=== PATIENT | male | born 1975 | race African-American/Black ===

== ENCOUNTER 2016-12-20 20:51 | Inpatient (IN) | payer SELFPAY ==
[~2016-12-20] VITALS: Ht 162.6 cm; Wt 41.0 kg
[~2016-12-20 20:51] MED LIST: CHLO25CA PO; IBUP600 PO; Z.0.NO CURRENT MEDS
--- NOTE | 2016-12-20 21:05 | PD ---
Physical Exam Date Seen by Provider: Dec 20, 2016 Time Seen by Provider: 21:03 Narrative 41 yo male here for evaluation of lower leg swelling. Supposed to be on lasix. has been out of his meds. history of CHF. Per patient he doesn't know if he really has it and was as second opinion. SOB. No chest pain. Vitals stable in triage. Awaiting bed placement. [facility] Medical Record Reviewed: Yes Supervised Visit with BRIANNE: Philip Keita Dec 20, 2016 21:05
[2016-12-20 21:07] VITALS: BP 140/98; PULSE 132; RESP 18; TEMP 100.8; O2SAT 99
[2016-12-20] MEDS ORDERED: TRAM50TA PO (21:18)
[2016-12-20] MEDS ORDERED: CEPH500C PO (21:18)
--- NOTE | 2016-12-20 21:39 | RADRPT ---
EXAM DATE/TIME: 12/20/2016 21:23 [facility] COMPARISON: No previous studies available for comparison. INDICATIONS : Cough MEDICAL HISTORY : None. SURGICAL HISTORY : None. ENCOUNTER: Initial ACUITY: 1 day PAIN SCORE: 0/10 LOCATION: chest FINDINGS: Portable AP view of the chest demonstrates a normal-sized cardiac silhouette. No effusion, consolidat ion, or pneumothorax is visualized. The bones and soft tissues demonstrate no acute abnormality. CONCLUSION: No acute cardiopulmonary abnormality is identified. Roger Amato MD on December 20, 2016 at 21:37 Board Certified Radiologist. This report was verified electronically.
[2016-12-20 21:46] LABS: AUTOMATED NEUTROPHIL # 6.3 TH/MM3 (1.8-7.7); BASOPHIL % 0.3 % (0.0-2.0); EOSINOPHIL % 0.1 % (0.0-4.0); HEMATOCRIT 34.1 % (39.0-51.0); HEMO FLAGS DIFF FINAL; LYMPH % 11.2 % (9.0-44.0); LYMPHOCYTE # 0.9 TH/MM3 (1.0-4.8); MEAN CELL VOLUME 89.6 FL (80.0-100.0); MEAN CORPUSCULAR HEMOGLOBIN 30.1 PG (27.0-34.0); MEAN CORPUSCULAR HGB CONC 33.6 % (32.0-36.0); MONO % 11.4 % (0.0-8.0); PLATELET COUNT 217 TH/MM3 (150-450); RED BLOOD COUNT 3.81 MIL/MM3 (4.50-5.90); RED CELL DISTRIBUTION WIDTH 14.3 % (11.6-17.2); WHITE BLOOD COUNT 8.2 TH/MM3 (4.0-11.0)
[2016-12-20 21:55] LABS: APTT (PATIENT) 31.5 SEC (24.3-30.1); INTERNATIONAL NORMALIZED RATIO 0.9 RATIO
[2016-12-20] MEDS ORDERED: ACETAMINOPHEN 325 MG TAB PO ONE (22:00)
[2016-12-20] MEDS ORDERED: SODIUM CHLORID 0.9% 500 ML INJ 500 ML IV ONE (22:00)
[2016-12-20] MEDS ORDERED: ONDANSETRON HCL 4 MG/2 ML VIAL IV PUSH ONE (22:00)
[2016-12-20 22:02] LABS: ANION GAP 8 MEQ/L (5-15); AST (GOT) 43 U/L (15-37); BICARBONATE 28.7 MEQ/L (21.0-32.0); BLOOD UREA NITROGEN 11 MG/DL (7-18); CHLORIDE 93 MEQ/L (98-107); GLOMERULAR FILTRATION RATE 67 ML/MIN (>89); MAGNESIUM 1.6 MG/DL (1.5-2.5); POTASSIUM 3.7 MEQ/L (3.5-5.1); SODIUM (NA) 130 MEQ/L (136-145)
--- NOTE | 2016-12-20 22:03 | PD ---
HPI Chief Complaint: Edema Time Seen by Provider: 21:19 Travel History International Travel<30 days: No Contact w/Intl Traveler<30days: No Traveled to known affect area: No History of Present Illness HPI The patient is a 41 year old male who presents to the [facility] emergency department with a history of right foot pain and swelling that he reports began on Tuesday. The patient reports that he went to the emergency department at [facility] emergency room on Tuesday. The patient was diagnosed with an infection of the foot and was started on Keflex 500 mg 3 times a day and tramadol for pain. He reports that after taking the tramadol he's had nausea and vomiting twice. He reports that over the last week he's had 2-3 episodes in total of loose stool. He denies having any blood in his stool or black or tarry stools. He reports that he does have a history of gout in the remote past. The patient was concerned that his foot swelling may be related to congestive heart failure as 3-4 years ago he was admitted to the hospital related to shortness of breath and lower extremity edema diagnosed as congestive heart failure. He denies having a primary care physician. He is not currently taking any medications for congestive heart failure or hypertension. On review of systems, the patient was not aware that he had any fever, however he is febrile on arrival and tachycardic. He denies having any recent cough, congestion, neck pain, chest pain, abdominal pain, urinary symptoms, or neurologic symptoms. The patient reports that he normally drinks 6 beers per day. He reports that he did not drink any beer today as he has not been up and about. He denies any history of withdrawal symptoms in the past. The patient is noted to be tremulous on examination, however he reports that this is normal for him even when he does drink beer. The patient denies any trauma to his right foot. He reports that he did have an x-ray done yesterday that showed no evidence of fracture. He denies having an ultrasound to rule out a blood clot. [facility] Past Medical History Narrative Medical The patient's past medical history is significant for hypertension, history of congestive heart failure originally diagnosed 3-4 years ago. The patient reports that he saw his plateman Dr. Mccloud 3 months ago and was referred to another plateman to have a pacemaker placed. The patient reports that he would like a second opinion from another plateman before he has his pacemaker put in. He reports that he has had a cardiac catheterization that showed no evidence of coronary artery blockages. The patient reports having a history of gout. 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) Tetanus Vaccination: > 5 Years Influenza Vaccination: No Past Surgical History Oral Surgery: Yes (TOOTH REMOVAL WITH SUTURES) Other Surgery: Yes Social History Alcohol Use: Yes (SOCIALLY) Tobacco Use: No Substance Use: No Allergies-Medications (Allergen,Severity, Reaction): Coded Allergies: No Known Allergies (Verified , 12/20/16) Reported Meds & Prescriptions Reported Meds & Active Scripts Active Reported Tramadol (Tramadol HCl) 50 Mg Tab 50 Mg PO Q4H PRN Cephalexin 500 Mg Cap 500 Mg PO TID Review of Systems Except as stated in HPI: all other systems reviewed are Neg General / Constitutional: Positive: Fever Eyes: No: Visual changes HENT: No: Headaches, Congestion Cardiovascular: No: Chest Pain or Discomfort Respiratory: No: Cough, Shortness of Breath Gastrointestinal: Positive: Nausea, Vomiting, No: Abdominal Pain Genitourinary: No: Dysuria Musculoskeletal: Positive: Myalgias, Edema, Pain Skin: No Rash Neurologic: Positive: Tremor, No: Weakness, Focal Abnormalities, Headache, Change in Mentation, Slurred Speech, Sensory Disturbance Psychiatric: No: Depression Endocrine: No: Polydipsia Hematologic/Lymphatic: No: Easy Bruising Physical Exam Narrative General: The patient is a well-developed, thin appearing male in no acute distress. Head and Neck exam: Head is normocephalic atraumatic. Eyes: EOMI, pupils are equal round and reactive to light. Nose: Midline septum with pink mucous membranes Mouth: Dentition unremarkable. Moist mucus membranes. Posterior oropharynx is not erythematous. No tonsillar hypertrophy. Uvula midline. Airway patent. Neck: No palpable lymphadenopathy. No nuchal rigidity. No thyromegaly. Cardiovascular: Sinus tachycardia in the 120s without murmurs, gallops, or rubs. No pulse deficit to the extremities and simultaneous auscultation and palpation of his radial artery. Lungs: Clear to auscultation bilaterally. No wheezes, rhonchi, or rales. Abdomen: Soft, without tenderness to palpation in all 4 quadrants of the abdomen. No guarding, rebound, or rigidity. Normal bowel sounds are audible. No tenderness on palpation of McBurney's point. Extremities: No clubbing or cyanosis. The patient has 1+ edema of the right foot, trace of the left foot. The patient's right foot along the dorsal aspect and most prominent along the lateral aspect of the foot has erythema and tenderness on palpation. 2+ pulses in all 4 extremities. The patient has less than 3 second capillary refill, intact sensation over all digits. The patient has dry skin on the bottom of the right foot. No other open wounds. Back: No costovertebral angle tenderness to palpation. Neurologic Exam: Grossly nonfocal. Skin Exam: No rash noted. Intact skin that is warm and dry except for that which was mentioned above in the right foot exam. Data Data Last Documented VS Vital Signs Date Time Temp Pulse Resp B/P (MAP) Pulse Ox O2 Delivery O2 Flow Rate FiO2 12/20/16 21:07 100.8 132 18 140/98 (112) 99 Room Air Orders Orders Electrocardiogram (12/20/16 21:21) Complete Blood Count With Diff (12/20/16 21:21) Comprehensive Metabolic Panel (12/20/16 21:21) Creatine Kinase (Cpk) (12/20/16 21:21) Ckmb (Isoenzyme) Profile (12/20/16 21:21) Troponin I (12/20/16 21:21) B-Type Natriuretic Peptide (12/20/16 21:21) Lipase (12/20/16 21:21) Urinalysis - C+S If Indicated (12/20/16 21:21) Magnesium (Mg) (12/20/16 21:21) Thyroid Stimulating Hormone (12/20/16 21:21) Chest, Single Ap (12/20/16 21:21) Iv Access Insert/Monitor (12/20/16 21:21) Ecg Monitoring (12/20/16 21:21) Oximetry (12/20/16 21:21) Prothrombin Time / Inr (Pt) (12/20/16 21:22) Act Partial Throm Time (Ptt) (12/20/16 21:22) Blood Culture (12/20/16 21:45) Lactic Acid Sepsis Protocol (12/20/16 21:45) Us Leg Venous Doppler (12/20/16 21:48) Sodium Chlorid 0.9% 500 Ml Inj (Ns 500 M (12/20/16 22:00) Acetaminophen (Tylenol) (12/20/16 22:00) Ondansetron Inj (Zofran Inj) (12/20/16 22:00) CKMB (12/20/16 21:25) CKMB% (12/20/16 21:25) Piperacil-Tazo 3.375 Gm Premix (Zosyn 3. (12/20/16 23:15) Vancomycin Inj (Vancomycin Inj) (12/20/16 23:15) Admit Order (Ed Use Only) (12/20/16 23:36) Labs Laboratory Tests Test 12/20/16 21:25 12/20/16 21:58 White Blood Count 8.2 TH/MM3 Red Blood Count 3.81 MIL/MM3 Hemoglobin 11.5 GM/DL Hematocrit 34.1 % Mean Corpuscular Volume 89.6 FL Mean Corpuscular Hemoglobin 30.1 PG Mean Corpuscular Hemoglobin Concent 33.6 % Red Cell Distribution Width 14.3 % Platelet Count 217 TH/MM3 Mean Platelet Volume 8.9 FL Neutrophils (%) (Auto) 77.0 % Lymphocytes (%) (Auto) 11.2 % Monocytes (%) (Auto) 11.4 % Eosinophils (%) (Auto) 0.1 % Basophils (%) (Auto) 0.3 % Neutrophils # (Auto) 6.3 TH/MM3 Lymphocytes # (Auto) 0.9 TH/MM3 Monocytes # (Auto) 0.9 TH/MM3 Eosinophils # (Auto) 0.0 TH/MM3 Basophils # (Auto) 0.0 TH/MM3 CBC Comment DIFF FINAL Differential Comment Prothrombin Time 10.0 SEC Prothromb Time International Ratio 0.9 RATIO Activated Partial Thromboplast Time 31.5 SEC Blood Urea Nitrogen 11 MG/DL Creatinine 1.41 MG/DL Random Glucose 113 MG/DL Total Protein 7.5 GM/DL Albumin 2.1 GM/DL Calcium Level 8.5 MG/DL Magnesium Level 1.6 MG/DL Alkaline Phosphatase 132 U/L Aspartate Amino Transf (AST/SGOT) 43 U/L Alanine Aminotransferase (ALT/SGPT) 24 U/L Total Bilirubin 0.6 MG/DL Sodium Level 130 MEQ/L Potassium Level 3.7 MEQ/L Chloride Level 93 MEQ/L Carbon Dioxide Level 28.7 MEQ/L Anion Gap 8 MEQ/L Estimat Glomerular Filtration Rate 67 ML/MIN Total Creatine Kinase 333 U/L Creatine Kinase MB 2.8 NG/ML Creatine Kinase MB % 0.8 % Troponin I 0.03 NG/ML B-Type Natriuretic Peptide 445 PG/ML Lipase 185 U/L Free Thyroxine 0.84 NG/DL Thyroid Stimulating Hormone 3rd Gen 3.990 uIU/ML Lactic Acid Level 2.3 mmol/L [facility] Medical Decision Making Medical Screen Exam Complete: Yes Emergency Medical Condition: Yes Medical Record Reviewed: Yes Interpretation(s) Last Impressions Lower Extremity Ultrasound 12/20/162147 Signed Impressions: Service Date/Time: Tuesday, December 20, 2016 22:15 - CONCLUSION: No DVT is identified within the right lower extremity. Roger Amato MD Chest X-Ray 12/20/162120 Signed Impressions: Service Date/Time: Tuesday, December 20, 2016 21:23 - CONCLUSION: No acute cardiopulmonary abnormality is identified. Roger Amato MD Differential Diagnosis DVT, versus gout, versus cellulitis Narrative Course During the course of the patients emergency department visit, the patients history, examination, and differential diagnosis were reviewed with the patient. The patient had IV access obtained and blood work sent for analysis. The patient was placed on a quality assurance monitor with oximetry and blood pressure monitoring. An ECG was done on arrival. The patient's ECG shows a sinus tachycardia rate of 131, incomplete right bundle branch block, no acute ST segment elevation, ventricular hypertrophy criteria by voltage is met. The tachycardia may be related to the patient's elevated temperature of 100.8. A workup ensued for possible sepsis, however the patient was only judiciously hydrated due to his history of congestive heart failure. The patient was initially provided acetaminophen 650 by mouth 1, Zofran 4 mg IV , vancomycin 1 g IV, Zosyn 3.375 g IV. The patients laboratory studies were reviewed and remarkable for a white count of 8.2, hemoglobin 11.5, platelets 217 with 77 neutrophils, monocytes 11.4, PT 10, PTT 31.5, CMP is remarkable for sodium of 1:30, chloride 93, creatinine 1.41 , glucose 113, AST 43, alkaline phosphatase 132, CPK 333, MB percent 0.8, troponin I 0.03, BNP is elevated at 445, albumin 2.1, lipase 185, TSH 3.99, initial lactic acid is 2.3 Radiology studies were reviewed and remarkable for an ultrasound of the right lower extremity that shows no evidence of DVT. A chest x-ray that shows no acute cardiopulmonary abnormality. The patients results were discussed with the patient, including the plan of care. I explained that further testing and/ or monitoring is indicated based on the patients history, examination, and/ or laboratory findings. Therefore, I recommended admission for additional evaluation. The patient expressed understanding and was agreeable with this plan. The patient was admitted to the hospital in stable condition and sent to a [facility]. Sepsis Criteria SIRS Criteria (2 or more): Heart rate over 90 Sepsis Criteria (SIRS+source): Infect source susp/known Physician Communication Physician Communication The patient's case was discussed with Dr. Lindo who did agree to admit the patient for further evaluation and treatment at this time. Diagnosis Primary Impression: Cellulitis of right lower extremity Additional Impression: Failure of outpatient treatment Admitting Information Admitting Physician Requests: Admit Velma Wong MD Dec 20, 2016 22:03
[2016-12-20 22:14] LABS: ALKALINE PHOSPHATASE 132 U/L (45-117); ALT (GPT) 24 U/L (12-78); CREATINE KINASE 333 U/L (39-308); TOTAL BILIRUBIN ADULT 0.6 MG/DL (0.2-1.0)
[2016-12-20 22:26] LABS: CKMB 2.8 NG/ML (0.5-3.6)
--- NOTE | 2016-12-20 22:45 | RADRPT ---
EXAM DATE/TIME: 12/20/2016 22:15 [facility] COMPARISON: No previous studies available for comparison. INDICATIONS : Right leg swelling. MEDICAL HISTORY : Seizures. Congestive heart failure. Hearing loss. Depression. Anxiety. Dizziness. ETOH abuse. SURGICAL HISTORY : None. ENCOUNTER: Initial ACUITY: 1 week PAIN SCORE: 5/10 LOCATION: Right leg. TECHNIQUE: Venous ultrasound of the leg was performed from the inguinal ligament to the proximal calf. Real-margaret e, color Doppler and spectral tracing, compression and augmentation techniques were used. FINDINGS: There is normal compressibility of the deep venous system from the inguinal region to the proximal ca lf. No echogenic clot is seen in the lumen of the common femoral, femoral, popliteal, and posterior tibial veins. There is a normal response of the venous system to proximal and distal augmentation an d respiration. CONCLUSION: No DVT is identified within the right lower extremity. Roger Amato MD on December 20, 2016 at 22:43 Board Certified Radiologist. This report was verified electronically.
[2016-12-20] MEDS ORDERED: PIPERACIL-TAZO 3.375 GM PREMIX 50 ML IV ONE (23:15)
[2016-12-20] MEDS ORDERED: VANCOMYCIN INJ 1,000 MG in SODIUM CHLOR 0.9% 250 ML INJ 250 ML IV ONE (23:15)
[2016-12-21] VITALS (7 sets, daily range): BP systolic 133–149; BP diastolic 80–104; PULSE 103–136; RESP 14–18; TEMP 98.1–102.8; O2SAT 96–99
[2016-12-21 00:08] LABS: LACTIC ACID GHOST NOT REPORTABLE
[2016-12-21] MEDS ORDERED: ACETAMINOPHEN/HYDROcodone 325 MG/7.5 MG TAB PO PRN (01:15)
[2016-12-21] MEDS ORDERED: SODIUM CHLORIDE 0.9% FLUSH 10 ML FLUSH IV FLUSH PRN (01:15)
[2016-12-21] MEDS ORDERED: ACETAMINOPHEN/HYDROcodone 325 MG/5 MG TAB PO PRN (01:15)
[2016-12-21] MEDS ORDERED: Vancomycin Consult Pharmacy 1 EA OTHER SCH (01:15)
[2016-12-21] MEDS ORDERED: VANCOMYCIN INJ 1,000 MG in SODIUM CHLOR 0.9% 250 ML INJ 250 ML IV SCH (02:15)
[2016-12-21] MEDS: ENOXAPARIN SODIUM 30 MG/0.3 ML SYRINGE SQ SCH (03:26)
[2016-12-21] MEDS: SODIUM CHLORIDE 0.9% FLUSH 10 ML FLUSH IV FLUSH SCH ×2 (08:01→21:16)
--- NOTE | 2016-12-21 10:15 | HHI.HP ---
[facility] No Primary Care Physician Admission Diagnosis Right foot cellulitis, failed outpatient management Diagnoses: (1) Hypertension (2) Cellulitis of foot, right Chief Complaint: Right foot pain and swelling. Travel History International Travel<30 Days: No Contact w/Intl Traveler <30 Da: No Traveled to Known Affected Are: No Sepsis Criteria SIRS Criteria (2 or more): Temp > 100.9 or < 96.8, Heart rate over 90 Severe Sepsis (+one): Lactate >2 History of Present Illness Written by Lois Cartwright, acting as scribe for Dr. Connor on 12/21/16 at 10: 10. Mr. Lui is a 41-year old male with a known medical history of hypertension who presented to the ED with complaints of right foot pain and swelling. Patient states that he noticed swelling and pain in his right foot starting on Tuesday and presented to [facility] ED who prescribed him Keflex and tramadol for the pain. He does state he has had some abdominal discomfort and vomiting with antibiotic use. Denies any recent fevers at home, chills, cough, headache, dizziness, lightheadedness, shortness of breath, chest pain, palpitations, abdominal pain, nausea, vomiting, diarrhea or dysuria. Patient states that the swelling had begin to improve since Tuesday with antibiotic use but now he states it is starting to swelling again. Patient states he had a previous surgery on his right foot in the past but not sure what kind of surgery was done. Patient follows with Dr. Ame villa, for a questionable medical history of congestive heart failure and need for a pacemaker. He is a relatively poor historian regarding his medical history and history of treatment. At the moment patient heart rate is in the 140's-150's, sinus tachycardic, patient asymptomatic stating "his heart does this sometimes". Admits to following with Dr. Archibald in the outpatient setting but unaware of why , states he just knows "he isn't positive". Pain well controlled at this time. Admits to a positive gout history, not currently taking anything for it. Review of Systems Constitutional: COMPLAINS OF: Fever, Chills Eyes: DENIES: Blurred vision, Vision loss Respiratory: DENIES: Cough, Shortness of breath Cardiovascular: DENIES: Chest pain, Palpitations Gastrointestinal: DENIES: Black stools, Bloody stools, Constipation, Diarrhea, Nausea, Vomiting Musculoskeletal: DENIES: Joint pain Psychiatric: DENIES: Anxiety Except as stated in HPI: all other systems reviewed are Neg Past Family Social History Past Medical History Hypertension Questionable congestive heart failure. Past Surgical History Tooth extraction Right foot operation, unaware of type. Reported Medications Active Reported Tramadol (Tramadol HCl) 50 Mg Tab 50 Mg PO Q4H PRN Cephalexin 500 Mg Cap 500 Mg PO TID Allergies: Coded Allergies: No Known Allergies (Verified , 12/20/16) Active Ordered Medications Current Medications Medications (Trade) Dose Ordered Sig/Aliya Route Start Time Stop Time Status Last Admin (NS Flush) 2 ml BID IV FLUSH 12/21/16 09:00 12/21/16 08:01 (NS Flush) 2 ml UNSCH PRN IV FLUSH 12/21/16 01:15 Pharmacy Profile Note 0 ml @ 0 mls/hr UNSCH OTHER 12/21/16 01:15 ([place] 5-325 Mg) 1 tab Q4H PRN PO 12/21/16 01:15 ([place] 7.5-325 Mg) 1 tab Q4H PRN PO 12/21/16 01:15 (Lovenox Inj) 30 mg Q24H SQ 12/21/16 02:00 12/21/16 03:26 Vancomycin HCl 750 mg/Sodium Chloride 257.5 ml @ 250 mls/hr Q18H IV 12/21/16 18:00 Miscellaneous Information SPECIFIC LAB TO BE DRAWN:VANCOMYCIN TROUGH DATE TO... ONCE ONCE .XX 12/23/16 05:45 12/23/16 05:46 Family History Denies any significant family medical history. Social History Patient denies any current tobacco use. Does admit to drinking a 6 pack of beer a week. Denies any illicit drug use. Physical Exam Vital Signs Vital Signs Date Time Temp Pulse Resp B/P (MAP) Pulse Ox O2 Delivery O2 Flow Rate FiO2 12/21/16 08:12 99.0 111 17 135/88 (104) 98 12/21/16 04:00 100.0 103 16 141/85 (103) 96 12/21/16 02:38 12/21/16 02:00 102.3 110 14 133/80 (97) 99 Room Air 12/20/16 21:07 100.8 132 18 140/98 (112) 99 Room Air Physical Exam GENERAL: This is a well-developed, thin appearing male patient, lying in bed in no apparent distress. SKIN: No rashes, ecchymoses or lesions. Warm and dry. Right foot swelling and erythema, 1+ edema. HEENT: Atraumatic. Normocephalic. Pupils equal round and reactive. Extraocular motions intact. No scleral icterus. No injection or drainage. Nose without bleeding. Throat without erythema. Uvula midline. Airway patent. NECK: Trachea midline. No JVD. Supple. CARDIOVASCULAR: Sinus tachycardic. No murmurs, gallops, or rubs. RESPIRATORY: Clear to auscultation. Breath sounds equal bilaterally. No wheezes , rales, or rhonchi. GASTROINTESTINAL: Abdomen soft, non-tender, nondistended. No guarding. MUSCULOSKELETAL: Extremities without clubbing, cyanosis, or edema. No joint tenderness, effusion, or edema noted. NEUROLOGICAL: Awake and alert. Cranial nerves II through XII intact. Motor and sensory grossly within normal limits. Five out of 5 muscle strength in all muscle groups. Normal speech. Laboratory Laboratory Tests Test 12/20/16 21:25 12/20/16 21:58 12/21/16 01:10 White Blood Count 8.2 Red Blood Count 3.81 Hemoglobin 11.5 Hematocrit 34.1 Mean Corpuscular Volume 89.6 Mean Corpuscular Hemoglobin 30.1 Mean Corpuscular Hemoglobin Concent 33.6 Red Cell Distribution Width 14.3 Platelet Count 217 Mean Platelet Volume 8.9 Neutrophils (%) (Auto) 77.0 Lymphocytes (%) (Auto) 11.2 Monocytes (%) (Auto) 11.4 Eosinophils (%) (Auto) 0.1 Basophils (%) (Auto) 0.3 Neutrophils # (Auto) 6.3 Lymphocytes # (Auto) 0.9 Monocytes # (Auto) 0.9 Eosinophils # (Auto) 0.0 Basophils # (Auto) 0.0 CBC Comment DIFF FINAL Differential Comment Prothrombin Time 10.0 Prothromb Time International Ratio 0.9 Activated Partial Thromboplast Time 31.5 Blood Urea Nitrogen 11 Creatinine 1.41 Random Glucose 113 Total Protein 7.5 Albumin 2.1 Calcium Level 8.5 Magnesium Level 1.6 Alkaline Phosphatase 132 Aspartate Amino Transf (AST/SGOT) 43 Alanine Aminotransferase (ALT/SGPT) 24 Total Bilirubin 0.6 Sodium Level 130 Potassium Level 3.7 Chloride Level 93 Carbon Dioxide Level 28.7 Anion Gap 8 Estimat Glomerular Filtration Rate 67 Total Creatine Kinase 333 Creatine Kinase MB 2.8 Creatine Kinase MB % 0.8 Troponin I 0.03 B-Type Natriuretic Peptide 445 Lipase 185 Free Thyroxine 0.84 Thyroid Stimulating Hormone 3rd Gen 3.990 Lactic Acid Level 2.3 1.8 Date/Time Source Procedure Growth Status 12/20/16 21:58 Blood Peripheral Aerobic Blood Culture Pending Received 12/20/16 21:58 Blood Peripheral Anaerobic Blood Culture Pending Received Result Diagram: 12/20/16212412/20/162124 Imaging Last Impressions Lower Extremity Ultrasound 12/20/162147 Signed Impressions: Service Date/Time: Tuesday, December 20, 2016 22:15 - CONCLUSION: No DVT is identified within the right lower extremity. Roger Amato MD Chest X-Ray 12/20/162120 Signed Impressions: Service Date/Time: Tuesday, December 20, 2016 21:23 - CONCLUSION: No acute cardiopulmonary abnormality is identified. Roger Amato MD Septic Shock Reassessment Heart: Other (tachycardic) Lungs: Clear Skin: Warm Peripheral Pulses: Bounding Right Radial Bounding Left Radial Capillary Refill: Brisk, <2 seconds Caprini VTE Risk Assessment Caprini VTE Risk Assessment: No/Low Risk (score <= 1) Caprini Risk Assessment Model Point Value = 1 Point Value = 2 Point Value = 3 Point Value = 5 Age 41-60 Minor surgery BMI > 25 kg/m2 Swollen legs Varicose veins or History of unexplained or recurrent spontaneous Oral contraceptives or hormone replacement Sepsis (< 1 month) Serious lung disease, including pneumonia (< 1 month) Abnormal pulmonary function Acute myocardial infarction Congestive heart failure (< 1 month) History of inflammatory bowel disease Medical patient at bed rest Age 61-74 Arthroscopic surgery Major open surgery (> 45 min) Laparoscopic surgery (> 45 min) Malignancy Confined to bed (> 72 hours) Immobilizing plaster cast Central venous access Age >= 75 History of VTE Family history of VTE Factor V Leiden Prothrombin 24161A Lupus anticoagulant Anticardiolipin antibodies Elevated serum homocysteine Heparin-induced thrombocytopenia Other congenital or acquired thrombophilia Stroke (< 1 month) Elective arthroplasty Hip, pelvis, or leg fracture Acute spinal cord injury (< 1 month) Prophylaxis Regimen Total Risk Factor Score Risk Level Prophylaxis Regimen 0-1 Low Early ambulation 2 Moderate Order ONE of the following: *Sequential Compression Device (SCD) *Heparin 5000 units SQ BID 3-4 Higher Order ONE of the following medications: *Heparin 5000 units SQ TID *Enoxaparin/Lovenox 40 mg SQ daily (WT < 150 kg, CrCl > 30 mL/min) *Enoxaparin/Lovenox 30 mg SQ daily (WT < 150 kg, CrCl > 10-29 mL/min) *Enoxaparin/Lovenox 30 mg SQ BID (WT < 150 kg, CrCl > 30 mL/min) AND/OR *Sequential Compression Device (SCD) 5 or more Highest Order ONE of the following medications: *Heparin 5000 units SQ TID (Preferred with Epidurals) *Enoxaparin/Lovenox 40 mg SQ daily (WT < 150 kg, CrCl > 30 mL/min) *Enoxaparin/Lovenox 30 mg SQ daily (WT < 150 kg, CrCl > 10-29 mL/min) *Enoxaparin/Lovenox 30 mg SQ BID (WT < 150 kg, CrCl > 30 mL/min) AND *Sequential Compression Device (SCD) Assessment and Plan Assessment and Plan Mr. Lui is a 41-year old male with a known medical history of hypertension who presented to the ED with complaints of right foot pain and swelling. Patient states that he noticed swelling and pain in his right foot starting on Tuesday and presented to [facility] ED who prescribed him Keflex and tramadol for the pain. Sepsis secondary to right foot swelling and erythema and pain, rule out cellulitis (tachycardia 130's-150's, TMAX 102, Lactic 2.3). - Lower extremity ultrasound reviewed showing no DVT. CXR reviewed showing no acute disease. - Lactic acid 2.3 --> 1.8. - Afebrile. Monitor fevers. Blood cultures done and pending, follow. - Vanco 1 g x 1 given in ED. Zosyn IV x 1 given in ED. Placed on Vancomycin 750 mg IV q18 hr. Pharmacy consulted for renal dosing. - Control pain, [place] PO available PRN per pain scale. Sustained sinus tachycardia Questionable CHF history - EKG reviewed showing sinus tachycardia, no ST segment changes. - Consult placed to cardiology, appreciate recommendations. Patient has a questionable history of CHF and unaware if Dr. Mccloud recommended pacemaker for him , patient poor historian regarding medical history. - BNP obtained, 445 on presentation. 2-D ECHO ordered and pending. Follow. - Continue cardiac telemetry, monitor. SARTHAK vs CKD?: Previous labs reviewed, creatinine 1.4 in 2010, currently 1.41. Will follow BMP. Follow ECHO results regarding possible CHF history. DVT Prophylaxis: SCDs. Lovenox. This note was transcribed by deonte Cartwright. I, Dr. Monster Connor personally performed the history, physical exam, and medical decision making; and confirmed the accuracy of the information in the transcribed note. Authenticated by Dr. Monster Connor on 12/21/16 at 11:36. Physician Certification 2 Midnight Certification Type: Admission for Inpatient Services Order for Inpatient Services The services are ordered in accordance with Medicare regulations or non- Medicare payer requirements, as applicable. In the case of services not specified as inpatient-only, they are appropriately provided as inpatient services in accordance with the 2-midnight benchmark. Estimated LOS (days): 2 2 days is the estimated time the patient will need to remain in the hospital, assuming treatment plan goals are met and no additional complications. Post-Hospital Plan: Home Lois Cartwright Dec 21, 2016 10:15 Monster Connor MD Dec 21, 2016 11:37
--- NOTE | 2016-12-21 13:02 | EKG ---
Date Performed: 12/20/2016 Time Performed: 21:37:56 PTAGE: 41 years EKG: SINUS TACHYCARDIA Right atrial abnormality Left ventricular hypertrophy with repolarization changes PREVIOUS TRACING 02/08/2011 Repolarization changes are different appearing from the prio r tracing. Right atrial abnormality is new. DOCTOR: Reji Wong Interpretating Date/Time 12/21/2016 13:51:34
[2016-12-21 16:17] LABS: BLOOD, URINE MOD (NEG); COMMENT (UR) CULT NOT INDICATED; CULTURE IF INDICATED CULT NOT INDICATED; GLUCOSE,URINE NEG (NEG); KETONE, URINE NEG (NEG); NITRITE,URINE NEG (NEG); PH, URINE 6.5 (5.0-8.5); URINE COLOR YELLOW (YELLW/STRAW)
--- NOTE | 2016-12-21 17:02 | MB ---
cc: DANNY BREWSTER DATE OF CONSULTATION 12/21/16 REASON FOR CONSULTATION Tachycardia HISTORY OF PRESENT ILLNESS This is a 41-year-old gentleman with history of hypertension who presented with right foot pain and swelling. The patient states he has no prior history of known heart disease, arrhythmias or chest pain. He presented back on Tuesday to [facility] emergency department. While there, he was treated for right foot cellulitis with Keflex and pain meds. The patient follows with Dr. Mccloud as an outpatient. He has an apparent history of maybe some congestive heart failure and states that on occasions heart rates have been fast, but he has never been told he has had an arrhythmia. His court monitor showed heart rates anywhere from 110 up to 150 beats per minute and is read as sinus tachycardia. Denies any chest pain. PAST MEDICAL HISTORY Hypertension MEDICATIONS 1. Tramadol 2. Cephalexin ALLERGIES NO KNOWN DRUG ALLERGIES. FAMILY HISTORY Denies any family history of early cardiac disease or sudden cardiac . SOCIAL HISTORY He does report drinks a six-pack of beer a week and denies tobacco use. PHYSICAL EXAMINATION VITAL SIGNS: Temperature 98, heart rate 108, blood pressure 142/87 mmHg. GENERAL: Alert and oriented x3 in no acute distress. HEENT: Pupils reactive to light and accommodation, extraocular movements are intact. No jugular venous distension. No thyromegaly or lymphadenopathy. No carotid bruits. LUNGS: Clear to auscultation bilaterally. CARDIOVASCULAR: Regular, tachycardic. No rubs or gallops. ABDOMEN: Nontender, nondistended. Good bowel sounds. No hepatosplenomegaly. EXTREMITIES: No clubbing, cyanosis or edema. Good peripheral pulses. NEUROLOGIC: Cranial nerves intact. Motor sensory grossly intact. LABORATORY DATA Sodium 138, potassium 3.7, chloride 93, BUN 11, creatinine is 1.41, troponin is negative. TSH 3.99, but free T4 0.84, INR 0.9. WBC 8.2, hemoglobin 11.5, platelet count 217. CARDIOLOGY STUDIES Electrocardiogram shows sinus tachycardia versus atrial flutter with 2:1 block. With faster rates there is a slight change in the repolarization in the lateral leads. There is also evidence of LVH with strain pattern. ASSESSMENT 1. Tachycardia. 2. Abnormal electrocardiogram. PLAN The patient is comfortable just lying in bed. He denies any syncopal symptoms, any lightheadedness. It is hard to appreciate any flutter in the background, but his heart rate is likely not sinus mechanism due to an appropriate rate. Could be is atrial tach, although I think that there may be T wave buried in the ST-segment. It does not look like he has active sepsis or no symptoms of shortness of breath or chest pain that suggest pulmonary embolism. I will add beta papito to see if we can slow him down and appreciate whether there is or is not flutter wave. He has a 2-D echocardiogram ordered. He reports drinking only six beers a week, so I do not think this is cardiomyopathy induced. His labs would actually suggest that he is slightly prerenal, so we are going to go ahead and give him some IV hydration. MD GARRY Barnard/ /4:26 PM /4:41 PM
[2016-12-21] MEDS: SODIUM CHLOR 0.9% 1000 ML INJ 1,000 ML IV SCH (17:07)
[2016-12-21] MEDS ORDERED: VANCOMYCIN INJ 750 MG in SODIUM CHLOR 0.9% 250 ML INJ 250 ML IV SCH (18:00)
[2016-12-21] MEDS: METOPROLOL TARTRATE 50 MG TAB PO SCH (21:16)
[2016-12-22] VITALS (7 sets, daily range): BP systolic 110–150; BP diastolic 60–98; PULSE 90–139; RESP 16–20; TEMP 98.1–100.1; O2SAT 97–100
[2016-12-22] MEDS: SODIUM CHLOR 0.9% 1000 ML INJ 1,000 ML IV SCH ×2 (01:43→12:05)
[2016-12-22] MEDS: ENOXAPARIN SODIUM 30 MG/0.3 ML SYRINGE SQ SCH (01:43)
[2016-12-22] MEDS ORDERED: HALOPERIDOL LACTATE 5 MG/ML AMP IV PUSH ONE (04:15)
[2016-12-22] MEDS ORDERED: LORazepam 2 MG/ML VIAL IV PUSH ONE (04:15)
[2016-12-22] MEDS: SODIUM CHLORIDE 0.9% FLUSH 10 ML FLUSH IV FLUSH SCH ×2 (07:26→22:00)
--- NOTE | 2016-12-22 07:52 | PD.CARD.PN ---
Subjective Subjective Remarks no complaints Objective Medications Active Medications Aspirin (Aspirin) 325 mg DAILY PO; Start 12/22/16 at 09:00 Haloperidol Lactate (Haldol Inj) 2 mg ONCE ONCE IV PUSH Last administered on 04:27; Admin Dose 2 MG; Start 12/22/16 at 04:15; Stop 12/22/16 at 04:16 ; Status DC Lorazepam (Ativan Inj) 1 mg Q2H PRN IV PUSH; Start 12/22/16 at 04:15 Lorazepam (Ativan Inj) 2 mg ONCE ONCE IV PUSH Last administered on 12/22/16 04 :27; Admin Dose 2 MG; Start 12/22/16 at 04:15; Stop 12/22/16 at 04:16; Status DC Metoprolol Tartrate (Lopressor) 50 mg Q12HR PO Last administered on 12/21/16 21 :16; Admin Dose 50 MG; Start 12/21/16 at 21:00 Miscellaneous Information SPECIFIC LAB TO BE DRAWN:VANCOMYCIN TROUGH DATE TO... ONCE ONCE .XX; Start 12/23/16 at 05:45; Stop 12/23/16 at 05:46 Sodium Chloride 1,000 ml @ 100 mls/hr Q10H IV Last administered on 12/21/16 17 :07; Admin Dose 100 MLS/HR; Start 12/21/16 at 17:00; Stop 12/22/16 at 16:59 Sodium Chloride (NS Flush) 2 ml BID IV FLUSH Last administered on 12/22/16 07: 26; Admin Dose 2 ML; Start 12/21/16 at 09:00 Vancomycin HCl 750 mg/Sodium Chloride 257.5 ml @ 250 mls/hr Q18H IV Last administered on 12/21/16 17:07; Admin Dose 250 MLS/HR; Start 12/21/16 at 18:00 Vital Signs / I&O Vital Signs Date Time Temp Pulse Resp B/P (MAP) Pulse Ox O2 Delivery O2 Flow Rate FiO2 12/22/16 04:00 98.5 105 18 134/84 (101) 97 12/22/16 00:00 100.1 107 18 150/98 (115) 99 12/21/16 20:27 98.1 136 18 149/104 (119) 98 12/21/16 20:00 117 12/21/16 16:25 99.1 121 18 146/88 (107) 99 12/21/16 12:09 98.8 108 17 142/87 (105) 98 12/21/16 08:12 99.0 111 17 135/88 (104) 98 I/O 12/21/16 12/21/16 12/21/16 12/22/16 12/22/16 12/22/16 07:00 15:00 23:00 07:00 15:00 23:00 Intake Total 1040 ml 600 ml Output Total 1200 ml Balance 1040 ml -600 ml Intake Oral 240 ml 600 ml IV Total 800 ml Output Urine Total 1200 ml # Voids 1 0 # Bowel Movements 1 Physical Exam GENERAL: SKIN: Warm and dry. HEAD: Normocephalic. EYES: No scleral icterus. No injection or drainage. NECK: Supple, trachea midline. No JVD or lymphadenopathy. CARDIOVASCULAR: Regular rate and rhythm without murmurs, gallops, or rubs. RESPIRATORY: Breath sounds equal bilaterally. No accessory muscle use. GASTROINTESTINAL: Abdomen soft, non-tender, nondistended. MUSCULOSKELETAL: No cyanosis, or edema. BACK: Nontender without obvious deformity. No CVA tenderness. Laboratory Laboratory Tests Test 12/21/16 14:10 Urine Color YELLOW Urine Turbidity CLEAR Urine pH 6.5 Urine Specific [place] 1.007 Urine Protein 100 mg/dL Urine Glucose (UA) NEG mg/dL Urine Ketones NEG mg/dL Urine Occult Blood MOD Urine Nitrite NEG Urine Bilirubin NEG Urine Urobilinogen 2.0 MG/DL Urine Leukocyte Esterase NEG Urine RBC LESS THAN 1 /hpf Urine WBC LESS THAN 1 /hpf Microscopic Urinalysis Comment CULT NOT INDICATED Urine Opiates Screen NEG Urine Barbiturates Screen NEG Urine Amphetamines Screen NEG Urine Benzodiazepines Screen NEG Urine Cocaine Screen NEG Urine Cannabinoids Screen NEG Imaging Last Impressions Lower Extremity Ultrasound 12/20/162147 Signed Impressions: Service Date/Time: Tuesday, December 20, 2016 22:15 - CONCLUSION: No DVT is identified within the right lower extremity. Roger Amato MD Chest X-Ray 12/20/162120 Signed Impressions: Service Date/Time: Tuesday, December 20, 2016 21:23 - CONCLUSION: No acute cardiopulmonary abnormality is identified. Roger Amato MD Assessment and Plan Assessment and Plan tachycardia - appears to be sinus tachycardia vs atrial tachycardia. HR slightly improved after one dose of BB yesterday. TSH normal. asymptomatic. echo pending despite lack of symptoms, may consider CTA PE protocol add low dose cardizem less likely atrial flutter 2:1, no flutter wave appreciated in the ST segment Rui,Merlin Lala MD Dec 22, 2016 07:52
[2016-12-22] MEDS ORDERED: DILTIAZEM HCL 30 MG TAB PO PRN (08:00)
[2016-12-22] MEDS: METOPROLOL TARTRATE 50 MG TAB PO SCH ×2 (08:09→22:00)
[2016-12-22] MEDS: ASPIRIN 325 MG TAB PO SCH (08:09)
[2016-12-22] MEDS: LORazepam 2 MG/ML VIAL IV PUSH PRN (08:16)
[2016-12-22 09:08] LABS: AUTOMATED NEUTROPHIL # 5.7 TH/MM3 (1.8-7.7); BASOPHIL % 0.3 % (0.0-2.0); HEMATOCRIT 34.5 % (39.0-51.0); HEMO FLAGS DIFF FINAL; LYMPH % 18.3 % (9.0-44.0); LYMPHOCYTE # 1.5 TH/MM3 (1.0-4.8); MEAN CELL VOLUME 92.5 FL (80.0-100.0); MEAN CORPUSCULAR HEMOGLOBIN 30.4 PG (27.0-34.0); MEAN CORPUSCULAR HGB CONC 32.8 % (32.0-36.0); MONO % 11.6 % (0.0-8.0); NEUT % 69.8 % (16.0-70.0); PLATELET COUNT 225 TH/MM3 (150-450); RED BLOOD COUNT 3.73 MIL/MM3 (4.50-5.90); RED CELL DISTRIBUTION WIDTH 14.7 % (11.6-17.2); WHITE BLOOD COUNT 8.1 TH/MM3 (4.0-11.0)
--- NOTE | 2016-12-22 09:16 | HHI.PR ---
Subjective Remarks Follow up right foot pain and swelling. Patient seen and examined by myself and Dr. Connor. Patient lying in bed sleeping, awakens to voice, confused to place, situation and year, states "he went out to the club last night with friends". Is currently restrained with bilateral wrist restraints. Spoke to bedside RN, states he became very confused, appears to be in withdrawals, given Haldol and Ativan IV. Objective Vitals Vital Signs Date Time Temp Pulse Resp B/P (MAP) Pulse Ox O2 Delivery O2 Flow Rate FiO2 12/22/16 08:03 99.2 139 17 134/86 (102) 99 12/22/16 04:00 98.5 105 18 134/84 (101) 97 12/22/16 00:00 100.1 107 18 150/98 (115) 99 12/21/16 20:27 98.1 136 18 149/104 (119) 98 12/21/16 20:00 117 12/21/16 16:25 99.1 121 18 146/88 (107) 99 12/21/16 12:09 98.8 108 17 142/87 (105) 98 I/O 12/21/16 12/21/16 12/21/16 12/22/16 12/22/16 12/22/16 07:00 15:00 23:00 07:00 15:00 23:00 Intake Total 1040 ml 600 ml Output Total 1200 ml Balance 1040 ml -600 ml Intake Oral 240 ml 600 ml IV Total 800 ml Output Urine Total 1200 ml # Voids 1 0 # Bowel Movements 1 Result Diagram: 12/20/16212412/20/162124 Imaging Last Impressions Lower Extremity Ultrasound 12/20/162147 Signed Impressions: Service Date/Time: Tuesday, December 20, 2016 22:15 - CONCLUSION: No DVT is identified within the right lower extremity. Roger Amato MD Chest X-Ray 12/20/162120 Signed Impressions: Service Date/Time: Tuesday, December 20, 2016 21:23 - CONCLUSION: No acute cardiopulmonary abnormality is identified. Roger Amato MD Objective Remarks GENERAL: This is a well-developed, thin appearing male patient, lying in bed lethargic, with tremors, in bilateral soft wrist restraints. SKIN: No rashes, ecchymoses or lesions. Warm and dry. Right foot swelling and erythema, 1+ edema. HEENT: Atraumatic. Normocephalic. Pupils equal round and reactive. Extraocular motions intact. No scleral icterus. No injection or drainage. Nose without bleeding. Airway patent. NECK: Trachea midline. No JVD. Supple. CARDIOVASCULAR: Sinus tachycardic. No murmurs, gallops, or rubs. RESPIRATORY: Clear to auscultation. Breath sounds equal bilaterally. No wheezes , rales, or rhonchi. GASTROINTESTINAL: Abdomen soft, non-tender, nondistended. No guarding. MUSCULOSKELETAL: Extremities without clubbing, cyanosis, or edema. No joint tenderness, effusion, or edema noted. NEUROLOGICAL: Lethargic. Motor and sensory grossly within normal limits. Five out of 5 muscle strength in all muscle groups. A/P Problem List: (1) Hypertension ICD Code: I10 - Essential (primary) hypertension (2) Cellulitis of foot, right ICD Code: L03.115 - Cellulitis of right lower limb Assessment and Plan Mr. Lui is a 41-year old male with a known medical history of hypertension who presented to the ED with complaints of right foot pain and swelling. Patient states that he noticed swelling and pain in his right foot starting on Tuesday and presented to [facility] ED who prescribed him Keflex and tramadol for the pain. Sepsis secondary to right foot swelling and erythema and pain, rule out cellulitis (tachycardia 130's-150's, TMAX 102, Lactic 2.3). - Lower extremity ultrasound reviewed showing no DVT. CXR reviewed showing no acute disease. - Lactic acid 2.3 --> 1.8. - TMAX 100.1 overnight. Monitor fevers. Blood cultures no growth to date. Follow. - Vanco 1 g x 1 given in ED. Zosyn IV x 1 given in ED. - Continue on Vancomycin 750 mg IV q18 hr. Pharmacy consulted for renal dosing. - Control pain, [place] PO available PRN per pain scale. Sinus tachycardia Questionable CHF history - Dr. Fabian, cardiology, has seen patient, appreciate recommendations. Started on beta papito and added Cardizem. Ruled out atrial flutter, EKG reviewed. - BNP obtained, 445 on presentation. 2-D ECHO, still awaiting results, follow. - Continue cardiac telemetry, monitor. SARTHAK suspect secondary to prerenal cause: Awaiting BMP today, pending. Creatine 1.4. Continue gentle hydration NS @ 100 ml.hr. Follow ECHO results regarding possible CHF history. Monitor for overload. DVT Prophylaxis: SCDs. Lovenox. Attending Statement Patient seen and examined. Agree with above. Patient is in soft restraints. He is very confused (year is "30", "last night I went to the club with a few friends"). Patient is tachycardic. Appreciate Cardiology recommendations. Echo pending. Continue antibiotics. Lois Cartwright Dec 22, 2016 09:16 Monster Connor MD Dec 22, 2016 09:43
[2016-12-22] MEDS: FOLIC ACID 1 MG TAB PO SCH (10:22)
[2016-12-22] MEDS: THIAMINE HCL 100 MG TAB PO SCH (10:23)
[2016-12-22] MEDS: MULTIVITAMINS/MINERALS THERAPEUTIC TAB PO SCH (10:23)
[2016-12-22 10:35] LABS: BICARBONATE 25.6 MEQ/L (21.0-32.0)
[2016-12-22 10:39] LABS: POTASSIUM 2.8 MEQ/L (3.5-5.1)
[2016-12-22] MEDS: VANCOMYCIN INJ 750 MG in SODIUM CHLOR 0.9% 250 ML INJ 250 ML IV SCH (12:06)
--- NOTE | 2016-12-22 12:22 | ECHRPT ---
Indication: Heart failure CONCLUSIONS Mildly dilated left ventricle. Wall thickness is normal. The left ventricular systolic function is severely reduced with an estimated ejection fraction in th e range of 20-25%. There is diffuse global hypokinesis with distinct regional wall motion abnormalities. The left atrial size is upper limits of normal. Moderate aortic dilatation at the level of the sinuses of Valsalva. Mild aortic valve regurgitation. BP: 135 / 88 HR: 111 Rhythm: MEASUREMENTS (Male / Female) Normal Values Technical Quality:Good 2D ECHO LV Diastolic Diameter PLAX 5.9 cm 4.2 - 5.9 / 3.9 - 5.3 cm LV Systolic Diameter PLAX 5.3 cm IVS Diastolic Thickness 0.8 cm 0.6 - 1.0 / 0.6 - 0.9 cm LVPW Diastolic Thickness 0.8 cm 0.6 - 1.0 / 0.6 - 0.9 cm LV Relative Wall Thickness 0.3 RV Internal Dim ED PLAX 1.9 cm LA Systolic Diameter LX 3.8 cm 3.0 - 4.0 / 2.7 - 3.8 cm M-MODE Aortic Root Diameter MM 3.5 cm AV Cusp Separation MM 2.2 cm DOPPLER AI Peak Velocity 331.0 cm/s AI Peak Gradient 43.8 mmHg AI Pressure Half Time 455.0 ms Mitral E Point Velocity 56.8 cm/s Mitral A Point Velocity 86.9 cm/s Mitral E to A Ratio 0.7 TR Peak Velocity 228.0 cm/s TR Peak Gradient 20.8 mmHg Right Atrial Pressure 5.0 mmHg Pulmonary Artery Systolic Pressu 25.8 mmHg Right Ventricular Systolic Press 25.8 mmHg FINDINGS LEFT VENTRICLE Severely dilated left ventricle. Wall thickness is normal. There is diffuse global hypokinesis with distinct regional wall motion abnormalities. The left ventricular systolic function is severely reduced with an estimated ejection fraction less than 20%. RIGHT VENTRICLE Normal right ventricular size and systolic function. LEFT ATRIUM The left atrial size is upper limits of normal. RIGHT ATRIUM The right atrial size is normal. ATRIAL SEPTUM Normal atrial septal thickness without atrial level shunting by limited color doppler interrogation. AORTA Moderate aortic dilatation at the level of the sinuses of Valsalva. MITRAL VALVE Structurally normal mitral valve. Mild mitral valve regurgitation. AORTIC VALVE Mild aortic valve regurgitation. TRICUSPID VALVE Structurally normal tricuspid valve. No tricuspid valve stenosis or regurgitation. PULMONARY VALVE Trivial pulmonary valve regurgitation. VESSELS The inferior vena cava is normal in size. PERICARDIUM No pericardial effusion. Merlin Minor MD, FACC (Electronically Signed) Final Date:22 December 2016 12:21
[2016-12-22] MEDS ORDERED: NS + KCL 20 MEQ INJ 1,000 ML IV SCH (13:00)
--- NOTE | 2016-12-22 14:45 | EKG ---
Date Performed: 12/22/2016 Time Performed: 05:01:24 PTAGE: 41 years EKG: Sinus tachycardia. rSr'(V1) - probable normal variant LVH with secondary repolarization abn ormality Extensive ST-T changes are probably due to ventricular hypertrophy Abnormal ECG PREVIOUS TRACING : 12/20/2016 21.37 Compared to prior tracing no significant change DOCTOR: Kye Garsia Interpretating Date/Time 12/22/2016 14:43:31
[2016-12-22] MEDS: POTASSIUM CHLOR 20 MEQ PREMIX 100 ML IV SCH (14:59)
[2016-12-22] MEDS ORDERED: POTASSIUM CHLORIDE 20 MEQ CONTROLLED RELEASE TAB PO ONE (15:15)
[2016-12-23] VITALS: BP 131/86; PULSE 96; RESP 16; TEMP 99.4; O2SAT 100
[2016-12-23] MEDS: VANCOMYCIN INJ 750 MG in SODIUM CHLOR 0.9% 250 ML INJ 250 ML IV SCH ×2 (00:27→14:00)
[2016-12-23] MEDS: ENOXAPARIN SODIUM 30 MG/0.3 ML SYRINGE SQ SCH (01:53)
[2016-12-23 04:00] VITALS: BP 148/90; PULSE 96; RESP 18; TEMP 98.2; O2SAT 98
[2016-12-23 08:00] VITALS: BP 144/89; PULSE 107; RESP 20; TEMP 99.1; O2SAT 99
[2016-12-23 08:27] LABS: BICARBONATE 25.1 MEQ/L (21.0-32.0); POTASSIUM 3.3 MEQ/L (3.5-5.1)
[2016-12-23] MEDS: SODIUM CHLORIDE 0.9% FLUSH 10 ML FLUSH IV FLUSH SCH ×2 (09:00→22:18)
[2016-12-23] MEDS: ASPIRIN 325 MG TAB PO SCH (10:07)
[2016-12-23] MEDS: MULTIVITAMINS/MINERALS THERAPEUTIC TAB PO SCH (10:07)
[2016-12-23] MEDS: METOPROLOL TARTRATE 50 MG TAB PO SCH (10:07)
[2016-12-23] MEDS: FOLIC ACID 1 MG TAB PO SCH (10:07)
[2016-12-23] MEDS: THIAMINE HCL 100 MG TAB PO SCH (10:08)
--- NOTE | 2016-12-23 11:01 | HHI.PR ---
Subjective Remarks Patient denies any chest pain or shortness of breath since last night. Still has right foot pain which she says is better since admission, says his foot is no longer discolored but is still painful to some extent on dorsum and plantar surface. Says he's had chronic calluses on the bottom of both feet. Discussed case with nursing, says he has bouts of confusion at night, currently the patient however is oriented 3 when I speak to him in the room today Objective Vital Signs Date Time Temp Pulse Resp B/P (MAP) Pulse Ox O2 Delivery O2 Flow Rate FiO2 12/23/16 08:00 99.1 107 20 144/89 (107) 99 12/23/16 04:00 98.2 96 18 148/90 (109) 98 12/23/16 00:00 99.4 96 16 131/86 (101) 100 12/22/16 20:00 90 12/22/16 20:00 99.5 106 16 121/81 (94) 98 12/22/16 16:00 98.1 99 20 123/81 (95) 100 12/22/16 12:00 98.5 97 20 110/60 (77) 100 I/O 12/22/16 12/22/16 12/22/16 12/23/16 12/23/16 12/23/16 07:00 15:00 23:00 07:00 15:00 23:00 Intake Total 720 ml 480 ml Output Total 600 ml 1100 ml Balance 120 ml -620 ml Intake Oral 720 ml 480 ml Output Urine Total 600 ml 1100 ml # Voids 0 # Bowel Movements 0 0 Result Diagram: 12/22/16 0823 12/23/16 0720 Objective Remarks No acute distress, lying in bed awake Mildly tachycardic, no murmurs, regular rhythm Mild nonpitting right lower extremity foot edema notably on dorsum, there is diffuse moderate tenderness to palpation over dorsal aspect of metatarsals as well as on the plantar aspect as well. No cosme erythema noted anywhere nor any induration, no puncture wounds A/P Assessment and Plan Mr. Lui is a 41-year old male with a known medical history of hypertension who presented to the ED with complaints of right foot pain and swelling. Patient states that he noticed swelling and pain in his right foot starting on Tuesday and presented to [facility] ED who prescribed him Keflex and tramadol for the pain. right foot pain 2/2 suspected cellulitis - Lower extremity ultrasound reviewed showing no DVT. CXR reviewed showing no acute disease. - Continue on Vancomycin - Control pain, [place] PO available PRN per pain scale. BCxs neg x 2 - CRP elevated, plain film neg, will obtain MRI to r/o osteo unsteady gait 2/2 pain - ordering PT eval and tx tachycardia - will workup w/ CTA per card recs, ordering bmp to check RF in AM, systolic CHF - Dr. Fabian, cardiology, has seen patient, appreciate recommendations. Started on beta papito and added Cardizem. Ruled out atrial flutter, EKG reviewed. - Continue cardiac telemetry, monitor. - will start low dose kasey i since BP is tolerating - lexiscan ordered ordering librium since RN reported pt drinking alcohol up to 3 days ago and has some tremors DVT Prophylaxis: Lovenox. Marbin Santiago MD Dec 23, 2016 11:01
--- NOTE | 2016-12-23 11:29 | PD.CARD.PN ---
Subjective Subjective Remarks no complaints comfortable in bed mental status much improved Objective Medications Active Medications Chlordiazepoxide (Librium) 10 mg BID PO; Start 12/23/16 at 11:30; Status UNV Miscellaneous Information SPECIFIC LAB TO BE DRAWN:VANCOMYCIN TROUGH DATE TO... ONCE ONCE .XX; Start 12/23/16 at 12:45; Stop 12/23/16 at 12:46 Potassium Chloride/Sodium Chloride 1,000 ml @ 100 mls/hr Q10H IV; Start at 13:00; Stop 12/22/16 at 15:07; Status DC Potassium Chloride 100 ml @ 50 mls/hr Q2H IV Last administered on 12/22/16 14: 59; Admin Dose 50 MLS/HR; Start 12/22/16 at 13:00; Stop 12/22/16 at 16:59; Status DC Potassium Chloride (KCl) 20 meq ONCE ONCE PO Last administered on 12/22/16 15: 22; Admin Dose 20 MEQ; Start 12/22/16 at 15:15; Stop 12/22/16 at 15:16; Status DC Vancomycin HCl 750 mg/Sodium Chloride 257.5 ml @ 250 mls/hr Q12H IV Last administered on 12/23/16 00:27; Admin Dose 250 MLS/HR; Start 12/22/16 at 13:00 Vital Signs / I&O Vital Signs Date Time Temp Pulse Resp B/P (MAP) Pulse Ox O2 Delivery O2 Flow Rate FiO2 12/23/16 08:00 99.1 107 20 144/89 (107) 99 12/23/16 04:00 98.2 96 18 148/90 (109) 98 12/23/16 00:00 99.4 96 16 131/86 (101) 100 12/22/16 20:00 90 12/22/16 20:00 99.5 106 16 121/81 (94) 98 12/22/16 16:00 98.1 99 20 123/81 (95) 100 12/22/16 12:00 98.5 97 20 110/60 (77) 100 I/O 12/22/16 12/22/16 12/22/16 12/23/16 12/23/16 12/23/16 07:00 15:00 23:00 07:00 15:00 23:00 Intake Total 720 ml 480 ml Output Total 600 ml 1100 ml Balance 120 ml -620 ml Intake Oral 720 ml 480 ml Output Urine Total 600 ml 1100 ml # Voids 0 # Bowel Movements 0 0 Physical Exam GENERAL: SKIN: Warm and dry. HEAD: Normocephalic. EYES: No scleral icterus. No injection or drainage. NECK: Supple, trachea midline. No JVD or lymphadenopathy. CARDIOVASCULAR: Regular rate and rhythm without murmurs, gallops, or rubs. RESPIRATORY: Breath sounds equal bilaterally. No accessory muscle use. GASTROINTESTINAL: Abdomen soft, non-tender, nondistended. MUSCULOSKELETAL: No cyanosis, or edema. BACK: Nontender without obvious deformity. No CVA tenderness. Laboratory Laboratory Tests Test 12/23/16 07:20 Blood Urea Nitrogen 7 MG/DL Creatinine 1.12 MG/DL Random Glucose 135 MG/DL Calcium Level 7.9 MG/DL Sodium Level 141 MEQ/L Potassium Level 3.3 MEQ/L Chloride Level 110 MEQ/L Carbon Dioxide Level 25.1 MEQ/L Anion Gap 6 MEQ/L Estimat Glomerular Filtration Rate 88 ML/MIN Imaging Last Impressions Lower Extremity Ultrasound 12/20/162147 Signed Impressions: Service Date/Time: Tuesday, December 20, 2016 22:15 - CONCLUSION: No DVT is identified within the right lower extremity. Roger Amato MD Chest X-Ray 12/20/162120 Signed Impressions: Service Date/Time: Tuesday, December 20, 2016 21:23 - CONCLUSION: No acute cardiopulmonary abnormality is identified. Roger Amato MD Assessment and Plan Assessment and Plan cardiomyopathy - probable nonischemic etiology. lexiscan today add low dose ACEi and lasix low salt diet HR improved. titrate BB as SBP tolerates if SPECT negative for ischemia, LifeVest and DC planning with 3 mo outpatient echo if SPECT positive for significant ischemia, NPO p MN and hold lovenox for cath tomorrow Minor,Merlin Lala MD Dec 23, 2016 11:29
[2016-12-23 12:00] VITALS: BP 142/92; PULSE 93; RESP 20; TEMP 99.5; O2SAT 100
[2016-12-23] MEDS ORDERED: IOHEXOL 350 MG/ML 10 ML VIAL (for RAD DIAG) IVCONTRAST ONE (12:32)
[2016-12-23] MEDS ORDERED: PHARMACY ORDERED LAB ONE (12:45)
--- NOTE | 2016-12-23 13:05 | RADRPT ---
EXAM DATE/TIME: 12/23/2016 12:32 [facility] COMPARISON: No previous studies available for comparison. INDICATIONS : Tachycardia. IV CONTRAST: 65 cc Omnipaque 350 (iohexol) IV RADIATION DOSE: 22.93 CTDIvol (mGy) MEDICAL HISTORY : Cardiovascular disease. SURGICAL HISTORY : None. ENCOUNTER: Initial ACUITY: 1 day PAIN SCALE: 0/10 LOCATION: chest TECHNIQUE: Volumetric scanning of the chest was performed using a pulmonary embolism protocol MIP images were re constructed. Using automated exposure control and adjustment of the mA and/or kV according to patien t size, radiation dose was kept as low as reasonably achievable to obtain optimal diagnostic quality images. DICOM format image data is available electronically for review and comparison. Follow-up recommendations for detected pulmonary nodules are based at a minimum on nodule size and pa tient risk factors according to Fleischner Society Guidelines. FINDINGS: PULMONARY ARTERIES: No filling defects are seen in the pulmonary arteries through the segmental level. LUNGS: Minimal right base atelectasis or scarring. PLEURAE: There is no pleural thickening or pleural effusion. MEDIASTINUM: There is a persistent left SVC. The left ventricle appears mildly dilated. Pulmonary outflow tract ap pears at least moderately compressed between the left ventricle and the sternum and the main pulmonar y artery is mildly dilated. MUSCULOSKELETAL: Within normal limits for patient age. MISCELLANEOUS: Nonspecific low density area in the left lobe of the liver may be focal steatosis, however the appear ance is fairly prominent CONCLUSION: No evidence of pulmonary embolism. Left ventricular chamber enlargement and possible pulmonary outflow tract compromise. Correlation wit h echocardiography may be beneficial. Nonspecific low density area in the left lobe of the liver. Roger Arguelles MD on December 23, 2016 at 12:53 Board Certified Radiologist. This report was verified electronically.
[2016-12-23] MEDS ORDERED: PILL SPLITTER OTHER PRN (14:15)
[2016-12-23] MEDS: LORazepam 2 MG/ML VIAL IV PUSH PRN ×2 (15:00→20:23)
--- NOTE | 2016-12-23 17:19 | RADRPT ---
EXAM DATE/TIME: 12/23/2016 17:08 [facility] COMPARISON: CHEST SINGLE AP, December 20, 2016, 21:23. INDICATIONS : Right ankle pain. No known injury. MEDICAL HISTORY : Congestive heart failure. Osteomyelitis. SURGICAL HISTORY : None. ENCOUNTER: Initial ACUITY: 3 days PAIN SCORE: 8/10 LOCATION: Right ankle. FINDINGS: There is diffuse soft tissue swelling about the ankle mortise. The alignment is adequate. No acute fr acture seen. CONCLUSION: 1. No acute fracture of the right ankle is identified. Rafal Cook MD on December 23, 2016 at 17:17 Board Certified Radiologist. This report was verified electronically.
--- NOTE | 2016-12-23 17:20 | RADRPT ---
EXAM DATE/TIME: 12/23/2016 17:11 [facility] COMPARISON: ANKLE RIGHT COMPLETE ([id number]), December 23, 2016, 17:08. INDICATIONS : Right foot pain and swelling. No known injury. MEDICAL HISTORY : Congestive heart failure. Osteomyelitis. SURGICAL HISTORY : None. ENCOUNTER: Initial ACUITY: 3 days PAIN SCORE: 7/10 LOCATION: Right foot. FINDINGS: There is mild diffuse soft tissue swelling. No acute fracture or destructive lesion is seen. No retai estela foreign body is present. CONCLUSION: 1. Soft tissue swelling. No acute bony abnormality or retained foreign body. Rafal Cook MD on December 23, 2016 at 17:18 Board Certified Radiologist. This report was verified electronically.
[2016-12-23] MEDS ORDERED: SODIUM CHLOR 0.9% 250 ML INJ 250 ML IV ONE (19:30)
[2016-12-23 20:00] VITALS: BP 153/90; PULSE 107; RESP 18; TEMP 100.3; O2SAT 99
[2016-12-23] MEDS ORDERED: GADODIAMIDE PF 287 MG/ML 5 ML VIAL (for RAD MRI) IVCONTRAST ONE (21:03)
--- NOTE | 2016-12-23 21:56 | RADRPT ---
EXAM DATE/TIME: 12/23/2016 20:40 [facility] COMPARISON: FOOT RIGHT COMPLETE ([id number]), December 23, 2016, 17:11. ANKLE RIGHT COMPLETE ([id number]), December 23, 2016, 17:08. INDICATIONS : Osteomyelitis. Pain and swelling mid-right foot. CONTRAST: 8 cc Omniscan (gadodiamide) IV MEDICAL HISTORY : Hypertension. Congestive heart failure. SURGICAL HISTORY : Right foot. ENCOUNTER: Subsequent ACUITY: 2 months PAIN SCORE: 7/10 LOCATION: Right foot TECHNIQUE: Multiplanar, multisequence MRI examination was performed without contrast and after the intravenous a dministration of gadolinium. FINDINGS: Fairly diffuse synovial thickening seen of the ankle, subtalar, talonavicular, calcaneocuboid, and na vicular/cuneiform and intercuneiform joints. To a slightly lesser extent, Lisfranc joint is also invo lved. There are associated effusions. Patchy mild subchondral marrow edema but without corresponding cortical destruction or T1 signal abnormality. More distally, there is severe synovitis of the fifth metatarsophalangeal joint and there is a large ulcer of the proximal phalangeal base. 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 Ligaments and tendons appear intact. There is tendinosis/tenosynovitis of flexor digitorum longus at the level of the first metatarsophalangeal joint. CONCLUSION: 1. 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 There is an associated erosi on of the proximal phalanx base. The features are nonspecific. Although osteomyelitis is in the diffe rential, inflammatory arthropathy including gout should also be considered. 2. Synovial based inflammatory changes of the ankle, hindfoot and midfoot with only small effusions, no definite osteomyelitis and probably not representing septic arthropathy. Again, inflammatory arthr opathy should be included in the differential. 3. Nonspecific tendinosis/tenosynovitis distally of flexor hallucis longus. Roger Taylor MD on December 23, 2016 at 21:46 Board Certified Radiologist. This report was verified electronically.
[2016-12-23] MEDS: METOPROLOL TARTRATE 100 MG TAB PO SCH (22:15)
[2016-12-23] MEDS: POTASSIUM CHLORIDE 10 MEQ CONTROLLED RELEASE TAB PO SCH (22:15)
[2016-12-24] VITALS (7 sets, daily range): BP systolic 109–134; BP diastolic 71–87; PULSE 85–109; RESP 16–20; TEMP 98–101; O2SAT 96–100
[2016-12-24] MEDS: ENOXAPARIN SODIUM 30 MG/0.3 ML SYRINGE SQ SCH (01:07)
[2016-12-24] MEDS: VANCOMYCIN INJ 750 MG in SODIUM CHLOR 0.9% 250 ML INJ 250 ML IV SCH (01:21)
[2016-12-24] MEDS ORDERED: ACETAMINOPHEN 325 MG TAB PO ONE (06:00)
[2016-12-24 07:31] LABS: BLOOD, URINE TRACE (NEG); COMMENT (UR) CULT NOT INDICATED; CULTURE IF INDICATED CULT NOT INDICATED; GLUCOSE,URINE NEG (NEG); KETONE, URINE NEG (NEG); NITRITE,URINE NEG (NEG); PH, URINE 6.5 (5.0-8.5); URINE COLOR LIGHT-YELLOW (YELLW/STRAW)
[2016-12-24 08:17] LABS: POTASSIUM 3.8 MEQ/L (3.5-5.1)
[2016-12-24] MEDS: SODIUM CHLORIDE 0.9% FLUSH 10 ML FLUSH IV FLUSH SCH ×2 (09:00→20:21)
--- NOTE | 2016-12-24 09:20 | PD.CARD.PN ---
Subjective Subjective Remarks denies CV complaints (Rashi Trujillo) Objective Vital Signs / I&O Vital Signs Date Time Temp Pulse Resp B/P (MAP) Pulse Ox O2 Delivery O2 Flow Rate FiO2 12/24/16 04:00 101.0 109 18 116/79 (91) 98 12/24/16 00:00 98.0 100 18 134/87 (103) 96 12/23/16 22:15 Room Air 12/23/16 20:00 100.3 107 18 153/90 (111) 99 12/23/16 12:00 99.5 93 20 142/92 (109) 100 I/O 12/23/16 12/23/16 12/23/16 12/24/16 12/24/16 12/24/16 06:59 14:59 22:59 06:59 14:59 22:59 Intake Total 480 ml 360 ml 507.5 ml Output Total 1100 ml 875 ml Balance -620 ml -515 ml 507.5 ml Intake Oral 480 ml 360 ml IV Total 507.5 ml Output Urine Total 1100 ml 875 ml # Voids 3 # Bowel Movements 0 1 1 Physical Exam GENERAL: Well-nourished, well-developed patient in no apparent distress. NECK: No JVD. No carotid bruit. CARDIOVASCULAR: Regular rate and rhythm. S1/S2 no murmur, rub, or gallop. RESPIRATORY: No accessory muscle use. Clear to auscultation. Breath sounds equal bilaterally. GASTROINTESTINAL: Abdomen soft, non-tender, nondistended. MUSCULOSKELETAL: Extremities without clubbing, cyanosis, or edema. Laboratory Laboratory Tests Test 12/23/16 14:25 12/24/16 07:10 12/24/16 07:24 Vancomycin Level Trough 14.4 MCG/ML Urine Color LIGHT-YELLOW Urine Turbidity CLEAR Urine pH 6.5 Urine Specific [place] 1.009 Urine Protein TRACE mg/dL Urine Glucose (UA) NEG mg/dL Urine Ketones NEG mg/dL Urine Occult Blood TRACE Urine Nitrite NEG Urine Bilirubin NEG Urine Urobilinogen LESS THAN 2.0 MG/DL Urine Leukocyte Esterase NEG Urine RBC 4 /hpf Urine WBC LESS THAN 1 /hpf Microscopic Urinalysis Comment CULT NOT INDICATED Blood Urea Nitrogen 9 MG/DL Creatinine 1.24 MG/DL Random Glucose 93 MG/DL Calcium Level 8.2 MG/DL Sodium Level 139 MEQ/L Potassium Level 3.8 MEQ/L Chloride Level 105 MEQ/L Carbon Dioxide Level 26.0 MEQ/L Anion Gap 8 MEQ/L Estimat Glomerular Filtration Rate 78 ML/MIN (Rashi Trujillo) Assessment and Plan Problem List: (1) Hypertension ICD Codes: I10 - Essential (primary) hypertension Assessment and Plan cardiomyopathy - probable nonischemic etiology. Lexiscan today HR improved. titrate BB as SBP tolerates hypertension - well controlled if SPECT negative for ischemia, LifeVest and DC planning with 3 mo outpatient echo if SPECT positive for significant ischemia, NPO p MN and hold lovenox for cath tomorrow (Rashi Trujillo) Rashi Trujillo Dec 24, 2016 09:20 Merlin Fabian MD Dec 24, 2016 11:35
--- NOTE | 2016-12-24 10:40 | HHI.PR ---
Subjective Remarks Discussed with nursing, patient mentally is better since last night compared to yesterday. Also noted to have a fever spike of 101, blood cultures were ordered again. X-rays were unremarkable but due to persistent foot pain and elevated CRP, MRI was obtained which is concerning for an acute destructive arthropathy. Patient himself says that his pain is slightly better in his right foot, otherwise denies any chest pain or SOB Objective Vital Signs Date Time Temp Pulse Resp B/P (MAP) Pulse Ox O2 Delivery O2 Flow Rate FiO2 12/24/16 08:00 99.1 90 20 119/79 (92) 99 12/24/16 04:00 101.0 109 18 116/79 (91) 98 12/24/16 00:00 98.0 100 18 134/87 (103) 96 12/23/16 22:15 Room Air 12/23/16 20:00 100.3 107 18 153/90 (111) 99 12/23/16 12:00 99.5 93 20 142/92 (109) 100 I/O 12/23/16 12/23/16 12/23/16 12/24/16 12/24/16 12/24/16 07:00 15:00 23:00 07:00 15:00 23:00 Intake Total 480 ml 360 ml 507.5 ml Output Total 1100 ml 875 ml Balance -620 ml -515 ml 507.5 ml Intake Oral 480 ml 360 ml IV Total 507.5 ml Output Urine Total 1100 ml 875 ml # Voids 3 # Bowel Movements 0 1 1 Result Diagram: 12/22/16 0823 12/24/16 0724 Objective Remarks No acute distress, lying in bed awake Regular rate and rhythm no murmurs, Mild nonpitting right lower extremity foot edema notably on dorsum, moderate to severe tenderness to palpation over lateral aspect of fifth metatarsal, no cosme erythema noted over foot otherwise A/P Assessment and Plan Mr. Lui is a 41-year old male with a known medical history of hypertension who presented to the ED with complaints of right foot pain and swelling. Patient states that he noticed swelling and pain in his right foot starting on Tuesday and presented to [facility] ED who prescribed him Keflex and tramadol for the pain. right foot cellulitis with newly found findings on MRI that could resemble possible osteomyelitis within the fever spike last night - Lower extremity ultrasound reviewed showing no DVT. - Continue on Vancomycin, will add on Zosyn, infectious disease has been consulted - Control pain, [place] PO available PRN per pain scale. Original BCxs neg x 2 , blood cultures reordered in light of new fever acute destructive arthropathy - consulting podiatry as well to see if any surgical intervention ( dx or tx) is warranted unsteady gait 2/2 pain - PT eval and tx tachycardia - improved, CTA neg for PE systolic CHF - lexiscan was not done due to delays in transport/nuclear medicine, to be done today, cardiology following. ETOH- librium DVT Prophylaxis: Lovenox. Marbin Santiago MD Dec 24, 2016 10:40
[2016-12-24] MEDS: PIPERACIL-TAZO 3.375 GM PREMIX 50 ML IV SCH ×2 (12:00→20:21)
[2016-12-24] MEDS ORDERED: PHARMACY ORDERED LAB ONE (12:45)
[2016-12-24] MEDS ORDERED: REGADENOSON INJ 0.4 MG/5 ML SYR ONE (14:06)
--- NOTE | 2016-12-24 15:35 | RADRPT ---
EXAM DATE/TIME: 12/24/2016 13:04 [facility] COMPARISON: No previous studies available for comparison. INDICATIONS : Congestive heart failure. Abnormal EKG. DOSE: 27.1 mCi Tc99m Myoview at stress. 8.2 mCi Tc99m Myoview at rest. 0.4 mg Lexiscan STRESS SYMPTOMS: Dyspnea. EJECTION FRACTION: 42% MEDICAL HISTORY : Hypertension. SURGICAL HISTORY : None. ENCOUNTER: Initial ACUITY: 1 day PAIN SCALE: 0/10 LOCATION: chest TECHNIQUE: The patient underwent pharmacologic stress with infusion of prescribed dose. Continuous ECG tracing was monitored during stress. Gated SPECT imaging was performed after stress and conventional SPECT i maging was performed at rest. The examination was performed on a SPECT/CT scanner, both attenuation and non-corrected datasets were reviewed. FINDINGS: DISTRIBUTION: The maximum perfused segment at stress is in the anterolateral wall. PERFUSION STUDY: The examination demonstrates the ventricular cavity mildly dilated. No significant reversible perfusi on defect is identified. GATED STUDY: The gated data demonstrates a moderate global hypokinesis with an ejection fraction estimated at 42%. CONCLUSION: 1. No reversible perfusion defect to suggest stress-induced myocardial ischemia. 2. Dilation of the ventricular cavity with global hypokinesis. Ejection fraction is estimated at 42%. RISK CATEGORY: Intermediate (1-3% Annual Mortality Rate) Rafal Cook MD on December 24, 2016 at 15:32 Board Certified Radiologist. This report was verified electronically.
[2016-12-24] MEDS: MULTIVITAMINS/MINERALS THERAPEUTIC TAB PO SCH (18:42)
[2016-12-24] MEDS: FUROSEMIDE 20 MG TAB PO SCH (18:43)
[2016-12-24] MEDS: THIAMINE HCL 100 MG TAB PO SCH (18:43)
[2016-12-24] MEDS: FOLIC ACID 1 MG TAB PO SCH (18:43)
[2016-12-24] MEDS: ASPIRIN 325 MG TAB PO SCH (18:44)
[2016-12-24] MEDS: LISINOPRIL 5 MG TAB PO SCH (18:45)
[2016-12-24] MEDS: POTASSIUM CHLORIDE 10 MEQ CONTROLLED RELEASE TAB PO SCH (18:45)
[2016-12-24] MEDS: METOPROLOL TARTRATE 100 MG TAB PO SCH ×2 (18:46→20:21)
--- NOTE | 2016-12-24 19:44 | RADRPT ---
EXAM DATE/TIME: 12/24/2016 19:07 [facility] COMPARISON: CHEST SINGLE AP, December 20, 2016, 21:23. INDICATIONS : Cough. MEDICAL HISTORY : None. SURGICAL HISTORY : None. ENCOUNTER: Subsequent ACUITY: 4 - 6 days PAIN SCORE: 0/10 LOCATION: Bilateral chest FINDINGS: Stable heart size, upper limits of normal. No infiltrate, effusion or pneumothorax. CONCLUSION: Borderline compensated cardiomegaly. Clear lungs. Roger Taylor MD on December 24, 2016 at 19:42 Board Certified Radiologist. This report was verified electronically.
[2016-12-24 20:06] LABS: AUTOMATED NEUTROPHIL # 3.9 TH/MM3 (1.8-7.7); BASOPHIL % 0.7 % (0.0-2.0); EOSINOPHIL % 0.2 % (0.0-4.0); HEMATOCRIT 34.3 % (39.0-51.0); HEMO FLAGS DIFF FINAL; LYMPH % 25.7 % (9.0-44.0); LYMPHOCYTE # 1.7 TH/MM3 (1.0-4.8); MEAN CELL VOLUME 92.4 FL (80.0-100.0); MEAN CORPUSCULAR HEMOGLOBIN 30.1 PG (27.0-34.0); MEAN CORPUSCULAR HGB CONC 32.5 % (32.0-36.0); MONO % 13.5 % (0.0-8.0); NEUT % 59.9 % (16.0-70.0); PLATELET COUNT 344 TH/MM3 (150-450); RED BLOOD COUNT 3.72 MIL/MM3 (4.50-5.90); RED CELL DISTRIBUTION WIDTH 14.2 % (11.6-17.2); WHITE BLOOD COUNT 6.4 TH/MM3 (4.0-11.0)
[2016-12-24 20:16] LABS: ANION GAP 6 MEQ/L (5-15); AST (GOT) 26 U/L (15-37); BICARBONATE 26.7 MEQ/L (21.0-32.0); BLOOD UREA NITROGEN 10 MG/DL (7-18); CHLORIDE 104 MEQ/L (98-107); GLOMERULAR FILTRATION RATE 71 ML/MIN (>89); POTASSIUM 3.5 MEQ/L (3.5-5.1); SODIUM (NA) 137 MEQ/L (136-145)
[2016-12-24 20:18] LABS: ALT (GPT) 18 U/L (12-78)
[2016-12-24 20:20] LABS: ALKALINE PHOSPHATASE 89 U/L (45-117); TOTAL BILIRUBIN ADULT 0.3 MG/DL (0.2-1.0)
--- NOTE | 2016-12-24 22:55 | PD.ID.CON ---
History of Present Illness Service ID Consult Requested By Reason for Consult Evaluation and Mment of possible osteomyelitis of foot. Primary Care Physician No Primary Care Physician Diagnoses: History of Present Illness Most of the history was from medical records. Patient is not good historian. Mr. Lui is a 41-year old male with HTN, CHF, Ischemic cardiomyopathy with low EF s/p Life Vest in ? 2016 (saw in past) per cardiology records, Seizure disorder ? alcohol induced s/p EEG and neuro eval. He initially presented at [facility] ED and was discharged home on oral keflex and tramadol for pain. Of note patient has had prior admissions for cardiac issues with 2 EVAC related ED visits/admits and also HTN but he is not on any cardiac or BP home meds. Reported history of noncompliance per records. He presented to the ED at [facility] for complains of right foot pain and swelling. No sure if he was compliant with Keflex. He does state he has had some abdominal discomfort and vomiting with antibiotic use. Patient reports initial improvement followed by worsening of the foot. He reports prior surgery to the foot and also arthrocentesis in past. He thinks he may have been told he has gout in past. Upon initial admission patient had HR in 150's-160's, asymptomatic. He was evaluated by cardiology and underwent stress test. Denies any recent fevers at home, chills, cough, headache, dizziness, lightheadedness, shortness of breath, chest pain, palpitations. Denies any abdominal pain, nausea, vomiting, diarrhea or dysuria. ID consulted for evaluation and mment of arthropathy/tenosynovitis ? Infective in nature. Review of Systems ROS Limitations: Poor Historian Constitutional: COMPLAINS OF: Fever, DENIES: Diaphoretic episodes, Fatigue, Weight gain, Weight loss, Chills, Dizziness, Change in appetite, Night Sweats Endocrine: DENIES: Heat/cold intolerance, Polydipsia, Polyuria, Polyphagia Eyes: DENIES: Blurred vision, Diplopia, Eye inflammation, Eye pain, Vision loss , Photosensitivity, Double Vision Ears, nose, mouth, throat: DENIES: Tinnitus, Hearing loss, Vertigo, Nasal discharge, Oral lesions, Throat pain, Hoarseness, Ear Pain, Running Nose, Epistaxis, Sinus Pain, Toothache, Odynophagia Respiratory: DENIES: Apneas, Cough, Snoring, Wheezing, Hemoptysis, Sputum production, Shortness of breath Cardiovascular: DENIES: Chest pain, Palpitations, Syncope, Dyspnea on Exertion , PND, Lower Extremity Edema, Orthopnea, Claudication Gastrointestinal: DENIES: Abdominal pain, Black stools, Bloody stools, Constipation, Diarrhea, Nausea, Vomiting, Difficulty Swallowing, Anorexia Musculoskeletal: COMPLAINS OF: Joint pain, Stiffness, Joint Swelling Integumentary: DENIES: Abnormal pigmentation, Nail changes, Pruritus, Rash Hematologic/lymphatic: DENIES: Bruising, Lymphadenopathy Immunologic/allergic: DENIES: Eczema, Urticaria Neurologic: DENIES: Abnormal gait, Headache, Localized weakness, Paresthesias, Seizures, Speech Problems, Tremor, Poor Balance Psychiatric: DENIES: Anxiety, Confusion, Mood changes, Depression, Hallucinations, Agitation, Suicidal Ideation, Homicidal Ideation, Delusions Except as stated in HPI: all other systems reviewed are Neg Past Family Social History Allergies: Coded Allergies: No Known Allergies (Verified , 12/20/16) Past Medical History Hypertension Ischemic cardiomyopathy s/p Life vest ? need for pacemaker Seizure ? alcohol related H/o anxiety h/o depression Alcoholism Past Surgical History Tooth extraction Right foot operation, unaware of type. Reported Medications Reported Meds & Active Scripts Active Reported Tramadol (Tramadol HCl) 50 Mg Tab 50 Mg PO Q4H PRN Cephalexin 500 Mg Cap 500 Mg PO TID Active Ordered Medications Current Medications Medications (Trade) Dose Ordered Sig/Aliya Route Start Time Stop Time Status Last Admin (NS Flush) 2 ml BID IV FLUSH 12/21/16 09:00 12/24/16 20:21 (NS Flush) 2 ml UNSCH PRN IV FLUSH 12/21/16 01:15 ([place] 5-325 Mg) 1 tab Q4H PRN PO 12/21/16 01:15 ([place] 7.5-325 Mg) 1 tab Q4H PRN PO 12/21/16 01:15 (Lovenox Inj) 30 mg Q24H SQ 12/21/16 02:00 12/23/16 01:53 (Aspirin) 325 mg DAILY PO 12/22/16 09:00 12/24/16 18:44 (Ativan Inj) 1 mg Q2H PRN IV PUSH 12/22/16 04:15 12/23/16 20:23 (Cardizem) 30 mg Q6HR PRN PO 12/22/16 08:00 (Folate) 1 mg DAILY PO 12/22/16 09:15 12/27/16 09:14 12/24/16 18:43 (Vitamin B1) 100 mg DAILY PO 12/22/16 09:15 12/24/16 18:43 (Theragran M Tab) 1 tab DAILY PO 12/22/16 09:15 12/27/16 09:14 12/24/16 18:42 (Librium) 10 mg BID PO 12/23/16 14:15 12/24/16 20:21 (Lopressor) 100 mg Q12HR PO 12/23/16 21:00 12/24/16 20:21 (Prinivil) 2.5 mg DAILY PO 12/24/16 09:00 12/24/16 18:45 (Lasix) 20 mg DAILY PO 12/24/16 09:00 12/24/16 18:43 (Pill Splitter) 1 ea UNSCH PRN OTHER 12/23/16 14:15 (KCl) 30 meq DAILY PO 12/23/16 18:15 12/24/16 18:45 Piperacillin Sod/ Tazobactam Sod 50 ml @ 100 mls/hr Q8H IV 12/24/16 12:00 12/24/16 20:21 Linezolid 300 ml @ 300 mls/hr Q12H IV 12/24/16 21:00 Family History reviewed and NC to current ID problems. Social History Alcoholism. Patient denies any current tobacco use. Does admit to drinking a 6 pack of beer a week. Denies any illicit drug use. Physical Exam Vital Signs Vital Signs Date Time Temp Pulse Resp B/P (MAP) Pulse Ox O2 Delivery O2 Flow Rate FiO2 12/24/16 20:25 Room Air 12/24/16 20:00 98.2 92 16 112/73 (86) 100 12/24/16 16:00 100.3 101 20 109/71 (84) 98 12/24/16 12:00 98.8 86 16 125/81 (96) 100 12/24/16 08:00 85 12/24/16 08:00 Room Air 12/24/16 08:00 99.1 90 20 119/79 (92) 99 12/24/16 04:00 101.0 109 18 116/79 (91) 98 12/24/16 00:00 98.0 100 18 134/87 (103) 96 Physical Exam GENERAL: This is a well-nourished, well-developed patient, in no apparent distress. SKIN: No rashes, ecchymoses or lesions. Cool and dry. HEAD: Atraumatic. Normocephalic. No temporal or scalp tenderness. EYES: Pupils equal round and reactive. Extraocular motions intact. No scleral icterus. No injection or drainage. ENT: Nose without bleeding, purulent drainage or septal hematoma. Throat without erythema, tonsillar hypertrophy or exudate. Uvula midline. Airway patent. NECK: Trachea midline. Supple, nontender, no meningeal signs. CARDIOVASCULAR: Regular rate and rhythm without murmurs, gallops, or rubs. RESPIRATORY: Clear to auscultation. Breath sounds equal bilaterally. No wheezes , rales, or rhonchi. GASTROINTESTINAL: Abdomen soft, non-tender, nondistended. MUSCULOSKELETAL: Right ankle and foot with erythema, tenderness, some decreased ROM. Left ankle no s/o infection NEUROLOGICAL: Awake and alert. Grossly non focal Psych cooperative IV line sites with no e.o infection. Laboratory Laboratory Tests Test 12/24/16 07:10 12/24/16 07:24 12/24/16 19:22 Urine Color LIGHT-YELLOW Urine Turbidity CLEAR Urine pH 6.5 Urine Specific [place] 1.009 Urine Protein TRACE Urine Glucose (UA) NEG Urine Ketones NEG Urine Occult Blood TRACE Urine Nitrite NEG Urine Bilirubin NEG Urine Urobilinogen LESS THAN 2.0 Urine Leukocyte Esterase NEG Urine RBC 4 Urine WBC LESS THAN 1 Microscopic Urinalysis Comment CULT NOT INDICATED Blood Urea Nitrogen 9 10 Creatinine 1.24 1.35 Random Glucose 93 81 Calcium Level 8.2 8.5 Sodium Level 139 137 Potassium Level 3.8 3.5 Chloride Level 105 104 Carbon Dioxide Level 26.0 26.7 Anion Gap 8 6 Estimat Glomerular Filtration Rate 78 71 White Blood Count 6.4 Red Blood Count 3.72 Hemoglobin 11.2 Hematocrit 34.3 Mean Corpuscular Volume 92.4 Mean Corpuscular Hemoglobin 30.1 Mean Corpuscular Hemoglobin Concent 32.5 Red Cell Distribution Width 14.2 Platelet Count 344 Mean Platelet Volume 8.5 Neutrophils (%) (Auto) 59.9 Lymphocytes (%) (Auto) 25.7 Monocytes (%) (Auto) 13.5 Eosinophils (%) (Auto) 0.2 Basophils (%) (Auto) 0.7 Neutrophils # (Auto) 3.9 Lymphocytes # (Auto) 1.7 Monocytes # (Auto) 0.9 Eosinophils # (Auto) 0.0 Basophils # (Auto) 0.0 CBC Comment DIFF FINAL Differential Comment Total Protein 7.2 Albumin 2.0 Alkaline Phosphatase 89 Aspartate Amino Transf (AST/SGOT) 26 Alanine Aminotransferase (ALT/SGPT) 18 Total Bilirubin 0.3 Date/Time Source Procedure Growth Status 12/24/16 09:46 Blood Peripheral Aerobic Blood Culture Pending Received 12/24/16 09:46 Blood Peripheral Anaerobic Blood Culture Pending Received Result Diagram: 12/24/16192112/24/161921 Imaging Last Impressions Myocardial Perfusion Scan Nuc Med 12/24/16 0000 Signed Impressions: Service Date/Time: Saturday, December 24, 2016 13:04 - CONCLUSION: 1. No reversible perfusion defect to suggest stress-induced myocardial ischemia. 2. Dilation of the ventricular cavity with global hypokinesis. Ejection fraction is estimated at 42%%. RISK CATEGORY: Intermediate (1-3%% Annual Mortality Rate) Rafal Cook MD Foot X-Ray 12/23/16 0000 Signed Impressions: Service Date/Time: November 17:11 - CONCLUSION: 1. Soft tissue swelling. No acute bony abnormality or retained foreign body. Rafal Cook MD Foot MRI 12/23/16 0000 Signed Impressions: Service Date/Time: November 20:40 - CONCLUSION: 1. 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 There is an associated erosion of the proximal phalanx base. The features are nonspecific. Although osteomyelitis is in the differential, inflammatory arthropathy including gout should also be considered. 2. Synovial based inflammatory changes of the ankle, hindfoot and midfoot with only small effusions, no definite osteomyelitis and probably not representing septic arthropathy. Again, inflammatory arthropathy should be included in the differential. 3. Nonspecific tendinosis/tenosynovitis distally of flexor hallucis longus. Roger Taylor MD CT Angiography 12/23/16 0000 Signed Impressions: Service Date/Time: November 12:32 - CONCLUSION: No evidence of pulmonary embolism. Left ventricular chamber enlargement and possible pulmonary outflow tract compromise. Correlation with echocardiography may be beneficial. Nonspecific low density area in the left lobe of the liver. Roger Arguelles MD Ankle X-Ray 12/23/16 0000 Signed Impressions: Service Date/Time: November 17:08 - CONCLUSION: 1. No acute fracture of the right ankle is identified. Rafal Cook MD Lower Extremity Ultrasound 12/20/162147 Signed Impressions: Service Date/Time: Tuesday, December 20, 2016 22:15 - CONCLUSION: No DVT is identified within the right lower extremity. Roger Amato MD Chest X-Ray 12/20/162120 Signed Impressions: Service Date/Time: Tuesday, December 20, 2016 21:23 - CONCLUSION: No acute cardiopulmonary abnormality is identified. Roger Amato MD Assessment and Plan Assessment and Plan Right foot/ankle cellulitis ? osteomyelitis Right foot abnormal changes ? gout related. Alcoholism Seizure disorder per records. Anxiety and depression by history Acute renal failure: prerenal, antibiotic induced. Fevers persistent after initial improvement: ? drug fever ? new infection (CXR negative,BCX pending) Recs DC Zosyn DC vanco IV Start Zyvox IV (likely organisms for skin MRSA and Strep) Observe fever trend off prior antibiotic regimen of Vanco and Zosyn. If resolves likely drug fever. Consult podiatry WBC scan to r/o osteomyelitis. Follow cultures Follow clinically. No PICC till cleared by ID. Physician Attestation I reviewed the medications. He reports only two meds listed in note. Not on Cardiac meds or HTN meds. Magalie Moreno MD Dec 24, 2016 22:55
[2016-12-24] MEDS: LINEZOLID 600 MG PREMIX 300 ML IV SCH (23:14)
[2016-12-25] VITALS (8 sets, daily range): BP systolic 92–112; BP diastolic 55–73; PULSE 79–103; RESP 18–20; TEMP 97.4–101.1; O2SAT 95–100
[2016-12-25] MEDS: ENOXAPARIN SODIUM 30 MG/0.3 ML SYRINGE SQ SCH (02:00)
[2016-12-25] MEDS: METOPROLOL TARTRATE 100 MG TAB PO SCH ×2 (09:00→19:58)
[2016-12-25] MEDS: LISINOPRIL 5 MG TAB PO SCH (09:00)
[2016-12-25] MEDS: FOLIC ACID 1 MG TAB PO SCH (10:07)
[2016-12-25] MEDS: MULTIVITAMINS/MINERALS THERAPEUTIC TAB PO SCH (10:07)
[2016-12-25] MEDS: FUROSEMIDE 20 MG TAB PO SCH (10:07)
[2016-12-25] MEDS: POTASSIUM CHLORIDE 10 MEQ CONTROLLED RELEASE TAB PO SCH (10:08)
[2016-12-25] MEDS: THIAMINE HCL 100 MG TAB PO SCH (10:08)
[2016-12-25] MEDS: ASPIRIN 325 MG TAB PO SCH (10:09)
[2016-12-25] MEDS: LINEZOLID 600 MG PREMIX 300 ML IV SCH ×2 (10:09→19:57)
[2016-12-25] MEDS: SODIUM CHLORIDE 0.9% FLUSH 10 ML FLUSH IV FLUSH SCH ×2 (10:22→19:58)
--- NOTE | 2016-12-25 11:07 | HHI.PR ---
Subjective Remarks Discussed with nursing, no acute setback since last night. Patient is still spiking fevers off of vancomycin. Discussed case with Dr. Lutz from podiatry , clinically does not suspect osteomyelitis. Recommends walking boot to help with offloading. Etiologies entertained are neuropathic based Charcot joint destruction otherwise. Patient himself says that his pain is slightly better in his right foot, otherwise denies any chest pain or SOB. Says he ambulated well yesterday w/ therapy. Objective Vital Signs Date Time Temp Pulse Resp B/P (MAP) Pulse Ox O2 Delivery O2 Flow Rate FiO2 12/25/16 08:00 100.1 99 20 92/69 (77) 95 12/25/16 06:36 100.2 12/25/16 04:00 101.1 103 18 112/73 (86) 100 12/25/16 00:00 97.4 91 18 112/72 (85) 100 12/24/16 20:25 Room Air 12/24/16 20:00 98.2 92 16 112/73 (86) 100 12/24/16 19:59 92 12/24/16 16:00 100.3 101 20 109/71 (84) 98 12/24/16 12:00 98.8 86 16 125/81 (96) 100 I/O 12/24/16 12/24/16 12/24/16 12/25/16 12/25/16 12/25/16 07:00 15:00 23:00 07:00 15:00 23:00 Intake Total 507.5 ml 50 ml 300 ml Output Total 400 ml 650 ml Balance 507.5 ml 50 ml -100 ml -650 ml Intake Oral 0 ml IV Total 507.5 ml 50 ml 300 ml Output Urine Total 400 ml 650 ml # Voids 3 0 # Bowel Movements 1 1 Result Diagram: 12/24/16192112/24/161921 Objective Remarks No acute distress, lying in bed awake Regular rate and rhythm no murmurs, no edema noted on foot, mild diffuse TTP on plantar aspect of metatarsals A/P Assessment and Plan Mr. Lui is a 41-year old male with a known medical history of hypertension who presented to the ED with complaints of right foot pain and swelling. Patient states that he noticed swelling and pain in his right foot starting on Tuesday and presented to [facility] ED who prescribed him Keflex and tramadol for the pain. Right foot pain - Recovering well from cellulitis component, however has destructive arthropathy noted which could be from Charcot joints versus osteomyelitis. Awaiting white blood cell tagged scan for Tuesday. - Still spiking fevers off of vancomycin, - Control pain, [place] PO available PRN per pain scale. Original BCxs neg x 2 , blood cultures reordered in light of new fever acute destructive arthropathy - Podiatry recommending offloading boot/walker boot for right foot, to reconsult if osteomyelitis is confirmed unsteady gait 2/2 pain - PT CKD - likely 2/2 sCHF, monitor tachycardia - improved, CTA neg for PE systolic CHF - lexiscan neg for reversible ischemia. continue kasey-i, lifevest if available ETOH dependence- librium DVT Prophylaxis: Lovenox. Marbin Santiago MD Dec 25, 2016 11:07
--- NOTE | 2016-12-25 11:12 | PD.CARD.PN ---
Subjective Subjective Remarks Pt feels well, no cardiac complaints. Objective Medications Administered Medications Medications (Trade) Dose Ordered Sig/Aliya Route PRN Reason Start Time Stop Time Status Last Admin Dose Admin Sodium Chloride (NS Flush) 2 ml BID IV FLUSH 12/21/16 09:00 12/25/16 10:22 Acetaminophen/ Hydrocodone Bitart ([place] 5-325 Mg) 1 tab Q4H PRN PO PAIN SCALE 1 TO 5 12/21/16 01:15 12/25/16 10:22 Enoxaparin Sodium (Lovenox Inj) 30 mg Q24H SQ 12/21/16 02:00 12/25/16 02:00 Aspirin (Aspirin) 325 mg DAILY PO 12/22/16 09:00 12/25/16 10:09 Lorazepam (Ativan Inj) 1 mg Q2H PRN IV PUSH withdrawal symptoms 12/22/16 04:15 12/23/16 20:23 Folic Acid (Folate) 1 mg DAILY PO 12/22/16 09:15 12/27/16 09:14 12/25/16 10:07 Thiamine HCl (Vitamin B1) 100 mg DAILY PO 12/22/16 09:15 12/25/16 10:08 Multivitamins/ Minerals Therapeutic (Theragran M Tab) 1 tab DAILY PO 12/22/16 09:15 12/27/16 09:14 12/25/16 10:07 Chlordiazepoxide (Librium) 10 mg BID PO 12/23/16 14:15 12/25/16 10:07 Metoprolol Tartrate (Lopressor) 100 mg Q12HR PO 12/23/16 21:00 12/24/16 20:21 Lisinopril (Prinivil) 2.5 mg DAILY PO 12/24/16 09:00 12/24/16 18:45 Furosemide (Lasix) 20 mg DAILY PO 12/24/16 09:00 12/25/16 10:07 Potassium Chloride (KCl) 30 meq DAILY PO 12/23/16 18:15 12/25/16 10:08 Linezolid 300 ml @ 300 mls/hr Q12H IV 12/24/16 21:00 12/25/16 10:09 Vital Signs / I&O Vital Signs Date Time Temp Pulse Resp B/P (MAP) Pulse Ox O2 Delivery O2 Flow Rate FiO2 12/25/16 08:00 100.1 99 20 92/69 (77) 95 12/25/16 06:36 100.2 12/25/16 04:00 101.1 103 18 112/73 (86) 100 12/25/16 00:00 97.4 91 18 112/72 (85) 100 12/24/16 20:25 Room Air 12/24/16 20:00 98.2 92 16 112/73 (86) 100 12/24/16 19:59 92 12/24/16 16:00 100.3 101 20 109/71 (84) 98 12/24/16 12:00 98.8 86 16 125/81 (96) 100 I/O 12/24/16 12/24/16 12/24/16 12/25/16 12/25/16 12/25/16 07:00 15:00 23:00 07:00 15:00 23:00 Intake Total 507.5 ml 50 ml 300 ml Output Total 400 ml 650 ml Balance 507.5 ml 50 ml -100 ml -650 ml Intake Oral 0 ml IV Total 507.5 ml 50 ml 300 ml Output Urine Total 400 ml 650 ml # Voids 3 0 # Bowel Movements 1 1 Physical Exam GENERAL: This is a well-nourished, well-developed patient, in no apparent distress. CARDIOVASCULAR: Regular rate and rhythm without murmurs, gallops, or rubs. RESPIRATORY: Clear to auscultation. Breath sounds equal bilaterally. No wheezes , rales, or rhonchi. GASTROINTESTINAL: Abdomen soft, non-tender, nondistended. Normal active bowel sounds MUSCULOSKELETAL: Extremities without clubbing, cyanosis, or edema. NEURO: Alert & Oriented x4 to person, place, time, situation. Moves all ext x4 Laboratory Laboratory Tests Test 12/24/16 19:22 12/25/16 05:33 White Blood Count 6.4 TH/MM3 Red Blood Count 3.72 MIL/MM3 Hemoglobin 11.2 GM/DL Hematocrit 34.3 % Mean Corpuscular Volume 92.4 FL Mean Corpuscular Hemoglobin 30.1 PG Mean Corpuscular Hemoglobin Concent 32.5 % Red Cell Distribution Width 14.2 % Platelet Count 344 TH/MM3 Mean Platelet Volume 8.5 FL Neutrophils (%) (Auto) 59.9 % Lymphocytes (%) (Auto) 25.7 % Monocytes (%) (Auto) 13.5 % Eosinophils (%) (Auto) 0.2 % Basophils (%) (Auto) 0.7 % Neutrophils # (Auto) 3.9 TH/MM3 Lymphocytes # (Auto) 1.7 TH/MM3 Monocytes # (Auto) 0.9 TH/MM3 Eosinophils # (Auto) 0.0 TH/MM3 Basophils # (Auto) 0.0 TH/MM3 CBC Comment DIFF FINAL Differential Comment Blood Urea Nitrogen 10 MG/DL Creatinine 1.35 MG/DL Random Glucose 81 MG/DL Total Protein 7.2 GM/DL Albumin 2.0 GM/DL Calcium Level 8.5 MG/DL Alkaline Phosphatase 89 U/L Aspartate Amino Transf (AST/SGOT) 26 U/L Alanine Aminotransferase (ALT/SGPT) 18 U/L Total Bilirubin 0.3 MG/DL Sodium Level 137 MEQ/L Potassium Level 3.5 MEQ/L Chloride Level 104 MEQ/L Carbon Dioxide Level 26.7 MEQ/L Anion Gap 6 MEQ/L Estimat Glomerular Filtration Rate 71 ML/MIN Uric Acid 6.3 MG/DL 6.6 MG/DL Imaging Last Impressions Myocardial Perfusion Scan Nuc Med 12/24/16 0000 Signed Impressions: Service Date/Time: Saturday, December 24, 2016 13:04 - CONCLUSION: 1. No reversible perfusion defect to suggest stress-induced myocardial ischemia. 2. Dilation of the ventricular cavity with global hypokinesis. Ejection fraction is estimated at 42%%. RISK CATEGORY: Intermediate (1-3%% Annual Mortality Rate) Rafal Cook MD Chest X-Ray 12/24/16 0000 Signed Impressions: Service Date/Time: Saturday, December 24, 2016 19:07 - CONCLUSION: Borderline compensated cardiomegaly. Clear lungs. Roger Taylor MD Foot X-Ray 12/23/16 0000 Signed Impressions: Service Date/Time: November 17:11 - CONCLUSION: 1. Soft tissue swelling. No acute bony abnormality or retained foreign body. Rafal Cook MD Foot MRI 12/23/16 0000 Signed Impressions: Service Date/Time: November 20:40 - CONCLUSION: 1. 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 There is an associated erosion of the proximal phalanx base. The features are nonspecific. Although osteomyelitis is in the differential, inflammatory arthropathy including gout should also be considered. 2. Synovial based inflammatory changes of the ankle, hindfoot and midfoot with only small effusions, no definite osteomyelitis and probably not representing septic arthropathy. Again, inflammatory arthropathy should be included in the differential. 3. Nonspecific tendinosis/tenosynovitis distally of flexor hallucis longus. Roger Taylor MD CT Angiography 12/23/16 0000 Signed Impressions: Service Date/Time: November 12:32 - CONCLUSION: No evidence of pulmonary embolism. Left ventricular chamber enlargement and possible pulmonary outflow tract compromise. Correlation with echocardiography may be beneficial. Nonspecific low density area in the left lobe of the liver. Roger Arguelles MD Ankle X-Ray 12/23/16 0000 Signed Impressions: Service Date/Time: November 17:08 - CONCLUSION: 1. No acute fracture of the right ankle is identified. Rafal Cook MD Lower Extremity Ultrasound 12/20/16 214 Signed Impressions: Service Date/Time: Tuesday, December 20, 2016 22:15 - CONCLUSION: No DVT is identified within the right lower extremity. Roger Amato MD Assessment and Plan Problem List: (1) Hypertension ICD Codes: I10 - Essential (primary) hypertension (2) Cardiomyopathy ICD Codes: I42.9 - Cardiomyopathy, unspecified Plan: Non-ishcemic by nuc stress (and prior cath per pt), on kasey/bb, no sx, pt has a life-vest at home of which he has been in possession since (w/ mediocre compliance); I advised him to have someone bring it in so he can wear upon discharge. Assessment and Plan Will be available as needed Tuesday, Dr. Fabian will return Tuesday Problem Qualifiers (1) Cardiomyopathy: Qualified Codes: I42.9 - Cardiomyopathy, unspecified Cy Barnes MD Dec 25, 2016 11:12
[2016-12-26] VITALS (9 sets, daily range): BP systolic 83–121; BP diastolic 55–74; PULSE 80–107; RESP 18–20; TEMP 97.2–100.2; O2SAT 96–100
[2016-12-26] MEDS: ENOXAPARIN SODIUM 30 MG/0.3 ML SYRINGE SQ SCH (01:00)
[2016-12-26] MEDS: METOPROLOL TARTRATE 100 MG TAB PO SCH ×2 (08:43→20:46)
[2016-12-26] MEDS: FUROSEMIDE 20 MG TAB PO SCH (08:43)
[2016-12-26] MEDS: MULTIVITAMINS/MINERALS THERAPEUTIC TAB PO SCH (08:43)
[2016-12-26] MEDS: FOLIC ACID 1 MG TAB PO SCH (08:44)
[2016-12-26] MEDS: THIAMINE HCL 100 MG TAB PO SCH (08:44)
[2016-12-26] MEDS: LISINOPRIL 5 MG TAB PO SCH (08:44)
[2016-12-26] MEDS: ASPIRIN 325 MG TAB PO SCH (08:45)
[2016-12-26] MEDS: POTASSIUM CHLORIDE 10 MEQ CONTROLLED RELEASE TAB PO SCH (08:45)
[2016-12-26] MEDS: SODIUM CHLORIDE 0.9% FLUSH 10 ML FLUSH IV FLUSH SCH ×2 (08:48→20:46)
[2016-12-26] MEDS: LINEZOLID 600 MG PREMIX 300 ML IV SCH ×2 (08:48→20:45)
--- NOTE | 2016-12-26 14:53 | HHI.PR ---
Subjective Remarks Discussed with nursing, no acute setback since last night. Did not have another any further fevers greater than 100.3 since last 24 hours. However patient himself is reporting the same exact pain pattern that he had in his right foot now on his left foot. He also says that he had right knee swelling yesterday evening and now it has transition to left knee swelling and pain. When taking further history, he denies any family history of any rheumatologic disease. He denies being sexually active or "2 years." He denies any skin rashes or any ulcers. Objective Vital Signs Date Time Temp Pulse Resp B/P (MAP) Pulse Ox O2 Delivery O2 Flow Rate FiO2 12/26/16 13:00 80 18 83/55 (64) 12/26/16 12:00 98.9 87 20 89/57 (68) 100 12/26/16 08:00 99.9 106 20 121/74 (90) 98 12/26/16 08:00 96 Room Air 12/26/16 08:00 106 12/26/16 04:00 100.2 101 18 115/70 (85) 100 12/26/16 04:00 Room Air 12/26/16 00:00 Room Air 12/26/16 00:00 99.5 102 18 112/71 (85) 100 12/25/16 20:09 88 12/25/16 20:01 Room Air 12/25/16 20:00 98.8 93 18 106/55 (72) 100 12/25/16 16:00 98.5 79 20 98/64 (75) 100 I/O 12/25/16 12/25/16 12/25/16 12/26/16 12/26/16 12/26/16 07:00 15:00 23:00 07:00 15:00 23:00 Intake Total 300 ml 780 ml 300 ml 300 ml Output Total 400 ml 1000 ml 800 ml 1000 ml Balance -100 ml -220 ml -500 ml -1000 ml 300 ml Intake Oral 480 ml IV Total 300 ml 300 ml 300 ml 300 ml Output Urine Total 400 ml 1000 ml 800 ml 1000 ml # Voids 3 # Bowel Movements 0 Result Diagram: 12/24/16192112/24/161921 Objective Remarks No acute distress, lying in bed awake Regular rate and rhythm no murmurs, Left knee mild to moderate edema with warmth, no discoloration, mild global tenderness to palpation, good range of motion Right knee appears normal Has diffuse mod tenderness to palpation over the plantar aspects of metatarsals on left foot, significantly less pain in the same distribution on the right foot A/P Assessment and Plan Mr. Lui is a 41-year old male with a known medical history of hypertension who presented to the ED with complaints of right foot pain and swelling. Patient states that he noticed swelling and pain in his right foot starting on Tuesday and presented to [facility] ED who prescribed him Keflex and tramadol for the pain. Right foot pain - recovering well from cellulitis component, however has destructive arthropathy noted which could be from Charcot joints versus osteomyelitis. Awaiting white blood cell tagged scan for Tuesday. On zyvox. - Control pain, [place] PO available PRN per pain scale. Original BCxs neg x 2 , blood cultures reordered in light of new fever asymmetrical polyarthropathy - will order autoimmune workup - ESR and SID. May need to expand to sub-serologies. acute destructive arthropathy - Podiatry recommending offloading boot/walker boot for right foot, in the middle of WBC-tagged scan unsteady gait 2/2 pain - PT CKD - likely 2/2 sCHF, monitor tachycardia - stable systolic CHF - lexiscan neg for reversible ischemia. continue kasey-i, LifeVest if available ETOH dependence- decreasing Librium dose DVT Prophylaxis: Lovenox. Marbin Santiago MD Dec 26, 2016 14:53
[2016-12-27] VITALS: BP 94/65; PULSE 98; RESP 20; TEMP 98.6; O2SAT 100
[2016-12-27] MEDS: ENOXAPARIN SODIUM 30 MG/0.3 ML SYRINGE SQ SCH (01:01)
[2016-12-27 04:00] VITALS: BP 107/70; PULSE 91; RESP 20; TEMP 99.3; O2SAT 100
--- NOTE | 2016-12-27 08:37 | MB ---
cc: NEL PA DPM DATE OF CONSULTATION: 12/24/2016. REASON FOR CONSULTATION: Destructive arthropathy. HISTORY OF PRESENT ILLNESS: The patient is a 41-year-old male with past medical history of hypertension who presented to the emergency room with right foot pain and swelling. He was seen in the [facility] Emergency Room and was prescribed Keflex and pain medication. He relates to past right foot surgery but does not recall. REVIEW OF SYSTEMS: Review of systems positive for lower extremity pain. PAST MEDICAL HISTORY: 1. Hypertension. 2. Question of congestive heart failure. PAST SURGICAL HISTORY: 1. Tooth extraction. 2. Right foot surgery, unaware. MEDICATIONS: Per the history of present illness. PHYSICAL EXAMINATION: Diffuse bilateral foot pain. Lower extremity is warm to warm with intact pulses. There is no erythema. No open draining. On physical exam protective sensation intact. On physical exam he has 1/5 muscle strength. LABORATORY DATA: 12/22, 8.1, RBC of 3.73, hemoglobin 11.3 and hematocrit 34.5. IMAGING STUDIES: MRI on the right foot with what appears to be some erosions around the base of the proximal phalanx. No cortical fractures. There is some increase in signal intensity in the foot and ankle. Right foot x-ray was completed without any acute fracture noted. ASSESSMENT AND PLAN: 1. Right foot pain. 2. Arthropathy. Clinically on physical exam the patient presented with 1/5 muscle strength however on departing the room, he was seen kicking his blankets down to the bottom of the bed so the question of this physical exam lends to the patient presenting or representing his physical differently Clinically no significant erythema or edema on the right side. The MRI presented a differential diagnosis of osteomyelitis. If there is concern for osteomyelitis, Zyrtec bone scan can be run to rule that out. For his arthropathy, wearing appropriate shoe gear, stabilizing off-loading and oral medications for his pain will be the primary recommendations. Podiatry will be signing off at this point. If there are new changes or changes, please re-consult. Nel Pa DPM SR/TRICIA /8:12 PM /8:33 AM MTDJay
[2016-12-27 08:49] VITALS: BP 98/68; PULSE 100; RESP 16; TEMP 99.9; O2SAT 98
[2016-12-27] MEDS: LINEZOLID 600 MG PREMIX 300 ML IV SCH (09:02)
[2016-12-27] MEDS: MULTIVITAMINS/MINERALS THERAPEUTIC TAB PO SCH (09:03)
[2016-12-27] MEDS: THIAMINE HCL 100 MG TAB PO SCH (09:04)
[2016-12-27] MEDS: FUROSEMIDE 20 MG TAB PO SCH (09:04)
[2016-12-27] MEDS: ASPIRIN 325 MG TAB PO SCH (09:04)
[2016-12-27] MEDS: SODIUM CHLORIDE 0.9% FLUSH 10 ML FLUSH IV FLUSH SCH ×2 (09:05→21:28)
[2016-12-27] MEDS: FOLIC ACID 1 MG TAB PO SCH (09:05)
[2016-12-27] MEDS: POTASSIUM CHLORIDE 10 MEQ CONTROLLED RELEASE TAB PO SCH (09:05)
[2016-12-27] MEDS: METOPROLOL TARTRATE 100 MG TAB PO SCH ×2 (09:16→21:00)
[2016-12-27] MEDS: LISINOPRIL 5 MG TAB PO SCH (09:17)
[2016-12-27 11:30] VITALS: PULSE 94
--- NOTE | 2016-12-27 11:56 | RADRPT ---
EXAM DATE/TIME: 12/26/2016 12:38 [place] COMPARISON: No previous studies available for comparison. INDICATIONS : Right foot pain. DOSE: 1220 mCi Tc99m Ceretec labeled white blood cells IV SPECT IMAGIN hrs, 20 hrs IMAGNG: SPECT/CT imaging with fusion was performed. RADIATION DOSE: 5.85 CTDIvol (mGy) MEDICAL HISTORY : Congestive hearrt failure. Hypertension. SURGICAL HISTORY : Right foot surgery. ENCOUNTER: Initial ACUITY: 1 week PAIN SCALE: 3/10 LOCATION: Right Foot. TECHNIQUE: Following the in vitro labeling of autologous white cells and reinjection, whole body scan was perfor med at the specified times. SPECT imaging was performed at the specified time in sagittal, axial and coronal planes. Attenuation correction was performed with the computed tomography and both the atten uation correction and non-attenuation corrected data sets were reviewed. FINDINGS: There is no abnormal biodistribution of radiotracer. CONCLUSION: 1. No evidence of infection Fox Bullock MD on December 27, 2016 at 11:53 Board Certified Radiologist. This report was verified electronically.
--- NOTE | 2016-12-27 13:57 | HHI.IDPN ---
Subjective Subjective Remarks Mr. Lui is a 41-year old male with HTN, CHF, Ischemic cardiomyopathy with low EF s/p Life Vest in ? 2016 (saw in past) per cardiology records, Seizure disorder ? alcohol induced s/p EEG and neuro eval. He initially presented at [facility] ED and was discharged home on oral keflex and tramadol for pain. Of note patient has had prior admissions for cardiac issues with 2 EVAC related ED visits/admits and also HTN but he is not on any cardiac or BP home meds. Reported history of noncompliance per records. He presented to the ED at [place] for complains of right foot pain and swelling. No sure if he was compliant with Keflex. He does state he has had some abdominal discomfort and vomiting with antibiotic use. Patient reports initial improvement followed by worsening of the foot. He reports prior surgery to the foot and also arthrocentesis in past. He thinks he may have been told he has gout in past. Upon initial admission patient had HR in 150's-160's, asymptomatic. He was evaluated by cardiology and underwent stress test. Denies any recent fevers at home, chills, cough, headache, dizziness, lightheadedness, shortness of breath, chest pain, palpitations. Denies any abdominal pain, nausea, vomiting, diarrhea or dysuria. ID consulted for evaluation and mment of arthropathy/tenosynovitis ? Infective in nature. Overnight events reviewed Low grade fevers. No rash No diarrhea Complains of fleeting joint pains. Yday complained of bilateral knee pain with warmth. Today complains of pain in left knee with warmth although he came in with right ankle pain as presenting symptom, Antibiotics Zyvox IV Lines Zyvox IV Past Medical History ? gout alcoholism Allergies: Coded Allergies: No Known Allergies (Verified , 12/20/16) Objective . Vital Signs Date Time Temp Pulse Resp B/P (MAP) Pulse Ox O2 Delivery O2 Flow Rate FiO2 12/27/16 11:30 94 12/27/16 09:17 Room Air 12/27/16 08:49 99.9 100 16 98/68 (78) 98 12/27/16 04:00 Room Air 12/27/16 04:00 99.3 91 20 107/70 (82) 100 12/27/16 00:00 Room Air 12/27/16 00:00 98.6 98 20 94/65 (75) 100 12/26/16 20:45 Room Air 12/26/16 20:25 89 12/26/16 20:00 99.3 107 19 97/62 (74) 100 12/26/16 17:12 97.2 80 18 97/62 (74) 100 12/26/16 16:00 99.0 89 20 100/73 (82) 96 . Laboratory Tests Test 12/26/16 16:59 Erythrocyte Sedimentation Rate GREATER THAN 140 mm/hr Imaging Last Impressions Myocardial Perfusion Scan Nuc Med 12/24/16 0000 Signed Impressions: Service Date/Time: Saturday, December 24, 2016 13:04 - CONCLUSION: 1. No reversible perfusion defect to suggest stress-induced myocardial ischemia. 2. Dilation of the ventricular cavity with global hypokinesis. Ejection fraction is estimated at 42%%. RISK CATEGORY: Intermediate (1-3%% Annual Mortality Rate) Rafal Cook MD Chest X-Ray 12/24/16 0000 Signed Impressions: Service Date/Time: Saturday, December 24, 2016 19:07 - CONCLUSION: Borderline compensated cardiomegaly. Clear lungs. Roger Taylor MD Foot X-Ray 12/23/16 0000 Signed Impressions: Service Date/Time: November 17:11 - CONCLUSION: 1. Soft tissue swelling. No acute bony abnormality or retained foreign body. Rafal Cook MD Foot MRI 12/23/16 0000 Signed Impressions: Service Date/Time: November 20:40 - CONCLUSION: 1. 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 There is an associated erosion of the proximal phalanx base. The features are nonspecific. Although osteomyelitis is in the differential, inflammatory arthropathy including gout should also be considered. 2. Synovial based inflammatory changes of the ankle, hindfoot and midfoot with only small effusions, no definite osteomyelitis and probably not representing septic arthropathy. Again, inflammatory arthropathy should be included in the differential. 3. Nonspecific tendinosis/tenosynovitis distally of flexor hallucis longus. Roger Taylor MD CT Angiography 12/23/16 0000 Signed Impressions: Service Date/Time: November 12:32 - CONCLUSION: No evidence of pulmonary embolism. Left ventricular chamber enlargement and possible pulmonary outflow tract compromise. Correlation with echocardiography may be beneficial. Nonspecific low density area in the left lobe of the liver. Roger Arguelles MD Ankle X-Ray 12/23/16 0000 Signed Impressions: Service Date/Time: November 17:08 - CONCLUSION: 1. No acute fracture of the right ankle is identified. Rafal Cook MD Lower Extremity Ultrasound 12/20/16 2148 Signed Impressions: Service Date/Time: Tuesday, December 20, 2016 22:15 - CONCLUSION: No DVT is identified within the right lower extremity. Roger Amato MD Physical Exam GENERAL: This is a well-nourished, well-developed patient, in no apparent distress. SKIN: No rashes, ecchymoses or lesions. Cool and dry. HEAD: Atraumatic. Normocephalic. No temporal or scalp tenderness. EYES: Pupils equal round and reactive. Extraocular motions intact. No scleral icterus. No injection or drainage. ENT: Nose without bleeding, purulent drainage or septal hematoma. Throat without erythema, tonsillar hypertrophy or exudate. Uvula midline. Airway patent. NECK: Trachea midline. Supple, nontender, no meningeal signs. CARDIOVASCULAR: Regular rate and rhythm without murmurs, gallops, or rubs. RESPIRATORY: Clear to auscultation. Breath sounds equal bilaterally. No wheezes , rales, or rhonchi. GASTROINTESTINAL: Abdomen soft, non-tender, nondistended. MUSCULOSKELETAL: Left ankle and foot with erythema, tenderness, some decreased ROM. Left ankle no s/o infection NEUROLOGICAL: Awake and alert. Grossly non focal Psych cooperative IV line sites with no e.o infection. Assessment & Plan Remarks Right foot/ankle cellulitis ? osteomyelitis Right foot abnormal changes ? gout related. Alcoholism Seizure disorder per records. Anxiety and depression by history Acute renal failure: prerenal, antibiotic induced. Fevers persistent after initial improvement: ? drug fever ? new infection (CXR negative,BCX pending) HIV screen positive. reported to earlier that he has been told about HIV positivity in past. Recs DC Zyvox IV (likely organisms for skin MRSA and Strep) Observe fever trend and clinical joint exam off antibiotics. WBC scan negative. Check HIV DNA PCR Check CD4 Check Lupus, RA, GC and Chlamydia ? reactive fleeting arthritis due to HIv. ? Acute retroviral syndrome. Follow cultures Follow clinically. Magalie Moreno MD Dec 27, 2016 13:57
--- NOTE | 2016-12-27 15:14 | HHI.PR ---
Subjective Remarks Discussed with nursing, no acute setback since last night. Patient himself says he feels relatively well different compared to yesterday. Says pain is not as bothersome today as well as yesterday. Objective Vital Signs Date Time Temp Pulse Resp B/P (MAP) Pulse Ox O2 Delivery O2 Flow Rate FiO2 12/27/16 11:30 94 12/27/16 09:17 Room Air 12/27/16 08:49 99.9 100 16 98/68 (78) 98 12/27/16 04:00 Room Air 12/27/16 04:00 99.3 91 20 107/70 (82) 100 12/27/16 00:00 Room Air 12/27/16 00:00 98.6 98 20 94/65 (75) 100 12/26/16 20:45 Room Air 12/26/16 20:25 89 12/26/16 20:00 99.3 107 19 97/62 (74) 100 12/26/16 17:12 97.2 80 18 97/62 (74) 100 12/26/16 16:00 99.0 89 20 100/73 (82) 96 I/O 12/26/16 12/26/16 12/26/16 12/27/16 12/27/16 12/27/16 07:00 15:00 23:00 07:00 15:00 23:00 Intake Total 300 ml 300 ml 650 ml Output Total 1000 ml 500 ml 900 ml Balance -1000 ml 300 ml -200 ml -250 ml Intake Oral 650 ml IV Total 300 ml 300 ml Output Urine Total 1000 ml 500 ml 900 ml # Voids 3 # Bowel Movements 0 1 1 Result Diagram: 12/24/16192112/24/161921 Objective Remarks No acute distress, lying in bed awake Regular rate and rhythm no murmurs, Left knee mild to moderate edema with warmth, no discoloration, mild global tenderness to palpation, good range of motion Right knee appears normal Has diffuse mod tenderness to palpation over the plantar aspects of foot A/P Assessment and Plan Mr. Lui is a 41-year old male with a known medical history of hypertension who presented to the ED with complaints of right foot pain and swelling. Patient states that he noticed swelling and pain in his right foot starting on Tuesday and presented to [facility] ED who prescribed him Keflex and tramadol for the pain. D/w Dr. Moreno, wbc scan neg, patient confided in case management that he was told that he was HIV positive at one point. Initial screening test is positive , further workup has been ordered. BL feet pain w/ fevers - fevers resolved, stopping zyvox per ID. - Control pain, [place] PO available PRN per pain scale. Original BCxs neg x 2 , repeat BC neg. asymmetrical polyarthropathy - pending autoimmune workup - ESR very high at 140, SID is neg. ? HIV arthritis. acute destructive arthropathy - WBC tagged scan neg for osteo unsteady gait 2/2 pain - PT CKD - likely 2/2 sCHF, monitor tachycardia - stable systolic CHF - lexiscan neg for reversible ischemia. continue kasey-i, LifeVest if available ETOH dependence- stopping librium regimen. DVT Prophylaxis: Lovenox. Marbin Santiago MD Dec 27, 2016 15:14
[2016-12-27] MEDS ORDERED: SODIUM CHLOR 0.9% 250 ML INJ 250 ML IV ONE (19:15)
[2016-12-27 19:29] VITALS: BP 106/66; PULSE 70; RESP 16; TEMP 98.3; O2SAT 100
[2016-12-27 20:00] VITALS: BP_SYST 106; BP_SYST 68; BP_SYST 90; BP_DIAS 42; BP_DIAS 61; BP_DIAS 67; PULSE 103; PULSE 104; PULSE 136; PULSE 140; RESP 18; RESP 20; TEMP 98; TEMP 98.2; TEMP 98.5; O2SAT 100; O2SAT 94; O2SAT 96
[2016-12-28] VITALS (8 sets, daily range): BP systolic 90–142; BP diastolic 57–79; PULSE 92–118; RESP 18–20; TEMP 98.8–100.7; O2SAT 97–100
[2016-12-28] MEDS: ENOXAPARIN SODIUM 30 MG/0.3 ML SYRINGE SQ SCH (03:30)
[2016-12-28 08:32] LABS: RHEUMATOID FACTOR TRIGGER LESS THAN 10.0 IU/ML (0.0-14.9)
[2016-12-28] MEDS: POTASSIUM CHLORIDE 10 MEQ CONTROLLED RELEASE TAB PO SCH (09:10)
[2016-12-28] MEDS: ASPIRIN EC 81 MG TABEC PO SCH (09:10)
[2016-12-28] MEDS: SODIUM CHLORIDE 0.9% FLUSH 10 ML FLUSH IV FLUSH SCH ×2 (09:10→20:18)
[2016-12-28] MEDS: THIAMINE HCL 100 MG TAB PO SCH (09:10)
[2016-12-28] MEDS: LISINOPRIL 5 MG TAB PO SCH (09:10)
[2016-12-28] MEDS: METOPROLOL TARTRATE 100 MG TAB PO SCH ×2 (09:10→20:19)
[2016-12-28] MEDS: FUROSEMIDE 20 MG TAB PO SCH (09:10)
--- NOTE | 2016-12-28 11:49 | HHI.PR ---
Subjective Remarks Patient did have a very transient episode of fainting yesterday, was noted to be orthostatically hypotensive, responded well to normal saline bolus, normotensive today. Blood glucose was stable during his episode Discussed with nursing, no acute setbacks otherwise since last night. Patient himself says he notices that he has hanging fat on both calves. I related to him that his screening markers for HIV came back positive and that we are doing confirmatory tests, and that his entire polyarthropathy could be consistent with HIV arthritis since his ANAs negative and has no autoimmune history or associated symptoms otherwise. Objective Vital Signs Date Time Temp Pulse Resp B/P (MAP) Pulse Ox O2 Delivery O2 Flow Rate FiO2 12/28/16 09:15 111 12/28/16 09:15 Room Air 12/28/16 08:00 100.7 104 20 120/76 (91) 100 12/28/16 04:00 96 Room Air 12/28/16 04:00 99.3 103 18 122/79 (93) 100 12/28/16 00:00 108 20 107/72 (84) 100 12/28/16 00:00 118 18 109/71 (84) 100 12/28/16 00:00 96 Room Air 12/28/16 00:00 98.8 93 18 122/76 (91) 100 12/27/16 20:00 103 12/27/16 20:00 98.0 140 20 68/42 (51) 96 12/27/16 20:00 98.2 136 20 90/61 (71) 94 12/27/16 20:00 98.5 104 18 106/67 (80) 100 12/27/16 20:00 96 Room Air 12/27/16 19:29 98.3 70 16 106/66 (79) 100 I/O 12/27/16 12/27/16 12/27/16 12/28/16 12/28/16 12/28/16 07:00 15:00 23:00 07:00 15:00 23:00 Intake Total 650 ml 250 ml 360 ml Output Total 900 ml 1300 ml Balance -250 ml 250 ml -940 ml Intake Oral 650 ml 360 ml IV Total 250 ml Output Urine Total 900 ml 1300 ml # Bowel Movements 1 1 Result Diagram: 12/24/16192112/24/161921 Imaging Last Impressions Tumor Localization 12/26/16 Signed Impressions: Service Date/Time: Monday, December 26, 2016 12:38 - CONCLUSION: 1. No evidence of infection Fox Bullock MD Myocardial Perfusion Scan [facility] Med 12/24/16 Signed Impressions: Service Date/Time: Saturday, December 24, 2016 13:04 - CONCLUSION: 1. No reversible perfusion defect to suggest stress-induced myocardial ischemia. 2. Dilation of the ventricular cavity with global hypokinesis. Ejection fraction is estimated at 42%%. RISK CATEGORY: Intermediate (1-3%% Annual Mortality Rate) Rafal Cook MD Chest X-Ray 12/24/16 Signed Impressions: Service Date/Time: Saturday, December 24, 2016 19:07 - CONCLUSION: Borderline compensated cardiomegaly. Clear lungs. Roger Taylor MD Foot X-Ray 12/23/16 Signed Impressions: Service Date/Time: November 17:11 - CONCLUSION: 1. Soft tissue swelling. No acute bony abnormality or retained foreign body. Rafal Cook MD Foot MRI 12/23/16 Signed Impressions: Service Date/Time: November 20:40 - CONCLUSION: 1. 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 There is an associated erosion of the proximal phalanx base. The features are nonspecific. Although osteomyelitis is in the differential, inflammatory arthropathy including gout should also be considered. 2. Synovial based inflammatory changes of the ankle, hindfoot and midfoot with only small effusions, no definite osteomyelitis and probably not representing septic arthropathy. Again, inflammatory arthropathy should be included in the differential. 3. Nonspecific tendinosis/tenosynovitis distally of flexor hallucis longus. Roger Taylor MD CT Angiography 12/23/16 Signed Impressions: Service Date/Time: November 12:32 - CONCLUSION: No evidence of pulmonary embolism. Left ventricular chamber enlargement and possible pulmonary outflow tract compromise. Correlation with echocardiography may be beneficial. Nonspecific low density area in the left lobe of the liver. Roger Arguelles MD Ankle X-Ray 12/23/16 Signed Impressions: Service Date/Time: November 17:08 - CONCLUSION: 1. No acute fracture of the right ankle is identified. Rafal Cook MD Lower Extremity Ultrasound 12/20/16 2148 Signed Impressions: Service Date/Time: Tuesday, December 20, 2016 22:15 - CONCLUSION: No DVT is identified within the right lower extremity. Roger Amato MD Objective Remarks No acute distress, lying in bed awake Regular rate and rhythm no murmurs, Mild to moderate fatty appearing tissue on bilateral calves, both feet are diffusely tender to palpation on plantar aspects A/P Assessment and Plan Mr. Lui is a 41-year old male with a known medical history of hypertension who presented to the ED with complaints of right foot pain and swelling. Patient states that he noticed swelling and pain in his right foot starting on Tuesday and presented to [facility] ED who prescribed him Keflex and tramadol for the pain. fever - Suspect more infection (possible HIV) based since patient has been off of vancomycin for over 2-3 days now, and off of Zyvox since yesterday - Control pain, [place] PO available PRN per pain scale. Original BCxs neg x 2 , repeat BC neg. asymmetrical polyarthropathy - unlikely autoimmune since SID is neg, ? HIV arthritis, confirmatory test pending acute destructive arthropathy - WBC tagged scan neg for osteo tachycardia - possibly 2/2 infx, monitor, on lopressor for sCHF systolic CHF - continue kasey-i, lopressor, and lasix orthostatic hypotension - symptomatically resolved, will check BMP in AM to see if electrolytes are stable unsteady gait 2/2 pain - PT CKD - likely 2/2 sCHF, monitor DVT Prophylaxis: Lovenox. Marbin Santiago MD Dec 28, 2016 11:49
[2016-12-28 13:57] LABS: BICARBONATE 23.9 MEQ/L (21.0-32.0); POTASSIUM 4.3 MEQ/L (3.5-5.1)
[2016-12-28 16:52] LABS: HIV 1 AB DIFFERENTIATION Positive (Negative); HIV 1/2 AG AND AB SCREEN Reactive (Negative); HIV 2 AB DIFFERENTIATION Negative (Negative)
[2016-12-29 00:38] VITALS: BP 100/64; PULSE 101; RESP 20; TEMP 99.2; O2SAT 98
[2016-12-29] MEDS: ENOXAPARIN SODIUM 30 MG/0.3 ML SYRINGE SQ SCH (01:25)
[2016-12-29 03:47] VITALS: BP 104/69; PULSE 89; RESP 20; TEMP 98.8; O2SAT 100
[2016-12-29 08:00] VITALS: BP 102/59; PULSE 101; PULSE 96; RESP 18; TEMP 99.3; O2SAT 96
[2016-12-29] MEDS: LISINOPRIL 5 MG TAB PO SCH (10:08)
[2016-12-29] MEDS: POTASSIUM CHLORIDE 10 MEQ CONTROLLED RELEASE TAB PO SCH (10:08)
[2016-12-29] MEDS: METOPROLOL TARTRATE 100 MG TAB PO SCH (10:09)
[2016-12-29] MEDS: ASPIRIN EC 81 MG TABEC PO SCH (10:09)
[2016-12-29] MEDS: FUROSEMIDE 20 MG TAB PO SCH (10:09)
[2016-12-29] MEDS: THIAMINE HCL 100 MG TAB PO SCH (10:10)
[2016-12-29 12:00] VITALS: BP 102/60; PULSE 83; RESP 18; TEMP 99.2; O2SAT 100
--- NOTE | 2016-12-29 13:12 | HHI.PR ---
Subjective Remarks No acute setbacks since last night per nursing. Patient himself denies any worsening pain, no shortness of breath, no lower extremity edema today. Objective Vital Signs Date Time Temp Pulse Resp B/P (MAP) Pulse Ox O2 Delivery O2 Flow Rate FiO2 12/29/16 12:00 99.2 83 18 102/60 (74) 100 12/29/16 08:00 99.3 101 18 102/59 (73) 96 12/29/16 04:00 96 Room Air 12/29/16 03:47 98.8 89 20 104/69 (81) 100 12/29/16 00:38 99.2 101 20 100/64 (76) 98 12/29/16 00:00 96 Room Air 12/28/16 20:24 99.1 95 18 90/59 (69) 100 12/28/16 20:00 95 12/28/16 20:00 96 Room Air 12/28/16 16:00 99.5 96 20 112/57 (75) 97 I/O 12/28/16 12/28/16 12/28/16 12/29/16 12/29/16 12/29/16 07:00 15:00 23:00 07:00 15:00 23:00 Intake Total 360 ml 720 ml Output Total 1300 ml 350 ml Balance -940 ml 370 ml Intake Oral 360 ml 720 ml Output Urine Total 1300 ml 350 ml # Bowel Movements 1 2 Result Diagram: 12/28/16 0750 Objective Remarks Thin, slightly cachectic male No acute distress, lying in bed awake Regular rate and rhythm no murmurs, Mild nontender slightly fatty appearing tissue on bilateral calves, both feet are diffusely tender to palpation on plantar aspects A/P Assessment and Plan Mr. Lui is a 41-year old male with a known medical history of hypertension who presented to the ED with complaints of right foot pain and swelling. Patient states that he noticed swelling and pain in his right foot starting on Tuesday and presented to [facility] ED who prescribed him Keflex and tramadol for the pain. fever - Suspect more infection (possible HIV) based since patient has been off abx for over 2 days now, MAXIMUM TEMPERATURE was 100.7 yesterday morning - Control pain, [place] PO available PRN per pain scale. Original BCxs neg x 2 , repeat BC neg. 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 Marbin Santiago MD Dec 29, 2016 13:12
--- NOTE | 2016-12-29 14:32 | HHI.PR ---
Addendum to Inpatient Note Addendum Reason: Additional Documentation Additional Information Ok to discharge from ID standpoint. HIV positive needs follow up set up at health dept. No antimicrobials on discharge. Will sign off please call back if any change in clinical condition or questions. Magalie Moreno MD Dec 29, 2016 14:32
[2016-12-29 16:00] VITALS: BP 93/58; PULSE 96; RESP 18; TEMP 98.9; O2SAT 99
[2016-12-29] MEDS ORDERED: FURO20TA PO (16:08)
[2016-12-29] MEDS ORDERED: LISI-519 PO (16:08)
[2016-12-29] MEDS ORDERED: METO-338 PO (16:08)
[2016-12-29] MEDS ORDERED: SPIR25TA PO (16:08)
[2016-12-29] MEDS ORDERED: POTA-243 PO (16:08)
[2016-12-29] MEDS ORDERED: ASPI-99 PO (16:09)
--- NOTE | 2016-12-29 16:10 | HHI.DCPOC ---
Discharge Care Plan Diagnosis: (1) HIV disease (2) Cardiomyopathy (3) Hypertension Goals to Promote Your Health * To prevent worsening of your condition and complications * To maintain your health at the optimal level Directions to Meet Your Goals Take your medications as prescribed Follow your dietary instruction Follow activity as directed Keep your appointments as scheduled Take your immunizations and boosters as scheduled If your symptoms worsen call your PCP, if no PCP go to Urgent Care Center or Emergency Room Smoking is Dangerous to Your Health. Avoid second hand smoke Call the 24-hour hour crisis hotline for domestic abuse at Marbin Santiago MD Dec 29, 2016 16:09
--- NOTE | 2016-12-29 16:11 | HHI.DS ---
Discharge Summary Admission Date Dec 20, 2016 at 23:37 Discharge Date: Dec 29, 2016 Admitting Diagnosis Right foot cellulitis, failed outpatient management (1) Hypertension ICD Code: I10 - Essential (primary) hypertension (2) Cellulitis of foot, right ICD Code: L03.115 - Cellulitis of right lower limb (3) HIV disease ICD Code: B20 - Human immunodeficiency virus [HIV] disease (4) Cardiomyopathy ICD Code: I42.9 - Cardiomyopathy, unspecified Status: Acute Procedures none Brief History - From Admission Written by Lois Cartwright, acting as scribe for Dr. Connor on 12/21/16 at 10: 10. Mr. Lui is a 41-year old male with a known medical history of hypertension who presented to the ED with complaints of right foot pain and swelling. Patient states that he noticed swelling and pain in his right foot starting on Tuesday and presented to [facility] ED who prescribed him Keflex and tramadol for the pain. He does state he has had some abdominal discomfort and vomiting with antibiotic use. Denies any recent fevers at home, chills, cough, headache, dizziness, lightheadedness, shortness of breath, chest pain, palpitations, abdominal pain, nausea, vomiting, diarrhea or dysuria. Patient states that the swelling had begin to improve since Tuesday with antibiotic use but now he states it is starting to swelling again. Patient states he had a previous surgery on his right foot in the past but not sure what kind of surgery was done. Patient follows with Dr. Ame villa, for a questionable medical history of congestive heart failure and need for a pacemaker. He is a relatively poor historian regarding his medical history and history of treatment. At the moment patient heart rate is in the 140's-150's, sinus tachycardic, patient asymptomatic stating "his heart does this sometimes". Admits to following with Dr. Archibald in the outpatient setting but unaware of why , states he just knows "he isn't positive". Pain well controlled at this time. Admits to a positive gout history, not currently taking anything for it. CBC/BMP: 12/28/16 0750 Significant Findings Laboratory Tests Test 12/26/16 16:59 12/28/16 07:50 12/28/16 09:30 Erythrocyte Sedimentation Rate GREATER THAN 140 mm/hr Creatinine 1.34 MG/DL (0.60-1.30) Estimat Glomerular Filtration Rate 72 ML/MIN (>89) Imaging Last Impressions Tumor Localization 12/26/16 0000 Signed Impressions: Service Date/Time: Monday, December 26, 2016 12:38 - CONCLUSION: 1. No evidence of infection Fox Bullock MD Myocardial Perfusion Scan Nuc Med 12/24/16 0000 Signed Impressions: Service Date/Time: Saturday, December 24, 2016 13:04 - CONCLUSION: 1. No reversible perfusion defect to suggest stress-induced myocardial ischemia. 2. Dilation of the ventricular cavity with global hypokinesis. Ejection fraction is estimated at 42%%. RISK CATEGORY: Intermediate (1-3%% Annual Mortality Rate) Rafal Cook MD Chest X-Ray 12/24/16 0000 Signed Impressions: Service Date/Time: Saturday, December 24, 2016 19:07 - CONCLUSION: Borderline compensated cardiomegaly. Clear lungs. Roger Taylor MD Foot X-Ray 12/23/16 0000 Signed Impressions: Service Date/Time: November 17:11 - CONCLUSION: 1. Soft tissue swelling. No acute bony abnormality or retained foreign body. Rafal Cook MD Foot MRI 12/23/16 0000 Signed Impressions: Service Date/Time: November 20:40 - CONCLUSION: 1. 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 There is an associated erosion of the proximal phalanx base. The features are nonspecific. Although osteomyelitis is in the differential, inflammatory arthropathy including gout should also be considered. 2. Synovial based inflammatory changes of the ankle, hindfoot and midfoot with only small effusions, no definite osteomyelitis and probably not representing septic arthropathy. Again, inflammatory arthropathy should be included in the differential. 3. Nonspecific tendinosis/tenosynovitis distally of flexor hallucis longus. Roger Taylor MD CT Angiography 12/23/16 0000 Signed Impressions: Service Date/Time: November 12:32 - CONCLUSION: No evidence of pulmonary embolism. Left ventricular chamber enlargement and possible pulmonary outflow tract compromise. Correlation with echocardiography may be beneficial. Nonspecific low density area in the left lobe of the liver. Roger Arguelles MD Ankle X-Ray 12/23/16 0000 Signed Impressions: Service Date/Time: November 17:08 - CONCLUSION: 1. No acute fracture of the right ankle is identified. Rafal Cook MD Lower Extremity Ultrasound 12/20/16 2148 Signed Impressions: Service Date/Time: Tuesday, December 20, 2016 22:15 - CONCLUSION: No DVT is identified within the right lower extremity. Roger Amato MD PE at Discharge unlabored breathing, CTA x 2 slight global edema of left knee, good ROM Hospital Course Pt was admitted and tx presumptively for cellulitis with right foot edema. His echo showed substantial systolic dysfunction and cardiology ordered a stress test which was neg and reinforced for him to wear his lifevest upon discharge. His foot discoloration had resolved but still had persistent foot pain; he had an ESR of 140 and an MRI which showed extensive bony erosions. The patient began spiking fevers and his abx were adjusted for possible osteo. His WBC scan returned neg however the patient developed further asymmetric polyarthritis - namely pain in his left knee and left foot as well. Autoimmune serology workup was negative. 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 The patient's fevers resolved and deemed stable for discharge. Pt has met maximum benefit from hospitalization and is clinically stable for discharge with a walker. He had a CM arrange for f/u at the health department. Pt Condition on Discharge: Stable Discharge Disposition: Discharge Home Discharge Time: > 30 minutes Discharge Instructions DIET: Follow Instructions for: Heart Healthy Diet, Low Sodium Diet Activities you can perform: Weight Bearing as Stephan Other Activity Instructions: use walker, weight bearing as tolerated. Follow up Referrals: Cardiology - 3 Weeks with Rui,Merlin Lala MD New Medications: Potassium Chloride ER (Klor-Con 10) 10 Meq Tab 10 MEQ PO DAILY for Electrolyte Replacement, #30 TAB 0 Refills Spironolactone (Spironolactone) 25 Mg Tab 12.5 MG PO DAILY for heart failure, #30 TAB [address] (Adult Aspirin EC Low Strength) 81 Mg Tabec 81 MG PO DAILY for heart health, #30 TAB Furosemide (Furosemide) 20 Mg Tab 20 MG PO DAILY for heart failure, #30 TAB Lisinopril (Lisinopril) 5 Mg Tab 2.5 MG PO DAILY for heart failure, #30 TAB Metoprolol Tartrate (Lopressor) 100 Mg Tab 100 MG PO Q12HR for blood pressure, #60 TAB Marbin Santiago MD Dec 29, 2016 16:11
[2016-12-29 23:52] LABS: CD 19 PERCENT 3 % (6-29); CD3 ABSOLUTE 1507 (840-3060); CD4/CD8 RATIO 1.3 (0.86-5.00); CD8 ABSOLUTE 635 (180-1170); LYMPHOCYTES, ABSOLUTE 1638 (850-3900)
[2016-12-31 03:52] LABS: THROMBIN TIME FOR LA ND sec (13-19)
[2017-01-01 15:53] LABS: HIV 1 PROVIRAL DNA Detected (Not Detected)
== END 2016-12-29 19:35 | disposition home or self-care (01) | DRG 602 ==
LOC: NEPC 20:51 → NEDA 23:37 → N04B 12-21 02:45
PROVIDERS: ADMIT Family Medicine; ATTEND Family Medicine
DX: L03.115 Cellulitis of right lower limb (principal); B20 Human immunodeficiency virus [HIV] disease; N17.9 Acute kidney failure, unspecified; I42.8 Other cardiomyopathies; I50.20 Unspecified systolic (congestive) heart failure; I13.0 Hypertensive heart and chronic kidney disease with heart failure and stage 1 through stage 4 chronic kidney disease, or unspecified chronic kidney disease; M01.X71 Direct infection of right ankle and foot in infectious and parasitic diseases classified elsewhere; F10.239 Alcohol dependence with withdrawal, unspecified; I45.10 Unspecified right bundle-branch block; R00.0 Tachycardia, unspecified; T36.95XA Adverse effect of unspecified systemic antibiotic, initial encounter; E87.6 Hypokalemia; L84 Corns and callosities; M14.671 Charcot's joint, right ankle and foot; N18.9 Chronic kidney disease, unspecified; I95.1 Orthostatic hypotension; M10.9 Gout, unspecified; H91.90 Unspecified hearing loss, unspecified ear; R26.81 Unsteadiness on feet; F32.9 Major depressive disorder, single episode, unspecified; F41.9 Anxiety disorder, unspecified; Z78.1 Physical restraint status; Z91.19 Patient's noncompliance with other medical treatment and regimen
CPT/HCPCS: 71010; 71275; 73610; 73630; 73720; 78452; 78807; 78999; 80048; 80053; 80074; 80202; 80307; 81001; 82550; 82552; 82948; 83605; 83690; 83735; 83880; 84439; 84443; 84484; 84550; 85025; 85597; 85610; 85613; 85652; 85730; 86038; 86140; 86355; 86357; 86359; 86360; 86430; 86592; 86703; 87040; 87535; 93005; 93017; 93306; 93971; 96360; A9502; A9569; A9579; J1630; J1650; J2020; J2060; J2543; J2785; J3370; J3480; J7030; J7040; J7050; Q9967

== ENCOUNTER 2017-03-26 20:56 | Emergency (ER) | payer SELFPAY ==
[~2017-03-26] VITALS: Ht 162.6 cm; Wt 40.0 kg
[~2017-03-26 20:56] MED LIST changes: +ASPI1TAB56 PO; +CEPH500C PO; -CHLO25CA PO; +FURO20TA PO; -IBUP600 PO; +KLOR10TA PO; +LISI-519 PO; +METO-338 PO; +SPIR25TA PO; +TRAM50TA PO; -Z.0.NO CURRENT MEDS
[2017-03-26 20:58] VITALS: BP 142/89; PULSE 121; RESP 20; TEMP 98.4; O2SAT 98
[2017-03-26 21:19] VITALS: BP 164/97; PULSE 110; RESP 24; O2SAT 99
--- NOTE | 2017-03-26 21:44 | PD ---
HPI Chief Complaint: Edema Time Seen by Provider: 21:17 Travel History International Travel<30 days: No Contact w/Intl Traveler<30days: No Traveled to known affect area: No History of Present Illness HPI Patient is a 41-year-old male with history of hypertension, HIV, cardiomyopathy who presents to emergency room for evaluation of testicular pain. Reports that since , he has noticed increased swelling to bilateral testicles, reports that he thinks that his abdomen feels swollen as well. Patient reports that he is concerned that he may have CHF exacerbation, reports that he was November and discharged on December 29, 2016 with Lasix, reports that he was only given a prescription for 30 days, he did not follow up with his primary care doctor or his bobtail driver after he completed all his medications as he was not sure if he was supposed to follow up with them. Patient reports no chest pain or shortness breath at this time, denies abdominal pain, reports no penile discharge. Patient with only complains of bilateral testicular pain since . PFSH Past Medical History Anxiety: Yes Depression: Yes Congestive Heart Failure: Yes Diminished Hearing: Yes Endocrine: No Genitourinary: No Implanted Vascular Access Dvce: No Musculoskeletal: No Psychiatric: Yes Respiratory: No Seizures: Yes ( OF 02/08/11- PT HAS HAD TWO SEIZURES RELATED TO ETOH WITHDRAWAL) Tetanus Vaccination: > 5 Years Influenza Vaccination: No Past Surgical History Oral Surgery: Yes (TOOTH REMOVAL WITH SUTURES) Other Surgery: Yes Social History Alcohol Use: Yes (A BEER DAILY) Tobacco Use: No Substance Use: No Allergies-Medications (Allergen,Severity, Reaction): Coded Allergies: No Known Allergies (Verified Adverse Reaction, Unknown, 03/26/17) Reported Meds & Prescriptions Reported Meds & Active Scripts Active Doxycycline Hyclate 100 Mg Cap 100 Mg PO BID 10 Days Review of Systems General / Constitutional: No: Fever Eyes: No: Visual changes HENT: No: Headaches Cardiovascular: No: Chest Pain or Discomfort, Palpitations, Irregular Rhythm, Tachycardia Respiratory: No: Shortness of Breath Gastrointestinal: No: Abdominal Pain Genitourinary: Positive: Other (testicular pain), No: Dysuria Musculoskeletal: No: Pain Skin: No Rash Neurologic: No: Weakness Psychiatric: No: Depression Endocrine: No: Polydipsia Hematologic/Lymphatic: No: Easy Bruising Physical Exam Narrative GENERAL: mild distress SKIN: Focused skin assessment warm/dry. HEAD: Atraumatic. Normocephalic. EYES: Pupils equal and round. No scleral icterus. No injection or drainage. ENT: No nasal bleeding or discharge. Mucous membranes pink and moist. NECK: Trachea midline. No JVD. CARDIOVASCULAR: Regular rate and rhythm. No murmur appreciated. RESPIRATORY: No accessory muscle use. Clear to auscultation. Breath sounds equal bilaterally. GASTROINTESTINAL: Abdomen soft, non-tender, nondistended. Hepatic and splenic margins not palpable. : testicular exam performed with RN at bedside, patient with no obvious inguinal hernia, testicles are descended bilaterally, patient with pain to palpation to bilateral testicles, no obvious swelling identified MUSCULOSKELETAL: No obvious deformities. No clubbing. No cyanosis. No edema. NEUROLOGICAL: Awake and alert. No obvious cranial nerve deficits. Motor grossly within normal limits. Normal speech. PSYCHIATRIC: Appropriate mood and affect; insight and judgment normal. Data Data Last Documented VS Vital Signs Date Time Temp Pulse Resp B/P (MAP) Pulse Ox O2 Delivery O2 Flow Rate FiO2 03/26/17 22:08 109 20 148/94 (112) 100 Room Air 03/26/17 20:58 98.4 Orders Orders Complete Blood Count With Diff (03/26/17 21:32) Comprehensive Metabolic Panel (03/26/17 21:32) Prothrombin Time / Inr (Pt) (03/26/17 21:32) Act Partial Throm Time (Ptt) (03/26/17 21:32) Iv Access Insert/Monitor (03/26/17 21:32) Ecg Monitoring (03/26/17 21:32) Oximetry (03/26/17 21:32) NPO (03/26/17 21:32) Sodium Chloride 0.9% Flush (Ns Flush) (03/26/17 21:45) Chest, Single Ap (03/26/17 21:32) B-Type Natriuretic Peptide (03/26/17 21:32) Urinalysis - C+S If Indicated (03/26/17 21:32) Us Testicles W Doppler (03/26/17 ) Sodium Chlor 0.9% 1000 Ml Inj (Ns 1000 M (03/26/17 21:45) Gc And Chlamydia Pcr (03/26/17 21:43) Ceftriaxone Inj (Rocephin Inj) (03/27/17 00:15) Doxycycline (Vibramycin) (03/27/17 00:15) Labs Laboratory Tests Test 03/26/17 22:00 03/26/17 22:25 White Blood Count 8.1 TH/MM3 Red Blood Count 3.94 MIL/MM3 Hemoglobin 11.4 GM/DL Hematocrit 33.5 % Mean Corpuscular Volume 85.2 FL Mean Corpuscular Hemoglobin 29.1 PG Mean Corpuscular Hemoglobin Concent 34.1 % Red Cell Distribution Width 16.7 % Platelet Count 187 TH/MM3 Mean Platelet Volume 8.4 FL Neutrophils (%) (Auto) 73.9 % Lymphocytes (%) (Auto) 16.9 % Monocytes (%) (Auto) 8.7 % Eosinophils (%) (Auto) 0.1 % Basophils (%) (Auto) 0.4 % Neutrophils # (Auto) 6.0 TH/MM3 Lymphocytes # (Auto) 1.4 TH/MM3 Monocytes # (Auto) 0.7 TH/MM3 Eosinophils # (Auto) 0.0 TH/MM3 Basophils # (Auto) 0.0 TH/MM3 CBC Comment DIFF FINAL Differential Comment Prothrombin Time 9.5 SEC Prothromb Time International Ratio 0.9 RATIO Activated Partial Thromboplast Time 29.8 SEC Blood Urea Nitrogen 9 MG/DL Creatinine 0.97 MG/DL Random Glucose 94 MG/DL Total Protein 7.5 GM/DL Albumin 2.3 GM/DL Calcium Level 8.2 MG/DL Alkaline Phosphatase 116 U/L Aspartate Amino Transf (AST/SGOT) 51 U/L Alanine Aminotransferase (ALT/SGPT) 30 U/L Total Bilirubin 0.3 MG/DL Sodium Level 135 MEQ/L Potassium Level 3.7 MEQ/L Chloride Level 100 MEQ/L Carbon Dioxide Level 24.2 MEQ/L Anion Gap 11 MEQ/L Estimat Glomerular Filtration Rate 104 ML/MIN B-Type Natriuretic Peptide 119 PG/ML Urine Color LIGHT-YELLOW Urine Turbidity CLEAR Urine pH 6.0 Urine Specific [place] 1.001 Urine Protein 30 mg/dL Urine Glucose (UA) NEG mg/dL Urine Ketones NEG mg/dL Urine Occult Blood SMALL Urine Nitrite NEG Urine Bilirubin NEG Urine Urobilinogen LESS THAN 2.0 MG/DL Urine Leukocyte Esterase TRACE Urine RBC LESS THAN 1 /hpf Urine WBC 1 /hpf Microscopic Urinalysis Comment CULT NOT INDICATED MDM Medical Decision Making Medical Screen Exam Complete: Yes Emergency Medical Condition: Yes Medical Record Reviewed: Yes Interpretation(s) EKG at 2143: Sinus tach at 109bpm, qt/qtc: 356/420, incomplete rbbb, ekg similar when compared to 12/22/16 Vital Signs Date Time Temp Pulse Resp B/P (MAP) Pulse Ox O2 Delivery O2 Flow Rate FiO2 03/26/17 21:20 110 20 99 Room Air 03/26/17 21:19 110 24 164/97 (119) 99 Room Air 03/26/17 20:58 98.4 121 20 142/89 (106) 98 Room Air Differential Diagnosis Testicular torsion, inguinal hernia, electrolyte abnormality Narrative Course During the course of the patients emergency department visit, the patients history, examination, and differential diagnosis were reviewed with the patient. The patient was placed on a groundwater monitoring technician with oximetry and frequent blood pressure monitoring. The patient had an IV access obtained and blood work sent for analysis. The patient was initially provided IVF Patient's bobtail driver is Dr. Fabian, patient had a neg PE study during last admission, as per Dr. Fabian, tachycardia was due to: compensatory infection and cardiomyopathy, he does have an echo with an EF of less than 20% Patient had a myocardial perfusion scan on December 24, 2016 which showed no reversible perfusion defect to demonstrate stress-induced myocardial ischemia CT angiogram on December 23, 2016 showed no evidence of pulmonary embolism. Lower extremity Doppler ultrasound on December 20, 2016 identified no DVT The patients laboratory studies were reviewed and remarkable for: CBC & BMP Diagram 03/26/17 22:00 Total Protein 7.5, Albumin 2.3 L, Calcium Level 8.2 L, Alkaline Phosphatase 116 , Aspartate Amino Transf (AST/SGOT) 51 H, Alanine Aminotransferase (ALT/SGPT) 30 , Total Bilirubin 0.3 BNP 119 UA: trace leuk esterase, neg ketones, neg nitrites G/C pending Radiology studies were reviewed and remarkable for: Last Impressions Chest X-Ray 03/26/172 Signed Impressions: Service Date/Time: Sunday, March 26, 2017 21:41 - CONCLUSION: No acute cardiopulmonary disease. Jodie Harris MD Scrotum Ultrasound 03/26/17 0000 Signed Impressions: Service Date/Time: Sunday, March 26, 2017 21:39 - CONCLUSION: Findings are characteristic of epididymoorchitis on the left. Follow up is suggested clinically and possibly with repeat ultrasound after appropriate clinical therapy in 4-6 weeks. Jodie Harris MD Patient with epididymoorchitis on the left. Plan to treat for possible STD. Patient reports that he has not participated in high risk sexual activity (ie anal sex) in the past 5 years. He will follow up with all cultures from today. Patient understands need for repeat ultrasound in 4-6 weeks. Patient will follow-up with urologist. Will give dose of rocephin in ER in addition to dose of doxy PO. Discussed all labs and all studies with patient in detail. Patient will follow- up with his primary care doctor as well as his bobtail driver for workup of his medical conditions. I did review with him his past discharge from the hospital and why he needs to follow-up with his primary care doctor and bobtail driver. He reported that he did not understand initially why he needed follow-up, reports that he now understands why he needs follow-up and will call first thing for an appointment. Patient appreciative of care Diagnosis Primary Impression: Epididymo-orchitis, acute Referrals: Merlin Fabian MD, Shawn Wayne DO Patient Instructions: General Instructions Additional Instructions: Please provide patient with a copy of their lab work and studies at discharge* * Please follow up with your primary care doctor in 2-3 days Return to the ER if symptoms worsen or progress Return to the ER as needed Please have your testicular ultrasound repeated in 4-6 weeks Please follow up with urologist as soon as possible Please follow up with all cultures from today Please follow up with your primary care doctor as well as your bobtail driver as soon as possible for follow up on all your medical conditions Please take all antibiotics as prescribed Med/Other Pt SpecificInfo: Prescription(s) given Scripts Doxycycline Hyclate (Doxycycline Hyclate) 100 Mg Cap 100 MG PO BID for Infection for 10 Days, #20 CAP 0 Refills Prov: Carmel Cnoway DO 03/27/17 Disposition: 01 DISCHARGE HOME Condition: Stable Carmel Conway DO Mar 26, 2017 21:44
[2017-03-26] MEDS ORDERED: SODIUM CHLORIDE 0.9% FLUSH 10 ML FLUSH IV FLUSH PRN (21:45)
[2017-03-26] MEDS ORDERED: SODIUM CHLOR 0.9% 1000 ML INJ 1,000 ML IV ONE (21:45)
--- NOTE | 2017-03-26 21:48 | RADRPT ---
EXAM DATE/TIME: 03/26/2017 21:41 [facility] COMPARISON: CHEST SINGLE AP, December 20, 2016, 21:23. INDICATIONS : Fluid retention, free air. MEDICAL HISTORY : Congestive heart failure. Hypertension. SURGICAL HISTORY : None. ENCOUNTER: Initial ACUITY: 1 day PAIN SCORE: 0/10 LOCATION: Bilateral chest FINDINGS: The lungs are clear without infiltrate, nodule, or mass. There is no appreciable pleural effusion fo r technique. Heart and mediastinum are unremarkable. CONCLUSION: No acute cardiopulmonary disease. Jodie Harris MD on March 26, 2017 at 21:46 Board Certified Radiologist. This report was verified electronically.
[2017-03-26 22:08] VITALS: BP 148/94; PULSE 109; RESP 20; O2SAT 100
--- NOTE | 2017-03-26 22:11 | RADRPT ---
EXAM DATE/TIME: 03/26/2017 21:39 [facility] COMPARISON: No previous studies available for comparison. INDICATIONS : Testicular swelling and pain. MEDICAL HISTORY : Seizures. Congestive heart failure. Hearing loss. Depression. Anxiety. Dizziness. ETOH abuse. SURGICAL HISTORY : None. ENCOUNTER: Initial ACUITY: 4 - 6 days PAIN SCORE: 3/10 LOCATION: Bilateral testicles. MEASUREMENTS: RIGHT TESTICLE: 3.0 x 2.3 x 1.5cm LEFT TESTICLE: 2.7 x 2.1 x 1.6cm FINDINGS: RIGHT TESTICLE: Homogeneous echotexture without intra or extratesticular mass. Blood flow is symmetric and within no rmal limits. Small hydrocele without varicocele. Epididymis is within normal limits. LEFT TESTICLE: Homogeneous echotexture without intra or extratesticular mass. Blood flow is increased to the testic le and epididymis Small hydrocele without varicocele. CONCLUSION: Findings are characteristic of epididymoorchitis on the left. Follow up is suggested clinically and p ossibly with repeat ultrasound after appropriate clinical therapy in 4-6 weeks. Jodie Harris MD on March 26, 2017 at 22:08 Board Certified Radiologist. This report was verified electronically.
[2017-03-26 22:44] LABS: BASOPHIL % 0.4 % (0.0-2.0); EOSINOPHIL % 0.1 % (0.0-4.0); HEMATOCRIT 33.5 % (39.0-51.0); HEMOGLOBIN 11.4 GM/DL (13.0-17.0); LYMPH % 16.9 % (9.0-44.0); LYMPHOCYTE # 1.4 TH/MM3 (1.0-4.8); MEAN CELL VOLUME 85.2 FL (80.0-100.0); MEAN CORPUSCULAR HEMOGLOBIN 29.1 PG (27.0-34.0); MEAN CORPUSCULAR HGB CONC 34.1 % (32.0-36.0); MEAN PLATELET VOLUME 8.4 FL (7.0-11.0); MONO % 8.7 % (0.0-8.0); MONOCYTE # 0.7 TH/MM3 (0-0.9); NEUT % 73.9 % (16.0-70.0); PLATELET COUNT 187 TH/MM3 (150-450); RED BLOOD COUNT 3.94 MIL/MM3 (4.50-5.90); RED CELL DISTRIBUTION WIDTH 16.7 % (11.6-17.2); WHITE BLOOD COUNT 8.1 TH/MM3 (4.0-11.0)
[2017-03-26 22:52] LABS: BILIRUBIN, URINE NEG (NEG); BLOOD, URINE SMALL (NEG); GLUCOSE,URINE NEG (NEG); KETONE, URINE NEG (NEG); NITRITE,URINE NEG (NEG); URINE COLOR LIGHT-YELLOW (YELLW/STRAW); URINE LEUKOCYTE ESTERASE TRACE (NEG)
[2017-03-26 22:55] LABS: INTERNATIONAL NORMALIZED RATIO 0.9 RATIO; PROTHROMBIN TIME - PATIENT 9.5 SEC (9.8-11.6)
[2017-03-26 23:02] LABS: ALBUMIN 2.3 GM/DL (3.4-5.0); ALT (GPT) 30 U/L (12-78); AST (GOT) 51 U/L (15-37); BICARBONATE 24.2 MEQ/L (21.0-32.0); BLOOD UREA NITROGEN 9 MG/DL (7-18); CALCIUM 8.2 MG/DL (8.5-10.1); CHLORIDE 100 MEQ/L (98-107); CREATININE 0.97 MG/DL (0.60-1.30); GLOMERULAR FILTRATION RATE 104 ML/MIN (>89); GLUCOSE,RANDOM 94 MG/DL (74-106); SODIUM (NA) 135 MEQ/L (136-145)
[2017-03-26 23:04] LABS: ALKALINE PHOSPHATASE 116 U/L (45-117); TOTAL BILIRUBIN ADULT 0.3 MG/DL (0.2-1.0); TOTAL PROTEIN 7.5 GM/DL (6.4-8.2)
[2017-03-27] MEDS ORDERED: cefTRIAXone INJ 1,000 MG in SODIUM CHLORIDE 0.9% INJ 100 ML IV ONE (00:15)
[2017-03-27] MEDS ORDERED: DOXYCYCLINE HYCLATE 100 MG CAP PO ONE (00:15)
[2017-03-27] MEDS ORDERED: DOXY100C PO (00:20)
[2017-03-27 00:29] VITALS: BP 140/88; PULSE 107; RESP 20; TEMP 98.6; O2SAT 99
--- NOTE | 2017-03-27 13:23 | EKG ---
Date Performed: 03/26/2017 Time Performed: 21:43:12 PTAGE: 41 years EKG: SINUS TACHYCARDIA POSSIBLE LEFT ATRIAL ENLARGEMENT INCOMPLETE RIGHT BUNDLE BRANCH BLOCK LEF T VENTRICULAR HYPERTROPHY AND ST-T CHANGE ABNORMAL ECG Compared to the PREVIOUS TRACING from 12/22/16, no significant change DOCTOR: Flo Campos Interpretating Date/Time 03/27/2017 13:22:13
== END 2017-03-27 02:09 | disposition home or self-care (01) ==
LOC: NEPD 20:56
DX: N45.3 Epididymo-orchitis (principal); B20 Human immunodeficiency virus [HIV] disease; R00.0 Tachycardia, unspecified; I11.0 Hypertensive heart disease with heart failure; I50.9 Heart failure, unspecified
CPT/HCPCS: 71010; 76870; 80053; 81001; 83880; 85025; 85610; 85730; 87491; 87591; 93005; 93975; 96361; 96365; 96366; 99284; J0696; J7030

== ENCOUNTER 2018-01-17 14:25 | Inpatient (IN) ==
--- NOTE | 2018-01-17 16:33 | ED ---
HPI General Chief complaint: Extremity Problem,Nontraumatic Stated complaint: Feet swelling x 7 days Time Seen by Provider: 01/17/18 16:07 Source: patient, RN notes reviewed and old records reviewed Mode of arrival: ambulatory History of Present Illness HPI narrative: 42yM presenting with lower extremity edema, dyspnea, and orthopnea. The patient has a history of severe non-ischemic cardiomyopathy but has been unable to follow up with a hotbed transfer operator or taken his medications for over a year due to insurance issues. The patient states that for the past 3-4 days he's noticed increased swelling to both of his feet/ ankles. Last night, he also began to have orthopnea and dyspnea both at rest and on exertion. He reports intermittent "stabbing" substernal chest pain which lasts for a few seconds and resolves on its own, moderate to severe intensity, non-radiating, occurring both at rest and on exertion. Admits to non-productive cough, denies fever or chills. History of cardiomyopathy- EF 10-15% in 2016 on left heart cath at [facility] (performed by Dr. Dunlap), patient says that he was sent home with a Life vest at that time. Per our records, he had an echo in 2017 with an EF of 20-25% and was seen by Dr. Fabian on that visit. He says that he was told at that time that he did not need a Life vest any longer but has not followed up as an outpatient since then. Related Data Home Medications Medication Instructions Recorded Confirmed No Known Home Medications 01/17/18 01/17/18 Allergies Allergy/AdvReac Type Severity Reaction Status Date / Time No Known Allergies Allergy Unknown NONE Uncoded 01/17/18 14:38 Review of Systems ROS: all other systems reviewed are negative Constitutional Denies fever(s) Eyes Denies blurry vision ENT Denies nasal congestion Cardiovascular Reports chest pain, Reports chest pain at rest, Denies syncope and Reports dyspnea Respiratory Reports cough and Reports dyspnea Comments: + orthopnea Gastrointestinal Denies nausea Genitourinary Denies dysuria Musculoskeletal Comments: + lower extremity swelling Neurologic Denies confusion Psychiatric Denies confusion PMFSH History History Provided By: Patient Medical History Medical History CHF (congestive heart failure) (Acute) Cardiomyopathy (Acute) Cellulitis (Acute) History of left heart catheterization (Acute) Surgical History Surgical History No history of previous surgery (Acute) Social History Social History Substance History: No History of Abuse Smoking Status: Never smoker How Often Do You Have a Drink Containing Alcohol: 4 or more times a week Recent Travel in [facility] within the Last 8 Weeks: No Recent Out of Country Travel within the Last 8 Weeks: No Immunization History Tetanus Immunization: Unsure Exam Const General: healthy appearing and no acute distress HENMT Head: normocephalic and atraumatic Face and sinus: normal facial exam Eyes General: appearance normal, both eyes and all related structures Pupils: PERRL Chest Chest: normal inspection of the chest Resp Effort & Inspection: normal respiratory effort Other: Coarse rhonchi at left base to mid-lung field, faint crackles at right base, no respiratory distress Cardio Rate: regular rate Rhythm: regular rhythm Heart Sounds: murmur GI Inspection: non-distended Palpation: soft and nontender Skin General: no rashes or lesions noted Neuro General: alert, awake, oriented x3 and no focal motor deficits Extrem Other: 1-2+ pitting edema to mid-calf bilaterally Psych Affect: normal affect Course Consultations Consultation #1: Case discussed with Dr. Curran of cardiology, who agrees that patient will need transfer to main campus for possible intervention if needed, recommends heparin gtt and says patient can go to monitored bed (does not need ICU at this point). Time: 18:22 Initial Documented Vital Signs Temperature 97.9 F 01/17/18 14:38 Pulse Rate 118 H 01/17/18 14:38 Respiratory Rate 18 01/17/18 14:38 Blood Pressure 129/86 01/17/18 14:38 Pulse Oximetry 96 01/17/18 14:38 Last Documented Vital Signs Temperature 97.9 F 01/17/18 14:38 Pulse Rate 119 H 01/17/18 18:00 Respiratory Rate 16 01/17/18 18:00 Blood Pressure 137/98 H 01/17/18 18:00 Pulse Oximetry 97 01/17/18 18:00 Medical Decision Making MDM Narrative Medical decision making narrative: Assessment: 42yM presenting with chest pain, orthopnea, dyspnea, chest pain Plan: EKG and monitor CXR Labs Patient will likely need obs vs admission for further workup given very concerning cardiac history and unreliable outpatient follow up Addendum: Patient found to have effusion on CXR, elevated trop/ CK/ BNP concerning for CHF exacerbation and demand ischemia vs Type II NSTEMI. This patient requires transfer to the main [facility] as we do not have geophysical laboratory chief availability at our campus and he has high-risk chest pain with elevated cardiac enzymes. Case discussed with Dr. Lancaster of [facility], who agrees. I explained these results to the patient as well as need for transfer, he understands and agrees. Medical Screen Exam Complete: Yes Emergency Medical Condition: Yes Differential Diagnosis Differential Diagnosis: Differential diagnosis includes, but is not limited to: CHF, arrhythmia, ACS, pulmonary edema, pleural effusion, electrolyte abnormality Medical Records Medical records reviewed: Yes I reviewed the patient's medical records. Lab Data Lab results reviewed: Yes I reviewed the patient's lab results. Result diagrams: 01/17/18 17:10 01/17/18 17:10 Lab Results 01/17/18 01/17/18 01/17/18 Range/Units 17:10 17:10 17:10 CBC w Diff Auto diff final WBC 3.2 L (4.0-11.0) th/mm3 RBC 4.37 L (4.50-5.90) mil/mm3 Hgb 13.3 (13.0-17.0) gm/dL Hct 39.2 (39.0-51.0) % MCV 89.7 (80.0-100.0) fL MCH 30.5 (27.0-34.0) pg MCHC 34.0 (32.0-36.0) % RDW 13.8 (11.6-17.2) % Plt Count 230 (150-450) th/mm3 MPV 9.6 (7.0-11.0) fL Neut % (Auto) 53.7 (16.0-70.0) % Lymph % (Auto) 33.9 (9.0-44.0) % [place] % (Auto) 11.1 H (0.0-8.0) % Eos % (Auto) 0.5 (0.0-4.0) % Baso % (Auto) 0.8 (0.0-2.0) % Neut # (Auto) 1.7 L (1.8-7.7) th/mm3 Lymph # (Auto) 1.1 (1.0-4.8) th/mm3 [place] # (Auto) 0.4 (0.0-0.9) th/mm3 Eos # (Auto) 0.0 (0.0-0.4) th/mm3 Baso # (Auto) 0.0 (0.0-0.2) th/mm3 WBC Differential . Differential Comment . PT (9.8-11.6) sec INR Ratio APTT (24.3-30.1) sec Sodium 135 L (136-145) meq/L Potassium 4.0 (3.5-5.1) meq/L Chloride 102 (98-107) meq/L Carbon Dioxide 21.4 (21.0-32.0) meq/L Anion Gap 12 (5-15) meq/L BUN 14 (7-18) mg/dL Creatinine 1.20 (0.60-1.30) mg/dL Estimated GFR 81 L (>89) mL/min Random Glucose 73 L (74-106) mg/dL Calcium 7.6 L (8.5-10.1) mg/dL Magnesium 2.0 (1.5-2.5) mg/dL Total Bilirubin 0.3 (0.2-1.0) mg/dL AST 116 H (15-37) U/L ALT 64 (12-78) U/L Alkaline Phosphatase 150 H (45-117) U/L Total Creatine Kinase 510 H (39-308) U/L CK-MB (CK-2) 10.0 H (0.5-3.6) ng/mL CK-MB (CK-2) % 2.0 (0.0-4.0) % Troponin I 0.15 H (0.02-0.05) ng/mL B-Natriuretic Peptide 1623 H (0-100) pg/mL Total Protein 6.6 (6.4-8.2) g/dL Albumin 2.4 L (3.4-5.0) g/dL Ur Collection Type Urine Color (Yellw/Straw) Urine Clarity (Clear) Urine pH (5.0-8.5) Ur Specific [place] (1.002-1.035) Urine Protein (Neg-Trace) mg/dL Urine Glucose (UA) (Negative) mg/dL Urine Ketones (Negative) mg/dL Urine Occult Blood (Negative) Urine Nitrate (Negative) Urine Bilirubin (Negative) Urine Urobilinogen (Less than 2) mg/dL Ur Leukocyte Esterase (Negative) Urine RBC (0-3) /hpf Ur Squamous Epith Cells (0-5) /hpf Micro UA Comment Ur Microscopic Review Urine Culture Comments 01/17/18 01/17/18 01/17/18 Range/Units 17:10 17:10 17:20 CBC w Diff WBC (4.0-11.0) th/mm3 RBC (4.50-5.90) mil/mm3 Hgb (13.0-17.0) gm/dL Hct (39.0-51.0) % MCV (80.0-100.0) fL MCH (27.0-34.0) pg MCHC (32.0-36.0) % RDW (11.6-17.2) % Plt Count (150-450) th/mm3 MPV (7.0-11.0) fL Neut % (Auto) (16.0-70.0) % Lymph % (Auto) (9.0-44.0) % [place] % (Auto) (0.0-8.0) % Eos % (Auto) (0.0-4.0) % Baso % (Auto) (0.0-2.0) % Neut # (Auto) (1.8-7.7) th/mm3 Lymph # (Auto) (1.0-4.8) th/mm3 [place] # (Auto) (0.0-0.9) th/mm3 Eos # (Auto) (0.0-0.4) th/mm3 Baso # (Auto) (0.0-0.2) th/mm3 WBC Differential Differential Comment PT 9.6 L (9.8-11.6) sec INR 0.9 Ratio APTT 25.9 (24.3-30.1) sec Sodium (136-145) meq/L Potassium (3.5-5.1) meq/L Chloride (98-107) meq/L Carbon Dioxide (21.0-32.0) meq/L Anion Gap (5-15) meq/L BUN (7-18) mg/dL Creatinine (0.60-1.30) mg/dL Estimated GFR (>89) mL/min Random Glucose (74-106) mg/dL Calcium (8.5-10.1) mg/dL Magnesium Cancelled (1.5-2.5) mg/dL Total Bilirubin (0.2-1.0) mg/dL AST (15-37) U/L ALT (12-78) U/L Alkaline Phosphatase (45-117) U/L Total Creatine Kinase (39-308) U/L CK-MB (CK-2) (0.5-3.6) ng/mL CK-MB (CK-2) % (0.0-4.0) % Troponin I (0.02-0.05) ng/mL B-Natriuretic Peptide (0-100) pg/mL Total Protein (6.4-8.2) g/dL Albumin (3.4-5.0) g/dL Ur Collection Type Clean catch Urine Color Yellow (Yellw/Straw) Urine Clarity Clear (Clear) Urine pH 6.0 (5.0-8.5) Ur Specific [place] 1.010 (1.002-1.035) Urine Protein 100 H (Neg-Trace) mg/dL Urine Glucose (UA) Negative (Negative) mg/dL Urine Ketones Negative (Negative) mg/dL Urine Occult Blood Moderate H (Negative) Urine Nitrate Negative (Negative) Urine Bilirubin Negative (Negative) Urine Urobilinogen 0.2 (Less than 2) mg/dL Ur Leukocyte Esterase Negative (Negative) Urine RBC 4-15 H (0-3) /hpf Ur Squamous Epith Cells 0-5 (0-5) /hpf Micro UA Comment Culture not ind Ur Microscopic Review Microscopic reviewed Urine Culture Comments Culture not ind Imaging Data Radiologist's impression: Chest X-Ray 01/17/18 16:23 CONCLUSION: 1. Cardiomegaly. 2. Slight interstitial prominence in the right lung could be from a layering effusion or infiltrate. ECG Data Attestation: I personally reviewed and interpreted this ECG as follows: Interpretation: Rate: 116 BPM Rhythm: Sinus [place]: Normal Intervals: Normal intervals, no blocks, QTc 405 ms Q waves: V2, V3 T waves: Inverted in II, III, aVF, V5-V6 ST segments: 1 mm depressions in V5-V6, no elevations Impression: Abnormal EKG, no significant changes as compared to EKG from 2016. Discharge Plan Physicians Team ED Provider: Risa Mckeon Primary Care Provider: Primary Care Iliana Marc Rxs /Orders / Referrals /Forms Prescriptions: No Action No Known Home Medications RF: 0 Status ED Status: With Doctor
[2018-01-17 17:20] LABS: Baso % (Auto) 0.8 % (0.0-2.0); Eos % (Auto) 0.5 % (0.0-4.0); Hematocrit 39.2 % (39.0-51.0); Hemoglobin 13.3 gm/dL (13.0-17.0); Lymph # (Auto) 1.1 th/mm3 (1.0-4.8); Lymph % (Auto) 33.9 % (9.0-44.0); Mean Corpuscular Hemoglobin 30.5 pg (27.0-34.0); Mean Corpuscular Volume 89.7 fL (80.0-100.0); Mean Platelet Volume 9.6 fL (7.0-11.0); Mono # (Auto) 0.4 th/mm3 (0.0-0.9); Mono % (Auto) 11.1 % (0.0-8.0); Neut # (Auto) 1.7 th/mm3 (1.8-7.7); Neut % (Auto) 53.7 % (16.0-70.0); Platelet Count 230 th/mm3 (150-450); Red Blood Count 4.37 mil/mm3 (4.50-5.90); Red Cell Distribution Width 13.8 % (11.6-17.2); White Blood Count 3.2 th/mm3 (4.0-11.0)
[2018-01-17 17:27] LABS: Bilirubin,Urine Negative (Negative); Clarity,Urine Clear (Clear); Color,Urine Yellow (Yellw/Straw); Glucose,Urine (UA) Negative (Negative); Leukocyte Esterase,Urine Negative (Negative); Nitrite,Urine Negative (Negative); Urobilinogen,Urine 0.2 mg/dL (Less than 2)
[2018-01-17 17:32] LABS: Chloride 102 meq/L (98-107); Sodium 135 meq/L (136-145)
[2018-01-17 17:32] LABS: Squamous Epithelial Cell,Urine 0-5 /hpf (0-5)
--- NOTE | 2018-01-17 17:32 | XR ---
EXAM DATE: 01/17/2018 4:23 PM EDT AGE/SEX: 42 years / Male INDICATIONS: Chest pain and bilateral leg swelling. CLINICAL DATA: This is the patient's initial encounter. Patient reports that signs and symptoms have been present for 1 week and indicates a pain score of 5/10. MEDICAL/SURGICAL HISTORY: None. None. COMPARISON: [facility] [place], CHEST SINGLE AP, 03/26/2017. . FINDINGS: A single AP view of the chest demonstrates enlargement of the cardiac silhouette. Interstitial densit ies are seen within the right mid lung. Increase in pulmonary vascularity. Left lung relatively clear . Osseous structures are intact. CONCLUSION: 1. Cardiomegaly. 2. Slight interstitial prominence in the right lung could be from a layering effusion or infiltrate. Electronically signed by: Rizwan Melvin MD 01/17/2018 5:31 PM EDT
[2018-01-17 17:36] LABS: Albumin 2.4 g/dL (3.4-5.0); Anion Gap 12 meq/L (5-15); Calcium 7.6 mg/dL (8.5-10.1); Carbon Dioxide 21.4 meq/L (21.0-32.0); Glucose,Random 73 mg/dL (74-106)
[2018-01-17 17:37] LABS: Activated Partial Thrombo Time 25.9 sec (24.3-30.1); Blood Urea Nitrogen 14 mg/dL (7-18); INR 0.9 Ratio; Prothrombin Time 9.6 sec (9.8-11.6)
[2018-01-17 17:39] LABS: Alanine Aminotransferase 64 U/L (12-78); Aspartate Aminotransferase 116 U/L (15-37); Glomerular Filtration Rate 81 mL/min (>89)
[2018-01-17 17:41] LABS: Total Protein 6.6 g/dL (6.4-8.2)
[2018-01-17 17:42] LABS: Alkaline Phosphatase 150 U/L (45-117); Creatine Kinase 510 U/L (39-308)
[2018-01-17 17:44] LABS: Troponin I 0.15 ng/mL (0.02-0.05)
[2018-01-17] MEDS ORDERED: Heparin 10,000 UNITS/10 ML Vial (for IV use) IV.PUSH STA (18:21)
[2018-01-17] MEDS: Heparin Drip 25,000 UNIT/250 ML BAG IV.CONT PRN (18:35)
[2018-01-17] MEDS ORDERED: Metoprolol Inj 5 MG/5 ML Vial IV.PUSH ONE (19:41)
[2018-01-17 20:13] LABS: Troponin I 0.16 ng/mL (0.02-0.05)
[2018-01-17 20:25] LABS: Creatine Kinase MB 9.5 ng/mL (0.5-3.6)
[2018-01-17 23:48] LABS: Troponin I 0.15 ng/mL (0.02-0.05)
[2018-01-17 23:59] LABS: CKMB Percent 1.8 % (0.0-4.0); Creatine Kinase MB 8.6 ng/mL (0.5-3.6)
[2018-01-18] MEDS ORDERED: Heparin 10,000 UNITS/10 ML Vial (for IV use) IV.PUSH PRN (00:21)
[2018-01-18] MEDS ORDERED: LORazepam 1 MG Tablet PO PRN (03:50)
[2018-01-18] MEDS ORDERED: Haloperidol Inj 5 MG/ML Ampul IV.PUSH PRN (03:50)
[2018-01-18] MEDS ORDERED: Metoprolol Inj 5 MG/5 ML Vial IV.PUSH ONE (03:55)
--- NOTE | 2018-01-18 04:02 | P.HPIM ---
History of Present Illness Primary Care Physician: No Primary Care Physician History of Present Illness: 42 y/o male with a history of CHF, not on medication since early this year presented to the ED with complaints of SOB and chest pain. Patient states he was told he had CHF last December but ran out of medications and due to insurance he did not follow up with a sinker puller. Last EF was 20-25% in Nov 2016. He states he has had no issue since then until 2 days ago when his ankles started to swell and he could not lay flat to sleep. He states he is very sob, and has intermittent pressure like chest pain in the center of his chest and it is worse with laying flat, he denies radiation but dies have an associated cough. He denies any fever or chills. Inpatient Certification: I certify that the inpatient services were ordered in accordance with Medicare regulations governing the order. This includes certification that hospital inpatient services are reasonable and necessary and in the case of services not specified as inpatient-only under 42 CFR 419.22(n), that they are appropriately provided as inpatient services in accordance to with the 2-midnight benchmark under 43 CFR 412.3(e) [facility] - History History Provided By: Patient - Medical History Medical History: Medical History (Last Reviewed 01/18/18 @ 04:52 by EMANUEL Garcia) CHF (congestive heart failure) Cardiomyopathy Cellulitis History of left heart catheterization - Surgical History Surgical History: Surgical History (Last Reviewed 01/18/18 @ 04:52 by EMANUEL Garcia) No history of previous surgery - Family History Family History: Family History (Last Reviewed 01/18/18 @ 04:53 by EMANUEL Garcia) Father Heart disease - Social History I have reviewed the patient's Social History: Yes - Tobacco History Smoking Status: Never smoker - Alcohol History How Often Do You Have a Drink Containing Alcohol: 4 or more times a week - Substance Use History Substance History: No History of Abuse - Travel History Recent Travel in the [place] Within the Last 8 Weeks: No Recent Travel Out of the Country Within the Last 8 Weeks: No - Immunization History Tetanus Immunization: Unsure Medications and Allergies Active Medications: Active Medications Furosemide (Lasix Inj) 20 mg IV.PUSH BID@0900,1800 BELLA Heparin Sodium (Porcine) (Heparin Inj) 2,500 units IV.PUSH UNSCH PRN PRN Reason: aPTT 25-39 Heparin Sodium (Porcine) (Heparin Inj) 5,000 units IV.PUSH UNSCH PRN PRN Reason: aPTT < 25 Heparin Sodium/Dextrose (Heparin/D5w 25,000 U/250 Ml) 25,000 unit in 250 mls @ 0 mls/hr IV.CONT TITRATE PRN; Protocol PRN Reason: Per Protocol Last Admin: 01/17/18 18:35 Dose: 500 units/hr, 5 mls/hr Sodium Chloride (Ns Flush) 2 ml IV.FLUSH UNSCH PRN PRN Reason: FLUSH AFTER USING IV ACCESS Allergies Allergy/AdvReac Type Severity Reaction Status Date / Time No Known Allergies Allergy Unknown NONE Uncoded 01/17/18 14:38 Home Medications Medication Instructions Recorded Confirmed Type No Known Home Medications 01/17/18 01/17/18 History Exam Vital signs: Vital Signs 01/17/18 14:38 01/17/18 17:15 01/17/18 18:00 Temperature 97.9 F Pulse Rate 118 H 116 H 119 H Respiratory Rate 18 16 16 Blood Pressure 129/86 139/103 H 137/98 H Pulse Oximetry 96 96 97 01/17/18 18:21 01/17/18 19:39 01/17/18 19:49 Temperature Pulse Rate 114 H 112 H 114 H Respiratory Rate 16 16 16 Blood Pressure 138/83 142/96 H 139/98 H Pulse Oximetry 99 97 01/17/18 20:14 01/17/18 21:01 01/17/18 22:01 Temperature Pulse Rate 114 H 116 H 116 H Respiratory Rate 18 18 16 Blood Pressure 137/95 H 133/92 H 137/90 Pulse Oximetry 97 97 97 01/17/18 23:07 Temperature Pulse Rate 117 H Respiratory Rate 16 Blood Pressure 145/90 H Pulse Oximetry 97 Intake & Output 01/17/18 01/17/18 01/18/18 06:59 18:59 06:59 Output Total 650 / 650 1350 / 1350 Balance -650 / -650 -1350 / -1350 Weight 44 kg Output: Urine 650 / 650 1350 / 1350 Other: # Voids 1 1 Date of Last Bowel Movement 01/17/18 # Bowel Movements 1 Narrative: GENERAL: This is a very, thin patient, who is short of breath. CARDIOVASCULAR:Tachycardic rate and rhythm with a gallop,no wheezes or rubs. RESPIRATORY: Diminished Breath sounds equal bilaterally. No wheezes, rales, or rhonchi. GASTROINTESTINAL: Abdomen soft, non-tender, nondistended. Normal active bowel sounds MUSCULOSKELETAL: +1 edema to bilateral lower extremities NEURO: Alert & Oriented x4 to person, place, time, situation. Moves all ext x4 Results - Labs CBC & Chem 7: 01/18/18 04:17 01/17/18 17:10 Labs: Short CBC 01/17/18 Range/Units 17:10 WBC 3.2 L (4.0-11.0) th/mm3 Hgb 13.3 (13.0-17.0) gm/dL Hct 39.2 (39.0-51.0) % Plt Count 230 (150-450) th/mm3 BMP 01/17/18 17:10 Sodium 135 L Potassium 4.0 Chloride 102 Carbon Dioxide 21.4 BUN 14 Creatinine 1.20 Calcium 7.6 L Cardiac Enzymes 01/17/18 01/17/18 01/17/18 Range/Units 17:10 19:20 23:00 Total Creatine Kinase 510 H 471 H 473 H (39-308) U/L CK-MB (CK-2) 10.0 H 9.5 H 8.6 H (0.5-3.6) ng/mL Troponin I 0.15 H 0.16 H 0.15 H (0.02-0.05) ng/mL Liver Function 01/17/18 Range/Units 17:10 Total Bilirubin 0.3 (0.2-1.0) mg/dL AST 116 H (15-37) U/L ALT 64 (12-78) U/L Alkaline Phosphatase 150 H (45-117) U/L Albumin 2.4 L (3.4-5.0) g/dL Urine 01/17/18 Range/Units 17:20 Urine Color Yellow (Yellw/Straw) Urine Clarity Clear (Clear) Urine pH 6.0 (5.0-8.5) Ur Specific [place] 1.010 (1.002-1.035) Urine Protein 100 H (Neg-Trace) mg/dL Urine Glucose (UA) Negative (Negative) mg/dL - Imaging Impressions Chest X-Ray 01/17/18 16:23 CONCLUSION: 1. Cardiomegaly. 2. Slight interstitial prominence in the right lung could be from a layering effusion or infiltrate. Caprini VTE Risk Assessment Caprini VTE Risk Assessment: No/Low Risk (score <= 1) Caprini Risk Assessment Model: Point Value = 1 Point Value = 2 Point Value = 3 Point Value = 5 Age 41-60 Minor surgery BMI > 25 kg/m2 Swollen legs Varicose veins or History of unexplained or recurrent spontaneous Oral contraceptives or hormone replacement Sepsis (< 1 month) Serious lung disease, including pneumonia (< 1 month) Abnormal pulmonary function Acute myocardial infarction Congestive heart failure (< 1 month) History of inflammatory bowel disease Medical patient at bed rest Age 61-74 Arthroscopic surgery Major open surgery (> 45 min) Laparoscopic surgery (> 45 min) Malignancy Confined to bed (> 72 hours) Immobilizing plaster cast Central venous access Age >= 75 History of VTE Family history of VTE Factor V Leiden Prothrombin 10780M Lupus anticoagulant Anticardiolipin antibodies Elevated serum homocysteine Heparin-induced thrombocytopenia Other congenital or acquired thrombophilia Stroke (< 1 month) Elective arthroplasty Hip, pelvis, or leg fracture Acute spinal cord injury (< 1 month) Prophylaxis Regimen: Total Risk Factor Score Risk Level Prophylaxis Regimen 0-1 Low Early ambulation 2 Moderate Order ONE of the following: *Sequential Compression Device (SCD) *Heparin 5000 units SQ BID 3-4 Higher Order ONE of the following medications: *Heparin 5000 units SQ TID *Enoxaparin/Lovenox 40 mg SQ daily (WT < 150 kg, CrCl > 30 mL/min) *Enoxaparin/Lovenox 30 mg SQ daily (WT < 150 kg, CrCl > 10-29 mL/min) *Enoxaparin/Lovenox 30 mg SQ BID (WT < 150 kg, CrCl > 30 mL/min) AND/OR *Sequential Compression Device (SCD) 5 or more Highest Order ONE of the following medications: *Heparin 5000 units SQ TID (Preferred with Epidurals) *Enoxaparin/Lovenox 40 mg SQ daily (WT < 150 kg, CrCl > 30 mL/min) *Enoxaparin/Lovenox 30 mg SQ daily (WT < 150 kg, CrCl > 10-29 mL/min) *Enoxaparin/Lovenox 30 mg SQ BID (WT < 150 kg, CrCl > 30 mL/min) AND *Sequential Compression Device (SCD) Assessment and Plan - Plan 42 y/o male with a history of CHF, not on medication since early this year presented to the ED with complaints of SOB and chest pain. CHF exacerbation, acute Chest x ray reviewed and shows a Slight interstitial prominence in the right lung could be from a layering effusion or infiltrate, and cardiomegaly BNP 1623 -Lasix IV BID -BNP in AM -Monitor I&Os -2D echo ordered, last EF 20-25% -Restarted spirolactone and lisinopril -NPO Tachycardia -Start Metoprol 50mg BID -D dimer ordered r/o PE, if positive will order CTA -Lopressor IV ordered x 1 NSTEMI, likely due to CHF, will r/o ACS Troponin .15->.16,>.15 -Heparin drip -Consult to cardiology for evaluation ETOH abuse -CIWA protocol -Encouraged to quit DVT prophylaxis: SCDs Discussed Condition With: Patient and RN
[2018-01-18 04:44] LABS: Hematocrit 41.8 % (39.0-51.0); Mean Corpuscular HGB Conc 33.4 % (32.0-36.0); Mean Corpuscular Hemoglobin 30.8 pg (27.0-34.0); Mean Corpuscular Volume 92.3 fL (80.0-100.0); Mean Platelet Volume 10.8 fL (7.0-11.0); Platelet Count 222 th/mm3 (150-450); Red Blood Count 4.53 mil/mm3 (4.50-5.90); Red Cell Distribution Width 13.8 % (11.6-17.2); White Blood Count 3.7 th/mm3 (4.0-11.0)
[2018-01-18 05:06] LABS: Calcium 8.5 mg/dL (8.5-10.1); Carbon Dioxide 24.9 meq/L (21.0-32.0); Potassium 3.7 meq/L (3.5-5.1)
--- NOTE | 2018-01-18 06:42 | ECG ---
Date Performed: 01/17/2018 Time Performed: 19:38:12 PTAGE: 42 years EKG: SINUS TACHYCARDIA POSSIBLE LEFT ATRIAL ENLARGEMENT POSSIBLE RIGHT VENTRICULAR CONDUCTION DE LAY Nonspecific ST and T wave abnormalities ABNORMAL ECG No significant change from prior electrocard iogram. PREVIOUS TRACING : 01/17/2018 16.47 DOCTOR: Kev Foster Interpretating Date/Time 01/18/2018 06:41:17
--- NOTE | 2018-01-18 06:54 | ECG ---
Date Performed: 01/17/2018 Time Performed: 16:47:32 PTAGE: 42 years EKG: SINUS TACHYCARDIA POSSIBLE LEFT ATRIAL ENLARGEMENT POSSIBLE RIGHT VENTRICULAR CONDUCTION DE LAY ABNORMAL ECG No significant change from prior electrocardiogram. PREVIOUS TRACING : 03/26/2017 21.43 DOCTOR: Kev Foster Interpretating Date/Time 01/18/2018 06:53:03
--- NOTE | 2018-01-18 07:51 | CT ---
EXAM DATE: 01/18/2018 6:19 AM EDT AGE/SEX: 42 years / Male INDICATIONS: Chest pain, dyspnea, elevated D-dimer CLINICAL DATA: This is the patient's initial encounter. Patient reports that signs and symptoms have been present for 1 day and indicates a pain score of 5/10. MEDICAL/SURGICAL HISTORY: Congestive heart failure. None. RADIATION DOSE: 5.23 CTDI (mGy) COMPARISON: [facility] – [place], CT PULMONARY ANGIOGRAM, 12/23/2016. . TECHNIQUE: Volumetric scanning was performed using a multi-row detector CT scanner during bolus infu otilia of 70 ml Omnipaque 350 (iohexol) nonionic water-soluble contrast as a single exam dose. The alie a was post processed with a variety of visualization algorithms including full volume maximum intensi ty projection and sliding thin slab reformation. Using automated exposure control and adjustment of the mA and/or kV according to patient size, radiation dose was kept as low as reasonably achievable t o obtain optimal diagnostic quality images. DICOM format image data is available electronically for review and comparison. FINDINGS: Pulmonary Arteries: No filling defects are seen in the pulmonary arteries through the segmental vess els. The main pulmonary artery is normal in diameter. Lung: Patchy groundglass opacities primarily in the lower lobes bilaterally. More focal nearly nodul ar groundglass opacity in the right upper lobe measuring up to 8 mm and more ill-defined but focal gr oundglass opacity in the right middle lobe anteriorly. Pleura: Small right pleural effusion Mediastinum: Prominent left ventricular hypertrophy. No significant mediastinal adenopathy. Osseous Structures: No abnormal focal lytic or blastic bony lesions. Other: Visulaized upper abdomen is unremarkable. CONCLUSION: 1. No CT evidence for pulmonary artery embolism as questioned. 2. Prominent left ventricular hypertrophy with groundglass opacities bilaterally consistent with a p ulmonary edema pattern. 3. More focal groundglass opacities in the right upper lobe and right middle lobe may be inflammator y/infectious in etiology. 4. Small right pleural effusion. Electronically signed by: Keyur Valladares MD 01/18/2018 7:49 AM EDT
--- NOTE | 2018-01-18 08:23 | ECG ---
Date Performed: 01/17/2018 Time Performed: 23:18:28 PTAGE: 42 years EKG: Marked baseline artifact SINUS TACHYCARDIA POSSIBLE RIGHT VENTRICULAR CONDUCTION DELAY Nons pecific ST and T wave abnormalities ABNORMAL ECG Probably No significant change from prior electroca rdiogram. PREVIOUS TRACING : 01/17/2018 19.38 DOCTOR: Kev Foster Interpretating Date/Time 01/18/2018 08:22:13
[2018-01-18] MEDS: Lisinopril 5 MG Tablet PO SCH (08:45)
[2018-01-18] MEDS: Spironolactone 25 MG Tablet PO SCH (08:48)
[2018-01-18] MEDS: Metoprolol Tartrate 50 MG Tablet PO SCH ×2 (08:48→20:54)
--- NOTE | 2018-01-18 10:17 | P.PNIM ---
Subjective Interval history: 42 y/o male with a history of CHF, not on medication since early this year presented to the ED with complaints of SOB and chest pain. Patient states he was told he had CHF last December but ran out of medications and due to insurance he did not follow up with a fire loss prevention engineer. Last EF was 20-25% in Nov 2016. He states he has had no issue since then until 2 days ago when his ankles started to swell and he could not lay flat to sleep. He states he is very sob, and has intermittent pressure like chest pain in the center of his chest and it is worse with laying flat, he denies radiation but dies have an associated cough. He denies any fever or chills. HX OF NONCOMPLIANCE HX OF VERY LOW EF 10-15% VERY NONCOMPLIANT WITH MEDICATIONS NOT SURE IF HE UNDERSTANDS HOW SICK HE IS AND HOW BAD HIS HEART FUNCTIONS ARE DW PT AND RN Physical Exam Vital signs: Vital Signs 01/17/18 14:38 01/17/18 17:15 01/17/18 18:00 Temperature 97.9 F Pulse Rate 118 H 116 H 119 H Respiratory Rate 18 16 16 Blood Pressure 129/86 139/103 H 137/98 H Pulse Oximetry 96 96 97 01/17/18 18:21 01/17/18 19:39 01/17/18 19:49 Temperature Pulse Rate 114 H 112 H 114 H Respiratory Rate 16 16 16 Blood Pressure 138/83 142/96 H 139/98 H Pulse Oximetry 99 97 01/17/18 20:14 01/17/18 21:01 01/17/18 22:01 Temperature Pulse Rate 114 H 116 H 116 H Respiratory Rate 18 18 16 Blood Pressure 137/95 H 133/92 H 137/90 Pulse Oximetry 97 97 97 01/17/18 23:07 01/18/18 01:25 01/18/18 01:30 Temperature 98.4 F Pulse Rate 117 H 124 H Respiratory Rate 16 18 Blood Pressure 145/90 H 144/108 H Pulse Oximetry 97 98 98 01/18/18 03:00 01/18/18 04:00 01/18/18 05:00 Temperature 98.2 F Pulse Rate 122 H 114 H 109 H Respiratory Rate 18 Blood Pressure 137/96 H Pulse Oximetry 100 01/18/18 06:00 01/18/18 08:00 Temperature 97.7 F Pulse Rate 105 H 112 H Respiratory Rate Blood Pressure 142/98 H Pulse Oximetry 99 Intake & Output 01/17/18 01/18/18 01/18/18 18:59 06:59 18:59 Intake Total 150 / 150 Output Total 650 / 650 2350 / 2350 Balance -650 / -650 -2200 / -2200 Weight 44 kg 41 kg Intake: Oral 150 / 150 Output: Urine 650 / 650 2350 / 2350 Other: # Voids 1 1 Date of Last Bowel Movement 01/17/18 # Bowel Movements 1 Narrative: Awake alert and oriented x3 talkative and cooperative GENERAL: This is a very, thin patient, who is short of breath. Head is normocephalic atraumatic Eyes PERRLA EOMI no scleral icterus Oral mucosa is moist tongue is midline Neck is supple there is mild JVD CARDIOVASCULAR:Tachycardic rate and rhythm with a gallop,no wheezes or rubs. RESPIRATORY: Diminished Breath sounds equal bilaterally. No wheezes, rales, or rhonchi. GASTROINTESTINAL: Abdomen soft, non-tender, nondistended. Normal active bowel sounds MUSCULOSKELETAL: +1 edema to bilateral lower extremities NEURO: Alert & Oriented x4 to person, place, time, situation. Moves all ext x4 Insight and judgment is limited Mood and behavior somewhat appropriate Results - Labs CBC & Chem 7: 01/18/18 04:17 01/18/18 04:17 Laboratory Results - last 24 hr 01/17/18 01/17/18 01/17/18 17:10 17:10 17:10 CBC w Diff Auto diff final WBC 3.2 L RBC 4.37 L Hgb 13.3 Hct 39.2 MCV 89.7 MCH 30.5 MCHC 34.0 RDW 13.8 Plt Count 230 MPV 9.6 Neut % (Auto) 53.7 Lymph % (Auto) 33.9 [place] % (Auto) 11.1 H Eos % (Auto) 0.5 Baso % (Auto) 0.8 Neut # (Auto) 1.7 L Lymph # (Auto) 1.1 [place] # (Auto) 0.4 Eos # (Auto) 0.0 Baso # (Auto) 0.0 WBC Differential . Differential Comment . PT INR APTT D-Dimer Quant (PE/DVT) Sodium 135 L Potassium 4.0 Chloride 102 Carbon Dioxide 21.4 Anion Gap 12 BUN 14 Creatinine 1.20 Estimated GFR 81 L Random Glucose 73 L Calcium 7.6 L Magnesium 2.0 Total Bilirubin 0.3 AST 116 H ALT 64 Alkaline Phosphatase 150 H Total Creatine Kinase 510 H CK-MB (CK-2) 10.0 H CK-MB (CK-2) % 2.0 Troponin I 0.15 H B-Natriuretic Peptide 1623 H Total Protein 6.6 Albumin 2.4 L Ur Collection Type Urine Color Urine Clarity Urine pH Ur Specific [place] Urine Protein Urine Glucose (UA) Urine Ketones Urine Occult Blood Urine Nitrate Urine Bilirubin Urine Urobilinogen Ur Leukocyte Esterase Urine RBC Ur Squamous Epith Cells Micro UA Comment Ur Microscopic Review Urine Culture Comments 01/17/18 01/17/18 01/17/18 17:10 17:10 17:20 CBC w Diff WBC RBC Hgb Hct MCV MCH MCHC RDW Plt Count MPV Neut % (Auto) Lymph % (Auto) [place] % (Auto) Eos % (Auto) Baso % (Auto) Neut # (Auto) Lymph # (Auto) [place] # (Auto) Eos # (Auto) Baso # (Auto) WBC Differential Differential Comment PT 9.6 L INR 0.9 APTT 25.9 D-Dimer Quant (PE/DVT) Sodium Potassium Chloride Carbon Dioxide Anion Gap BUN Creatinine Estimated GFR Random Glucose Calcium Magnesium Cancelled Total Bilirubin AST ALT Alkaline Phosphatase Total Creatine Kinase CK-MB (CK-2) CK-MB (CK-2) % Troponin I B-Natriuretic Peptide Total Protein Albumin Ur Collection Type Clean catch Urine Color Yellow Urine Clarity Clear Urine pH 6.0 Ur Specific [place] 1.010 Urine Protein 100 H Urine Glucose (UA) Negative Urine Ketones Negative Urine Occult Blood Moderate H Urine Nitrate Negative Urine Bilirubin Negative Urine Urobilinogen 0.2 Ur Leukocyte Esterase Negative Urine RBC 4-15 H Ur Squamous Epith Cells 0-5 Micro UA Comment Culture not ind Ur Microscopic Review Microscopic reviewed Urine Culture Comments Culture not ind 01/17/18 01/17/18 01/18/18 19:20 23:00 00:35 CBC w Diff WBC RBC Hgb Hct MCV MCH MCHC RDW Plt Count MPV Neut % (Auto) Lymph % (Auto) [place] % (Auto) Eos % (Auto) Baso % (Auto) Neut # (Auto) Lymph # (Auto) [place] # (Auto) Eos # (Auto) Baso # (Auto) WBC Differential Differential Comment PT INR APTT 44.2 H D D-Dimer Quant (PE/DVT) Sodium Potassium Chloride Carbon Dioxide Anion Gap BUN Creatinine Estimated GFR Random Glucose Calcium Magnesium Total Bilirubin AST ALT Alkaline Phosphatase Total Creatine Kinase 471 H 473 H CK-MB (CK-2) 9.5 H 8.6 H CK-MB (CK-2) % 2.0 1.8 Troponin I 0.16 H 0.15 H B-Natriuretic Peptide Total Protein Albumin Ur Collection Type Urine Color Urine Clarity Urine pH Ur Specific [place] Urine Protein Urine Glucose (UA) Urine Ketones Urine Occult Blood Urine Nitrate Urine Bilirubin Urine Urobilinogen Ur Leukocyte Esterase Urine RBC Ur Squamous Epith Cells Micro UA Comment Ur Microscopic Review Urine Culture Comments 01/18/18 01/18/18 01/18/18 04:17 04:17 04:17 CBC w Diff WBC 3.7 L RBC 4.53 Hgb 14.0 Hct 41.8 MCV 92.3 MCH 30.8 MCHC 33.4 RDW 13.8 Plt Count 222 MPV 10.8 Neut % (Auto) Lymph % (Auto) [place] % (Auto) Eos % (Auto) Baso % (Auto) Neut # (Auto) Lymph # (Auto) [place] # (Auto) Eos # (Auto) Baso # (Auto) WBC Differential Differential Comment PT INR APTT D-Dimer Quant (PE/DVT) Sodium 137 Potassium 3.7 Chloride 101 Carbon Dioxide 24.9 Anion Gap 11 BUN 17 Creatinine 1.19 Estimated GFR 82 L Random Glucose 77 Calcium 8.5 D Magnesium Total Bilirubin AST ALT Alkaline Phosphatase Total Creatine Kinase CK-MB (CK-2) CK-MB (CK-2) % Troponin I 0.16 H B-Natriuretic Peptide Total Protein Albumin Ur Collection Type Urine Color Urine Clarity Urine pH Ur Specific [place] Urine Protein Urine Glucose (UA) Urine Ketones Urine Occult Blood Urine Nitrate Urine Bilirubin Urine Urobilinogen Ur Leukocyte Esterase Urine RBC Ur Squamous Epith Cells Micro UA Comment Ur Microscopic Review Urine Culture Comments 01/18/18 01/18/18 01/18/18 04:17 04:17 04:17 CBC w Diff WBC RBC Hgb Hct MCV MCH MCHC RDW Plt Count MPV Neut % (Auto) Lymph % (Auto) [place] % (Auto) Eos % (Auto) Baso % (Auto) Neut # (Auto) Lymph # (Auto) [place] # (Auto) Eos # (Auto) Baso # (Auto) WBC Differential Differential Comment PT INR APTT 29.9 D D-Dimer Quant (PE/DVT) 2.14 H Sodium Potassium Chloride Carbon Dioxide Anion Gap BUN Creatinine Estimated GFR Random Glucose Calcium Magnesium Total Bilirubin AST ALT Alkaline Phosphatase Total Creatine Kinase CK-MB (CK-2) CK-MB (CK-2) % Troponin I B-Natriuretic Peptide 2394 H Total Protein Albumin Ur Collection Type Urine Color Urine Clarity Urine pH Ur Specific [place] Urine Protein Urine Glucose (UA) Urine Ketones Urine Occult Blood Urine Nitrate Urine Bilirubin Urine Urobilinogen Ur Leukocyte Esterase Urine RBC Ur Squamous Epith Cells Micro UA Comment Ur Microscopic Review Urine Culture Comments - Imaging Impressions Chest X-Ray 01/17/18 16:23 CONCLUSION: 1. Cardiomegaly. 2. Slight interstitial prominence in the right lung could be from a layering effusion or infiltrate. Chest CTA 01/18/18 00:00 CONCLUSION: 1. No CT evidence for pulmonary artery embolism as questioned. 2. Prominent left ventricular hypertrophy with groundglass opacities bilaterally consistent with a pulmonary edema pattern. 3. More focal groundglass opacities in the right upper lobe and right middle lobe may be inflammatory/infectious in etiology. 4. Small right pleural effusion. Assessment and Plan - Plan 42 y/o male with a history of CHF, not on medication since early this year presented to the ED with complaints of SOB and chest pain. CHF exacerbation, acute Chest x ray reviewed and shows a Slight interstitial prominence in the right lung could be from a layering effusion or infiltrate, and cardiomegaly Severe cardiomyopathy per old records BNP 1623 -Lasix IV BID -BNP in AM -Monitor I&Os -2D echo ordered, last EF 20-25% -Restarted spirolactone and lisinopril -NPO Tachycardia -Start Metoprol 50mg BID -D dimer ordered r/o PE, if positive will order CTA -Lopressor IV ordered x 1 NSTEMI, likely due to CHF, will r/o ACS Troponin .15->.16,>.15 -Heparin drip -Consult to cardiology for evaluation Malignant medical noncompliance -Has not been taking medications prior to coming into the hospital ETOH abuse -CIWA protocol -Encouraged to quit DVT prophylaxis: SCDs Code Status: Full code Discussed Condition With: RN and patient Discharge Planning: Pending improvement
[2018-01-18] MEDS: Heparin 10,000 UNITS/10 ML Vial (for IV use) IV.PUSH PRN (12:48)
[2018-01-18 13:28] LABS: Hepatitits B Surface Antigen Nonreactive (Nonreactive)
[2018-01-18 13:46] LABS: Hepatitis A IgM Antibody Nonreactive (Nonreactive)
--- NOTE | 2018-01-18 18:52 | ECHRPT ---
Indication: heart failure CONCLUSIONS Severely dilated left ventricle. The left ventricular systolic function is severely reduced with an estimated ejection fraction less than 20%. The right ventricular systoilc function is mildly decreased. [id number] mitral valve regurgitation. Trace aortic valve regurgitation. There is mild tricuspid valve regurgitation. BP: / HR: Rhythm: MEASUREMENTS (Male / Female) Normal Values Technical Quality: 2D ECHO LV Diastolic Diameter PLAX 6.1 cm 4.2 - 5.9 / 3.9 - 5.3 cm LV Systolic Diameter PLAX 6.0 cm IVS Diastolic Thickness 0.8 cm 0.6 - 1.0 / 0.6 - 0.9 cm LVPW Diastolic Thickness 0.8 cm 0.6 - 1.0 / 0.6 - 0.9 cm LV Relative Wall Thickness 0.3 LVOT Diameter 2.1 cm LV Ejection Fraction MOD 4C 16.1 % LV Ejection Fraction 4C AL 19.9 % M-MODE Aortic Root Diameter MM 3.6 cm LA Systolic Diameter MM 3.2 cm LA Ao Ratio MM 0.9 AV Cusp Separation MM 2.3 cm DOPPLER AV Peak Velocity 74.9 cm/s AV Peak Gradient 2.2 mmHg LVOT Peak Velocity 49.9 cm/s LVOT Peak Gradient 1.0 mmHg AV Area Cont Eq pk 2.3 cm Mitral E Point Velocity 81.9 cm/s Mitral A Point Velocity 22.7 cm/s Mitral E to A Ratio 3.6 LV E' Lateral Velocity 6.5 cm/s Mitral E to LV E' Lateral Ratio 12.5 LV E' Septal Velocity 6.5 cm/s Mitral E to LV E' Septal Ratio 12.5 TR Peak Velocity 232.0 cm/s TR Peak Gradient 21.5 mmHg Right Atrial Pressure 10.0 mmHg Pulmonary Artery Systolic Pressu 31.5 mmHg Right Ventricular Systolic Press 31.5 mmHg PV Peak Velocity 55.5 cm/s PV Peak Gradient 1.2 mmHg FINDINGS LEFT VENTRICLE Severely dilated left ventricle. Wall thickness is normal. The left ventricular systolic function is severely reduced with an estimated ejection fraction less than 20%. RIGHT VENTRICLE The right ventricular size is normal. The right ventricular systoilc function is mildly decreased. LEFT ATRIUM The left atrial size is mildly dilated. RIGHT ATRIUM The right atrial size is mildly dilated. ATRIAL SEPTUM Normal atrial septal thickness. AORTA The aortic root and proximal ascending aorta are normal in size on limited imaging. MITRAL VALVE [id number] mitral valve regurgitation. Moderate thickening of the mitral valve leaflets. No mitral valve stenosis. AORTIC VALVE Trileaflet aortic valve. Trace aortic valve regurgitation. No aortic valve stenosis. TRICUSPID VALVE Structurally normal tricuspid valve. There is mild tricuspid valve regurgitation. The estimated pulmonary arterial pressure is 32 mmHg. PULMONARY VALVE The pulmonary valve is not well visualized. Flo Campos DO (Electronically Signed) Final Date:18 January 2018 18:51
--- NOTE | 2018-01-18 20:36 | MB ---
cc: Flo Campos DO DATE: 01/18/2018 REASON FOR CONSULTATION: Congestive heart failure. HISTORY OF PRESENT ILLNESS: Saurabh Lui is a pleasant 42-year-old male who presented to [facility] due to shortness of breath and chest pain. Apparently last year, he underwent a cardiac catheterization by Dr. Dunlap and was found to have normal coronaries with a nonischemic cardiomyopathy. Since that time due to insurance issues, he has had no followup with cardiology and has not been on his cardiac medications for heart failure. He was doing relatively well until 2 days ago, he started noticing his ankle swelling and he was unable to lie flat while sleeping. Occasionally while lying flat he would start getting some sharp pain in the middle of his chest. Once he sat up, his breathing got better and his chest pain got better. Ultimately felt like he could not expand his lungs to get a breath of air. He denies any other symptoms. PAST MEDICAL HISTORY: 1. Nonischemic cardiomyopathy. 2. Alcohol abuse. PAST SURGICAL HISTORY: Cardiac catheterization previously showing normal coronary arteries. ALLERGIES: NO KNOWN DRUG ALLERGIES. MEDICATIONS: Denies. FAMILY HISTORY: Denies premature coronary artery disease or sudden cardiac within the family. SOCIAL HISTORY: Denies tobacco or drug abuse. Admits to drinking at least a 6-pack of beer daily. REVIEW OF SYSTEMS: Fourteen systems were reviewed including osteopathic. Pertinent positives and negatives as above, otherwise negative. PHYSICAL EXAMINATION: VITAL SIGNS: Temperature 97.7, heart rate 110, blood pressure 142/98, respirations 16, pulse oximetry 99% on room air. GENERAL: The patient appears well, in no acute distress, alert, awake and oriented x3. HEENT: Extraocular muscles intact. Mucous membranes moist. NECK: Supple with mild JVD noted bilaterally. Carotid upstroke is brisk in nature. HEART: Regular rate and rhythm. Positive first and second heart sounds with no noted murmurs, gallops or rubs. LUNGS: Decreased breath sounds with minimal rales at the bilateral bases. ABDOMEN: Soft, nontender, nondistended. No organomegaly noted. Hepatojugular reflux time noted. EXTREMITIES: Trace edema bilaterally. SKIN: Warm, dry and intact. NEUROLOGIC: No focal deficits. OSTEOPATHIC: No kyphosis, lordosis or paraspinal tender points. LABORATORY DATA: Hemoglobin 14.0, hematocrit 41.8, platelets 222. Potassium 3.7, BUN 17, creatinine 1.19. Troponin flat at 0.16. Electrocardiogram (01/17/2018 at 2318) sinus tachycardia, baseline artifact, incomplete right bundle branch, nonspecific ST-T wave changes. ASSESSMENT AND PLAN: 1. Acute on chronic systolic heart failure. 2. Known nonischemic cardiomyopathy. 3. Previous cardiac catheterization showing normal coronary arteries. 4. Elevated troponin secondary to acute heart failure. 5. Alcohol abuse. RECOMMENDATIONS: 1. Mr. Lui appears to be in acute systolic heart failure and he will be diuresed. 2. He does have a minimally elevated troponin, but this is believed to be secondary to his current heart failure. Chest pain that he felt is most likely due to an elevated LVEDP, especially when lying down, causing him to be more short of breath. 3. He will be started back on his heart failure medication. 4. No plan for ischemic evaluation at this time as he previously had a cardiac catheterization showing normal coronary arteries. 5. Ultimately, the patient is not a candidate for ICD therapy at this time as he has not been on optimal medical therapy. We will place him back on his heart failure medications. 6. Lastly, I spoke to him about needing to stop his alcohol abuse as not only does it increase his risk of heart failure, but also is a cardiac depressant. Thank you for allowing me to see Saurabh Lui. If there are any questions, please do not hesitate to call. Flo Campos DO VGP/ct , 07:24 PM , 07:36 PM
[2018-01-19] MEDS: Heparin 10,000 UNITS/10 ML Vial (for IV use) IV.PUSH PRN (02:39)
[2018-01-19 05:37] LABS: Baso % (Auto) 0.6 % (0.0-2.0); Eos % (Auto) 0.3 % (0.0-4.0); Hematocrit 41.4 % (39.0-51.0); Hemoglobin 14.1 gm/dL (13.0-17.0); Lymph # (Auto) 1.8 th/mm3 (1.0-4.8); Lymph % (Auto) 44.4 % (9.0-44.0); Mean Corpuscular Hemoglobin 31.1 pg (27.0-34.0); Mean Corpuscular Volume 91.7 fL (80.0-100.0); Mean Platelet Volume 11.4 fL (7.0-11.0); Mono # (Auto) 0.4 th/mm3 (0.0-0.9); Mono % (Auto) 9.3 % (0.0-8.0); Neut # (Auto) 1.9 th/mm3 (1.8-7.7); Neut % (Auto) 45.4 % (16.0-70.0); Platelet Count 210 th/mm3 (150-450); Red Blood Count 4.51 mil/mm3 (4.50-5.90); Red Cell Distribution Width 13.8 % (11.6-17.2); White Blood Count 4.1 th/mm3 (4.0-11.0)
[2018-01-19 05:52] LABS: INR 1.1 Ratio; Prothrombin Time 11.1 sec (9.8-11.6)
[2018-01-19 06:00] LABS: Alanine Aminotransferase 50 U/L (12-78); Albumin 2.5 g/dL (3.4-5.0); Anion Gap 11 meq/L (5-15); Aspartate Aminotransferase 59 U/L (15-37); Blood Urea Nitrogen 21 mg/dL (7-18); Calcium 8.2 mg/dL (8.5-10.1); Carbon Dioxide 27.7 meq/L (21.0-32.0); Chloride 101 meq/L (98-107); Cholesterol 200 mg/dL (120-200); Glomerular Filtration Rate 61 mL/min (>89); Glucose,Random 127 mg/dL (74-106); Magnesium 1.7 mg/dL (1.5-2.5); Potassium 3.3 meq/L (3.5-5.1); Sodium 140 meq/L (136-145); Triglycerides 57 mg/dL (42-150)
[2018-01-19 06:09] LABS: Alkaline Phosphatase 139 U/L (45-117); Chol/HDL Ratio 1.85 Ratio; Free T4 (Free Thyroxine) 1.03 ng/dL (0.76-1.46); HDL Cholesterol 107.9 mg/dL (40.0-60.0); LDL Cholesterol,Calculated 81 mg/dL (0-99); Total Protein 6.7 g/dL (6.4-8.2)
[2018-01-19] MEDS: Spironolactone 25 MG Tablet PO SCH (08:14)
[2018-01-19] MEDS: Metoprolol Tartrate 50 MG Tablet PO SCH ×2 (08:14→20:47)
[2018-01-19] MEDS: Lisinopril 5 MG Tablet PO SCH (08:15)
[2018-01-19] MEDS: Heparin Drip 25,000 UNIT/250 ML BAG IV.CONT PRN (08:19)
--- NOTE | 2018-01-19 10:14 | P.PNIM ---
Subjective Interval history: 42 y/o male with a history of CHF, not on medication since early this year presented to the ED with complaints of SOB and chest pain. Patient states he was told he had CHF last December but ran out of medications and due to insurance he did not follow up with a nanotechnologist. Last EF was 20-25% in Nov 2016. He states he has had no issue since then until 2 days ago when his ankles started to swell and he could not lay flat to sleep. He states he is very sob, and has intermittent pressure like chest pain in the center of his chest and it is worse with laying flat, he denies radiation but dies have an associated cough. He denies any fever or chills. HX OF NONCOMPLIANCE HX OF VERY LOW EF 10-15% VERY NONCOMPLIANT WITH MEDICATIONS NOT SURE IF HE UNDERSTANDS HOW SICK HE IS AND HOW BAD HIS HEART FUNCTIONS ARE DW PT AND RN 10-25 SEEN BY CARDIOLOGY EF LESS THAN 20% CONTINUE TO DIURESE AM LABS HOPEFULLY HOME IN NEXT 24 TO 48 HOURS AM LABS HYPOTHYROIDISM REPLACE WITH SYNTHROID 25MCG PO DAILY Physical Exam Vital signs: Vital Signs 01/18/18 10:00 01/18/18 11:00 01/18/18 12:00 Temperature 98.2 F Pulse Rate 98 H 100 H 99 H Respiratory Rate 18 Blood Pressure 132/99 H Pulse Oximetry 98 01/18/18 13:00 01/18/18 14:00 01/18/18 15:00 Temperature Pulse Rate 103 H 104 H 100 H Respiratory Rate Blood Pressure Pulse Oximetry 01/18/18 16:00 01/18/18 17:00 01/18/18 18:00 Temperature 98.7 F Pulse Rate 96 H 105 H 101 H Respiratory Rate 20 Blood Pressure 121/85 Pulse Oximetry 98 01/18/18 19:00 01/18/18 20:00 01/18/18 21:00 Temperature 98.6 F Pulse Rate 103 H 106 H 106 H Respiratory Rate 16 Blood Pressure 124/85 Pulse Oximetry 100 01/18/18 22:00 01/18/18 23:00 01/19/18 00:00 Temperature 98.5 F Pulse Rate 98 H 96 H 98 H Respiratory Rate 16 Blood Pressure 118/85 Pulse Oximetry 98 01/19/18 01:00 01/19/18 02:00 01/19/18 03:00 Temperature Pulse Rate 96 H 96 H 96 H Respiratory Rate Blood Pressure Pulse Oximetry 01/19/18 04:00 01/19/18 05:00 01/19/18 06:00 Temperature 98.6 F Pulse Rate 98 H 95 H 102 H Respiratory Rate 14 Blood Pressure 125/90 Pulse Oximetry 97 01/19/18 07:00 01/19/18 08:00 01/19/18 09:00 Temperature 98.3 F Pulse Rate 88 100 H 100 H Respiratory Rate 18 Blood Pressure 126/92 H Pulse Oximetry 99 Intake & Output 01/18/18 01/19/18 01/19/18 18:59 06:59 18:59 Intake Total 750 / 750 480 / 480 250 / 250 Output Total 1125 / 1125 700 / 700 Balance -375 / -375 -220 / -220 250 / 250 Weight 40.5 kg Intake: IV 250 / 250 Heparin/D5W 25,000 U/250 mL 25, 250 / 250 000 unit In 250 ml @ Per Protocol IV.CONT TITRATE PRN Rx #:[id number] Oral 750 / 750 480 / 480 Output: Urine 1125 / 1125 700 / 700 Other: Date of Last Bowel Movement 01/17/18 01/17/18 Narrative: Awake alert and oriented x3 talkative and cooperative GENERAL: This is a very, thin patient, who is short of breath. Head is normocephalic atraumatic Eyes PERRLA EOMI no scleral icterus Oral mucosa is moist tongue is midline Neck is supple there is mild JVD CARDIOVASCULAR:Tachycardic rate and rhythm with a gallop,no wheezes or rubs. RESPIRATORY: Diminished Breath sounds equal bilaterally. No wheezes, rales, or rhonchi. GASTROINTESTINAL: Abdomen soft, non-tender, nondistended. Normal active bowel sounds MUSCULOSKELETAL: TRACE edema to bilateral lower extremities NEURO: Alert & Oriented x4 to person, place, time, situation. Moves all ext x4 Insight and judgment is limited Mood and behavior somewhat appropriate Results - Labs CBC & Chem 7: 01/19/18 04:27 01/19/18 04:27 Laboratory Results - last 24 hr 01/18/18 01/18/18 01/18/18 11:57 15:06 21:58 WBC RBC Hgb Hct MCV MCH MCHC RDW Plt Count MPV Neut % (Auto) Lymph % (Auto) [place] % (Auto) Eos % (Auto) Baso % (Auto) Neut # (Auto) Lymph # (Auto) [place] # (Auto) Eos # (Auto) Baso # (Auto) WBC Differential Differential Comment PT INR APTT 73.5 H D 35.2 H D Sodium Potassium Chloride Carbon Dioxide Anion Gap BUN Creatinine Estimated GFR Random Glucose Calcium Phosphorus Magnesium Total Bilirubin AST ALT Alkaline Phosphatase Total Protein Albumin Triglycerides Cholesterol LDL Cholesterol, Calc HDL Cholesterol Cholesterol/HDL Ratio TSH Free T4 Hepatitis A IgM Ab Nonreactive Hep Bs Antigen Nonreactive Hep B Core IgM Ab Nonreactive Hep C IgG Ab Nonreactive 01/19/18 01/19/18 01/19/18 04:27 04:27 04:27 WBC 4.1 RBC 4.51 Hgb 14.1 Hct 41.4 MCV 91.7 MCH 31.1 MCHC 34.0 RDW 13.8 Plt Count 210 MPV 11.4 H Neut % (Auto) 45.4 Lymph % (Auto) 44.4 H [place] % (Auto) 9.3 H Eos % (Auto) 0.3 Baso % (Auto) 0.6 Neut # (Auto) 1.9 Lymph # (Auto) 1.8 [place] # (Auto) 0.4 Eos # (Auto) 0.0 Baso # (Auto) 0.0 WBC Differential . Differential Comment Auto diff final PT 11.1 INR 1.1 APTT Sodium 140 Potassium 3.3 L Chloride 101 Carbon Dioxide 27.7 Anion Gap 11 BUN 21 H Creatinine 1.54 H Estimated GFR 61 L Random Glucose 127 H Calcium 8.2 L Phosphorus 4.0 Magnesium 1.7 Total Bilirubin 0.3 AST 59 H ALT 50 Alkaline Phosphatase 139 H Total Protein 6.7 Albumin 2.5 L Triglycerides 57 Cholesterol 200 LDL Cholesterol, Calc 81 HDL Cholesterol 107.9 H Cholesterol/HDL Ratio 1.85 TSH 5.930 H Free T4 1.03 Hepatitis A IgM Ab Hep Bs Antigen Hep B Core IgM Ab Hep C IgG Ab - Imaging ITS Impressions Chest X-Ray 01/17/18 16:23 CONCLUSION: 1. Cardiomegaly. 2. Slight interstitial prominence in the right lung could be from a layering effusion or infiltrate. Chest CTA 01/18/18 00:00 CONCLUSION: 1. No CT evidence for pulmonary artery embolism as questioned. 2. Prominent left ventricular hypertrophy with groundglass opacities bilaterally consistent with a pulmonary edema pattern. 3. More focal groundglass opacities in the right upper lobe and right middle lobe may be inflammatory/infectious in etiology. 4. Small right pleural effusion. Assessment and Plan - Plan 42 y/o male with a history of CHF, not on medication since early this year presented to the ED with complaints of SOB and chest pain. CHF exacerbation, acute Chest x ray reviewed and shows a Slight interstitial prominence in the right lung could be from a layering effusion or infiltrate, and cardiomegaly Severe cardiomyopathy per old records BNP 1623-- MORE ELEVATED 2394 10-25 -Lasix IV BID -BNP in AM -Monitor I&Os -2D echo ordered, last EF 20-25% -Restarted spirolactone and lisinopril - Tachycardia -Start Metoprol 50mg BID -D dimer ordered r/o PE, if positive will order CTA -Lopressor IV ordered x 1 NSTEMI, likely due to CHF, will r/o ACS Troponin .15->.16,>.15 -Heparin drip -Consult to cardiology for evaluation Malignant medical noncompliance -Has not been taking medications prior to coming into the hospital RENAL INSUFFICIENCY- SUSPECT DUE TO DIURESIS HYPOKALEMIA WILL REPLACE HYPOTHYROIDISM START SYNTHROID 25MCG PO DAILY AM LABS ETOH abuse -CIWA protocol -Encouraged to quit DVT prophylaxis: SCDs Code Status: FULL CODE Discussed Condition With: RN AND PT AND CM Discharge Planning: Pending improvement
[2018-01-19 15:37] LABS: Hemoglobin A1c 5.3 % (4.3-6.0)
--- NOTE | 2018-01-19 22:27 | P.PNCA ---
Subjective Interval history: No events overnight Breathing much better Medications and Allergies Active Medications: Active Medications Aspirin (Aspirin Chew) 81 mg PO DAILY [facility] Last Admin: 01/19/18 08:15 Dose: 81 mg Flumazenil (Romazecon Inj) 0.2 mg IV.PUSH Q1M PRN PRN Reason: OVERSEDATION Furosemide (Lasix Inj) 20 mg IV.PUSH BID@0900,1800 [facility] Last Admin: 01/19/18 17:38 Dose: 20 mg Haloperidol Lactate (Haldol Inj) 1 mg IV.PUSH Q15M PRN PRN Reason: for severe agitation Heparin Sodium (Porcine) (Heparin Inj) 2,500 units IV.PUSH UNSCH PRN PRN Reason: aPTT 25-39 Last Admin: 01/19/18 02:39 Dose: 2,500 units Heparin Sodium (Porcine) (Heparin Inj) 5,000 units IV.PUSH UNSCH PRN PRN Reason: aPTT < 25 Heparin Sodium/Dextrose (Heparin/D5w 25,000 U/250 Ml) 25,000 unit in 250 mls @ 0 mls/hr IV.CONT TITRATE PRN; Protocol PRN Reason: Per Protocol Last Admin: 01/19/18 08:19 Dose: 700 units/hr, 7 mls/hr Levothyroxine Sodium (Synthroid) 25 mcg PO DAILY@0600 [facility] Last Admin: 01/19/18 10:38 Dose: 25 mcg Lisinopril (Prinivil) 5 mg PO DAILY [facility] Last Admin: 01/19/18 08:15 Dose: 5 mg Lorazepam (Ativan) 1 mg PO Q4H PRN PRN Reason: for CIWA 8-10 Lorazepam (Ativan) 2 mg PO Q2H PRN PRN Reason: for CIWA 11-14 Lorazepam (Ativan Inj) 2 mg IV.PUSH Q2H PRN PRN Reason: for CIWA 11-14 Lorazepam (Ativan Inj) 2 mg IV.PUSH Q15M PRN PRN Reason: for CIWA > 20 Lorazepam (Ativan Inj) 1 mg IV.PUSH Q4H PRN PRN Reason: for CIWA 8-10 Lorazepam (Ativan Inj) 2 mg IV.PUSH Q1H PRN PRN Reason: for CIWA 15-20 Metoprolol Tartrate (Lopressor) 50 mg PO BID [facility] Last Admin: 01/19/18 20:47 Dose: 50 mg Potassium Chloride (K-Dur) 20 meq PO BID [facility] Last Admin: 01/19/18 20:50 Dose: 20 meq Sodium Chloride (Ns Flush) 2 ml IV.FLUSH UNSCH PRN PRN Reason: FLUSH AFTER USING IV ACCESS Spironolactone (Aldactone) 25 mg PO DAILY [facility] Last Admin: 01/19/18 08:14 Dose: 25 mg Allergies Allergy/AdvReac Type Severity Reaction Status Date / Time No Known Allergies Allergy Unknown NONE Uncoded 01/17/18 14:38 Home Medications Medication Instructions Recorded Confirmed Type No Known Home Medications 01/17/18 01/17/18 History Physical Exam Vital signs: Vital Signs 01/18/18 23:00 01/19/18 00:00 01/19/18 01:00 Temperature 98.5 F Pulse Rate 96 H 98 H 96 H Respiratory Rate 16 Blood Pressure 118/85 Pulse Oximetry 98 01/19/18 02:00 01/19/18 03:00 01/19/18 04:00 Temperature 98.6 F Pulse Rate 96 H 96 H 98 H Respiratory Rate 14 Blood Pressure 125/90 Pulse Oximetry 97 01/19/18 05:00 01/19/18 06:00 01/19/18 07:00 Temperature Pulse Rate 95 H 102 H 88 Respiratory Rate Blood Pressure Pulse Oximetry 01/19/18 08:00 01/19/18 09:00 01/19/18 10:00 Temperature 98.3 F Pulse Rate 100 H 100 H 90 Respiratory Rate 18 Blood Pressure 126/92 H Pulse Oximetry 99 01/19/18 11:00 01/19/18 12:00 01/19/18 13:00 Temperature 98.2 F Pulse Rate 92 H 89 89 Respiratory Rate 18 Blood Pressure 105/80 Pulse Oximetry 100 01/19/18 14:00 01/19/18 15:00 01/19/18 15:29 Temperature 98.6 F Pulse Rate 92 H 96 H 94 H Respiratory Rate 18 Blood Pressure 103/82 Pulse Oximetry 100 01/19/18 16:00 01/19/18 17:00 01/19/18 18:00 Temperature Pulse Rate 94 H 96 H 96 H Respiratory Rate Blood Pressure Pulse Oximetry 01/19/18 19:00 01/19/18 20:00 01/19/18 21:00 Temperature 98.5 F Pulse Rate 100 H 100 H 106 H Respiratory Rate 16 Blood Pressure 105/78 Pulse Oximetry 99 Intake & Output 01/19/18 01/19/18 01/20/18 06:59 18:59 06:59 Intake Total 480 / 480 1350 / 1350 Output Total 700 / 700 800 / 800 Balance -220 / -220 550 / 550 Weight 40.5 kg Intake: IV 250 / 250 Heparin/D5W 25,000 U/250 mL 25, 250 / 250 000 unit In 250 ml @ Per Protocol IV.CONT TITRATE PRN Rx #:[id number] Oral 480 / 480 1100 / 1100 Output: Urine 700 / 700 800 / 800 Other: Date of Last Bowel Movement 01/17/18 01/19/18 Narrative: Awake alert and oriented x3 talkative and cooperative GENERAL: This is a very, thin patient, who is short of breath. Head is normocephalic atraumatic Eyes PERRLA EOMI no scleral icterus Oral mucosa is moist tongue is midline Neck is supple there is mild JVD CARDIOVASCULAR:Tachycardic rate and rhythm with a gallop,no wheezes or rubs. RESPIRATORY: Diminished Breath sounds equal bilaterally. No wheezes, rales, or rhonchi. GASTROINTESTINAL: Abdomen soft, non-tender, nondistended. Normal active bowel sounds MUSCULOSKELETAL: TRACE edema to bilateral lower extremities NEURO: Alert & Oriented x4 to person, place, time, situation. Moves all ext x4 Insight and judgment is limited Mood and behavior somewhat appropriate Results 01/19/18 04:27 01/19/18 04:27 Cardiac Enzymes 01/17/18 01/18/18 01/18/18 Range/Units 23:00 04:17 04:17 AST (15-37) U/L CK-MB (CK-2) 8.6 H (0.5-3.6) ng/mL Troponin I 0.15 H 0.16 H (0.02-0.05) ng/mL B-Natriuretic Peptide 2394 H (0-100) pg/mL 01/19/18 Range/Units 04:27 AST 59 H (15-37) U/L CK-MB (CK-2) (0.5-3.6) ng/mL Troponin I (0.02-0.05) ng/mL B-Natriuretic Peptide (0-100) pg/mL Coagulation 10/24/18 10/24/18 10/24/18 Range/Units 00:35 04:17 04:17 PT (9.8-11.6) sec APTT 44.2 H D 29.9 D (24.3-30.1) sec B-Natriuretic Peptide 2394 H (0-100) pg/mL 01/18/18 01/18/18 01/19/18 Range/Units 15:06 21:58 04:27 PT 11.1 (9.8-11.6) sec APTT 73.5 H D 35.2 H D (24.3-30.1) sec B-Natriuretic Peptide (0-100) pg/mL 01/19/18 01/19/18 01/19/18 Range/Units 09:20 16:05 21:52 PT (9.8-11.6) sec APTT 52.1 H D 45.5 H 48.1 H (24.3-30.1) sec B-Natriuretic Peptide (0-100) pg/mL Lipids 01/19/18 Range/Units 04:27 Triglycerides 57 (42-150) mg/dL Cholesterol 200 (120-200) mg/dL HDL Cholesterol 107.9 H (40.0-60.0) mg/dL Cholesterol/HDL Ratio 1.85 Ratio CBC 01/18/18 01/19/18 Range/Units 04:17 04:27 WBC 3.7 L 4.1 (4.0-11.0) th/mm3 RBC 4.53 4.51 (4.50-5.90) mil/mm3 Hgb 14.0 14.1 (13.0-17.0) gm/dL Hct 41.8 41.4 (39.0-51.0) % Plt Count 222 210 (150-450) th/mm3 Neut # (Auto) 1.9 (1.8-7.7) th/mm3 Lymph # (Auto) 1.8 (1.0-4.8) th/mm3 [place] # (Auto) 0.4 (0.0-0.9) th/mm3 Eos # (Auto) 0.0 (0.0-0.4) th/mm3 Baso # (Auto) 0.0 (0.0-0.2) th/mm3 Comprehensive Metabolic Panel 01/18/18 01/19/18 Range/Units 04:17 04:27 Sodium 137 140 (136-145) meq/L Potassium 3.7 3.3 L (3.5-5.1) meq/L Chloride 101 101 (98-107) meq/L Carbon Dioxide 24.9 27.7 (21.0-32.0) meq/L BUN 17 21 H (7-18) mg/dL Creatinine 1.19 1.54 H (0.60-1.30) mg/dL Calcium 8.5 D 8.2 L (8.5-10.1) mg/dL AST 59 H (15-37) U/L ALT 50 (12-78) U/L Alkaline Phosphatase 139 H (45-117) U/L Total Protein 6.7 (6.4-8.2) g/dL Albumin 2.5 L (3.4-5.0) g/dL Intake and Output 01/19/18 01/19/18 01/19/18 06:59 14:59 22:59 Intake Total 480 / 480 750 / 750 600 / 600 Output Total 700 / 700 800 / 800 Balance -220 / -220 -50 / -50 600 / 600 Intake: IV 250 / 250 Heparin/D5W 25,000 U/250 mL 25, 250 / 250 000 unit In 250 ml @ Per Protocol IV.CONT TITRATE PRN Rx #:[id number] Oral 480 / 480 500 / 500 600 / 600 Output: Urine 700 / 700 800 / 800 Other: Date of Last Bowel Movement 01/17/18 01/19/18 Weight 40.5 kg - Imaging and Cardiology Imaging: Impressions Chest CTA 01/18/18 00:00 CONCLUSION: 1. No CT evidence for pulmonary artery embolism as questioned. 2. Prominent left ventricular hypertrophy with groundglass opacities bilaterally consistent with a pulmonary edema pattern. 3. More focal groundglass opacities in the right upper lobe and right middle lobe may be inflammatory/infectious in etiology. 4. Small right pleural effusion. Assessment and Plan - Assessment (1) NICM (nonischemic cardiomyopathy) Code(s): I42.8 - Other cardiomyopathies Status: Acute (2) Elevated troponin Code(s): R74.8 - Abnormal levels of other serum enzymes Status: Acute (3) Acute exacerbation of CHF (congestive heart failure) Code(s): I50.9 - Heart failure, unspecified Status: Acute (4) ETOH abuse Code(s): F10.10 - Alcohol abuse, uncomplicated Status: Acute - Plan 1) Acute on chronic systolic heart failure Diuresed Will have to watch creatinine as further elevated today 2) NICM EF 20% Previous cath showing normal coronaries Possible ETOH induced cardiomyopathy BB/LETITIA-I/Spironolactone 3) Atypical chest pain Most likely due to elevated LVEDP due to heart failure Previous cath showing normal coronaries 4) Elevated troponin Type 2 due to CHF No signs of ACS 5) ETOH abuse Needs to stop alcohol all together Discussed with patient the ramifications of continuing to drink alcohol with heart failure 6) Not a candidate for ICD therapy Due to not being on optimal medication for heart failure Not following with a slot host Continuing to drink alcohol.
[2018-01-20 08:14] LABS: Baso % (Auto) 0.7 % (0.0-2.0); Eos % (Auto) 0.2 % (0.0-4.0); Hematocrit 41.5 % (39.0-51.0); Hemoglobin 13.5 gm/dL (13.0-17.0); Lymph % (Auto) 46.7 % (9.0-44.0); Mean Corpuscular HGB Conc 32.6 % (32.0-36.0); Mean Corpuscular Hemoglobin 30.8 pg (27.0-34.0); Mean Corpuscular Volume 94.5 fL (80.0-100.0); Mean Platelet Volume 11.3 fL (7.0-11.0); Mono # (Auto) 0.4 th/mm3 (0.0-0.9); Mono % (Auto) 10.2 % (0.0-8.0); Neut # (Auto) 1.8 th/mm3 (1.8-7.7); Neut % (Auto) 42.2 % (16.0-70.0); Platelet Count 224 th/mm3 (150-450); Red Cell Distribution Width 14.1 % (11.6-17.2); White Blood Count 4.2 th/mm3 (4.0-11.0)
[2018-01-20] MEDS: Metoprolol Tartrate 50 MG Tablet PO SCH ×2 (08:16→22:51)
[2018-01-20] MEDS: Furosemide 20 MG Tablet PO SCH (08:16)
[2018-01-20] MEDS: Lisinopril 5 MG Tablet PO SCH (08:16)
[2018-01-20] MEDS: Spironolactone 25 MG Tablet PO SCH (08:16)
[2018-01-20 08:32] LABS: Albumin 2.5 g/dL (3.4-5.0); Anion Gap 10 meq/L (5-15); Aspartate Aminotransferase 56 U/L (15-37); Blood Urea Nitrogen 19 mg/dL (7-18); Calcium 8.4 mg/dL (8.5-10.1); Carbon Dioxide 23.7 meq/L (21.0-32.0); Chloride 104 meq/L (98-107); Glomerular Filtration Rate 51 mL/min (>89); Glucose,Random 104 mg/dL (74-106); Magnesium 1.6 mg/dL (1.5-2.5); Sodium 138 meq/L (136-145)
[2018-01-20 08:33] LABS: Alanine Aminotransferase 51 U/L (12-78); Phosphorus 3.4 mg/dL (2.5-4.9)
[2018-01-20 08:35] LABS: Alkaline Phosphatase 118 U/L (45-117); Total Protein 6.7 g/dL (6.4-8.2)
[2018-01-20] MEDS: Mag Sulf 1 gm/100 ml Premix 100 ML IV.SIG SCH ×2 (09:47→11:10)
--- NOTE | 2018-01-20 15:31 | P.PN ---
Subjective Interval history: 42 y/o male with a history of CHF, not on medication since early this year presented to the ED with complaints of SOB and chest pain. Patient states he was told he had CHF last December but ran out of medications and due to insurance he did not follow up with a advertisement compositor. Last EF was 20-25% in Nov 2016. He states he has had no issue since then until 2 days ago when his ankles started to swell and he could not lay flat to sleep. He states he is very sob, and has intermittent pressure like chest pain in the center of his chest and it is worse with laying flat, he denies radiation but dies have an associated cough. He denies any fever or chills. HX OF NONCOMPLIANCE HX OF VERY LOW EF 10-15% VERY NONCOMPLIANT WITH MEDICATIONS NOT SURE IF HE UNDERSTANDS HOW SICK HE IS AND HOW BAD HIS HEART FUNCTIONS ARE DW PT AND RN 10-25 SEEN BY CARDIOLOGY EF LESS THAN 20% CONTINUE TO DIURESE AM LABS HOPEFULLY HOME IN NEXT 24 TO 48 HOURS AM LABS HYPOTHYROIDISM REPLACE WITH SYNTHROID 25MCG PO DAILY 01/20: Seen in his bedroom his Creatinine is increased Held Diuretics, in the afternoon, the nurse commented the patient is not voiding, started on IV fluids and asked for Nephrology specialist and Kidney US. no nausea, vomit or diarrhea. Physical Exam Vital signs: Vital Signs 01/19/18 16:00 01/19/18 17:00 01/19/18 18:00 Temperature Pulse Rate 94 H 96 H 96 H Respiratory Rate Blood Pressure Pulse Oximetry 01/19/18 19:00 01/19/18 20:00 01/19/18 21:00 Temperature 98.5 F Pulse Rate 100 H 100 H 106 H Respiratory Rate 16 Blood Pressure 105/78 Pulse Oximetry 99 01/19/18 22:00 01/19/18 23:00 01/20/18 00:00 Temperature 98.3 F Pulse Rate 89 87 87 Respiratory Rate 16 Blood Pressure 101/78 Pulse Oximetry 100 01/20/18 01:00 01/20/18 02:00 01/20/18 03:00 Temperature Pulse Rate 93 H 94 H 96 H Respiratory Rate Blood Pressure Pulse Oximetry 01/20/18 04:00 01/20/18 05:00 01/20/18 06:00 Temperature 98.4 F Pulse Rate 94 H 94 H 94 H Respiratory Rate 16 Blood Pressure 102/81 Pulse Oximetry 98 01/20/18 07:00 01/20/18 08:00 01/20/18 09:00 Temperature 98.2 F Pulse Rate 95 H 101 H 82 Respiratory Rate 18 Blood Pressure 111/85 Pulse Oximetry 99 01/20/18 10:00 01/20/18 11:00 01/20/18 12:00 Temperature 97.8 F Pulse Rate 93 H 86 86 Respiratory Rate 18 Blood Pressure 103/72 Pulse Oximetry 96 01/20/18 13:00 01/20/18 14:00 Temperature Pulse Rate 89 82 Respiratory Rate Blood Pressure Pulse Oximetry Intake & Output 01/19/18 01/20/18 01/20/18 18:59 06:59 18:59 Intake Total 1350 / 1350 480 / 480 200 / 200 Output Total 800 / 800 450 / 450 Balance 550 / 550 30 / 30 200 / 200 Weight 40.3 kg Intake: IV 250 / 250 200 / 200 Heparin/D5W 25,000 U/250 mL 25, 250 / 250 000 unit In 250 ml @ Per Protocol IV.CONT TITRATE PRN Rx #:[id number] Magnesium Sulfate 1 gm/D5W 100 200 / 200 ml Premix 100 ML @ 100 mls/hr IV.SIG Q1H BELLA Rx#:[id number] Oral 1100 / 1100 480 / 480 Output: Urine 800 / 800 450 / 450 Other: Date of Last Bowel Movement 01/19/18 01/20/18 01/20/18 # Bowel Movements 4 Narrative: GENERAL: No acute distress. EYES: PERRLA EOMI no scleral icterus NECK: is supple there is mild JVD CARDIOVASCULAR:Tachycardic rate and rhythm with a gallop,no wheezes or rubs. RESPIRATORY: Diminished Breath sounds equal bilaterally. No wheezes, rales, or rhonchi. GASTROINTESTINAL: Abdomen soft, non-tender, nondistended. Normal active bowel sounds MUSCULOSKELETAL: TRACE edema to bilateral lower extremities NEURO: Alert & Oriented x4 to person, place, time, situation. Moves all ext x4 Results - Labs CBC & Chem 7: 01/20/18 06:54 01/21/18 09:36 Laboratory Results - last 24 hr 01/19/18 01/19/18 01/19/18 04:27 16:05 21:52 WBC RBC Hgb Hct MCV MCH MCHC RDW Plt Count MPV Neut % (Auto) Lymph % (Auto) [place] % (Auto) Eos % (Auto) Baso % (Auto) Neut # (Auto) Lymph # (Auto) [place] # (Auto) Eos # (Auto) Baso # (Auto) WBC Differential Differential Comment APTT 45.5 H 48.1 H Sodium Potassium Chloride Carbon Dioxide Anion Gap BUN Creatinine Estimated GFR Random Glucose Hemoglobin A1c 5.3 Calcium Phosphorus Magnesium Total Bilirubin AST ALT Alkaline Phosphatase B-Natriuretic Peptide Total Protein Albumin Stl C.difficile DNA Amp St C. diff Tox Epid 027 01/20/18 01/20/18 01/20/18 06:38 06:54 06:54 WBC 4.2 RBC 4.40 L Hgb 13.5 Hct 41.5 MCV 94.5 MCH 30.8 MCHC 32.6 RDW 14.1 Plt Count 224 MPV 11.3 H Neut % (Auto) 42.2 Lymph % (Auto) 46.7 H [place] % (Auto) 10.2 H Eos % (Auto) 0.2 Baso % (Auto) 0.7 Neut # (Auto) 1.8 Lymph # (Auto) 2.0 [place] # (Auto) 0.4 Eos # (Auto) 0.0 Baso # (Auto) 0.0 WBC Differential . Differential Comment Auto diff final APTT Sodium 138 Potassium 4.0 Chloride 104 Carbon Dioxide 23.7 Anion Gap 10 BUN 19 H Creatinine 1.80 H Estimated GFR 51 L Random Glucose 104 Hemoglobin A1c Calcium 8.4 L Phosphorus 3.4 Magnesium 1.6 Total Bilirubin 0.4 AST 56 H ALT 51 Alkaline Phosphatase 118 H B-Natriuretic Peptide Total Protein 6.7 Albumin 2.5 L Stl C.difficile DNA Amp Negative St C. diff Tox Epid 027 Negative 01/20/18 01/20/18 06:54 06:54 WBC RBC Hgb Hct MCV MCH MCHC RDW Plt Count MPV Neut % (Auto) Lymph % (Auto) [place] % (Auto) Eos % (Auto) Baso % (Auto) Neut # (Auto) Lymph # (Auto) [place] # (Auto) Eos # (Auto) Baso # (Auto) WBC Differential Differential Comment APTT 46.5 H Sodium Potassium Chloride Carbon Dioxide Anion Gap BUN Creatinine Estimated GFR Random Glucose Hemoglobin A1c Calcium Phosphorus Magnesium Total Bilirubin AST ALT Alkaline Phosphatase B-Natriuretic Peptide 1665 H Total Protein Albumin Stl C.difficile DNA Amp St C. diff Tox Epid 027 - Imaging Chest X-Ray 01/17/18 16:23 CONCLUSION: 1. Cardiomegaly. 2. Slight interstitial prominence in the right lung could be from a layering effusion or infiltrate. Chest CTA 01/18/18 00:00 CONCLUSION: 1. No CT evidence for pulmonary artery embolism as questioned. 2. Prominent left ventricular hypertrophy with groundglass opacities bilaterally consistent with a pulmonary edema pattern. 3. More focal groundglass opacities in the right upper lobe and right middle lobe may be inflammatory/infectious in etiology. 4. Small right pleural effusion. - Procedures None. Assessment and Plan - Plan 42 y/o male with a history of CHF, not on medication since early this year presented to the ED with complaints of SOB and chest pain. CHF exacerbation, acute Chest x ray reviewed and shows a Slight interstitial prominence in the right lung could be from a layering effusion or infiltrate, and cardiomegaly Severe cardiomyopathy per old records BNP 1623-- MORE ELEVATED 2394 -, Today Creatinine increased to 1.8 held Diuretics Furosemide and Spironolactone giving IV fluids 250 ml Bolus and continue 75 ml per hour, asked for Nephrology specialist consult and Kidney US stat -Monitor I&Os -2D echo ordered, last EF 20-25% Tachycardia -Continue Metoprol 50mg BID NSTEMI, likely due to CHF, will r/o ACS Troponin .15->.16,>.15 -Heparin drip -intake specialist following. negative troponin level. Malignant medical noncompliance -Has not been taking medications prior to coming into the hospital SARTHAK held diuretics, started IV fluids, nephrology specialist consult, Kidney US HYPOKALEMIA WILL REPLACE HYPOTHYROIDISM START SYNTHROID 25MCG PO DAILY ETOH abuse -[facility] protocol -Encouraged to quit DVT prophylaxis: SCDs Code Status: Full code. Discussed Condition With: Patient and nurse. Discharge Planning: Once cleared by specialists.
[2018-01-20] MEDS ORDERED: Sodium Chlor 0.9% Inj 250 ML IV.SIG ONE (19:00)
--- NOTE | 2018-01-20 19:05 | P.PNCA ---
Subjective Interval history: Breathing better Creatinine increasing Medications and Allergies Active Medications: Active Medications Aspirin (Aspirin Chew) 81 mg PO DAILY [facility] Last Admin: 01/20/18 08:16 Dose: 81 mg Flumazenil (Romazecon Inj) 0.2 mg IV.PUSH Q1M PRN PRN Reason: OVERSEDATION Furosemide (Lasix) 20 mg PO DAILY [facility] Last Admin: 01/20/18 08:16 Dose: 20 mg Haloperidol Lactate (Haldol Inj) 1 mg IV.PUSH Q15M PRN PRN Reason: for severe agitation Heparin Sodium (Porcine) (Heparin Inj) 2,500 units IV.PUSH UNSCH PRN PRN Reason: aPTT 25-39 Last Admin: 01/19/18 02:39 Dose: 2,500 units Heparin Sodium (Porcine) (Heparin Inj) 5,000 units IV.PUSH UNSCH PRN PRN Reason: aPTT < 25 Heparin Sodium/Dextrose (Heparin/D5w 25,000 U/250 Ml) 25,000 unit in 250 mls @ 0 mls/hr IV.CONT TITRATE PRN; Protocol PRN Reason: Per Protocol Last Admin: 01/19/18 08:19 Dose: 700 units/hr, 7 mls/hr Levothyroxine Sodium (Synthroid) 25 mcg PO DAILY@0600 [facility] Last Admin: 01/20/18 05:11 Dose: 25 mcg Lisinopril (Prinivil) 5 mg PO DAILY [facility] Last Admin: 01/20/18 08:16 Dose: 5 mg Lorazepam (Ativan) 1 mg PO Q4H PRN PRN Reason: for CIWA 8-10 Lorazepam (Ativan) 2 mg PO Q2H PRN PRN Reason: for CIWA 11-14 Lorazepam (Ativan Inj) 2 mg IV.PUSH Q2H PRN PRN Reason: for CIWA 11-14 Lorazepam (Ativan Inj) 2 mg IV.PUSH Q15M PRN PRN Reason: for CIWA > 20 Lorazepam (Ativan Inj) 1 mg IV.PUSH Q4H PRN PRN Reason: for CIWA 8-10 Lorazepam (Ativan Inj) 2 mg IV.PUSH Q1H PRN PRN Reason: for CIWA 15-20 Metoprolol Tartrate (Lopressor) 50 mg PO BID [facility] Last Admin: 01/20/18 08:16 Dose: 50 mg Potassium Chloride (K-Dur) 20 meq PO DAILY [facility] Sodium Chloride (Ns Flush) 2 ml IV.FLUSH UNSCH PRN PRN Reason: FLUSH AFTER USING IV ACCESS Spironolactone (Aldactone) 25 mg PO DAILY [facility] Last Admin: 01/20/18 08:16 Dose: 25 mg Allergies Allergy/AdvReac Type Severity Reaction Status Date / Time No Known Allergies Allergy Unknown NONE Uncoded 01/17/18 14:38 Home Medications Medication Instructions Recorded Confirmed Type No Known Home Medications 01/17/18 01/17/18 History Physical Exam Vital signs: Vital Signs 01/19/18 19:00 01/19/18 20:00 01/19/18 21:00 Temperature 98.5 F Pulse Rate 100 H 100 H 106 H Respiratory Rate 16 Blood Pressure 105/78 Pulse Oximetry 99 01/19/18 22:00 01/19/18 23:00 01/20/18 00:00 Temperature 98.3 F Pulse Rate 89 87 87 Respiratory Rate 16 Blood Pressure 101/78 Pulse Oximetry 100 01/20/18 01:00 01/20/18 02:00 01/20/18 03:00 Temperature Pulse Rate 93 H 94 H 96 H Respiratory Rate Blood Pressure Pulse Oximetry 01/20/18 04:00 01/20/18 05:00 01/20/18 06:00 Temperature 98.4 F Pulse Rate 94 H 94 H 94 H Respiratory Rate 16 Blood Pressure 102/81 Pulse Oximetry 98 01/20/18 07:00 01/20/18 08:00 01/20/18 09:00 Temperature 98.2 F Pulse Rate 95 H 101 H 82 Respiratory Rate 18 Blood Pressure 111/85 Pulse Oximetry 99 01/20/18 10:00 01/20/18 11:00 01/20/18 12:00 Temperature 97.8 F Pulse Rate 93 H 86 86 Respiratory Rate 18 Blood Pressure 103/72 Pulse Oximetry 96 01/20/18 13:00 01/20/18 14:00 01/20/18 15:00 Temperature Pulse Rate 89 82 91 H Respiratory Rate Blood Pressure Pulse Oximetry 01/20/18 16:00 01/20/18 17:00 01/20/18 18:00 Temperature 98.1 F Pulse Rate 90 87 92 H Respiratory Rate 18 Blood Pressure 98/75 L Pulse Oximetry 100 Intake & Output 1001/20/18 01/20/18 18:59 06:59 18:59 Intake Total 1350 / 1350 480 / 480 200 / 200 Output Total 800 / 800 450 / 450 Balance 550 / 550 30 / 30 200 / 200 Weight 40.3 kg Intake: IV 250 / 250 200 / 200 Heparin/D5W 25,000 U/250 mL 25, 250 / 250 000 unit In 250 ml @ Per Protocol IV.CONT TITRATE PRN Rx #:[id number] Magnesium Sulfate 1 gm/D5W 100 200 / 200 ml Premix 100 ML @ 100 mls/hr IV.SIG Q1H [facility] Rx#:[id number] Oral 1100 / 1100 480 / 480 Output: Urine 800 / 800 450 / 450 Other: Date of Last Bowel Movement 01/19/18 01/20/18 01/20/18 # Bowel Movements 4 Narrative: GENERAL: No acute distress. EYES: PERRLA EOMI no scleral icterus NECK: is supple there is mild JVD CARDIOVASCULAR:Tachycardic rate and rhythm with a gallop,no wheezes or rubs. RESPIRATORY: Diminished Breath sounds equal bilaterally. No wheezes, rales, or rhonchi. GASTROINTESTINAL: Abdomen soft, non-tender, nondistended. Normal active bowel sounds MUSCULOSKELETAL: TRACE edema to bilateral lower extremities NEURO: Alert & Oriented x4 to person, place, time, situation. Moves all ext x4 Results 01/20/18 06:54 01/20/18 06:54 Cardiac Enzymes 01/19/18 01/20/18 01/20/18 Range/Units 04:27 06:54 06:54 AST 59 H 56 H (15-37) U/L B-Natriuretic Peptide 1665 H (0-100) pg/mL Coagulation 01/18/18 01/19/18 01/19/18 Range/Units 21:58 04:27 09:20 PT 11.1 (9.8-11.6) sec APTT 35.2 H D 52.1 H D (24.3-30.1) sec B-Natriuretic Peptide (0-100) pg/mL 01/19/18 01/19/18 01/20/18 Range/Units 16:05 21:52 06:54 PT (9.8-11.6) sec APTT 45.5 H 48.1 H (24.3-30.1) sec B-Natriuretic Peptide 1665 H (0-100) pg/mL 01/20/18 Range/Units 06:54 PT (9.8-11.6) sec APTT 46.5 H (24.3-30.1) sec B-Natriuretic Peptide (0-100) pg/mL Lipids 01/19/18 Range/Units 04:27 Triglycerides 57 (42-150) mg/dL Cholesterol 200 (120-200) mg/dL HDL Cholesterol 107.9 H (40.0-60.0) mg/dL Cholesterol/HDL Ratio 1.85 Ratio CBC 01/19/18 01/20/18 Range/Units 04:27 06:54 WBC 4.1 4.2 (4.0-11.0) th/mm3 RBC 4.51 4.40 L (4.50-5.90) mil/mm3 Hgb 14.1 13.5 (13.0-17.0) gm/dL Hct 41.4 41.5 (39.0-51.0) % Plt Count 210 224 (150-450) th/mm3 Neut # (Auto) 1.9 1.8 (1.8-7.7) th/mm3 Lymph # (Auto) 1.8 2.0 (1.0-4.8) th/mm3 Bates # (Auto) 0.4 0.4 (0.0-0.9) th/mm3 Eos # (Auto) 0.0 0.0 (0.0-0.4) th/mm3 Baso # (Auto) 0.0 0.0 (0.0-0.2) th/mm3 Comprehensive Metabolic Panel 01/19/18 01/20/18 Range/Units 04:27 06:54 Sodium 140 138 (136-145) meq/L Potassium 3.3 L 4.0 (3.5-5.1) meq/L Chloride 101 104 (98-107) meq/L Carbon Dioxide 27.7 23.7 (21.0-32.0) meq/L BUN 21 H 19 H (7-18) mg/dL Creatinine 1.54 H 1.80 H (0.60-1.30) mg/dL Calcium 8.2 L 8.4 L (8.5-10.1) mg/dL AST 59 H 56 H (15-37) U/L ALT 50 51 (12-78) U/L Alkaline Phosphatase 139 H 118 H (45-117) U/L Total Protein 6.7 6.7 (6.4-8.2) g/dL Albumin 2.5 L 2.5 L (3.4-5.0) g/dL Intake and Output 01/20/18 01/20/18 01/20/18 06:59 14:59 22:59 Intake Total 480 / 480 200 / 200 Output Total 450 / 450 Balance 30 / 30 200 / 200 Intake: IV 200 / 200 Magnesium Sulfate 1 gm/D5W 100 200 / 200 ml Premix 100 ML @ 100 mls/hr IV.SIG Q1H [facility] Rx#:[id number] Oral 480 / 480 Output: Urine 450 / 450 Other: Date of Last Bowel Movement 01/20/18 01/20/18 01/20/18 # Bowel Movements 4 Weight 40.3 kg Assessment and Plan - Assessment (1) NICM (nonischemic cardiomyopathy) Code(s): I42.8 - Other cardiomyopathies Status: Acute (2) Elevated troponin Code(s): R74.8 - Abnormal levels of other serum enzymes Status: Acute (3) Acute exacerbation of CHF (congestive heart failure) Code(s): I50.9 - Heart failure, unspecified Status: Acute (4) ETOH abuse Code(s): F10.10 - Alcohol abuse, uncomplicated Status: Acute - Plan 1) Acute on chronic systolic heart failure Diuresed Will have to watch creatinine as further elevated today Appears compensated 2) NICM EF 20% Previous cath showing normal coronaries Possible ETOH induced cardiomyopathy BB/LETITIA-I Spirolactone on hold due to SARTHAK 3) Atypical chest pain Most likely due to elevated LVEDP due to heart failure Previous cath showing normal coronaries 4) Elevated troponin Type 2 due to CHF No signs of ACS 5) ETOH abuse Needs to stop alcohol all together Discussed with patient the ramifications of continuing to drink alcohol with heart failure 6) Not a candidate for ICD therapy Due to not being on optimal medication for heart failure Not following with a rn telephone triage Continuing to drink alcohol. 7) Will see PRN If creatinine better in the morning then cardiovascularly stable for discharge If concerns, then please call the service for covering physician
[2018-01-20] MEDS: Sod Chloride 0.9% Inj 1,000 ML IV.SIG SCH (19:26)
--- NOTE | 2018-01-20 20:07 | US ---
EXAM DATE: 01/20/2018 8:04 PM EDT AGE/SEX: 42 years / Male INDICATIONS: Elevated labs. CLINICAL DATA: This is the patient's initial encounter. Patient reports that signs and symptoms have been present for 1 day and indicates a pain score of 0/10. MEDICAL/SURGICAL HISTORY: Congestive heart failure. Cardiomyopathy. Cellulitis. . Left heart c atheterization. COMPARISON: No prior exams available for comparison. MEASUREMENTS: Right Kidney:__10.7 x 3.7 x 3.7 cm Left Kidney:__8.1 x 3.8 x 4.6 cm FINDINGS: Right Kidney: Increased echotexture. No mass or hydronephrosis. Left Kidney: Increased echotexture. No mass or hydronephrosis. Bladder: Decompressed. Not well evaluated. Other: None. CONCLUSION: 1. Echogenic kidneys consistent with medical renal disease. 2. No sonographic evidence for obstructive uropathy. Electronically signed by: Keyur Valladares MD 01/20/2018 8:06 PM EDT
[2018-01-21] MEDS: Heparin Drip 25,000 UNIT/250 ML BAG IV.CONT PRN (00:14)
[2018-01-21] MEDS: Sod Chloride 0.9% Inj 1,000 ML IV.SIG SCH ×2 (07:57→20:50)
[2018-01-21] MEDS: Lisinopril 5 MG Tablet PO SCH (08:03)
[2018-01-21] MEDS: Metoprolol Tartrate 50 MG Tablet PO SCH ×2 (08:03→20:50)
[2018-01-21] MEDS: Spironolactone 25 MG Tablet PO SCH (09:10)
[2018-01-21] MEDS: Furosemide 20 MG Tablet PO SCH (09:10)
[2018-01-21 10:34] LABS: Alanine Aminotransferase 50 U/L (12-78); Albumin 2.5 g/dL (3.4-5.0); Anion Gap 10 meq/L (5-15); Aspartate Aminotransferase 56 U/L (15-37); Blood Urea Nitrogen 21 mg/dL (7-18); Calcium 7.9 mg/dL (8.5-10.1); Carbon Dioxide 22.4 meq/L (21.0-32.0); Chloride 98 meq/L (98-107); Glomerular Filtration Rate 50 mL/min (>89); Glucose,Random 100 mg/dL (74-106); Potassium 4.7 meq/L (3.5-5.1); Sodium 130 meq/L (136-145)
[2018-01-21 10:36] LABS: Alkaline Phosphatase 111 U/L (45-117); Total Protein 6.4 g/dL (6.4-8.2)
--- NOTE | 2018-01-21 10:44 | P.CONNP ---
<FranklinRachel - Last Filed: 01/21/18 10:24> History of Present Illness Service: Nephrology Consult date: 01/21/18 Requesting Physician: Miguelangel Brody Reason for Consult: Acute kidney injury with oliguria Primary Care Provider: No Primary Care Physician History of Present Illness: Patient is a 42 year old male with a past medical history of congestive heart failure. Last EF was 20-25% in Nov 2016 not followed by a odd piece checker. Presented to the ED with complaints of SOB, lower extremity edema, and chest pain. Nephrology is consulted for acute kidney injury with oliguria a creatinine of 1.80 up from 1.54. Creatinine at 1.20 on 01/17. Renal ultrasound echogenic kidneys consistent with medical renal disease. No sonographic evidence for obstructive uropathy. On IVF's, lasix, LETITIA, and spirolactone. Patient denies any shortness of breath, chest pain, nausea, vomiting, or dysuria. No edema present. [facility] - History History Provided By: Patient - Medical History Medical History: Medical History (Last Reviewed 01/20/18 @ 11:51 by Anabelle Gomez) CHF (congestive heart failure) Cardiomyopathy Cellulitis History of left heart catheterization - Surgical History Surgical History: Surgical History (Last Reviewed 01/20/18 @ 11:52 by Anabelle Gomez) No history of previous surgery - Family History Family History: Family History (Last Reviewed 01/20/18 @ 07:58 by Puma Hampton, PT) Father Heart disease - Tobacco History Smoking Status: Never smoker - Alcohol History How Often Do You Have a Drink Containing Alcohol: 4 or more times a week - Substance Use History Substance History: No History of Abuse - Travel History Recent Travel in the [place] Within the Last 8 Weeks: No Recent Travel Out of the Country Within the Last 8 Weeks: No - Immunization History Tetanus Immunization: Unsure Medications and Allergies Allergies Allergy/AdvReac Type Severity Reaction Status Date / Time No Known Allergies Allergy Unknown NONE Uncoded 01/17/18 14:38 Home Medications Medication Instructions Recorded Confirmed Type No Known Home Medications 01/17/18 01/17/18 History Active Medications: Active Medications Aspirin (Aspirin Chew) 81 mg PO DAILY [facility] Last Admin: 01/21/18 08:03 Dose: 81 mg Flumazenil (Romazecon Inj) 0.2 mg IV.PUSH Q1M PRN PRN Reason: OVERSEDATION Furosemide (Lasix) 20 mg PO DAILY [facility] Last Admin: 01/21/18 09:10 Dose: 20 mg Haloperidol Lactate (Haldol Inj) 1 mg IV.PUSH Q15M PRN PRN Reason: for severe agitation Heparin Sodium (Porcine) (Heparin Inj) 2,500 units IV.PUSH UNSCH PRN PRN Reason: aPTT 25-39 Last Admin: 01/19/18 02:39 Dose: 2,500 units Heparin Sodium (Porcine) (Heparin Inj) 5,000 units IV.PUSH UNSCH PRN PRN Reason: aPTT < 25 Heparin Sodium/Dextrose (Heparin/D5w 25,000 U/250 Ml) 25,000 unit in 250 mls @ 0 mls/hr IV.CONT TITRATE PRN; Protocol PRN Reason: Per Protocol Last Admin: 01/21/18 00:14 Dose: 700 units/hr, 7 mls/hr Sodium Chloride (Ns Inj) 1,000 mls @ 75 mls/hr IV.SIG .[id number] [facility] Last Admin: 01/21/18 07:57 Dose: 75 mls/hr Levothyroxine Sodium (Synthroid) 25 mcg PO DAILY@0600 [facility] Last Admin: 01/21/18 05:33 Dose: 25 mcg Lisinopril (Prinivil) 5 mg PO DAILY [facility] Last Admin: 01/21/18 08:03 Dose: 5 mg Lorazepam (Ativan) 1 mg PO Q4H PRN PRN Reason: for CIWA 8-10 Lorazepam (Ativan) 2 mg PO Q2H PRN PRN Reason: for CIWA 11-14 Lorazepam (Ativan Inj) 2 mg IV.PUSH Q2H PRN PRN Reason: for CIWA 11-14 Lorazepam (Ativan Inj) 2 mg IV.PUSH Q15M PRN PRN Reason: for CIWA > 20 Lorazepam (Ativan Inj) 1 mg IV.PUSH Q4H PRN PRN Reason: for CIWA 8-10 Lorazepam (Ativan Inj) 2 mg IV.PUSH Q1H PRN PRN Reason: for CIWA 15-20 Metoprolol Tartrate (Lopressor) 50 mg PO BID [facility] Last Admin: 01/21/18 08:03 Dose: 50 mg Potassium Chloride (K-Dur) 20 meq PO DAILY [facility] Last Admin: 01/21/18 08:03 Dose: 20 meq Sodium Chloride (Ns Flush) 2 ml IV.FLUSH UNSCH PRN PRN Reason: FLUSH AFTER USING IV ACCESS Spironolactone (Aldactone) 25 mg PO DAILY [facility] Last Admin: 01/21/18 09:10 Dose: 25 mg Exam Vital signs: Vital Signs 01/20/18 11:00 01/20/18 12:00 01/20/18 13:00 Temperature 97.8 F Pulse Rate 86 86 89 Respiratory Rate 18 Blood Pressure 103/72 Pulse Oximetry 96 01/20/18 14:00 01/20/18 15:00 01/20/18 16:00 Temperature 98.1 F Pulse Rate 82 91 H 90 Respiratory Rate 18 Blood Pressure 98/75 L Pulse Oximetry 100 01/20/18 17:00 01/20/18 18:00 01/20/18 19:00 Temperature Pulse Rate 87 92 H 90 Respiratory Rate Blood Pressure Pulse Oximetry 01/20/18 20:00 01/20/18 21:00 01/20/18 22:00 Temperature 97.5 F L Pulse Rate 96 H 90 92 H Respiratory Rate 18 Blood Pressure 101/80 Pulse Oximetry 97 01/20/18 23:00 01/21/18 00:00 01/21/18 01:00 Temperature 97.5 F L Pulse Rate 92 H 97 H 94 H Respiratory Rate 18 Blood Pressure 105/72 Pulse Oximetry 98 01/21/18 02:00 01/21/18 03:00 01/21/18 04:00 Temperature 97.8 F Pulse Rate 90 94 H 94 H Respiratory Rate 20 Blood Pressure 121/91 H Pulse Oximetry 99 01/21/18 05:00 01/21/18 06:00 01/21/18 07:00 Temperature Pulse Rate 94 H 96 H 94 H Respiratory Rate Blood Pressure Pulse Oximetry 01/21/18 07:29 01/21/18 08:00 01/21/18 09:00 Temperature 98.0 F Pulse Rate 94 H 98 H 87 Respiratory Rate 16 Blood Pressure 116/87 Pulse Oximetry 98 01/21/18 09:38 Temperature Pulse Rate 88 Respiratory Rate Blood Pressure Pulse Oximetry Intake & Output 01/20/18 01/21/18 01/21/18 18:59 06:59 18:59 Intake Total 1200 / 1200 980 / 980 1000 / 1000 Output Total 100 / 100 200 / 200 Balance 1100 / 1100 780 / 780 1000 / 1000 Weight 42.2 kg Intake: IV 200 / 200 500 / 500 1000 / 1000 Heparin/D5W 25,000 U/250 mL 25, 250 / 250 000 unit In 250 ml @ Per Protocol IV.CONT TITRATE PRN Rx #:[id number] Magnesium Sulfate 1 gm/D5W 100 200 / 200 ml Premix 100 ML @ 100 mls/hr IV.SIG Q1H [facility] Rx#:[id number] NS Inj 1,000 ML @ 75 mls/hr IV. 1000 / 1000 SIG .[id number] [facility] Rx#:[id number] NS Inj 250 ML @ Wide Open IV. 250 / 250 SIG BOLUS ONE Rx#:[id number] Oral 1000 / 1000 480 / 480 Output: Urine 100 / 100 200 / 200 Other: Date of Last Bowel Movement 01/20/18 01/20/18 # Bowel Movements 0 Narrative: GENERAL: Alert and oriented. NAD. Thin SKIN: Warm and dry. NECK: Supple, trachea midline. No JVD. CARDIOVASCULAR: Regular rate and rhythm without murmurs, gallops, or rubs. RESPIRATORY: Breath sounds equal bilaterally. No accessory muscle use. GASTROINTESTINAL: Abdomen soft, non-tender, nondistended. MUSCULOSKELETAL: No cyanosis, or edema. BACK: Nontender without obvious deformity. No CVA tenderness. Results - Lab Results 01/20/18 06:54 01/20/18 06:54 Most recent lab results Calcium 8.4 mg/dL (8.5-10.1) L 01/20/18 06:54 Phosphorus 3.4 mg/dL (2.5-4.9) 01/20/18 06:54 Magnesium 1.6 mg/dL (1.5-2.5) 01/20/18 06:54 - Image Kidney/bladder ultrasound: report reviewed Assessment and Plan - Assessment (1) Acute kidney injury Code(s): N17.9 - Acute kidney failure, unspecified Status: Acute Plan: Acute kidney injury with a creatinine of 1.80 up from 1.54. Acute kidney injury possible prerenal related to diuresis. Urine with mild proteinuria. Renal ultrasound echogenic kidneys consistent with medical renal disease. No sonographic evidence for obstructive uropathy. Will order serology Urine for osmolarity and sodium Recommend to continue IVF's as long as patient tolerates. No shortness breath currently. Will put lasix and spirolactone on hold. On low dose LETITIA inhibitor should consider holding if creatinine continues to raise. Labs in AM (2) Acute exacerbation of CHF (congestive heart failure) Code(s): I50.9 - Heart failure, unspecified Status: Acute Plan: Has improved. Denies any shortness of breath, no edema. (3) ACS (acute coronary syndrome) Code(s): I24.9 - Acute ischemic heart disease, unspecified Status: Acute Plan: Cardiology managing On heparin gtt <Dimitris Carranza - Last Filed: 01/21/18 18:56> History of Present Illness Primary Care Provider: No Primary Care Physician [facility] - Medical History Medical History: Medical History (Last Reviewed 01/20/18 @ 11:51 by Anabelle Gomez) CHF (congestive heart failure) Cardiomyopathy Cellulitis History of left heart catheterization - Surgical History Surgical History: Surgical History (Last Reviewed 01/20/18 @ 11:52 by Anabelle Gomez) No history of previous surgery - Family History Family History: Family History (Last Reviewed 01/20/18 @ 07:58 by Puma Hampton, PT) Father Heart disease Medications and Allergies Active Medications: Active Medications Aspirin (Aspirin Chew) 81 mg PO DAILY [facility] Last Admin: 01/21/18 08:03 Dose: 81 mg Flumazenil (Romazecon Inj) 0.2 mg IV.PUSH Q1M PRN PRN Reason: OVERSEDATION Furosemide (Lasix) 20 mg PO DAILY [facility] Last Admin: 01/21/18 09:10 Dose: 20 mg Haloperidol Lactate (Haldol Inj) 1 mg IV.PUSH Q15M PRN PRN Reason: for severe agitation Heparin Sodium (Porcine) (Heparin Inj) 2,500 units IV.PUSH UNSCH PRN PRN Reason: aPTT 25-39 Last Admin: 01/19/18 02:39 Dose: 2,500 units Heparin Sodium (Porcine) (Heparin Inj) 5,000 units IV.PUSH UNSCH PRN PRN Reason: aPTT < 25 Sodium Chloride (Ns Inj) 1,000 mls @ 75 mls/hr IV.SIG .[id number] [facility] Last Admin: 01/21/18 07:57 Dose: 75 mls/hr Levothyroxine Sodium (Synthroid) 25 mcg PO DAILY@0600 [facility] Last Admin: 01/21/18 05:33 Dose: 25 mcg Lisinopril (Prinivil) 5 mg PO DAILY [facility] Last Admin: 01/21/18 08:03 Dose: 5 mg Lorazepam (Ativan) 1 mg PO Q4H PRN PRN Reason: for CIWA 8-10 Lorazepam (Ativan) 2 mg PO Q2H PRN PRN Reason: for CIWA 11-14 Lorazepam (Ativan Inj) 2 mg IV.PUSH Q2H PRN PRN Reason: for CIWA 11-14 Lorazepam (Ativan Inj) 2 mg IV.PUSH Q15M PRN PRN Reason: for CIWA > 20 Lorazepam (Ativan Inj) 1 mg IV.PUSH Q4H PRN PRN Reason: for CIWA 8-10 Lorazepam (Ativan Inj) 2 mg IV.PUSH Q1H PRN PRN Reason: for CIWA 15-20 Metoprolol Tartrate (Lopressor) 50 mg PO BID [facility] Last Admin: 01/21/18 08:03 Dose: 50 mg Potassium Chloride (K-Dur) 20 meq PO DAILY [facility] Last Admin: 01/21/18 08:03 Dose: 20 meq Sodium Chloride (Ns Flush) 2 ml IV.FLUSH UNSCH PRN PRN Reason: FLUSH AFTER USING IV ACCESS Spironolactone (Aldactone) 25 mg PO DAILY [facility] Last Admin: 01/21/18 09:10 Dose: 25 mg Exam Vital signs: Vital Signs 01/20/18 19:00 01/20/18 20:00 01/20/18 21:00 Temperature 97.5 F L Pulse Rate 90 96 H 90 Respiratory Rate 18 Blood Pressure 101/80 Pulse Oximetry 97 01/20/18 22:00 01/20/18 23:00 01/21/18 00:00 Temperature 97.5 F L Pulse Rate 92 H 92 H 97 H Respiratory Rate 18 Blood Pressure 105/72 Pulse Oximetry 98 01/21/18 01:00 01/21/18 02:00 01/21/18 03:00 Temperature Pulse Rate 94 H 90 94 H Respiratory Rate Blood Pressure Pulse Oximetry 01/21/18 04:00 01/21/18 05:00 01/21/18 06:00 Temperature 97.8 F Pulse Rate 94 H 94 H 96 H Respiratory Rate 20 Blood Pressure 121/91 H Pulse Oximetry 99 01/21/18 07:00 01/21/18 07:29 01/21/18 08:00 Temperature 98.0 F Pulse Rate 94 H 94 H 98 H Respiratory Rate 16 Blood Pressure 116/87 Pulse Oximetry 98 01/21/18 09:00 01/21/18 09:38 01/21/18 11:00 Temperature Pulse Rate 87 88 81 Respiratory Rate Blood Pressure Pulse Oximetry 01/21/18 12:00 01/21/18 13:00 01/21/18 14:00 Temperature 98.1 F Pulse Rate 84 82 86 Respiratory Rate 18 Blood Pressure 119/78 Pulse Oximetry 100 01/21/18 15:00 01/21/18 15:52 01/21/18 16:00 Temperature 98.1 F Pulse Rate 91 H 88 90 Respiratory Rate 20 Blood Pressure 129/85 Pulse Oximetry 96 01/21/18 16:55 01/21/18 17:48 Temperature Pulse Rate 90 92 H Respiratory Rate Blood Pressure Pulse Oximetry Intake & Output 01/20/18 01/21/18 01/21/18 18:59 06:59 18:59 Intake Total 1200 / 1200 980 / 980 1970 / 1970 Output Total 100 / 100 200 / 200 600 / 600 Balance 1100 / 1100 780 / 780 1370 / 1370 Weight 42.2 kg Intake: IV 200 / 200 500 / 500 1250 / 1250 Heparin/D5W 25,000 U/250 mL 25, 250 / 250 250 / 250 000 unit In 250 ml @ Per Protocol IV.CONT TITRATE PRN Rx #:[id number] Magnesium Sulfate 1 gm/D5W 100 200 / 200 ml Premix 100 ML @ 100 mls/hr IV.SIG Q1H [facility] Rx#:[id number] NS Inj 1,000 ML @ 75 mls/hr IV. 1000 / 1000 SIG .[id number] [facility] Rx#:[id number] NS Inj 250 ML @ Wide Open IV. 250 / 250 SIG BOLUS ONE Rx#:[id number] Oral 1000 / 1000 480 / 480 720 / 720 Output: Urine 100 / 100 200 / 200 600 / 600 Other: Date of Last Bowel Movement 01/20/18 01/20/18 01/21/18 # Bowel Movements 0 1 Results - Lab Results 01/20/18 06:54 01/21/18 09:36 Most recent lab results Calcium 7.9 mg/dL (8.5-10.1) L 01/21/18 09:36 Phosphorus 3.4 mg/dL (2.5-4.9) 01/20/18 06:54 Magnesium 1.6 mg/dL (1.5-2.5) 01/20/18 06:54 Assessment and Plan - Assessment (1) Acute kidney injury Code(s): N17.9 - Acute kidney failure, unspecified Status: Acute Plan: Patient seen and examine, agree with above. SARTHAK, possibly pre renal and overdiuresis. Gentle IVF, watch for fluid overload. (2) Acute exacerbation of CHF (congestive heart failure) Code(s): I50.9 - Heart failure, unspecified Status: Acute (3) ACS (acute coronary syndrome) Code(s): I24.9 - Acute ischemic heart disease, unspecified Status: Acute
--- NOTE | 2018-01-21 18:06 | P.PN ---
Subjective Interval history: 42 y/o male with a history of CHF, not on medication since early this year presented to the ED with complaints of SOB and chest pain. Patient states he was told he had CHF last December but ran out of medications and due to insurance he did not follow up with a gameroom technician. Last EF was 20-25% in Nov 2016. He states he has had no issue since then until 2 days ago when his ankles started to swell and he could not lay flat to sleep. He states he is very sob, and has intermittent pressure like chest pain in the center of his chest and it is worse with laying flat, he denies radiation but dies have an associated cough. He denies any fever or chills. HX OF NONCOMPLIANCE HX OF VERY LOW EF 10-15% VERY NONCOMPLIANT WITH MEDICATIONS NOT SURE IF HE UNDERSTANDS HOW SICK HE IS AND HOW BAD HIS HEART FUNCTIONS ARE DW PT AND RN 10-25 SEEN BY CARDIOLOGY EF LESS THAN 20% CONTINUE TO DIURESE AM LABS HOPEFULLY HOME IN NEXT 24 TO 48 HOURS AM LABS HYPOTHYROIDISM REPLACE WITH SYNTHROID 25MCG PO DAILY 01/20: Seen in his bedroom his Creatinine is increased Held Diuretics, in the afternoon, the nurse commented the patient is not voiding, started on IV fluids and asked for Nephrology specialist and Kidney US. 01/21: Stable in his bedroom seen in the presence of Nephrology specialist Doctor Dillon, the patient has SARTHAK probable secondary to diuresis used, Renal US consistent with medical renal disease, no evidence for obstructive Uropathy Ordered serology, urine osmolarity and sodium, continue IV fluids and continue Lasix and spironolactone on hold, may hold LETITIA inhibitor if Creatinine continue to rise. Physical Exam Vital signs: Vital Signs 01/20/18 19:00 01/20/18 20:00 01/20/18 21:00 Temperature 97.5 F L Pulse Rate 90 96 H 90 Respiratory Rate 18 Blood Pressure 101/80 Pulse Oximetry 97 01/20/18 22:00 01/20/18 23:00 01/21/18 00:00 Temperature 97.5 F L Pulse Rate 92 H 92 H 97 H Respiratory Rate 18 Blood Pressure 105/72 Pulse Oximetry 98 01/21/18 01:00 01/21/18 02:00 01/21/18 03:00 Temperature Pulse Rate 94 H 90 94 H Respiratory Rate Blood Pressure Pulse Oximetry 01/21/18 04:00 01/21/18 05:00 01/21/18 06:00 Temperature 97.8 F Pulse Rate 94 H 94 H 96 H Respiratory Rate 20 Blood Pressure 121/91 H Pulse Oximetry 99 01/21/18 07:00 01/21/18 07:29 01/21/18 08:00 Temperature 98.0 F Pulse Rate 94 H 94 H 98 H Respiratory Rate 16 Blood Pressure 116/87 Pulse Oximetry 98 01/21/18 09:00 01/21/18 09:38 01/21/18 11:00 Temperature Pulse Rate 87 88 81 Respiratory Rate Blood Pressure Pulse Oximetry 01/21/18 12:00 01/21/18 13:00 01/21/18 14:00 Temperature 98.1 F Pulse Rate 84 82 86 Respiratory Rate 18 Blood Pressure 119/78 Pulse Oximetry 100 01/21/18 15:00 01/21/18 15:52 01/21/18 16:00 Temperature 98.1 F Pulse Rate 91 H 88 90 Respiratory Rate 20 Blood Pressure 129/85 Pulse Oximetry 96 01/21/18 16:55 01/21/18 17:48 Temperature Pulse Rate 90 92 H Respiratory Rate Blood Pressure Pulse Oximetry Intake & Output 01/20/18 01/21/18 01/21/18 18:59 06:59 18:59 Intake Total 1200 / 1200 980 / 980 1720 / 1720 Output Total 100 / 100 200 / 200 600 / 600 Balance 1100 / 1100 780 / 780 1120 / 1120 Weight 42.2 kg Intake: IV 200 / 200 500 / 500 1000 / 1000 Heparin/D5W 25,000 U/250 mL 25, 250 / 250 000 unit In 250 ml @ Per Protocol IV.CONT TITRATE PRN Rx #:[id number] Magnesium Sulfate 1 gm/D5W 100 200 / 200 ml Premix 100 ML @ 100 mls/hr IV.SIG Q1H BELLA Rx#:[id number] NS Inj 1,000 ML @ 75 mls/hr IV. 1000 / 1000 SIG .[id number] BELLA Rx#:[id number] NS Inj 250 ML @ Wide Open IV. 250 / 250 SIG BOLUS ONE Rx#:[id number] Oral 1000 / 1000 480 / 480 720 / 720 Output: Urine 100 / 100 200 / 200 600 / 600 Other: Date of Last Bowel Movement 10/01/20/18 01/21/18 # Bowel Movements 0 1 Narrative: GENERAL: No acute distress. EYES: PERRLA EOMI no scleral icterus NECK: is supple there is mild JVD CARDIOVASCULAR:Tachycardic rate and rhythm with a gallop,no wheezes or rubs. RESPIRATORY: Diminished Breath sounds equal bilaterally. No wheezes, rales, or rhonchi. GASTROINTESTINAL: Abdomen soft, non-tender, nondistended. Normal active bowel sounds MUSCULOSKELETAL: TRACE edema to bilateral lower extremities NEURO: Alert & Oriented x4 to person, place, time, situation. Moves all ext x4 Results - Labs CBC & Chem 7: 01/20/18 06:54 01/21/18 09:36 Laboratory Results - last 24 hr 01/21/18 01/21/18 01/21/18 06:34 09:36 09:36 APTT 53.1 H Sodium 130 L Potassium 4.7 Chloride 98 Carbon Dioxide 22.4 Anion Gap 10 BUN 21 H Creatinine 1.82 H Estimated GFR 50 L Random Glucose 100 Calcium 7.9 L Total Bilirubin 0.4 AST 56 H ALT 50 Alkaline Phosphatase 111 B-Natriuretic Peptide 1608 H Total Protein 6.4 Albumin 2.5 L Urine Osmolality Ur Random Sodium 01/21/18 01/21/18 13:50 13:50 APTT Sodium Potassium Chloride Carbon Dioxide Anion Gap BUN Creatinine Estimated GFR Random Glucose Calcium Total Bilirubin AST ALT Alkaline Phosphatase B-Natriuretic Peptide Total Protein Albumin Urine Osmolality 232 L Ur Random Sodium 60 - Imaging Impressions Abdomen/Bladder Ultrasound 01/20/18 00:00 CONCLUSION: 1. Echogenic kidneys consistent with medical renal disease. 2. No sonographic evidence for obstructive uropathy. - Procedures None. Assessment and Plan - Plan 42 y/o male with a history of CHF, not on medication since early this year presented to the ED with complaints of SOB and chest pain. CHF exacerbation, acute Chest x ray reviewed and shows a Slight interstitial prominence in the right lung could be from a layering effusion or infiltrate, and cardiomegaly Severe cardiomyopathy per old records BNP 1623-- MORE ELEVATED 2394 01-19, Today Creatinine increased to 1.8 held Diuretics Furosemide and Spironolactone giving IV fluids 250 ml Bolus and continue 75 ml per hour -2D echo ordered, last EF 20-25% Tachycardia -Continue Metoprol 50mg BID Ruled out ACS will remove Heparin drip at this time. Troponin .15->.16,>.15 -Heparin drip -energy conservation specialist following. negative troponin level. Malignant medical noncompliance -Has not been taking medications prior to coming into the hospital SARTHAK 01/21: Nephrology specialist Doctor Dillon, the patient has SARTHAK probable secondary to diuresis used, Renal US consistent with medical renal disease, no evidence for obstructive Uropathy Ordered serology, urine osmolarity and sodium, continue IV fluids and continue Lasix and spironolactone on hold, may hold LETITIA inhibitor if Creatinine continue to rise. HYPOTHYROIDISM START SYNTHROID 25MCG PO DAILY ETOH abuse -[facility] protocol -Encouraged to quit DVT prophylaxis: SCDs Code Status: Full Code. Discussed Condition With: Patient and Nurse Jazzy Nephrology specialist Doctor Dillon Discharge Planning: Once cleared by specialists.
[2018-01-22 06:31] LABS: Albumin 2.8 g/dL (3.4-5.0); Calcium 8.5 mg/dL (8.5-10.1); Carbon Dioxide 19.4 meq/L (21.0-32.0); Phosphorus 5.5 mg/dL (2.5-4.9); Potassium 4.9 meq/L (3.5-5.1)
[2018-01-22] MEDS: Lisinopril 5 MG Tablet PO SCH (08:34)
[2018-01-22] MEDS: Metoprolol Tartrate 50 MG Tablet PO SCH ×2 (08:34→20:28)
--- NOTE | 2018-01-22 10:09 | P.PN ---
Subjective Interval history: 42 y/o male with a history of CHF, not on medication since early this year presented to the ED with complaints of SOB and chest pain. Patient states he was told he had CHF last December but ran out of medications and due to insurance he did not follow up with a multifold operator. Last EF was 20-25% in Nov 2016. He states he has had no issue since then until 2 days ago when his ankles started to swell and he could not lay flat to sleep. He states he is very sob, and has intermittent pressure like chest pain in the center of his chest and it is worse with laying flat, he denies radiation but dies have an associated cough. He denies any fever or chills. HX OF NONCOMPLIANCE HX OF VERY LOW EF 10-15% VERY NONCOMPLIANT WITH MEDICATIONS NOT SURE IF HE UNDERSTANDS HOW SICK HE IS AND HOW BAD HIS HEART FUNCTIONS ARE DW PT AND RN 10-25 SEEN BY CARDIOLOGY EF LESS THAN 20% CONTINUE TO DIURESE AM LABS HOPEFULLY HOME IN NEXT 24 TO 48 HOURS AM LABS HYPOTHYROIDISM REPLACE WITH SYNTHROID 25MCG PO DAILY 01/20: Seen in his bedroom his Creatinine is increased Held Diuretics, in the afternoon, the nurse commented the patient is not voiding, started on IV fluids and asked for Nephrology specialist and Kidney US. 01/21: Stable in his bedroom seen in the presence of Nephrology specialist Doctor Dillon, the patient has SARTHAK probable secondary to diuresis used, Renal US consistent with medical renal disease, no evidence for obstructive Uropathy Ordered serology, urine osmolarity and sodium, continue IV fluids and continue Lasix and spironolactone on hold, may hold LETITIA inhibitor if Creatinine continue to rise. 01/22: Seen in his bedroom, has decreased breaths sounds and soft crackles on both bases, probable related to volume Overload may need the use of diuretics along with IV fluids. no nausea, vomit or diarrhea. Physical Exam Vital signs: Vital Signs 01/21/18 11:00 01/21/18 12:00 01/21/18 13:00 Temperature 98.1 F Pulse Rate 81 84 82 Respiratory Rate 18 Blood Pressure 119/78 Pulse Oximetry 100 01/21/18 14:00 01/21/18 15:00 01/21/18 15:52 Temperature Pulse Rate 86 91 H 88 Respiratory Rate Blood Pressure Pulse Oximetry 01/21/18 16:00 01/21/18 16:55 01/21/18 17:48 Temperature 98.1 F Pulse Rate 90 90 92 H Respiratory Rate 20 Blood Pressure 129/85 Pulse Oximetry 96 01/21/18 19:00 01/21/18 20:00 01/21/18 21:00 Temperature 97.5 F L Pulse Rate 97 H 96 H 100 H Respiratory Rate 18 Blood Pressure 116/90 Pulse Oximetry 98 01/21/18 22:00 01/21/18 23:00 01/22/18 00:00 Temperature 96.7 F L Pulse Rate 86 83 86 Respiratory Rate 18 Blood Pressure 91/68 L Pulse Oximetry 98 01/22/18 01:00 01/22/18 02:00 01/22/18 03:00 Temperature 96.7 F L Pulse Rate 84 84 84 Respiratory Rate 18 Blood Pressure 91/68 L Pulse Oximetry 98 01/22/18 04:00 01/22/18 05:00 01/22/18 05:52 Temperature Pulse Rate 86 83 87 Respiratory Rate Blood Pressure Pulse Oximetry 01/22/18 07:00 01/22/18 08:00 01/22/18 09:00 Temperature 97.5 F L Pulse Rate 94 H 87 94 H Respiratory Rate 16 Blood Pressure 130/100 H Pulse Oximetry 97 01/22/18 09:46 Temperature Pulse Rate 85 Respiratory Rate Blood Pressure Pulse Oximetry Intake & Output 01/21/18 01/22/18 01/22/18 18:59 06:59 18:59 Intake Total 1969 / 1969 1240 / 1240 1000 / 1000 Output Total 600 / 600 200 / 200 Balance 1370 / 1370 1040 / 1040 1000 / 1000 Weight 43.1 kg Intake: IV 1250 / 1250 1000 / 1000 1000 / 1000 Heparin/D5W 25,000 U/250 mL 25, 250 / 250 000 unit In 250 ml @ Per Protocol IV.CONT TITRATE PRN Rx #:[id number] NS Inj 1,000 ML @ 75 mls/hr IV. 1000 / 1000 1000 / 1000 1000 / 1000 SIG .[id number] BELLA Rx#:[id number] Oral 720 / 720 240 / 240 Output: Urine 600 / 600 200 / 200 Other: # Incontinent Voids 2 Date of Last Bowel Movement 01/21/18 # Bowel Movements 1 Narrative: GENERAL: No acute distress. EYES: PERRLA EOMI no scleral icterus NECK: is supple there is mild JVD CARDIOVASCULAR:Tachycardic rate and rhythm with a gallop,no wheezes or rubs. RESPIRATORY: Diminished Breath sounds equal bilaterally. No wheezing but has bilateral crackles on both bases. GASTROINTESTINAL: Abdomen soft, non-tender, nondistended. Normal active bowel sounds MUSCULOSKELETAL: TRACE edema to bilateral lower extremities NEURO: Alert & Oriented x4 to person, place, time, situation. Moves all ext x4 Results - Labs CBC & Chem 7: 01/20/18 06:54 01/22/18 05:40 Laboratory Results - last 24 hr 01/21/18 01/21/18 01/21/18 09:36 09:36 13:50 APTT Sodium 130 L Potassium 4.7 Chloride 98 Carbon Dioxide 22.4 Anion Gap 10 BUN 21 H Creatinine 1.82 H Estimated GFR 50 L Random Glucose 100 Calcium 7.9 L Phosphorus Total Bilirubin 0.4 AST 56 H ALT 50 Alkaline Phosphatase 111 B-Natriuretic Peptide 1608 H Total Protein 6.4 Albumin 2.5 L Urine Osmolality 232 L Ur Random Sodium Complement C3 Complement C4 01/21/18 01/22/18 01/22/18 13:50 05:40 05:40 APTT 24.1 L D Sodium 131 L Potassium 4.9 Chloride 100 Carbon Dioxide 19.4 L Anion Gap 12 BUN 27 H Creatinine 1.95 H Estimated GFR 46 L Random Glucose 89 Calcium 8.5 Phosphorus 5.5 H D Total Bilirubin AST ALT Alkaline Phosphatase B-Natriuretic Peptide Total Protein Albumin 2.8 L Urine Osmolality Ur Random Sodium 60 Complement C3 119 Complement C4 35 - Imaging Chest X-Ray 01/17/18 16:23 CONCLUSION: 1. Cardiomegaly. 2. Slight interstitial prominence in the right lung could be from a layering effusion or infiltrate. Chest CTA 01/18/18 00:00 CONCLUSION: 1. No CT evidence for pulmonary artery embolism as questioned. 2. Prominent left ventricular hypertrophy with groundglass opacities bilaterally consistent with a pulmonary edema pattern. 3. More focal groundglass opacities in the right upper lobe and right middle lobe may be inflammatory/infectious in etiology. 4. Small right pleural effusion. Abdomen/Bladder Ultrasound 01/20/18 00:00 CONCLUSION: 1. Echogenic kidneys consistent with medical renal disease. 2. No sonographic evidence for obstructive uropathy. - Procedures None. Assessment and Plan - Plan 42 y/o male with a history of CHF, not on medication since early this year presented to the ED with complaints of SOB and chest pain. CHF exacerbation, acute Chest x ray reviewed and shows a Slight interstitial prominence in the right lung could be from a layering effusion or infiltrate, and cardiomegaly Severe cardiomyopathy per old records BNP 1623-- MORE ELEVATED 2394 -, Today Creatinine increased to 1.8 held Diuretics Furosemide and Spironolactone giving IV fluids 250 ml Bolus and continue 75 ml per hour -2D echo ordered, last EF 20-25% -Today having soft crackles, will continue present care, Nephrology following, may need to add some diuretics. Tachycardia controlled with Beta blockers. -Continue Metoprol 50mg BID Ruled out ACS will remove Heparin drip at this time. Troponin .15->.16,>.15 -Heparin drip -pst specialist following. negative troponin level. Malignant medical noncompliance -Has not been taking medications prior to coming into the hospital SARTHAK 01/21: Nephrology specialist Doctor Dillon, the patient has SARTHAK probable secondary to diuresis used, Renal US consistent with medical renal disease, no evidence for obstructive Uropathy Ordered serology, urine osmolarity and sodium, continue IV fluids and continue Lasix and spironolactone on hold, may hold LETITIA inhibitor if Creatinine continue to rise. today Creatinine 1.95 , May need to add some diuretics to his regimen HYPOTHYROIDISM CONTINUE SYNTHROID 25MCG PO DAILY ETOH abuse -[facility] protocol -Encouraged to quit DVT prophylaxis: SCDs Code Status: Full code. Discussed Condition With: patient and Nurse Miss Purcell. Discharge Planning: Once cleared by specialists.
[2018-01-22] MEDS: Sod Chloride 0.9% Inj 1,000 ML IV.SIG SCH (10:12)
--- NOTE | 2018-01-22 11:37 | P.PNNP ---
Subjective Interval history: Patient is alert, has SOB on exertion, no chest pain. Physical Exam Vital signs: Vital Signs 01/21/18 12:00 01/21/18 13:00 01/21/18 14:00 Temperature 98.1 F Pulse Rate 84 82 86 Respiratory Rate 18 Blood Pressure 119/78 Pulse Oximetry 100 01/21/18 15:00 01/21/18 15:52 01/21/18 16:00 Temperature 98.1 F Pulse Rate 91 H 88 90 Respiratory Rate 20 Blood Pressure 129/85 Pulse Oximetry 96 01/21/18 16:55 01/21/18 17:48 01/21/18 19:00 Temperature Pulse Rate 90 92 H 97 H Respiratory Rate Blood Pressure Pulse Oximetry 01/21/18 20:00 01/21/18 21:00 01/21/18 22:00 Temperature 97.5 F L Pulse Rate 96 H 100 H 86 Respiratory Rate 18 Blood Pressure 116/90 Pulse Oximetry 98 01/21/18 23:00 01/22/18 00:00 01/22/18 01:00 Temperature 96.7 F L Pulse Rate 83 86 84 Respiratory Rate 18 Blood Pressure 91/68 L Pulse Oximetry 98 01/22/18 02:00 01/22/18 03:00 01/22/18 04:00 Temperature 96.7 F L Pulse Rate 84 84 86 Respiratory Rate 18 Blood Pressure 91/68 L Pulse Oximetry 98 01/22/18 05:00 01/22/18 05:52 01/22/18 07:00 Temperature Pulse Rate 83 87 94 H Respiratory Rate Blood Pressure Pulse Oximetry 01/22/18 08:00 01/22/18 09:00 01/22/18 09:46 Temperature 97.5 F L Pulse Rate 87 94 H 85 Respiratory Rate 16 Blood Pressure 130/100 H Pulse Oximetry 97 01/22/18 10:34 Temperature Pulse Rate 86 Respiratory Rate Blood Pressure Pulse Oximetry Intake & Output 01/21/18 01/22/18 01/22/18 18:59 06:59 18:59 Intake Total 1969 / 1969 1240 / 1240 1000 / 1000 Output Total 600 / 600 200 / 200 Balance 1370 / 1370 1040 / 1040 1000 / 1000 Weight 43.1 kg Intake: IV 1250 / 1250 1000 / 1000 1000 / 1000 Heparin/D5W 25,000 U/250 mL 25, 250 / 250 000 unit In 250 ml @ Per Protocol IV.CONT TITRATE PRN Rx #:[id number] NS Inj 1,000 ML @ 75 mls/hr IV. 1000 / 1000 1000 / 1000 1000 / 1000 SIG .[id number] BELLA Rx#:[id number] Oral 720 / 720 240 / 240 Output: Urine 600 / 600 200 / 200 Other: # Incontinent Voids 2 Date of Last Bowel Movement 01/21/18 # Bowel Movements 1 Narrative: GENERAL: No acute distress. EYES: PERRLA EOMI no scleral icterus NECK: is supple there is mild JVD CARDIOVASCULAR:Tachycardic rate and rhythm with a gallop,no wheezes or rubs. RESPIRATORY: Diminished Breath sounds equal bilaterally. No wheezing but has bilateral crackles on both bases. GASTROINTESTINAL: Abdomen soft, non-tender, nondistended. Normal active bowel sounds MUSCULOSKELETAL: TRACE edema to bilateral lower extremities NEURO: Alert & Oriented x4 to person, place, time, situation. Moves all ext x4 Assessment and Plan - Assessment (1) Acute kidney injury Code(s): N17.9 - Acute kidney failure, unspecified Status: Acute Plan: Patient has mild chronic kidney disease and Creatinine was 1.1-1.2 , Now develop SARTHAK. Renal U/S showing small left kidney, may have renovascular disease. BP is stable, non oliguric. Creatinine is still 1.9, urine Na. was 60, possibly has ATN. Now eating well, will decrease the IVF. (2) Acute exacerbation of CHF (congestive heart failure) Code(s): I50.9 - Heart failure, unspecified Status: Acute Plan: Has improved. Denies any shortness of breath, no edema. (3) ACS (acute coronary syndrome) Code(s): I24.9 - Acute ischemic heart disease, unspecified Status: Acute Plan: Cardiology managing On heparin gtt
[2018-01-23] MEDS: Sod Chloride 0.9% Inj 1,000 ML IV.SIG SCH (03:38)
[2018-01-23] MEDS: Lisinopril 5 MG Tablet PO SCH (08:01)
[2018-01-23] MEDS: Metoprolol Tartrate 50 MG Tablet PO SCH ×2 (08:01→20:14)
--- NOTE | 2018-01-23 09:03 | P.PN ---
Subjective Interval history: 42 y/o male with a history of CHF, not on medication since early this year presented to the ED with complaints of SOB and chest pain. Patient states he was told he had CHF last December but ran out of medications and due to insurance he did not follow up with a brass bobbin winder. Last EF was 20-25% in Nov 2016. He states he has had no issue since then until 2 days ago when his ankles started to swell and he could not lay flat to sleep. He states he is very sob, and has intermittent pressure like chest pain in the center of his chest and it is worse with laying flat, he denies radiation but dies have an associated cough. He denies any fever or chills. HX OF NONCOMPLIANCE HX OF VERY LOW EF 10-15% VERY NONCOMPLIANT WITH MEDICATIONS NOT SURE IF HE UNDERSTANDS HOW SICK HE IS AND HOW BAD HIS HEART FUNCTIONS ARE DW PT AND RN 10-25 SEEN BY CARDIOLOGY EF LESS THAN 20% CONTINUE TO DIURESE AM LABS HOPEFULLY HOME IN NEXT 24 TO 48 HOURS AM LABS HYPOTHYROIDISM REPLACE WITH SYNTHROID 25MCG PO DAILY 01/20: Seen in his bedroom his Creatinine is increased Held Diuretics, in the afternoon, the nurse commented the patient is not voiding, started on IV fluids and asked for Nephrology specialist and Kidney US. 01/21: Stable in his bedroom seen in the presence of Nephrology specialist Doctor Carranza, the patient has SARTHAK probable secondary to diuresis used, Renal US consistent with medical renal disease, no evidence for obstructive Uropathy Ordered serology, urine osmolarity and sodium, continue IV fluids and continue Lasix and spironolactone on hold, may hold LETITIA inhibitor if Creatinine continue to rise. 01/22: Seen in his bedroom, has decreased breaths sounds and soft crackles on both bases, probable related to volume Overload may need the use of diuretics along with IV fluids. 01/23: The patient had some Agitation during the night, he is been followed due to CHF exacerbation, developed acute kidney Injury probable secondary to diuretic use, he is been followed by Nephrology specialist his creatinine baseline is 1.1 to 1.2, Renal U/S showing small left kidney, may have renovascular disease, Creatinine 1.9 asked for new BMP and will consult Psychiatry specialist, Discussed with Doctor Campos customer relations specialist the patient due to non compliance is not candidate for Life Vest of AICD placement No Signs of ACS, recommended to stop drinking alcohol, Discussed with Nephrology specialist doctor Dillon recommended to discontinue IV fluids if improving his creatinine by tomorrow to discharge home, due to probable ATN. no nausea, vomit or diarrhea. Physical Exam Vital signs: Vital Signs 01/22/18 09:00 01/22/18 09:46 01/22/18 10:34 Temperature Pulse Rate 94 H 85 86 Respiratory Rate Blood Pressure Pulse Oximetry 01/22/18 12:00 01/22/18 13:00 01/22/18 14:00 Temperature 97.8 F Pulse Rate 82 80 78 Respiratory Rate 16 Blood Pressure 98/80 L Pulse Oximetry 100 01/22/18 14:34 01/22/18 16:00 01/22/18 16:52 Temperature 98.1 F Pulse Rate 72 85 82 Respiratory Rate 16 Blood Pressure 118/92 H Pulse Oximetry 100 01/22/18 17:28 01/22/18 19:00 01/22/18 20:00 Temperature 97.5 F L Pulse Rate 80 86 86 Respiratory Rate 18 Blood Pressure 122/89 Pulse Oximetry 100 01/22/18 21:00 01/22/18 22:00 01/22/18 23:00 Temperature Pulse Rate 90 92 H 88 Respiratory Rate Blood Pressure Pulse Oximetry 01/23/18 00:00 01/23/18 01:00 01/23/18 02:00 Temperature 97.8 F Pulse Rate 81 88 88 Respiratory Rate 18 Blood Pressure 115/91 H Pulse Oximetry 96 01/23/18 03:00 01/23/18 03:58 01/23/18 04:00 Temperature 97.7 F Pulse Rate 90 91 H 90 Respiratory Rate 18 Blood Pressure 128/95 H Pulse Oximetry 99 01/23/18 05:00 01/23/18 06:00 01/23/18 07:00 Temperature Pulse Rate 91 H 88 82 Respiratory Rate Blood Pressure Pulse Oximetry 01/23/18 07:45 01/23/18 08:00 01/23/18 08:44 Temperature 97.5 F L Pulse Rate 87 90 64 Respiratory Rate 18 Blood Pressure Pulse Oximetry 128 H Intake & Output 01/22/18 01/23/18 01/23/18 18:59 06:59 18:59 Intake Total 1620 / 1620 1480 / 1480 Output Total 550 / 550 Balance 1070 / 1070 1480 / 1480 Weight 42.9 kg Intake: IV 1000 / 1000 1000 / 1000 NS Inj 1,000 ML @ 50 mls/hr IV. 1000 / 1000 1000 / 1000 SIG .Q20H BELLA Rx#:[id number] Oral 620 / 620 480 / 480 Output: Urine 550 / 550 Other: # Voids 4 Date of Last Bowel Movement 01/22/18 # Bowel Movements 1 Narrative: GENERAL: No acute distress. EYES: PERRLA EOMI no scleral icterus NECK: is supple there is mild JVD CARDIOVASCULAR:Tachycardic rate and rhythm with a gallop,no wheezes or rubs. RESPIRATORY: Diminished Breath sounds equal bilaterally. No wheezing but has bilateral crackles on both bases. GASTROINTESTINAL: Abdomen soft, non-tender, nondistended. Normal active bowel sounds MUSCULOSKELETAL: TRACE edema to bilateral lower extremities NEURO: Alert & Oriented x4 to person, place, time, situation. Moves all ext x4 Results - Labs CBC & Chem 7: 01/20/18 06:54 01/23/18 11:00 Laboratory Results - last 72 hr 01/20/18 01/21/18 01/21/18 06:38 06:34 09:36 APTT 53.1 H Sodium 130 L Potassium 4.7 Chloride 98 Carbon Dioxide 22.4 Anion Gap 10 BUN 21 H Creatinine 1.82 H Estimated GFR 50 L Random Glucose 100 Calcium 7.9 L Phosphorus Total Bilirubin 0.4 AST 56 H ALT 50 Alkaline Phosphatase 111 B-Natriuretic Peptide Total Protein 6.4 Albumin 2.5 L Urine Osmolality Ur Random Sodium Stl C.difficile DNA Amp Negative St C. diff Tox Epid 027 Negative Complement C3 Complement C4 01/21/18 01/21/18 01/21/18 09:36 13:50 13:50 APTT Sodium Potassium Chloride Carbon Dioxide Anion Gap BUN Creatinine Estimated GFR Random Glucose Calcium Phosphorus Total Bilirubin AST ALT Alkaline Phosphatase B-Natriuretic Peptide 1608 H Total Protein Albumin Urine Osmolality 232 L Ur Random Sodium 60 Stl C.difficile DNA Amp St C. diff Tox Epid 027 Complement C3 Complement C4 01/22/18 01/22/18 05:40 05:40 APTT 24.1 L D Sodium 131 L Potassium 4.9 Chloride 100 Carbon Dioxide 19.4 L Anion Gap 12 BUN 27 H Creatinine 1.95 H Estimated GFR 46 L Random Glucose 89 Calcium 8.5 Phosphorus 5.5 H D Total Bilirubin AST ALT Alkaline Phosphatase B-Natriuretic Peptide Total Protein Albumin 2.8 L Urine Osmolality Ur Random Sodium Stl C.difficile DNA Amp St C. diff Tox Epid 027 Complement C3 119 Complement C4 35 - Imaging Chest X-Ray 01/17/18 16:23 CONCLUSION: 1. Cardiomegaly. 2. Slight interstitial prominence in the right lung could be from a layering effusion or infiltrate. Chest CTA 01/18/18 00:00 CONCLUSION: 1. No CT evidence for pulmonary artery embolism as questioned. 2. Prominent left ventricular hypertrophy with groundglass opacities bilaterally consistent with a pulmonary edema pattern. 3. More focal groundglass opacities in the right upper lobe and right middle lobe may be inflammatory/infectious in etiology. 4. Small right pleural effusion. Abdomen/Bladder Ultrasound 01/20/18 00:00 CONCLUSION: 1. Echogenic kidneys consistent with medical renal disease. 2. No sonographic evidence for obstructive uropathy. - Procedures None. Assessment and Plan - Plan 42 y/o male with a history of CHF, not on medication since early this year presented to the ED with complaints of SOB and chest pain. CHF exacerbation, acute Chest x ray reviewed and shows a Slight interstitial prominence in the right lung could be from a layering effusion or infiltrate, and cardiomegaly Severe cardiomyopathy per old records BNP 1623-- MORE ELEVATED 2394 01-19, Today Creatinine increased to 1.8 held Diuretics Furosemide and Spironolactone giving IV fluids 250 ml Bolus and continue 75 ml per hour -2D echo ordered, last EF 20-25% -01/22:Today having soft crackles, will continue present care, Nephrology following, may need to add some diuretics. -01/23: creatinine baseline is 1.1 to 1.2, Renal U/S showing small left kidney, may have renovascular disease, Creatinine 1.9 asked for new BMP and will consult Psychiatry specialist, 01/23: because had some agitation during the night consulted Psychiatry specialist. Discussed with Doctor Andres customer relations specialist the patient due to non compliance is not candidate for Life Vest of AICD placement No Signs of ACS, recommended to stop drinking alcohol, Discussed with Nephrology specialist doctor Carranza recommended to discontinue IV fluids if improving his creatinine by tomorrow to discharge home, due to probable ATN. Tachycardia controlled with Beta blockers. -Continue Metoprol 50mg BID Ruled out ACS removed heparin drip. Troponin .15->.16,>.15 -customer relations specialist following. negative troponin level. Malignant medical noncompliance -Has not been taking medications prior to coming into the hospital SARTHAK 01/21: Nephrology specialist Doctor Dillon, the patient has SARTHAK probable secondary to diuresis used, Renal US consistent with medical renal disease, no evidence for obstructive Uropathy Ordered serology, urine osmolarity and sodium, continue IV fluids and continue Lasix and spironolactone on hold, may hold LETITIA inhibitor if Creatinine continue to rise. today Creatinine 2.1 removed IV fluids and follow in am as per Nephrology if improving his renal function to discharge home, he has mostly ATN. HYPOTHYROIDISM CONTINUE SYNTHROID 25MCG PO DAILY ETOH abuse -WA protocol -Encouraged to quit DVT prophylaxis: SCDs Code Status: Full code. Discussed Condition With: patient, Nurse Miss Purcell, customer relations specialist doctor Andres and Nephrology specialist doctor Mana Carranza Discharge Planning: Once cleared by specialists.
[2018-01-23 11:39] LABS: Carbon Dioxide 17.4 meq/L (21.0-32.0); Potassium 4.8 meq/L (3.5-5.1)
--- NOTE | 2018-01-23 12:10 | P.PNCA ---
Subjective Interval history: Doing well Mild SOB appears chronic Creatinine continues to elevate Medications and Allergies Active Medications: Active Medications Aspirin (Aspirin Chew) 81 mg PO DAILY [facility] Last Admin: 01/23/18 08:00 Dose: 81 mg Flumazenil (Romazecon Inj) 0.2 mg IV.PUSH Q1M PRN PRN Reason: OVERSEDATION Furosemide (Lasix) 20 mg PO DAILY [facility] Last Admin: 01/21/18 09:10 Dose: 20 mg Haloperidol Lactate (Haldol Inj) 1 mg IV.PUSH Q15M PRN PRN Reason: for severe agitation Heparin Sodium (Porcine) (Heparin Inj) 2,500 units IV.PUSH UNSCH PRN PRN Reason: aPTT 25-39 Last Admin: 01/19/18 02:39 Dose: 2,500 units Heparin Sodium (Porcine) (Heparin Inj) 5,000 units IV.PUSH UNSCH PRN PRN Reason: aPTT < 25 Sodium Chloride (Ns Inj) 1,000 mls @ 50 mls/hr IV.SIG .Q20H [facility] Last Admin: 01/23/18 03:38 Dose: 50 mls/hr Levothyroxine Sodium (Synthroid) 25 mcg PO DAILY@0600 [facility] Last Admin: 01/23/18 05:06 Dose: 25 mcg Lisinopril (Prinivil) 5 mg PO DAILY [facility] Last Admin: 01/23/18 08:01 Dose: 5 mg Lorazepam (Ativan) 1 mg PO Q4H PRN PRN Reason: for CIWA 8-10 Last Admin: 01/22/18 12:01 Dose: 1 mg Lorazepam (Ativan) 2 mg PO Q2H PRN PRN Reason: for CIWA 11-14 Lorazepam (Ativan Inj) 2 mg IV.PUSH Q2H PRN PRN Reason: for CIWA 11-14 Lorazepam (Ativan Inj) 2 mg IV.PUSH Q15M PRN PRN Reason: for CIWA > 20 Lorazepam (Ativan Inj) 1 mg IV.PUSH Q4H PRN PRN Reason: for CIWA 8-10 Lorazepam (Ativan Inj) 2 mg IV.PUSH Q1H PRN PRN Reason: for CIWA 15-20 Metoprolol Tartrate (Lopressor) 50 mg PO BID [facility] Last Admin: 01/23/18 08:01 Dose: 50 mg Potassium Chloride (K-Dur) 20 meq PO DAILY [facility] Last Admin: 01/23/18 08:01 Dose: 20 meq Sodium Chloride (Ns Flush) 2 ml IV.FLUSH UNSCH PRN PRN Reason: FLUSH AFTER USING IV ACCESS Spironolactone (Aldactone) 25 mg PO DAILY [facility] Last Admin: 01/21/18 09:10 Dose: 25 mg Allergies Allergy/AdvReac Type Severity Reaction Status Date / Time No Known Allergies Allergy Unknown NONE Uncoded 01/17/18 14:38 Home Medications Medication Instructions Recorded Confirmed Type No Known Home Medications 01/17/18 01/17/18 History Physical Exam Vital signs: Vital Signs 01/22/18 13:00 01/22/18 14:00 01/22/18 14:34 Temperature Pulse Rate 80 78 72 Respiratory Rate Blood Pressure Pulse Oximetry 01/22/18 16:00 01/22/18 16:52 01/22/18 17:28 Temperature 98.1 F Pulse Rate 85 82 80 Respiratory Rate 16 Blood Pressure 118/92 H Pulse Oximetry 100 01/22/18 19:00 01/22/18 20:00 01/22/18 21:00 Temperature 97.5 F L Pulse Rate 86 86 90 Respiratory Rate 18 Blood Pressure 122/89 Pulse Oximetry 100 01/22/18 22:00 01/22/18 23:00 01/23/18 00:00 Temperature 97.8 F Pulse Rate 92 H 88 81 Respiratory Rate 18 Blood Pressure 115/91 H Pulse Oximetry 96 01/23/18 01:00 01/23/18 02:00 01/23/18 03:00 Temperature Pulse Rate 88 88 90 Respiratory Rate Blood Pressure Pulse Oximetry 01/23/18 03:58 01/23/18 04:00 01/23/18 05:00 Temperature 97.7 F Pulse Rate 91 H 90 91 H Respiratory Rate 18 Blood Pressure 128/95 H Pulse Oximetry 99 01/23/18 06:00 01/23/18 07:00 01/23/18 07:45 Temperature Pulse Rate 88 82 87 Respiratory Rate Blood Pressure Pulse Oximetry 01/23/18 08:00 01/23/18 08:44 01/23/18 09:55 Temperature 97.5 F L Pulse Rate 90 64 84 Respiratory Rate 18 Blood Pressure Pulse Oximetry 128 H 01/23/18 11:00 Temperature Pulse Rate 83 Respiratory Rate Blood Pressure Pulse Oximetry Intake & Output 01/22/18 01/23/18 01/23/18 18:59 06:59 18:59 Intake Total 1620 / 1620 1480 / 1480 Output Total 550 / 550 Balance 1070 / 1070 1480 / 1480 Weight 42.9 kg Intake: IV 1000 / 1000 1000 / 1000 NS Inj 1,000 ML @ 50 mls/hr IV. 1000 / 1000 1000 / 1000 SIG .Q20H BELLA Rx#:[id number] Oral 620 / 620 480 / 480 Output: Urine 550 / 550 Other: # Voids 4 Date of Last Bowel Movement 01/22/18 # Bowel Movements 1 Narrative: GENERAL: No acute distress. EYES: PERRLA EOMI no scleral icterus NECK: is supple there is mild JVD CARDIOVASCULAR:Regular rate and rhythm with a gallop,no wheezes or rubs. RESPIRATORY: Diminished Breath sounds equal bilaterally. No wheezing but has bilateral crackles on both bases. GASTROINTESTINAL: Abdomen soft, non-tender, nondistended. Normal active bowel sounds MUSCULOSKELETAL: TRACE edema to bilateral lower extremities NEURO: Alert & Oriented x4 to person, place, time, situation. Moves all ext x4 Results 01/20/18 06:54 01/23/18 11:00 Coagulation 01/22/18 Range/Units 05:40 APTT 24.1 L D (24.3-30.1) sec Comprehensive Metabolic Panel 01/22/18 01/23/18 Range/Units 05:40 11:00 Sodium 131 L 130 L (136-145) meq/L Potassium 4.9 4.8 (3.5-5.1) meq/L Chloride 100 103 (98-107) meq/L Carbon Dioxide 19.4 L 17.4 L (21.0-32.0) meq/L BUN 27 H 34 H (7-18) mg/dL Creatinine 1.95 H 2.10 H (0.60-1.30) mg/dL Calcium 8.5 8.0 L (8.5-10.1) mg/dL Albumin 2.8 L (3.4-5.0) g/dL Intake and Output 01/22/18 01/23/18 01/23/18 22:59 06:59 14:59 Intake Total 620 / 620 1480 / 1480 Output Total 550 / 550 Balance 70 / 70 1480 / 1480 Intake: IV 1000 / 1000 NS Inj 1,000 ML @ 50 mls/hr IV. 1000 / 1000 SIG .Q20H BELLA Rx#:[id number] Oral 620 / 620 480 / 480 Output: Urine 550 / 550 Other: # Voids 4 Date of Last Bowel Movement 01/22/18 # Bowel Movements 1 Weight 42.9 kg Assessment and Plan - Assessment (1) NICM (nonischemic cardiomyopathy) Code(s): I42.8 - Other cardiomyopathies Status: Acute (2) Elevated troponin Code(s): R74.8 - Abnormal levels of other serum enzymes Status: Acute (3) Acute exacerbation of CHF (congestive heart failure) Code(s): I50.9 - Heart failure, unspecified Status: Acute (4) ETOH abuse Code(s): F10.10 - Alcohol abuse, uncomplicated Status: Acute - Plan 1) Acute on chronic systolic heart failure Diuresed Will have to watch creatinine as further elevated today Appears compensated 2) NICM EF 20% Previous cath showing normal coronaries Possible ETOH induced cardiomyopathy BB Spirolactone on hold due to SARTHAK Holding LETITIA-I 3) Atypical chest pain Most likely due to elevated LVEDP due to heart failure Previous cath showing normal coronaries 4) Elevated troponin Type 2 due to CHF No signs of ACS 5) ETOH abuse Needs to stop alcohol all together Discussed with patient the ramifications of continuing to drink alcohol with heart failure 6) Not a candidate for ICD therapy Due to not being on optimal medication for heart failure Not following with a nuclear power reactor operator Continuing to drink alcohol. 7) Creatinine keeps increasing Possible intravascular dry, may need to equilibrate May need to have permissive azotemia
--- NOTE | 2018-01-23 15:47 | P.PNNP ---
Subjective Interval history: Mild shortness of breath on exertion only, no other complaints. Creatinine continues to increase at 2.1 today. <Rachel Reid - Last Filed: 01/23/18 15:37> Physical Exam Vital signs: Vital Signs 01/22/18 16:00 01/22/18 16:52 01/22/18 17:28 Temperature 98.1 F Pulse Rate 85 82 80 Respiratory Rate 16 Blood Pressure 118/92 H Pulse Oximetry 100 01/22/18 19:00 01/22/18 20:00 01/22/18 21:00 Temperature 97.5 F L Pulse Rate 86 86 90 Respiratory Rate 18 Blood Pressure 122/89 Pulse Oximetry 100 01/22/18 22:00 01/22/18 23:00 01/23/18 00:00 Temperature 97.8 F Pulse Rate 92 H 88 81 Respiratory Rate 18 Blood Pressure 115/91 H Pulse Oximetry 96 01/23/18 01:00 01/23/18 02:00 01/23/18 03:00 Temperature Pulse Rate 88 88 90 Respiratory Rate Blood Pressure Pulse Oximetry 01/23/18 03:58 01/23/18 04:00 01/23/18 05:00 Temperature 97.7 F Pulse Rate 91 H 90 91 H Respiratory Rate 18 Blood Pressure 128/95 H Pulse Oximetry 99 01/23/18 06:00 01/23/18 07:00 01/23/18 07:45 Temperature Pulse Rate 88 82 87 Respiratory Rate Blood Pressure Pulse Oximetry 01/23/18 08:00 01/23/18 08:44 01/23/18 09:55 Temperature 97.5 F L Pulse Rate 90 64 84 Respiratory Rate 18 Blood Pressure Pulse Oximetry 128 H 01/23/18 11:00 01/23/18 12:00 01/23/18 13:00 Temperature 97.7 F Pulse Rate 83 81 79 Respiratory Rate 16 Blood Pressure 107/85 Pulse Oximetry 96 01/23/18 13:43 Temperature Pulse Rate 83 Respiratory Rate Blood Pressure Pulse Oximetry Intake & Output 01/22/18 01/23/18 01/23/18 18:59 06:59 18:59 Intake Total 1620 / 1620 1480 / 1480 Output Total 550 / 550 Balance 1070 / 1070 1480 / 1480 Weight 42.9 kg Intake: IV 1000 / 1000 1000 / 1000 NS Inj 1,000 ML @ 50 mls/hr IV. 1000 / 1000 1000 / 1000 SIG .Q20H BELLA Rx#:[id number] Oral 620 / 620 480 / 480 Output: Urine 550 / 550 Other: # Voids 4 Date of Last Bowel Movement 01/22/18 # Bowel Movements 1 Narrative: GENERAL: No acute distress. EYES: PERRLA EOMI no scleral icterus NECK: is supple there is mild JVD CARDIOVASCULAR:Regular rate and rhythm with a gallop,no wheezes or rubs. RESPIRATORY: Diminished Breath sounds equal bilaterally. No wheezing but has bilateral crackles on both bases. GASTROINTESTINAL: Abdomen soft, non-tender, nondistended. Normal active bowel sounds MUSCULOSKELETAL: No edema. [place] NEURO: Alert & Oriented x4 to person, place, time, situation. Moves all ext x4 <Rachel Reid - Last Filed: 01/23/18 15:37> Vital signs: Vital Signs 01/24/18 18:00 01/24/18 19:00 01/24/18 20:00 Temperature 97.8 F Pulse Rate 77 82 82 Respiratory Rate 16 Blood Pressure 124/88 Pulse Oximetry 100 01/24/18 21:00 01/24/18 22:00 01/24/18 23:00 Temperature Pulse Rate 88 86 78 Respiratory Rate Blood Pressure Pulse Oximetry 01/24/18 23:59 01/25/18 00:00 01/25/18 01:00 Temperature 97.5 F L Pulse Rate 75 76 80 Respiratory Rate 16 Blood Pressure 121/88 Pulse Oximetry 100 01/25/18 02:00 01/25/18 03:00 01/25/18 03:31 Temperature 97.6 F Pulse Rate 80 82 86 Respiratory Rate 16 Blood Pressure 129/92 H Pulse Oximetry 98 01/25/18 04:00 01/25/18 05:00 01/25/18 06:00 Temperature Pulse Rate 82 83 86 Respiratory Rate Blood Pressure Pulse Oximetry 01/25/18 07:00 01/25/18 08:00 01/25/18 09:00 Temperature 97.9 F Pulse Rate 86 86 88 Respiratory Rate 16 Blood Pressure 126/97 H Pulse Oximetry 100 01/25/18 10:00 01/25/18 10:29 01/25/18 11:00 Temperature Pulse Rate 80 89 86 Respiratory Rate Blood Pressure Pulse Oximetry 01/25/18 11:22 01/25/18 12:00 01/25/18 13:00 Temperature 98.2 F Pulse Rate 84 88 84 Respiratory Rate 16 Blood Pressure 119/89 Pulse Oximetry 98 01/25/18 14:00 01/25/18 15:00 Temperature Pulse Rate 82 76 Respiratory Rate Blood Pressure Pulse Oximetry Intake & Output 01/24/18 01/25/18 01/25/18 18:59 06:59 18:59 Intake Total 640 / 640 240 / 240 Output Total 325 / 325 Balance 640 / 640 -85 / -85 Weight 44.4 kg Intake: Oral 640 / 640 240 / 240 Output: Urine 325 / 325 Other: # Voids 4 1 Date of Last Bowel Movement 01/24/18 01/24/18 # Bowel Movements 0 <Dimitris Carranza - Last Filed: 01/25/18 17:29> Assessment and Plan - Assessment (1) Acute kidney injury Code(s): N17.9 - Acute kidney failure, unspecified Status: Acute Plan: Patient has mild chronic kidney disease and Creatinine was 1.1-1.2 , Now develop SARTHAK possibly ATN. Renal U/S showing small left kidney, may have renovascular disease. Serology with normal BP is stable, non oliguric. Creatinine slightly elevated 2.1 Would recommend to continue to hold diuretics at this point unless shortness of breath increases. (2) Acute exacerbation of CHF (congestive heart failure) Code(s): I50.9 - Heart failure, unspecified Status: Acute Plan: Has improved. Shortness of breath on exertion, no edema. (3) ACS (acute coronary syndrome) Code(s): I24.9 - Acute ischemic heart disease, unspecified Status: Acute Plan: Cardiology managing On heparin gtt <Rachel Reid - Last Filed: 01/23/18 15:37> - Assessment (1) Acute kidney injury Code(s): N17.9 - Acute kidney failure, unspecified Status: Acute Plan: Patient seen and examined, agree with above. BP is on lower side. Creatinine is 2.1, Off diuretic. Possibly Cardio-renal or ATN. If Creatinine improving, can be discharged. (2) Acute exacerbation of CHF (congestive heart failure) Code(s): I50.9 - Heart failure, unspecified Status: Acute (3) ACS (acute coronary syndrome) Code(s): I24.9 - Acute ischemic heart disease, unspecified Status: Acute <Dimitris Carranza - Last Filed: 01/25/18 17:29>
--- NOTE | 2018-01-23 17:38 | P.CONPSY ---
Provisional Diagnosis Admission Date: January 17, 2018 18:57 [place] I.: Adjustment disorder with mixed anxiety and depressed mood History of Present Illness Service: Medicine Primary Care Provider: No Primary Care Physician History of Present Illness: The patient is a 42-year-old man, domiciled with a roommate in [place], employed, previous psychiatric single, without no previous psychiatric history, alcohol use disorder, no previous suicide attempt, no hospitalizations , medical history of CHF, not on medication since early this year presented to the ED with complaints of SOB and chest pain. Patient states he was told he had CHF last December but ran out of medications and due to insurance he did not follow up with a nutrition faculty member. Last EF was 20-25% in Nov 2016. Also admitted with Acute kidney injury, Creatinine was 1.1-1.2. The patient was consulted to psychiatry due to agitation and anxiety. On my psychiatric evaluation the patient is calm, cooperative, pleasant. The patient reports that he feels much better today, but he has been very anxious and stressed because he is not used to be in bed so long. He says that he just want to be discharged, go back to his life. He says that his major stressor is losing the control of himself and not being able to take decisions, even though he is able to admit that he needs the hospitalization and he will follow medical recommendations. He reports episodes of anxiety during the day, mood swings, but he has been sleeping better in the last 2 days. He denies hopelessness, denies helplessness, anhedonia, denies suicidal ideation, homicidal ideation, denies visual and auditory hallucinations. The patient is fully oriented x3, no attention deficit , no fluctuation of consciousness at this moment. Review of Systems All other systems reviewed negative except as stated in HPI Psychiatric: Reports anxiety, Reports irritability PMFSH - History History Provided By: Patient - Medical History Medical History: Medical History (Last Reviewed 01/20/18 @ 11:51 by Anabelle Gomez) CHF (congestive heart failure) Cardiomyopathy Cellulitis History of left heart catheterization - Surgical History Surgical History: Surgical History (Last Reviewed 01/20/18 @ 11:52 by Anabelle Gomez) No history of previous surgery - Family History Family History: Family History (Last Reviewed 01/20/18 @ 07:58 by Puma Hampton, PT) Father Heart disease - Tobacco History Smoking Status: Never smoker - Alcohol History How Often Do You Have a Drink Containing Alcohol: 4 or more times a week - Substance Use History Substance History: No History of Abuse - Travel History Recent Travel in the [place] Within the Last 8 Weeks: No Recent Travel Out of the Country Within the Last 8 Weeks: No - Immunization History Tetanus Immunization: Unsure Medications and Allergies Active Medications: Active Medications Aspirin (Aspirin Chew) 81 mg PO DAILY [facility] Last Admin: 01/23/18 08:00 Dose: 81 mg Flumazenil (Romazecon Inj) 0.2 mg IV.PUSH Q1M PRN PRN Reason: OVERSEDATION Furosemide (Lasix) 20 mg PO DAILY [facility] Last Admin: 01/21/18 09:10 Dose: 20 mg Haloperidol Lactate (Haldol Inj) 1 mg IV.PUSH Q15M PRN PRN Reason: for severe agitation Heparin Sodium (Porcine) (Heparin Inj) 2,500 units IV.PUSH UNSCH PRN PRN Reason: aPTT 25-39 Last Admin: 01/19/18 02:39 Dose: 2,500 units Heparin Sodium (Porcine) (Heparin Inj) 5,000 units IV.PUSH UNSCH PRN PRN Reason: aPTT < 25 Levothyroxine Sodium (Synthroid) 25 mcg PO DAILY@0600 [facility] Last Admin: 01/23/18 05:06 Dose: 25 mcg Lisinopril (Prinivil) 5 mg PO DAILY [facility] Last Admin: 01/23/18 08:01 Dose: 5 mg Lorazepam (Ativan) 1 mg PO Q4H PRN PRN Reason: for CIWA 8-10 Last Admin: 01/22/18 12:01 Dose: 1 mg Lorazepam (Ativan) 2 mg PO Q2H PRN PRN Reason: for CIWA 11-14 Lorazepam (Ativan Inj) 2 mg IV.PUSH Q2H PRN PRN Reason: for CIWA 11-14 Lorazepam (Ativan Inj) 2 mg IV.PUSH Q15M PRN PRN Reason: for CIWA > 20 Lorazepam (Ativan Inj) 1 mg IV.PUSH Q4H PRN PRN Reason: for CIWA 8-10 Lorazepam (Ativan Inj) 2 mg IV.PUSH Q1H PRN PRN Reason: for CIWA 15-20 Metoprolol Tartrate (Lopressor) 50 mg PO BID [facility] Last Admin: 01/23/18 08:01 Dose: 50 mg Potassium Chloride (K-Dur) 20 meq PO DAILY [facility] Last Admin: 01/23/18 08:01 Dose: 20 meq Sodium Chloride (Ns Flush) 2 ml IV.FLUSH UNSCH PRN PRN Reason: FLUSH AFTER USING IV ACCESS Spironolactone (Aldactone) 25 mg PO DAILY [facility] Last Admin: 01/21/18 09:10 Dose: 25 mg Allergies Allergy/AdvReac Type Severity Reaction Status Date / Time No Known Allergies Allergy Unknown NONE Uncoded 01/17/18 14:38 Home Medications Medication Instructions Recorded Confirmed Type No Known Home Medications 01/17/18 01/17/18 History Exam Vital signs: Vital Signs 01/22/18 19:00 01/22/18 20:00 01/22/18 21:00 Temperature 97.5 F L Pulse Rate 86 86 90 Respiratory Rate 18 Blood Pressure 122/89 Pulse Oximetry 100 01/22/18 22:00 01/22/18 23:00 01/23/18 00:00 Temperature 97.8 F Pulse Rate 92 H 88 81 Respiratory Rate 18 Blood Pressure 115/91 H Pulse Oximetry 96 01/23/18 01:00 01/23/18 02:00 01/23/18 03:00 Temperature Pulse Rate 88 88 90 Respiratory Rate Blood Pressure Pulse Oximetry 01/23/18 03:58 01/23/18 04:00 01/23/18 05:00 Temperature 97.7 F Pulse Rate 91 H 90 91 H Respiratory Rate 18 Blood Pressure 128/95 H Pulse Oximetry 99 01/23/18 06:00 01/23/18 07:00 01/23/18 07:45 Temperature Pulse Rate 88 82 87 Respiratory Rate Blood Pressure Pulse Oximetry 01/23/18 08:00 01/23/18 08:44 01/23/18 09:55 Temperature 97.5 F L Pulse Rate 90 64 84 Respiratory Rate 18 Blood Pressure Pulse Oximetry 128 H 01/23/18 11:00 01/23/18 12:00 01/23/18 13:00 Temperature 97.7 F Pulse Rate 83 81 79 Respiratory Rate 16 Blood Pressure 107/85 Pulse Oximetry 96 01/23/18 13:43 01/23/18 15:00 01/23/18 16:00 Temperature 97.8 F Pulse Rate 83 67 82 Respiratory Rate 18 Blood Pressure 126/91 H Pulse Oximetry 100 01/23/18 17:00 01/23/18 17:28 Temperature Pulse Rate 86 82 Respiratory Rate Blood Pressure Pulse Oximetry Intake & Output 01/22/18 01/23/18 01/23/18 18:59 06:59 18:59 Intake Total 1620 / 1620 1480 / 1480 1000 / 1000 Output Total 550 / 550 Balance 1070 / 1070 1480 / 1480 1000 / 1000 Weight 42.9 kg Intake: IV 1000 / 1000 1000 / 1000 1000 / 1000 NS Inj 1,000 ML @ 50 mls/hr IV. 1000 / 1000 1000 / 1000 1000 / 1000 SIG .Q20H BELLA Rx#:[id number] Oral 620 / 620 480 / 480 Output: Urine 550 / 550 Other: # Voids 4 Date of Last Bowel Movement 01/22/18 # Bowel Movements 1 Narrative: No psychomotor agitation retardation, no AP - Constitutional no acute distress - Routine HEENT Exam Head: Present: atraumatic Mental Status Examination Appearance: Appropriate Consciousness: Alert Orientation: x4 Motor Activity: Normal gait Speech: Unremarkable Language: Adequate Fund of Knowledge: Adequate Attention and Concentration: Adequate Memory: Unremarkable Mood: Appropriate Affect: Appropriate Thought Process & Associations: Intact Thought Content: Appropriate Hallucination Type: None Delusion Type: None Suicidal Ideation: No Suicidal Plan: No Suicidal Intention: No Homicidal Ideation: No Homicidal Plan: No Homicidal Intention: No Insight: Adequate Judgment: Adequate Assessment and Plan - Assessment (1) Adjustment disorder with mixed anxiety and depressed mood Code(s): F43.23 - Adjustment disorder with mixed anxiety and depressed mood Status: Acute - Plan Plan: On psychiatric evaluation today the patient reports episodic anxiety mood swings related with length of hospitalization, loosening control of self, but denies depressive symptoms, denies marquise and psychosis. He denies suicidal enemas ideation, denies visual and auditory hallucinations. The patient has been reportedly agitated, verbally hostile, anxious, but he seems to be in a good spirit today. Clonazepam 0.5 mg 3 times daily can be prescribed for his anxiety. Seroquel 50 mg at bedtime to help with his sleep and also with impulse control. He does not meet criteria for involuntary psychiatric admission. I will follow-up Justification for Continued Inpatient Stay: No admission indicated
[2018-01-24 08:57] LABS: Calcium 8.2 mg/dL (8.5-10.1); Carbon Dioxide 17.6 meq/L (21.0-32.0); Potassium 5.3 meq/L (3.5-5.1)
--- NOTE | 2018-01-24 08:59 | P.PN ---
Subjective Interval history: 42 y/o male with a history of CHF, not on medication since early this year presented to the ED with complaints of SOB and chest pain. Patient states he was told he had CHF last December but ran out of medications and due to insurance he did not follow up with a core microarchitect. Last EF was 20-25% in Nov 2016. He states he has had no issue since then until 2 days ago when his ankles started to swell and he could not lay flat to sleep. He states he is very sob, and has intermittent pressure like chest pain in the center of his chest and it is worse with laying flat, he denies radiation but dies have an associated cough. He denies any fever or chills. HX OF NONCOMPLIANCE HX OF VERY LOW EF 10-15% VERY NONCOMPLIANT WITH MEDICATIONS NOT SURE IF HE UNDERSTANDS HOW SICK HE IS AND HOW BAD HIS HEART FUNCTIONS ARE DW PT AND RN 10-25 SEEN BY CARDIOLOGY EF LESS THAN 20% CONTINUE TO DIURESE AM LABS HOPEFULLY HOME IN NEXT 24 TO 48 HOURS AM LABS HYPOTHYROIDISM REPLACE WITH SYNTHROID 25MCG PO DAILY 01/20: Seen in his bedroom his Creatinine is increased Held Diuretics, in the afternoon, the nurse commented the patient is not voiding, started on IV fluids and asked for Nephrology specialist and Kidney US. 01/21: Stable in his bedroom seen in the presence of Nephrology specialist Doctor Carranza, the patient has SARTHAK probable secondary to diuresis used, Renal US consistent with medical renal disease, no evidence for obstructive Uropathy Ordered serology, urine osmolarity and sodium, continue IV fluids and continue Lasix and spironolactone on hold, may hold LETITIA inhibitor if Creatinine continue to rise. 01/22: Seen in his bedroom, has decreased breaths sounds and soft crackles on both bases, probable related to volume Overload may need the use of diuretics along with IV fluids. 01/23: The patient had some Agitation during the night, he is been followed due to CHF exacerbation, developed acute kidney Injury probable secondary to diuretic use, he is been followed by Nephrology specialist his creatinine baseline is 1.1 to 1.2, Renal U/S showing small left kidney, may have renovascular disease, Creatinine 1.9 asked for new BMP and will consult Psychiatry specialist, Discussed with Doctor Campos lubricating specialist the patient due to non compliance is not candidate for Life Vest of AICD placement No Signs of ACS, recommended to stop drinking alcohol, Discussed with Nephrology specialist doctor Dillon recommended to discontinue IV fluids if improving his creatinine by tomorrow to discharge home, due to probable ATN. 01/24: Stable in his bedroom, his Anxiety and swing moods related to length of hospitalization, as per Psychiatry specialist recommended Clonazepam and Seroquel 50 mg at bedtime. Awaiting laboratory for today, as recommended by lubricating specialist do not meet criteria for LifeVest or AICD placement due to severe non compliance , also as per Nephrology specialist awaiting for laboratory for today if starts to improve to discharge home. not improving yet waiting until tomorrow. Physical Exam Vital signs: Vital Signs 01/23/18 09:55 01/23/18 11:00 01/23/18 12:00 Temperature 97.7 F Pulse Rate 84 83 81 Respiratory Rate 16 Blood Pressure 107/85 Pulse Oximetry 96 01/23/18 13:00 01/23/18 13:43 01/23/18 15:00 Temperature Pulse Rate 79 83 67 Respiratory Rate Blood Pressure Pulse Oximetry 01/23/18 16:00 01/23/18 17:00 01/23/18 17:28 Temperature 97.8 F Pulse Rate 82 86 82 Respiratory Rate 18 Blood Pressure 126/91 H Pulse Oximetry 100 01/23/18 19:00 01/23/18 20:00 01/23/18 21:00 Temperature 97.4 F L Pulse Rate 85 86 80 Respiratory Rate 20 Blood Pressure 134/72 Pulse Oximetry 96 01/23/18 22:00 01/23/18 23:00 01/24/18 00:00 Temperature 97.4 F L Pulse Rate 76 78 80 Respiratory Rate 18 Blood Pressure 116/88 Pulse Oximetry 99 01/24/18 01:00 01/24/18 02:00 01/24/18 03:00 Temperature Pulse Rate 78 108 H 84 Respiratory Rate Blood Pressure Pulse Oximetry 01/24/18 04:00 01/24/18 05:00 01/24/18 06:00 Temperature 96.9 F L Pulse Rate 85 84 84 Respiratory Rate 18 Blood Pressure 111/67 Pulse Oximetry 100 01/24/18 07:00 01/24/18 07:52 01/24/18 07:55 Temperature 97.9 F Pulse Rate 88 88 90 Respiratory Rate 18 Blood Pressure 116/88 Pulse Oximetry 100 Intake & Output 01/23/18 01/24/18 01/24/18 18:59 06:59 18:59 Intake Total 1620 / 1620 480 / 480 Output Total 475 / 475 200 / 200 Balance 1145 / 1145 280 / 280 Weight 44.7 kg Intake: IV 1000 / 1000 NS Inj 1,000 ML @ 50 mls/hr IV. 1000 / 1000 SIG .Q20H BELLA Rx#:[id number] Oral 620 / 620 480 / 480 Output: Urine 475 / 475 200 / 200 Other: # Voids 2 Date of Last Bowel Movement 01/24/18 Narrative: GENERAL: No acute distress. EYES: PERRLA EOMI no scleral icterus NECK: is supple there is mild JVD CARDIOVASCULAR:Tachycardic rate and rhythm with a gallop,no wheezes or rubs. RESPIRATORY: Diminished Breath sounds equal bilaterally. No wheezing but has bilateral crackles on both bases. GASTROINTESTINAL: Abdomen soft, non-tender, nondistended. Normal active bowel sounds MUSCULOSKELETAL: TRACE edema to bilateral lower extremities NEURO: Alert & Oriented x4 to person, place, time, situation. Moves all ext x4 Results - Labs CBC & Chem 7: 01/20/18 06:54 01/24/18 07:46 Laboratory Results - last 24 hr 01/22/18 01/23/18 05:40 11:00 Sodium 130 L Potassium 4.8 Chloride 103 Carbon Dioxide 17.4 L Anion Gap 10 BUN 34 H Creatinine 2.10 H Estimated GFR 42 L Random Glucose 119 H Calcium 8.0 L SID Screen Neg - Imaging Chest X-Ray 01/17/18 16:23 CONCLUSION: 1. Cardiomegaly. 2. Slight interstitial prominence in the right lung could be from a layering effusion or infiltrate. Chest CTA 01/18/18 00:00 CONCLUSION: 1. No CT evidence for pulmonary artery embolism as questioned. 2. Prominent left ventricular hypertrophy with groundglass opacities bilaterally consistent with a pulmonary edema pattern. 3. More focal groundglass opacities in the right upper lobe and right middle lobe may be inflammatory/infectious in etiology. 4. Small right pleural effusion. Abdomen/Bladder Ultrasound 01/20/18 00:00 CONCLUSION: 1. Echogenic kidneys consistent with medical renal disease. 2. No sonographic evidence for obstructive uropathy. - Procedures None. Assessment and Plan - Plan 42 y/o male with a history of CHF, not on medication since early this year presented to the ED with complaints of SOB and chest pain. CHF exacerbation, acute Chest x ray reviewed and shows a Slight interstitial prominence in the right lung could be from a layering effusion or infiltrate, and cardiomegaly Severe cardiomyopathy per old records BNP 1623-- MORE ELEVATED 2394 01-19, Today Creatinine increased to 1.8 held Diuretics Furosemide and Spironolactone giving IV fluids 250 ml Bolus and continue 75 ml per hour -2D echo ordered, last EF 20-25% -01/22:Today having soft crackles, will continue present care, Nephrology following, may need to add some diuretics. -01/23: creatinine baseline is 1.1 to 1.2, Renal U/S showing small left kidney, may have renovascular disease, Creatinine 1.9 asked for new BMP and will consult Psychiatry specialist, 01/23: because had some agitation during the night consulted Psychiatry specialist. Discussed with Doctor Andres lubricating specialist the patient due to non compliance is not candidate for Life Vest of AICD placement No Signs of ACS, recommended to stop drinking alcohol, Discussed with Nephrology specialist doctor Carranza recommended to discontinue IV fluids continue to hold diuretics and follow laboratory in am tomorrow again. Hyperkalemia on hypokalemia diet. Tachycardia controlled with Beta blockers. -Continue Metoprol 50mg BID Ruled out ACS removed heparin drip. Troponin .15->.16,>.15 -lubricating specialist following. negative troponin level. Malignant medical noncompliance -Has not been taking medications prior to coming into the hospital SARTHAK 01/21: Nephrology specialist Doctor Carranza, the patient has SARTHAK probable secondary to diuresis used, Renal US consistent with medical renal disease, no evidence for obstructive Uropathy Ordered serology, urine osmolarity and sodium, continue IV fluids and continue Lasix and spironolactone on hold, may hold LETITIA inhibitor if Creatinine continue to rise. today Creatinine 2.1 removed IV fluids and follow in am as per Nephrology if improving his renal function to discharge home, he has mostly ATN. HYPOTHYROIDISM CONTINUE SYNTHROID 25MCG PO DAILY ETOH abuse -[facility] protocol -Encouraged to quit DVT prophylaxis: SCDs Code Status: Full code. Discussed Condition With: Patient and Nurse Miss Bellamy Discharge Planning: Once cleared by specialists.
[2018-01-24] MEDS: Metoprolol Tartrate 50 MG Tablet PO SCH ×2 (09:11→20:41)
--- NOTE | 2018-01-24 09:47 | P.PNNP ---
Subjective Interval history: Reports shortness of breath on exertion only. Denies any chest pain, nausea, or vomiting. Creatinine is slightly improved at 2.06. Potassium at 5.3. <BetogeovanniRachel - Last Filed: 01/24/18 13:52> Physical Exam Vital signs: Vital Signs 01/23/18 09:55 01/23/18 11:00 01/23/18 12:00 Temperature 97.7 F Pulse Rate 84 83 81 Respiratory Rate 16 Blood Pressure 107/85 Pulse Oximetry 96 01/23/18 13:00 01/23/18 13:43 01/23/18 15:00 Temperature Pulse Rate 79 83 67 Respiratory Rate Blood Pressure Pulse Oximetry 01/23/18 16:00 01/23/18 17:00 01/23/18 17:28 Temperature 97.8 F Pulse Rate 82 86 82 Respiratory Rate 18 Blood Pressure 126/91 H Pulse Oximetry 100 01/23/18 19:00 01/23/18 20:00 01/23/18 21:00 Temperature 97.4 F L Pulse Rate 85 86 80 Respiratory Rate 20 Blood Pressure 134/72 Pulse Oximetry 96 01/23/18 22:00 01/23/18 23:00 01/24/18 00:00 Temperature 97.4 F L Pulse Rate 76 78 80 Respiratory Rate 18 Blood Pressure 116/88 Pulse Oximetry 99 01/24/18 01:00 01/24/18 02:00 01/24/18 03:00 Temperature Pulse Rate 78 108 H 84 Respiratory Rate Blood Pressure Pulse Oximetry 01/24/18 04:00 01/24/18 05:00 01/24/18 06:00 Temperature 96.9 F L Pulse Rate 85 84 84 Respiratory Rate 18 Blood Pressure 111/67 Pulse Oximetry 100 01/24/18 07:00 01/24/18 07:52 01/24/18 07:55 Temperature 97.9 F Pulse Rate 88 88 90 Respiratory Rate 18 Blood Pressure 116/88 Pulse Oximetry 100 Intake & Output 01/23/18 01/24/18 01/24/18 18:59 06:59 18:59 Intake Total 1620 / 1620 480 / 480 Output Total 475 / 475 200 / 200 Balance 1145 / 1145 280 / 280 Weight 44.7 kg Intake: IV 1000 / 1000 NS Inj 1,000 ML @ 50 mls/hr IV. 1000 / 1000 SIG .Q20H BELLA Rx#:[id number] Oral 620 / 620 480 / 480 Output: Urine 475 / 475 200 / 200 Other: # Voids 2 Date of Last Bowel Movement 01/24/18 Narrative: GENERAL: Alert and oriented. No acute distress. NECK: Supple, No JVD CARDIOVASCULAR:Tachycardic rate and rhythm with a gallop,no wheezes or rubs. RESPIRATORY: Diminished Breath sounds equal bilaterally. No wheezing. Rhonchi upper lobes. GASTROINTESTINAL: Abdomen soft, non-tender, nondistended. Normal active bowel sounds MUSCULOSKELETAL: Moves all extremities. No edema. <Rachel Reid - Last Filed: 01/24/18 13:52> Vital signs: Vital Signs 01/24/18 18:00 01/24/18 19:00 01/24/18 20:00 Temperature 97.8 F Pulse Rate 77 82 82 Respiratory Rate 16 Blood Pressure 124/88 Pulse Oximetry 100 01/24/18 21:00 01/24/18 22:00 01/24/18 23:00 Temperature Pulse Rate 88 86 78 Respiratory Rate Blood Pressure Pulse Oximetry 01/24/18 23:59 01/25/18 00:00 01/25/18 01:00 Temperature 97.5 F L Pulse Rate 75 76 80 Respiratory Rate 16 Blood Pressure 121/88 Pulse Oximetry 100 01/25/18 02:00 01/25/18 03:00 01/25/18 03:31 Temperature 97.6 F Pulse Rate 80 82 86 Respiratory Rate 16 Blood Pressure 129/92 H Pulse Oximetry 98 01/25/18 04:00 01/25/18 05:00 01/25/18 06:00 Temperature Pulse Rate 82 83 86 Respiratory Rate Blood Pressure Pulse Oximetry 01/25/18 07:00 01/25/18 08:00 01/25/18 09:00 Temperature 97.9 F Pulse Rate 86 86 88 Respiratory Rate 16 Blood Pressure 126/97 H Pulse Oximetry 100 01/25/18 10:00 01/25/18 10:29 01/25/18 11:00 Temperature Pulse Rate 80 89 86 Respiratory Rate Blood Pressure Pulse Oximetry 01/25/18 11:22 01/25/18 12:00 01/25/18 13:00 Temperature 98.2 F Pulse Rate 84 88 84 Respiratory Rate 16 Blood Pressure 119/89 Pulse Oximetry 98 01/25/18 14:00 01/25/18 15:00 Temperature Pulse Rate 82 76 Respiratory Rate Blood Pressure Pulse Oximetry Intake & Output 01/24/18 01/25/18 01/25/18 18:59 06:59 18:59 Intake Total 640 / 640 240 / 240 Output Total 325 / 325 Balance 640 / 640 -85 / -85 Weight 44.4 kg Intake: Oral 640 / 640 240 / 240 Output: Urine 325 / 325 Other: # Voids 4 1 Date of Last Bowel Movement 01/24/18 01/24/18 # Bowel Movements 0 <Dimitris Carranza - Last Filed: 01/25/18 17:44> Assessment and Plan - Assessment (1) Acute kidney injury Code(s): N17.9 - Acute kidney failure, unspecified Status: Acute Plan: Patient has mild chronic kidney disease and Creatinine was 1.1-1.2 at baseline. Now developed SARTHAK most likely ATN. Renal U/S showing small left kidney, may have renovascular disease. Serology with normal. BP is stable. Creatinine slightly improved at 2, non oliguric. Would recommend to continue to hold diuretics at this point unless shortness of breath increases. Potassium level slightly elevated at 5.3, diet changed to low potassium. Metabolic acidosis, sodium bicarbonate added BID. Avoid nephrotoxins. Labs in AM (2) Acute exacerbation of CHF (congestive heart failure) Code(s): I50.9 - Heart failure, unspecified Status: Acute Plan: Has improved. Shortness of breath on exertion, no edema. (3) ACS (acute coronary syndrome) Code(s): I24.9 - Acute ischemic heart disease, unspecified Status: Acute Plan: Cardiology managing <Irene Reidne - Last Filed: 01/24/18 13:52> - Assessment (1) Acute kidney injury Code(s): N17.9 - Acute kidney failure, unspecified Status: Acute Plan: Patient seen and examined, agree with above. Patient with mild Chronic kidney disease. Creatinine is almost same, Diuretic to continue to hold. If Creatinine is better, can be discharged. (2) Acute exacerbation of CHF (congestive heart failure) Code(s): I50.9 - Heart failure, unspecified Status: Acute (3) ACS (acute coronary syndrome) Code(s): I24.9 - Acute ischemic heart disease, unspecified Status: Acute <Dimitris Carranza - Last Filed: 01/25/18 17:44>
[2018-01-24] MEDS: Sodium Bicarbonate 650 MG Tablet PO SCH (20:41)
--- NOTE | 2018-01-24 21:26 | P.PNCA ---
Subjective Interval history: No events overnight Creatinine mildly better Medications and Allergies Active Medications: Active Medications Aspirin (Aspirin Chew) 81 mg PO DAILY [facility] Last Admin: 01/24/18 09:11 Dose: 81 mg Flumazenil (Romazecon Inj) 0.2 mg IV.PUSH Q1M PRN PRN Reason: OVERSEDATION Furosemide (Lasix) 20 mg PO DAILY [facility] Last Admin: 01/21/18 09:10 Dose: 20 mg Haloperidol Lactate (Haldol Inj) 1 mg IV.PUSH Q15M PRN PRN Reason: for severe agitation Heparin Sodium (Porcine) (Heparin Inj) 2,500 units IV.PUSH UNSCH PRN PRN Reason: aPTT 25-39 Last Admin: 01/19/18 02:39 Dose: 2,500 units Heparin Sodium (Porcine) (Heparin Inj) 5,000 units IV.PUSH UNSCH PRN PRN Reason: aPTT < 25 Levothyroxine Sodium (Synthroid) 25 mcg PO DAILY@0600 [facility] Last Admin: 01/24/18 06:19 Dose: 25 mcg Lisinopril (Prinivil) 5 mg PO DAILY [facility] Last Admin: 01/23/18 08:01 Dose: 5 mg Lorazepam (Ativan) 1 mg PO Q4H PRN PRN Reason: for CIWA 8-10 Last Admin: 01/22/18 12:01 Dose: 1 mg Lorazepam (Ativan) 2 mg PO Q2H PRN PRN Reason: for CIWA 11-14 Lorazepam (Ativan Inj) 2 mg IV.PUSH Q2H PRN PRN Reason: for CIWA 11-14 Lorazepam (Ativan Inj) 2 mg IV.PUSH Q15M PRN PRN Reason: for CIWA > 20 Lorazepam (Ativan Inj) 1 mg IV.PUSH Q4H PRN PRN Reason: for CIWA 8-10 Lorazepam (Ativan Inj) 2 mg IV.PUSH Q1H PRN PRN Reason: for CIWA 15-20 Metoprolol Tartrate (Lopressor) 50 mg PO BID [facility] Last Admin: 01/24/18 20:41 Dose: 50 mg Potassium Chloride (K-Dur) 20 meq PO DAILY [facility] Last Admin: 01/24/18 09:13 Dose: Not Given Sodium Bicarbonate (Sodium Bicarbonate) 650 mg PO BID [facility] Last Admin: 01/24/18 20:41 Dose: 650 mg Sodium Chloride (Ns Flush) 2 ml IV.FLUSH UNSCH PRN PRN Reason: FLUSH AFTER USING IV ACCESS Spironolactone (Aldactone) 25 mg PO DAILY [facility] Last Admin: 01/21/18 09:10 Dose: 25 mg Allergies Allergy/AdvReac Type Severity Reaction Status Date / Time No Known Allergies Allergy Unknown NONE Uncoded 01/17/18 14:38 Home Medications Medication Instructions Recorded Confirmed Type No Known Home Medications 01/17/18 01/17/18 History Physical Exam Vital signs: Vital Signs 01/23/18 22:00 01/23/18 23:00 01/24/18 00:00 Temperature 97.4 F L Pulse Rate 76 78 80 Respiratory Rate 18 Blood Pressure 116/88 Pulse Oximetry 99 01/24/18 01:00 01/24/18 02:00 01/24/18 03:00 Temperature Pulse Rate 78 108 H 84 Respiratory Rate Blood Pressure Pulse Oximetry 01/24/18 04:00 01/24/18 05:00 01/24/18 06:00 Temperature 96.9 F L Pulse Rate 85 84 84 Respiratory Rate 18 Blood Pressure 111/67 Pulse Oximetry 100 01/24/18 07:00 01/24/18 07:52 01/24/18 07:55 Temperature 97.9 F Pulse Rate 88 88 90 Respiratory Rate 18 Blood Pressure 116/88 Pulse Oximetry 100 01/24/18 09:00 01/24/18 10:00 01/24/18 11:00 Temperature Pulse Rate 88 82 82 Respiratory Rate Blood Pressure Pulse Oximetry 01/24/18 12:00 01/24/18 13:00 01/24/18 14:00 Temperature Pulse Rate 82 77 80 Respiratory Rate 20 Blood Pressure 106/87 Pulse Oximetry 01/24/18 15:00 01/24/18 15:58 01/24/18 16:00 Temperature Pulse Rate 76 77 77 Respiratory Rate 20 Blood Pressure 100/65 Pulse Oximetry 100 01/24/18 17:00 01/24/18 18:00 Temperature Pulse Rate 76 77 Respiratory Rate Blood Pressure Pulse Oximetry Intake & Output 01/24/18 01/24/18 01/25/18 06:59 18:59 06:59 Intake Total 480 / 480 640 / 640 Output Total 200 / 200 Balance 280 / 280 640 / 640 Weight 44.7 kg Intake: Oral 480 / 480 640 / 640 Output: Urine 200 / 200 Other: # Voids 2 4 Date of Last Bowel Movement 01/24/18 Narrative: GENERAL: No acute distress. EYES: PERRLA EOMI no scleral icterus NECK: is supple there is mild JVD CARDIOVASCULAR: Regular rate and rhythm with a gallop,no wheezes or rubs. RESPIRATORY: Diminished Breath sounds equal bilaterally. No wheezing but has bilateral crackles on both bases. GASTROINTESTINAL: Abdomen soft, non-tender, nondistended. Normal active bowel sounds MUSCULOSKELETAL: TRACE edema to bilateral lower extremities NEURO: Alert & Oriented x4 to person, place, time, situation. Moves all ext x4 Results 01/20/18 06:54 01/24/18 07:46 Comprehensive Metabolic Panel 01/23/18 01/24/18 Range/Units 11:00 07:46 Sodium 130 L 130 L (136-145) meq/L Potassium 4.8 5.3 H (3.5-5.1) meq/L Chloride 103 101 (98-107) meq/L Carbon Dioxide 17.4 L 17.6 L (21.0-32.0) meq/L BUN 34 H 37 H (7-18) mg/dL Creatinine 2.10 H 2.06 H (0.60-1.30) mg/dL Calcium 8.0 L 8.2 L (8.5-10.1) mg/dL Intake and Output 01/24/18 01/24/18 01/24/18 06:59 14:59 22:59 Intake Total 480 / 480 640 / 640 Output Total 200 / 200 Balance 280 / 280 640 / 640 Intake: Oral 480 / 480 640 / 640 Output: Urine 200 / 200 Other: # Voids 2 4 Date of Last Bowel Movement 01/24/18 01/24/18 Weight 44.7 kg Assessment and Plan - Assessment (1) NICM (nonischemic cardiomyopathy) Code(s): I42.8 - Other cardiomyopathies Status: Acute (2) Elevated troponin Code(s): R74.8 - Abnormal levels of other serum enzymes Status: Acute (3) Acute exacerbation of CHF (congestive heart failure) Code(s): I50.9 - Heart failure, unspecified Status: Acute (4) ETOH abuse Code(s): F10.10 - Alcohol abuse, uncomplicated Status: Acute - Plan 1) Acute on chronic systolic heart failure Appears compensated, but creatinine up from baseline 2) NICM EF 20% Previous cath showing normal coronaries Possible ETOH induced cardiomyopathy BB Spirolactone on hold due to SARTHAK Holding LETITIA-I 3) Atypical chest pain Most likely due to elevated LVEDP due to heart failure Previous cath showing normal coronaries 4) Elevated troponin Type 2 due to CHF No signs of ACS 5) ETOH abuse Needs to stop alcohol all together Discussed with patient the ramifications of continuing to drink alcohol with heart failure 6) Not a candidate for ICD therapy Due to not being on optimal medication for heart failure Not following with a research quality assurance analyst Continuing to drink alcohol. 7) Creatinine stable but elevated Possible intravascular dry, may need to equilibrate May need to have permissive azotemia
[2018-01-25] MEDS: Metoprolol Tartrate 50 MG Tablet PO SCH ×2 (10:08→20:59)
[2018-01-25] MEDS: Sodium Bicarbonate 650 MG Tablet PO SCH ×2 (10:08→20:59)
[2018-01-25 10:19] LABS: Albumin 2.7 g/dL (3.4-5.0); Calcium 8.3 mg/dL (8.5-10.1); Potassium 5.1 meq/L (3.5-5.1)
--- NOTE | 2018-01-25 10:25 | P.PNNP ---
Subjective Interval history: Resting comfortably. Reported anxiety attack last night that contributed to some shortness of breath but has resolved now. <Rachel Reid - Last Filed: 01/25/18 15:50> Physical Exam Vital signs: Vital Signs 01/24/18 11:00 01/24/18 12:00 01/24/18 13:00 Temperature Pulse Rate 82 82 77 Respiratory Rate 20 Blood Pressure 106/87 Pulse Oximetry 01/24/18 14:00 01/24/18 15:00 01/24/18 15:58 Temperature Pulse Rate 80 76 77 Respiratory Rate 20 Blood Pressure 100/65 Pulse Oximetry 100 01/24/18 16:00 01/24/18 17:00 01/24/18 18:00 Temperature Pulse Rate 77 76 77 Respiratory Rate Blood Pressure Pulse Oximetry 01/24/18 19:00 01/24/18 20:00 01/24/18 21:00 Temperature 97.8 F Pulse Rate 82 82 88 Respiratory Rate 16 Blood Pressure 124/88 Pulse Oximetry 100 01/24/18 22:00 01/24/18 23:00 01/24/18 23:59 Temperature 97.5 F L Pulse Rate 86 78 75 Respiratory Rate 16 Blood Pressure 121/88 Pulse Oximetry 100 01/25/18 00:00 01/25/18 01:00 01/25/18 02:00 Temperature Pulse Rate 76 80 80 Respiratory Rate Blood Pressure Pulse Oximetry 01/25/18 03:00 01/25/18 03:31 01/25/18 04:00 Temperature 97.6 F Pulse Rate 82 86 82 Respiratory Rate 16 Blood Pressure 129/92 H Pulse Oximetry 98 01/25/18 05:00 01/25/18 06:00 01/25/18 07:00 Temperature Pulse Rate 83 86 86 Respiratory Rate Blood Pressure Pulse Oximetry 01/25/18 08:00 01/25/18 09:00 01/25/18 10:00 Temperature 97.9 F Pulse Rate 86 88 80 Respiratory Rate 16 Blood Pressure 126/97 H Pulse Oximetry 100 Intake & Output 01/24/18 01/25/18 01/25/18 18:59 06:59 18:59 Intake Total 640 / 640 240 / 240 Output Total 325 / 325 Balance 640 / 640 -85 / -85 Weight 44.4 kg Intake: Oral 640 / 640 240 / 240 Output: Urine 325 / 325 Other: # Voids 4 1 Date of Last Bowel Movement 01/24/18 01/24/18 # Bowel Movements 0 Narrative: GENERAL: No acute distress. Alert and oriented. SKIN: Warm and dry NECK: supple, no JVD CARDIOVASCULAR: Regular rate and rhythm with a gallop,no wheezes or rubs. RESPIRATORY: Diminished Breath sounds equal bilaterally. No wheezing. GASTROINTESTINAL: Abdomen soft, non-tender, nondistended. Normal active bowel sounds MUSCULOSKELETAL: No edema. Moves all ext x4 <Rachel Reid - Last Filed: 01/25/18 15:50> Vital signs: Vital Signs 01/25/18 13:00 01/25/18 14:00 01/25/18 15:00 Temperature Pulse Rate 84 82 76 Respiratory Rate Blood Pressure Pulse Oximetry 01/25/18 16:00 01/25/18 17:00 01/25/18 18:00 Temperature Pulse Rate 77 78 76 Respiratory Rate Blood Pressure Pulse Oximetry 01/25/18 19:00 01/25/18 20:00 01/25/18 21:00 Temperature 97.4 F L Pulse Rate 82 84 82 Respiratory Rate 18 Blood Pressure 117/87 Pulse Oximetry 99 01/25/18 22:00 01/25/18 23:00 01/26/18 00:00 Temperature 97.8 F Pulse Rate 86 89 88 Respiratory Rate 18 Blood Pressure 130/97 H Pulse Oximetry 97 01/26/18 01:00 01/26/18 02:00 01/26/18 03:00 Temperature Pulse Rate 95 H 94 H 95 H Respiratory Rate Blood Pressure Pulse Oximetry 01/26/18 04:00 01/26/18 05:00 01/26/18 06:00 Temperature 98.1 F Pulse Rate 91 H 96 H 104 H Respiratory Rate 18 Blood Pressure 125/97 H Pulse Oximetry 96 01/26/18 07:00 01/26/18 07:58 01/26/18 08:00 Temperature 97.9 F Pulse Rate 99 H 99 H 95 H Respiratory Rate 20 Blood Pressure 133/96 H Pulse Oximetry 100 01/26/18 09:00 01/26/18 10:00 01/26/18 11:00 Temperature Pulse Rate 98 H 92 H 94 H Respiratory Rate Blood Pressure Pulse Oximetry 01/26/18 12:00 Temperature 98.0 F Pulse Rate 97 H Respiratory Rate 20 Blood Pressure 135/93 H Pulse Oximetry 100 Intake & Output 01/25/18 01/26/18 01/26/18 18:59 06:59 18:59 Intake Total 640 / 640 1200 / 1200 Balance 640 / 640 1200 / 1200 Weight 45.9 kg Intake: Oral 640 / 640 1200 / 1200 Other: # Voids 3 4 Date of Last Bowel Movement 01/24/18 01/26/18 01/25/18 # Bowel Movements 3 <Dimitris Carranza - Last Filed: 01/26/18 12:13> Assessment and Plan - Assessment (1) Acute kidney injury Code(s): N17.9 - Acute kidney failure, unspecified Status: Acute Plan: Patient has mild chronic kidney disease and Creatinine was 1.1-1.2 at baseline. Now developed SARTHAK most likely ATN. Renal U/S showing small left kidney, may have renovascular disease. Serology with normal. BP is stable. Creatinine slightly improved at 2, non oliguric. Would recommend to continue to hold diuretics at this point unless shortness of breath increases. Hyperkalemia has resolved on low potassium diet. Metabolic acidosis improving at 19, continue sodium bicarbonate added BID. Avoid nephrotoxins. Labs in AM (2) Acute exacerbation of CHF (congestive heart failure) Code(s): I50.9 - Heart failure, unspecified Status: Acute Plan: Has improved. Shortness of breath on exertion, no edema. (3) ACS (acute coronary syndrome) Code(s): I24.9 - Acute ischemic heart disease, unspecified Status: Acute Plan: Cardiology managing <Rachel Reid - Last Filed: 01/25/18 15:50> - Assessment (1) Acute kidney injury Code(s): N17.9 - Acute kidney failure, unspecified Status: Acute Plan: Patient seen and examined, agree with above. Creatinine is stable, if can follow closely as out patient , can be discharged. (2) Acute exacerbation of CHF (congestive heart failure) Code(s): I50.9 - Heart failure, unspecified Status: Acute (3) ACS (acute coronary syndrome) Code(s): I24.9 - Acute ischemic heart disease, unspecified Status: Acute <Dimitris Carranza - Last Filed: 01/26/18 12:13>
--- NOTE | 2018-01-25 20:22 | P.PNIM ---
Subjective Interval history: Patient says he feels better today, swelling of both his ankles have improved. Physical Exam Vital signs: Vital Signs 01/24/18 21:00 01/24/18 22:00 01/24/18 23:00 Temperature Pulse Rate 88 86 78 Respiratory Rate Blood Pressure Pulse Oximetry 01/24/18 23:59 01/25/18 00:00 01/25/18 01:00 Temperature 97.5 F L Pulse Rate 75 76 80 Respiratory Rate 16 Blood Pressure 121/88 Pulse Oximetry 100 01/25/18 02:00 01/25/18 03:00 01/25/18 03:31 Temperature 97.6 F Pulse Rate 80 82 86 Respiratory Rate 16 Blood Pressure 129/92 H Pulse Oximetry 98 01/25/18 04:00 01/25/18 05:00 01/25/18 06:00 Temperature Pulse Rate 82 83 86 Respiratory Rate Blood Pressure Pulse Oximetry 01/25/18 07:00 01/25/18 08:00 01/25/18 09:00 Temperature 97.9 F Pulse Rate 86 86 88 Respiratory Rate 16 Blood Pressure 126/97 H Pulse Oximetry 100 01/25/18 10:00 01/25/18 10:29 01/25/18 11:00 Temperature Pulse Rate 80 89 86 Respiratory Rate Blood Pressure Pulse Oximetry 01/25/18 11:22 01/25/18 12:00 01/25/18 13:00 Temperature 98.2 F Pulse Rate 84 88 84 Respiratory Rate 16 Blood Pressure 119/89 Pulse Oximetry 98 01/25/18 14:00 01/25/18 15:00 01/25/18 16:00 Temperature Pulse Rate 82 76 77 Respiratory Rate Blood Pressure Pulse Oximetry 01/25/18 17:00 01/25/18 18:00 Temperature Pulse Rate 78 76 Respiratory Rate Blood Pressure Pulse Oximetry Intake & Output 01/25/18 01/25/18 01/26/18 06:59 18:59 06:59 Intake Total 240 / 240 640 / 640 Output Total 325 / 325 Balance -85 / -85 640 / 640 Weight 44.4 kg Intake: Oral 240 / 240 640 / 640 Output: Urine 325 / 325 Other: # Voids 1 3 Date of Last Bowel Movement 01/24/18 # Bowel Movements 0 Narrative: General patient in no acute distress, no shortness of breath HEENT extraocular movements are intact, clear oropharyngeal mucosa, no JVD Cardiovascular S1-S2 audible Respiratory clear to auscultation bilaterally Abdomen soft, nontender, nondistended, normal bowel sounds Extremities trace edema bilateral lower extremities Neuro cranial nerves II through XII intact Results - Labs CBC & Chem 7: 01/20/18 06:54 01/25/18 09:22 Laboratory Results - last 24 hr 01/25/18 09:22 Sodium 131 L Potassium 5.1 Chloride 98 Carbon Dioxide 19.0 L Anion Gap 14 BUN 41 H Creatinine 2.04 H Estimated GFR 44 L Random Glucose 98 Calcium 8.3 L Phosphorus 5.0 H Albumin 2.7 L - Procedures None. Assessment and Plan - Plan This patient is a 42-year-old male with a diagnosis of nonischemic congestive heart failure systolic heart failure ejection fraction 20%. The patient presented with complaints of shortness of breath as well as ankle swelling. He was having difficulty sleeping while lying flat. He ended up coming to the emergency department and was subsequently admitted for acute on chronic systolic CHF exacerbation. 1. Acute on chronic systolic CHF ejection fraction 2. Acute kidney injury possibly secondary to #1 and diuretic use. Chest x-ray shows some pulmonary vascular congestion, BNP elevated. Patient initially was treated with IV diuretics and his lower extremity edema did improve. His shortness of breath also improved. Subsequently serum creatinine did increase and is currently around 1.8. Nephrology following the patient and recommends holding diuretics which could possibly be contributing to his acute kidney injury. Renal ultrasound is consistent with medical renal disease. Over the past couple of days the patient's serum creatinine has not moved much. I discussed the case with Dr. Carranza today and as long as his serum creatinine does not increase significantly he will be discharged tomorrow most likely. The patient now appears to be euvolemic. Currently he does not have a primary care doctor and no follow-up after discharge. The case will be discussed with case management in the a.m. for appropriate follow-up after discharge. The patient will need follow-up given his significant elevation in serum creatinine from his baseline. 3. Troponin anemia likely secondary to #1 Cardiology evaluated the patient and believes his slight elevation in troponin could be due to CHF exacerbation. Continue current medications including aspirin, beta-papito, Aldactone. Heparin for DVT prophylaxis.
--- NOTE | 2018-01-25 21:12 | P.PNCA ---
Subjective Interval history: No events overnight No complaints Medications and Allergies Active Medications: Active Medications Aspirin (Aspirin Chew) 81 mg PO DAILY [facility] Last Admin: 01/25/18 10:08 Dose: 81 mg Flumazenil (Romazecon Inj) 0.2 mg IV.PUSH Q1M PRN PRN Reason: OVERSEDATION Haloperidol Lactate (Haldol Inj) 1 mg IV.PUSH Q15M PRN PRN Reason: for severe agitation Heparin Sodium (Porcine) (Heparin Inj) 2,500 units IV.PUSH UNSCH PRN PRN Reason: aPTT 25-39 Last Admin: 01/19/18 02:39 Dose: 2,500 units Heparin Sodium (Porcine) (Heparin Inj) 5,000 units IV.PUSH UNSCH PRN PRN Reason: aPTT < 25 Levothyroxine Sodium (Synthroid) 25 mcg PO DAILY@0600 [facility] Last Admin: 01/25/18 06:12 Dose: 25 mcg Lisinopril (Prinivil) 5 mg PO DAILY [facility] Last Admin: 01/23/18 08:01 Dose: 5 mg Lorazepam (Ativan) 1 mg PO Q4H PRN PRN Reason: for CIWA 8-10 Last Admin: 01/22/18 12:01 Dose: 1 mg Lorazepam (Ativan) 2 mg PO Q2H PRN PRN Reason: for CIWA 11-14 Lorazepam (Ativan Inj) 2 mg IV.PUSH Q2H PRN PRN Reason: for CIWA 11-14 Lorazepam (Ativan Inj) 2 mg IV.PUSH Q15M PRN PRN Reason: for CIWA > 20 Lorazepam (Ativan Inj) 1 mg IV.PUSH Q4H PRN PRN Reason: for CIWA 8-10 Lorazepam (Ativan Inj) 2 mg IV.PUSH Q1H PRN PRN Reason: for CIWA 15-20 Metoprolol Tartrate (Lopressor) 50 mg PO BID [facility] Last Admin: 01/25/18 20:59 Dose: 50 mg Sodium Bicarbonate (Sodium Bicarbonate) 650 mg PO BID [facility] Last Admin: 01/25/18 20:59 Dose: 650 mg Sodium Chloride (Ns Flush) 2 ml IV.FLUSH UNSCH PRN PRN Reason: FLUSH AFTER USING IV ACCESS Spironolactone (Aldactone) 25 mg PO DAILY [facility] Last Admin: 01/21/18 09:10 Dose: 25 mg Allergies Allergy/AdvReac Type Severity Reaction Status Date / Time No Known Allergies Allergy Unknown NONE Uncoded 01/17/18 14:38 Home Medications Medication Instructions Recorded Confirmed Type No Known Home Medications 01/17/18 01/17/18 History Physical Exam Vital signs: Vital Signs 01/24/18 22:00 01/24/18 23:00 01/24/18 23:59 Temperature 97.5 F L Pulse Rate 86 78 75 Respiratory Rate 16 Blood Pressure 121/88 Pulse Oximetry 100 01/25/18 00:00 01/25/18 01:00 01/25/18 02:00 Temperature Pulse Rate 76 80 80 Respiratory Rate Blood Pressure Pulse Oximetry 01/25/18 03:00 01/25/18 03:31 01/25/18 04:00 Temperature 97.6 F Pulse Rate 82 86 82 Respiratory Rate 16 Blood Pressure 129/92 H Pulse Oximetry 98 01/25/18 05:00 01/25/18 06:00 01/25/18 07:00 Temperature Pulse Rate 83 86 86 Respiratory Rate Blood Pressure Pulse Oximetry 01/25/18 08:00 01/25/18 09:00 01/25/18 10:00 Temperature 97.9 F Pulse Rate 86 88 80 Respiratory Rate 16 Blood Pressure 126/97 H Pulse Oximetry 100 01/25/18 10:29 01/25/18 11:00 01/25/18 11:22 Temperature 98.2 F Pulse Rate 89 86 84 Respiratory Rate 16 Blood Pressure 119/89 Pulse Oximetry 98 01/25/18 12:00 01/25/18 13:00 01/25/18 14:00 Temperature Pulse Rate 88 84 82 Respiratory Rate Blood Pressure Pulse Oximetry 01/25/18 15:00 01/25/18 16:00 01/25/18 17:00 Temperature Pulse Rate 76 77 78 Respiratory Rate Blood Pressure Pulse Oximetry 01/25/18 18:00 Temperature Pulse Rate 76 Respiratory Rate Blood Pressure Pulse Oximetry Intake & Output 01/25/18 01/25/18 01/26/18 06:59 18:59 06:59 Intake Total 240 / 240 640 / 640 Output Total 325 / 325 Balance -85 / -85 640 / 640 Weight 44.4 kg Intake: Oral 240 / 240 640 / 640 Output: Urine 325 / 325 Other: # Voids 1 3 Date of Last Bowel Movement 01/24/18 # Bowel Movements 0 Narrative: General patient in no acute distress, no shortness of breath HEENT extraocular movements are intact, clear oropharyngeal mucosa, no JVD Cardiovascular S1-S2 audible Respiratory clear to auscultation bilaterally Abdomen soft, nontender, nondistended, normal bowel sounds Extremities trace edema bilateral lower extremities Neuro cranial nerves II through XII intact Results 01/20/18 06:54 01/25/18 09:22 Comprehensive Metabolic Panel 01/24/18 01/25/18 Range/Units 07:46 09:22 Sodium 130 L 131 L (136-145) meq/L Potassium 5.3 H 5.1 (3.5-5.1) meq/L Chloride 101 98 (98-107) meq/L Carbon Dioxide 17.6 L 19.0 L (21.0-32.0) meq/L BUN 37 H 41 H (7-18) mg/dL Creatinine 2.06 H 2.04 H (0.60-1.30) mg/dL Calcium 8.2 L 8.3 L (8.5-10.1) mg/dL Albumin 2.7 L (3.4-5.0) g/dL Intake and Output 01/25/18 01/25/18 01/25/18 06:59 14:59 22:59 Intake Total 240 / 240 640 / 640 Output Total 325 / 325 Balance -85 / -85 640 / 640 Intake: Oral 240 / 240 640 / 640 Output: Urine 325 / 325 Other: # Voids 1 3 Date of Last Bowel Movement 01/24/18 01/24/18 # Bowel Movements 0 Weight 44.4 kg Assessment and Plan - Assessment (1) NICM (nonischemic cardiomyopathy) Code(s): I42.8 - Other cardiomyopathies Status: Acute (2) Elevated troponin Code(s): R74.8 - Abnormal levels of other serum enzymes Status: Acute (3) Acute exacerbation of CHF (congestive heart failure) Code(s): I50.9 - Heart failure, unspecified Status: Acute (4) ETOH abuse Code(s): F10.10 - Alcohol abuse, uncomplicated Status: Acute - Plan 1) Acute on chronic systolic heart failure Appears compensated/euvolemic 2) NICM EF 20% Previous cath showing normal coronaries Possible ETOH induced cardiomyopathy BB Spirolactone on hold due to SARTHAK Holding LETITIA-I 3) Atypical chest pain Most likely due to elevated LVEDP due to heart failure Previous cath showing normal coronaries 4) Elevated troponin Type 2 due to CHF No signs of ACS 5) ETOH abuse Needs to stop alcohol all together Discussed with patient the ramifications of continuing to drink alcohol with heart failure 6) Not a candidate for ICD therapy Due to not being on optimal medication for heart failure Not following with a lpn Continuing to drink alcohol. 7) Creatinine stable but elevated 8) No further cardiac work up
[2018-01-26 07:59] VITALS: RESP 20; O2SAT 100
[2018-01-26] MEDS: Spironolactone 25 MG Tablet PO SCH (08:49)
[2018-01-26] MEDS: Sodium Bicarbonate 650 MG Tablet PO SCH (08:49)
[2018-01-26] MEDS: Metoprolol Tartrate 50 MG Tablet PO SCH (08:49)
--- NOTE | 2018-01-26 11:29 | P.PNNP ---
Subjective Interval history: Does not have any complaints. Anticipating discharge home today. SOB on exertion only. <Rachel Reid - Last Filed: 01/26/18 11:23> Physical Exam Vital signs: Vital Signs 01/25/18 12:00 01/25/18 13:00 01/25/18 14:00 Temperature Pulse Rate 88 84 82 Respiratory Rate Blood Pressure Pulse Oximetry 01/25/18 15:00 01/25/18 16:00 01/25/18 17:00 Temperature Pulse Rate 76 77 78 Respiratory Rate Blood Pressure Pulse Oximetry 01/25/18 18:00 01/25/18 19:00 01/25/18 20:00 Temperature 97.4 F L Pulse Rate 76 82 84 Respiratory Rate 18 Blood Pressure 117/87 Pulse Oximetry 99 01/25/18 21:00 01/25/18 22:00 01/25/18 23:00 Temperature Pulse Rate 82 86 89 Respiratory Rate Blood Pressure Pulse Oximetry 01/26/18 00:00 01/26/18 01:00 01/26/18 02:00 Temperature 97.8 F Pulse Rate 88 95 H 94 H Respiratory Rate 18 Blood Pressure 130/97 H Pulse Oximetry 97 01/26/18 03:00 01/26/18 04:00 01/26/18 05:00 Temperature 98.1 F Pulse Rate 95 H 91 H 96 H Respiratory Rate 18 Blood Pressure 125/97 H Pulse Oximetry 96 01/26/18 06:00 01/26/18 07:00 01/26/18 07:58 Temperature 97.9 F Pulse Rate 104 H 99 H 99 H Respiratory Rate 20 Blood Pressure 133/96 H Pulse Oximetry 100 01/26/18 08:00 01/26/18 09:00 01/26/18 10:00 Temperature Pulse Rate 95 H 98 H 92 H Respiratory Rate Blood Pressure Pulse Oximetry Intake & Output 01/25/18 01/26/18 01/26/18 18:59 06:59 18:59 Intake Total 640 / 640 1200 / 1200 Balance 640 / 640 1200 / 1200 Weight 45.9 kg Intake: Oral 640 / 640 1200 / 1200 Other: # Voids 3 4 Date of Last Bowel Movement 01/24/18 01/26/18 01/25/18 # Bowel Movements 3 Narrative: GENERAL: No acute distress. Alert and oriented. SKIN: Warm and dry NECK: supple, no JVD CARDIOVASCULAR: Regular rate and rhythm with a gallop,no wheezes or rubs. RESPIRATORY: Diminished Breath sounds equal bilaterally. No wheezing. GASTROINTESTINAL: Abdomen soft, non-tender, nondistended. Normal active bowel sounds MUSCULOSKELETAL: No edema. Moves all ext x4 <Rachel Reid - Last Filed: 01/26/18 11:23> Vital signs: Vital Signs 01/25/18 13:00 01/25/18 14:00 01/25/18 15:00 Temperature Pulse Rate 84 82 76 Respiratory Rate Blood Pressure Pulse Oximetry 01/25/18 16:00 01/25/18 17:00 01/25/18 18:00 Temperature Pulse Rate 77 78 76 Respiratory Rate Blood Pressure Pulse Oximetry 01/25/18 19:00 01/25/18 20:00 01/25/18 21:00 Temperature 97.4 F L Pulse Rate 82 84 82 Respiratory Rate 18 Blood Pressure 117/87 Pulse Oximetry 99 01/25/18 22:00 01/25/18 23:00 01/26/18 00:00 Temperature 97.8 F Pulse Rate 86 89 88 Respiratory Rate 18 Blood Pressure 130/97 H Pulse Oximetry 97 01/26/18 01:00 01/26/18 02:00 01/26/18 03:00 Temperature Pulse Rate 95 H 94 H 95 H Respiratory Rate Blood Pressure Pulse Oximetry 01/26/18 04:00 01/26/18 05:00 01/26/18 06:00 Temperature 98.1 F Pulse Rate 91 H 96 H 104 H Respiratory Rate 18 Blood Pressure 125/97 H Pulse Oximetry 96 01/26/18 07:00 01/26/18 07:58 01/26/18 08:00 Temperature 97.9 F Pulse Rate 99 H 99 H 95 H Respiratory Rate 20 Blood Pressure 133/96 H Pulse Oximetry 100 01/26/18 09:00 01/26/18 10:00 01/26/18 11:00 Temperature Pulse Rate 98 H 92 H 94 H Respiratory Rate Blood Pressure Pulse Oximetry 01/26/18 12:00 Temperature 98.0 F Pulse Rate 97 H Respiratory Rate 20 Blood Pressure 135/93 H Pulse Oximetry 100 Intake & Output 01/25/18 01/26/18 01/26/18 18:59 06:59 18:59 Intake Total 640 / 640 1200 / 1200 Balance 640 / 640 1200 / 1200 Weight 45.9 kg Intake: Oral 640 / 640 1200 / 1200 Other: # Voids 3 4 Date of Last Bowel Movement 01/24/18 01/26/18 01/25/18 # Bowel Movements 3 <Dimitris Carranza - Last Filed: 01/26/18 12:39> Assessment and Plan - Assessment (1) Acute kidney injury Code(s): N17.9 - Acute kidney failure, unspecified Status: Acute Plan: Patient has mild chronic kidney disease and Creatinine was 1.1-1.2 at baseline. Now developed SARTHAK most likely ATN. Renal U/S showing small left kidney, may have renovascular disease. Serology with normal. BP is stable. Creatinine slightly improved at 2 yesterday, non oliguric. Would recommend to continue to hold lasix at this point unless shortness of breath increases. Continue sodium bicarbonate. Avoid nephrotoxins. Labs pending, if creatinine better cleared per nephrology for discharge. If discharge today recommend follow up with Nephrology outpatient. (2) Acute exacerbation of CHF (congestive heart failure) Code(s): I50.9 - Heart failure, unspecified Status: Acute Plan: Has improved. Shortness of breath on exertion, no edema. (3) ACS (acute coronary syndrome) Code(s): I24.9 - Acute ischemic heart disease, unspecified Status: Acute Plan: Cardiology managing <Rachel Reid - Last Filed: 01/26/18 11:23> - Assessment (1) Acute kidney injury Code(s): N17.9 - Acute kidney failure, unspecified Status: Acute Plan: Patient seen and examined, agree with above. Creatinine now 1.8, Can be discharge and follow with PCP. If needed, can refer to Nephrology. (2) Acute exacerbation of CHF (congestive heart failure) Code(s): I50.9 - Heart failure, unspecified Status: Acute (3) ACS (acute coronary syndrome) Code(s): I24.9 - Acute ischemic heart disease, unspecified Status: Acute <Dimitris Carranza - Last Filed: 01/26/18 12:39>
[2018-01-26 12:08] VITALS: BP 135/93; TEMP 98
--- NOTE | 2018-01-26 12:13 | P.DS ---
Date of admission: 01/17/18 18:57 Primary care physician: No Primary Care Physician Brief History from admission: This patient is a 42-year-old male with a diagnosis of nonischemic systolic congestive heart failure with an ejection fraction of 20%. The patient presented to our emergency room with complaints of shortness of breath as well as ankle swelling. He was having difficulty sleeping while lying flat. He was subsequently admitted for a systolic CHF exacerbation. DS: Medications - Discharge Medications Prescriptions: aspirin 81 mg PO DAILY #30 tab levothyroxine 25 mcg PO DAILY@0600 #30 tab metoprolol tartrate 50 mg PO BID #60 tab DS: Summary Hospital Course: This patient is a 42-year-old male with a diagnosis of nonischemic systolic congestive heart failure with an ejection fraction of 20%. The patient presented to our emergency room with complaints of shortness of breath as well as ankle swelling. He was having difficulty sleeping while lying flat. He was subsequently admitted for a systolic CHF exacerbation. 1. Acute on chronic systolic CHF exacerbation 2. Acute kidney injury likely secondary to #1 and diuretic use 3. Troponin anemia likely secondary to #1 As mentioned above the patient presented with complaints of worsening lower extremity edema and shortness of breath. BNP was elevated, chest x-ray showed some pulmonary vascular congestion. He was started on IV diuresis and his symptoms subsequently improved. However the patient's serum creatinine did increase to around 2.0 and is currently around 1.8. The patient was evaluated by nephrology as well as cardiology. The patient had a slight elevation in his serum troponin which is likely due to the CHF exacerbation. EKG showed normal sinus rhythm no acute ST or T wave changes. The patient never had any complaints of chest pain during the hospitalization. As per cardiology's documentation the patient had a previous cath recently which showed normal coronaries. The patient is not a candidate for ICD therapy due to not being on optimal medications for heart failure. After the patient obtains a primary care physician should have regular follow- up with a crop and soil technician. On admission the patient had a serum creatinine of 1.2 and peaked at 2.1. There has been no significant change in the patient's serum creatinine over the past few days and patient's lisinopril and Aldactone have been held due to acute kidney injury. Given the patient's poor ejection fraction he will benefit from an LETITIA inhibitor as well as we recommend that he follows up with a primary care physician on 02/03/2018 at the [facility]. An appointment has been scheduled for the patient and specific instructions on how to follow-up were given to the patient. The patient's renal function should be checked during that clinic visit and if his serum creatinine is stable he should be restarted on lisinopril and Aldactone. Continue aspirin, beta-papito. 4. Alcohol abuse The patient was extensively counseled on alcohol drinking and his heart failure. - Time Spent with Patient Total time spent providing and/or coordinating discharge services: Greater than 30 minutes Exam Vital signs: Vital Signs 01/25/18 13:00 01/25/18 14:00 01/25/18 15:00 Temperature Pulse Rate 84 82 76 Respiratory Rate Blood Pressure Pulse Oximetry 01/25/18 16:00 01/25/18 17:00 01/25/18 18:00 Temperature Pulse Rate 77 78 76 Respiratory Rate Blood Pressure Pulse Oximetry 01/25/18 19:00 01/25/18 20:00 01/25/18 21:00 Temperature 97.4 F L Pulse Rate 82 84 82 Respiratory Rate 18 Blood Pressure 117/87 Pulse Oximetry 99 01/25/18 22:00 01/25/18 23:00 01/26/18 00:00 Temperature 97.8 F Pulse Rate 86 89 88 Respiratory Rate 18 Blood Pressure 130/97 H Pulse Oximetry 97 01/26/18 01:00 01/26/18 02:00 01/26/18 03:00 Temperature Pulse Rate 95 H 94 H 95 H Respiratory Rate Blood Pressure Pulse Oximetry 01/26/18 04:00 01/26/18 05:00 01/26/18 06:00 Temperature 98.1 F Pulse Rate 91 H 96 H 104 H Respiratory Rate 18 Blood Pressure 125/97 H Pulse Oximetry 96 01/26/18 07:00 01/26/18 07:58 01/26/18 08:00 Temperature 97.9 F Pulse Rate 99 H 99 H 95 H Respiratory Rate 20 Blood Pressure 133/96 H Pulse Oximetry 100 01/26/18 09:00 01/26/18 10:00 01/26/18 11:00 Temperature Pulse Rate 98 H 92 H 94 H Respiratory Rate Blood Pressure Pulse Oximetry 01/26/18 12:00 Temperature Pulse Rate 97 H Respiratory Rate Blood Pressure Pulse Oximetry Intake & Output 01/25/18 01/26/18 01/26/18 18:59 06:59 18:59 Intake Total 640 / 640 1200 / 1200 Balance 640 / 640 1200 / 1200 Weight 45.9 kg Intake: Oral 640 / 640 1200 / 1200 Other: # Voids 3 4 Date of Last Bowel Movement 01/24/18 01/26/18 01/25/18 # Bowel Movements 3 Narrative: General patient in no acute distress, no shortness of breath HEENT extraocular movements are intact, clear oropharyngeal mucosa, no JVD Cardiovascular S1-S2 audible Respiratory clear to auscultation bilaterally Abdomen soft, nontender, nondistended, normal bowel sounds Extremities trace edema bilateral lower extremities Neuro cranial nerves II through XII intact Results Procedures completed during hospitalization: None. Labs on day of discharge: Labs from last 24 hours 01/22/18 05:40 Anti-Proteinase 3 Less than 1.0 Anti-Myeloperoxidase Less than 1.0 - Impressions ITS Impressions Chest X-Ray 01/17/18 16:23 CONCLUSION: 1. Cardiomegaly. 2. Slight interstitial prominence in the right lung could be from a layering effusion or infiltrate. Chest CTA 01/18/18 00:00 CONCLUSION: 1. No CT evidence for pulmonary artery embolism as questioned. 2. Prominent left ventricular hypertrophy with groundglass opacities bilaterally consistent with a pulmonary edema pattern. 3. More focal groundglass opacities in the right upper lobe and right middle lobe may be inflammatory/infectious in etiology. 4. Small right pleural effusion. Abdomen/Bladder Ultrasound 01/20/18 00:00 CONCLUSION: 1. Echogenic kidneys consistent with medical renal disease. 2. No sonographic evidence for obstructive uropathy. Discharge Plan - Discharge Disposition Patient Disposition: Discharge Home - Discharge Condition Condition: Stable - Discharge Order Discharge Orders: Discharge Order (Routine); Ordered 01/26/18 Ordered By: Heidi Blackburn - Physicians Team Primary Care Provider: Primary Care Monico,Iliana Attending Provider: Heidi Blackburn Other Providers: Armando Curran MD ; Dimitris Carranza MD ; Hua Jorgensen MD
[2018-01-26 12:37] LABS: Calcium 8.4 mg/dL (8.5-10.1); Potassium 4.3 meq/L (3.5-5.1)
[2018-01-26 13:31] VITALS: PULSE 88
--- NOTE | 2018-01-26 18:23 | P.PNCA ---
Subjective Interval history: No events overnight Awaiting labs for today Medications and Allergies Allergies Allergy/AdvReac Type Severity Reaction Status Date / Time No Known Allergies Allergy Unknown NONE Uncoded 01/17/18 14:38 Physical Exam Vital signs: Vital Signs 01/25/18 19:00 01/25/18 20:00 01/25/18 21:00 Temperature 97.4 F L Pulse Rate 82 84 82 Respiratory Rate 18 Blood Pressure 117/87 Pulse Oximetry 99 01/25/18 22:00 01/25/18 23:00 01/26/18 00:00 Temperature 97.8 F Pulse Rate 86 89 88 Respiratory Rate 18 Blood Pressure 130/97 H Pulse Oximetry 97 01/26/18 01:00 01/26/18 02:00 01/26/18 03:00 Temperature Pulse Rate 95 H 94 H 95 H Respiratory Rate Blood Pressure Pulse Oximetry 01/26/18 04:00 01/26/18 05:00 01/26/18 06:00 Temperature 98.1 F Pulse Rate 91 H 96 H 104 H Respiratory Rate 18 Blood Pressure 125/97 H Pulse Oximetry 96 01/26/18 07:00 01/26/18 07:58 01/26/18 08:00 Temperature 97.9 F Pulse Rate 99 H 99 H 95 H Respiratory Rate 20 Blood Pressure 133/96 H Pulse Oximetry 100 01/26/18 09:00 01/26/18 10:00 01/26/18 11:00 Temperature Pulse Rate 98 H 92 H 94 H Respiratory Rate Blood Pressure Pulse Oximetry 01/26/18 12:00 01/26/18 13:00 Temperature 98.0 F Pulse Rate 97 H 88 Respiratory Rate 20 Blood Pressure 135/93 H Pulse Oximetry 100 Intake & Output 01/25/18 01/26/18 01/26/18 18:59 06:59 18:59 Intake Total 640 / 640 1200 / 1200 Balance 640 / 640 1200 / 1200 Weight 45.9 kg Intake: Oral 640 / 640 1200 / 1200 Other: # Voids 3 4 Date of Last Bowel Movement 01/24/18 01/26/18 01/25/18 # Bowel Movements 3 Narrative: General patient in no acute distress, no shortness of breath HEENT extraocular movements are intact, clear oropharyngeal mucosa, no JVD Cardiovascular S1-S2 audible Respiratory clear to auscultation bilaterally Abdomen soft, nontender, nondistended, normal bowel sounds Extremities trace edema bilateral lower extremities Neuro cranial nerves II through XII intact Results 01/20/18 06:54 01/26/18 11:16 Comprehensive Metabolic Panel 01/25/18 01/26/18 Range/Units 09:22 11:16 Sodium 131 L 132 L (136-145) meq/L Potassium 5.1 4.3 D (3.5-5.1) meq/L Chloride 98 100 (98-107) meq/L Carbon Dioxide 19.0 L 19.0 L (21.0-32.0) meq/L BUN 41 H 39 H (7-18) mg/dL Creatinine 2.04 H 1.82 H (0.60-1.30) mg/dL Calcium 8.3 L 8.4 L (8.5-10.1) mg/dL Albumin 2.7 L (3.4-5.0) g/dL Intake and Output 01/26/18 01/26/18 01/26/18 06:59 14:59 22:59 Intake Total 1200 / 1200 Balance 1200 / 1200 Intake: Oral 1200 / 1200 Other: # Voids 4 Date of Last Bowel Movement 01/26/18 01/25/18 # Bowel Movements 3 Weight 45.9 kg Assessment and Plan - Assessment (1) NICM (nonischemic cardiomyopathy) Code(s): I42.8 - Other cardiomyopathies Status: Acute (2) Elevated troponin Code(s): R74.8 - Abnormal levels of other serum enzymes Status: Acute (3) Acute exacerbation of CHF (congestive heart failure) Code(s): I50.9 - Heart failure, unspecified Status: Acute (4) ETOH abuse Code(s): F10.10 - Alcohol abuse, uncomplicated Status: Acute - Plan 1) Acute on chronic systolic heart failure Appears compensated/euvolemic 2) NICM EF 20% Previous cath showing normal coronaries Possible ETOH induced cardiomyopathy BB Spirolactone on hold due to SARTHAK Holding LETITIA-I 3) Atypical chest pain Most likely due to elevated LVEDP due to heart failure Previous cath showing normal coronaries 4) Elevated troponin Type 2 due to CHF No signs of ACS 5) ETOH abuse Needs to stop alcohol all together Discussed with patient the ramifications of continuing to drink alcohol with heart failure 6) Not a candidate for ICD therapy Due to not being on optimal medication for heart failure Not following with a civil engineer's aide Continuing to drink alcohol. 7) Creatinine stable but elevated 8) No further cardiac work up Plan for discharge today if Creatinine stable or better Discussed checking weights at home to see about fluid balance
== END 2018-01-26 14:41 | disposition home or self-care (01) ==
LOC: PHED 14:25 → PHEDA 18:57 → HCPC 01-18 01:15 → HCIS 01-19 13:40
PROVIDERS: ADMIT Hospitalist; ATTEND Hospitalist

== ENCOUNTER 2018-02-03 10:59 | Inpatient (IN) ==
--- NOTE | 2018-02-03 12:18 | ED ---
HPI General Chief complaint: Respiratory Symptoms Stated complaint: Medical Complaint/Doctor Sent Time Seen by Provider: 02/03/18 11:59 History of Present Illness HPI narrative: This patient to the is a delay clinic for the first time to establish as a new patient. They noticed his swollen legs and centimeter. However, he is chronic nonischemic cardiomyopathy and chronic leg swelling. He does see his leg swelling is worse than usual. He is not short of breath. He has not had any chest pain or fever or productive cough. He was supposed to be started on Aldactone as an outpatient, currently not on any diuretics. Severity is moderate. No alleviating factors. No exacerbating factors. He reports he has not drank any alcohol since he left the hospital. He has history of alcohol abuse. Related Data Previous Rx's Medication Instructions Recorded aspirin 81 mg PO DAILY #30 tab 01/26/18 levothyroxine 25 mcg PO DAILY@0600 #30 tab 01/26/18 metoprolol tartrate 50 mg PO BID #60 tab 01/26/18 Allergies Allergy/AdvReac Type Severity Reaction Status Date / Time No Known Allergies Allergy Unknown NONE Uncoded 01/17/18 14:38 Review of Systems ROS: all other systems reviewed are negative PMFSH Social History Social History Substance History: No History of Abuse Second Hand Smoke Exposure: No Smoking Status: Never smoker How Often Do You Have a Drink Containing Alcohol: 4 or more times a week Recent Travel in [facility] within the Last 8 Weeks: No Recent Out of Country Travel within the Last 8 Weeks: No Immunization History Tetanus Immunization: >5 Years Exam Narrative Exam Narrative: GENERAL: Well-nourished, well-developed patient in no apparent distress. SKIN: Focused skin assessment reveals no rash and nodules. Skin is Warm and dry. HEAD: Atraumatic. Normocephalic. EYES: Pupils equal and round. No scleral icterus. No injection or drainage. ENT: No nasal bleeding or discharge. Mucous membranes pink and moist. NECK: Trachea midline. No JVD. CARDIOVASCULAR: Regular rate and rhythm. No murmur appreciated. RESPIRATORY: No accessory muscle use. Sparse crackles in the bases. Breath sounds equal bilaterally. GASTROINTESTINAL: Abdomen soft, non-tender, nondistended. Hepatic and splenic margins not palpable. MUSCULOSKELETAL: No obvious deformities. No clubbing. No cyanosis. Prominent pitting edema from the knees down and symmetric. NEUROLOGICAL: Awake and alert. No obvious cranial nerve deficits. Motor grossly within normal limits. Normal speech. PSYCHIATRIC: Appropriate mood and affect; insight and judgment normal. Course Initial Documented Vital Signs Pulse Rate 116 H 02/03/18 11:01 Respiratory Rate 20 02/03/18 11:01 Blood Pressure 142/99 H 02/03/18 11:01 Pulse Oximetry 100 02/03/18 11:01 Last Documented Vital Signs Pulse Rate 116 H 02/03/18 12:20 Respiratory Rate 30 H 02/03/18 12:20 Blood Pressure 137/101 H 02/03/18 12:20 Pulse Oximetry 100 02/03/18 11:22 Medical Decision Making MDM Narrative Medical decision making narrative: This is a 42-year-old patient with history of alcohol abuse and nonischemic cardia myopathy and chronic edema, worse than usual. Giving him 40 IV Lasix and running lab. I will review x-ray and EKG. This patient will require admission for diuresis and correction of electrolyte abnormalities. He is tachycardic and tachypneic. He is worsening anasarca. Sodium is low and potassium high. I reviewed with medical residents will admit. Medical Screen Exam Complete: Yes Emergency Medical Condition: Yes Differential Diagnosis Differential Diagnosis: Exacerbation of systolic heart failure, noncompliance, cellulitis of legs Medical Records Medical records reviewed: Yes I reviewed the patient's medical records. Reviewed his discharge summary from most recent admission Lab Data Lab results reviewed: Yes I reviewed the patient's lab results. Lab results narrative: CBC normal. He is hyponatremic and hyperkalemic Result diagrams: 02/03/18 12:15 02/03/18 12:15 Lab Results 02/03/18 02/03/18 Range/Units 12:15 12:15 WBC 8.4 (4.0-11.0) th/mm3 RBC 4.58 (4.50-5.90) mil/mm3 Hgb 13.7 (13.0-17.0) gm/dL Hct 42.4 (39.0-51.0) % MCV 92.5 (80.0-100.0) fL MCH 30.0 (27.0-34.0) pg MCHC 32.4 (32.0-36.0) % RDW 14.3 (11.6-17.2) % Plt Count 439 D (150-450) th/mm3 MPV 9.8 (7.0-11.0) fL Prelim Diff (Auto) Slide review pending Neut % (Auto) 81.0 H (16.0-70.0) % Lymph % (Auto) 12.3 (9.0-44.0) % Owsley % (Auto) 6.4 (0.0-8.0) % Eos % (Auto) 0.0 (0.0-4.0) % Baso % (Auto) 0.3 (0.0-2.0) % Neut # (Auto) 6.8 (1.8-7.7) th/mm3 Lymph # (Auto) 1.0 (1.0-4.8) th/mm3 Owsley # (Auto) 0.5 (0.0-0.9) th/mm3 Eos # (Auto) 0.0 (0.0-0.4) th/mm3 Baso # (Auto) 0.0 (0.0-0.2) th/mm3 WBC Differential . Diff Scan Auto diff confirmed Differential Comment . Sodium 122 L* (136-145) meq/L Potassium 5.9 H (3.5-5.1) meq/L Chloride 90 L (98-107) meq/L Carbon Dioxide 17.0 L (21.0-32.0) meq/L Anion Gap 15 (5-15) meq/L BUN 34 H (7-18) mg/dL Creatinine 1.72 H (0.60-1.30) mg/dL Estimated GFR 53 L (>89) mL/min Random Glucose 102 (74-106) mg/dL Calcium 8.9 (8.5-10.1) mg/dL Total Bilirubin 1.3 H (0.2-1.0) mg/dL AST 106 H (15-37) U/L ALT 78 (12-78) U/L Alkaline Phosphatase 218 H (45-117) U/L Total Protein 7.6 (6.4-8.2) g/dL Albumin 2.4 L (3.4-5.0) g/dL Imaging Data Attestation: I personally reviewed and interpreted this imaging study as follows : My impression: Chest x-ray shows mild to moderate acute failure Radiologist's impression: Chest X-Ray 02/03/18 12:09 CONCLUSION: Cardiomegaly with acute mild to moderate congestive changes. ECG Data EKG Prior to Arrival: No Attestation: I personally reviewed and interpreted this ECG as follows: Prior ECG tracings: not available for review Interpretation: EKG reveals a sinus rhythm at 114. IN interval 136 ms. There are no acute ST elevations. He has some lateral ST segment changes but no ST elevation. Discharge Plan Discharge Disposition Patient Disposition: 30 Still Patient Discharge Details Diagnosis: Acute exacerbation of CHF (congestive heart failure), NICM (nonischemic cardiomyopathy), Acute hyponatremia, Hyperkalemia Physicians Team ED Provider: Monster Pierce Primary Care Provider: UNKNOWN, Rxs /Orders / Referrals /Forms Prescriptions: No Action levothyroxine 25 mcg Tablet 25 mcg PO DAILY@0600 Qty: 30 RF: 0 metoprolol tartrate 50 mg Tablet 50 mg PO BID Qty: 60 RF: 0 aspirin 81 mg Tablet,Chewable 81 mg PO DAILY Qty: 30 RF: 0 Discharge Interventions Interventions: Vital Signs Last Done: 02/03/18 12:20 Status ED Status: Admitted Patient
[2018-02-03 12:46] LABS: Baso % (Auto) 0.3 % (0.0-2.0); Hematocrit 42.4 % (39.0-51.0); Hemoglobin 13.7 gm/dL (13.0-17.0); Lymph % (Auto) 12.3 % (9.0-44.0); Mean Corpuscular HGB Conc 32.4 % (32.0-36.0); Mean Corpuscular Volume 92.5 fL (80.0-100.0); Mean Platelet Volume 9.8 fL (7.0-11.0); Mono # (Auto) 0.5 th/mm3 (0.0-0.9); Mono % (Auto) 6.4 % (0.0-8.0); Neut # (Auto) 6.8 th/mm3 (1.8-7.7); Platelet Count 439 th/mm3 (150-450); Red Blood Count 4.58 mil/mm3 (4.50-5.90); Red Cell Distribution Width 14.3 % (11.6-17.2); White Blood Count 8.4 th/mm3 (4.0-11.0)
--- NOTE | 2018-02-03 12:55 | XR ---
EXAM DATE: 02/03/2018 12:51 PM EST AGE/SEX: 42 years / Male INDICATIONS: Short of breath for past five days CLINICAL DATA: This is the patient's initial encounter. Patient reports that signs and symptoms have been present for 4 - 6 days and indicates a pain score of 0/10. MEDICAL/SURGICAL HISTORY: . renal disease, CHF None. COMPARISON: [facility], CHEST 1V SINGLE AP, 01/17/2018. . FINDINGS: Heart is markedly enlarged. Diffuse interstitial vascular congestion has developed. Osseous structures are intact. CONCLUSION: Cardiomegaly with acute mild to moderate congestive changes. Electronically signed by: Ty Monsalve MD 02/03/2018 12:53 PM EST
[2018-02-03 13:31] LABS: Alanine Aminotransferase 78 U/L (12-78); Albumin 2.4 g/dL (3.4-5.0); Alkaline Phosphatase 218 U/L (45-117); Anion Gap 15 meq/L (5-15); Aspartate Aminotransferase 106 U/L (15-37); Blood Urea Nitrogen 34 mg/dL (7-18); Calcium 8.9 mg/dL (8.5-10.1); Chloride 90 meq/L (98-107); Glomerular Filtration Rate 53 mL/min (>89); Glucose,Random 102 mg/dL (74-106); Total Protein 7.6 g/dL (6.4-8.2)
[2018-02-03 13:35] LABS: Potassium 5.9 meq/L (3.5-5.1); Sodium 122 meq/L (136-145)
--- NOTE | 2018-02-03 14:26 | P.HPFP ---
History of Present Illness Primary Care Physician: UNKNOWN <Cordell Wen - 02/03/18 16:04> UNKNOWN <Dwain Saravia - 02/03/18 14:26> History of Present Illness: The patient is a 42 year old man with PMH of severe systolic CHF, nonischemic cardiomyopathy, and etoh abuse who was sent to the ED by his primary care provider at [facility] due to dyspnea. The patient reports worsening lower extremity swelling since recently being discharged from the hospital here. He was admitted here from 01/17 until 01/26 with an acute on chronic CHF exacerbation, SARTHAK, and elevated troponins. The patient had a recent 2D echo on 01/18 that showed severely reduced LV systolic function with an eEF of 20%. The patient denies chest pain. Endorses a mild dry cough when lying down. Denies abdominal pain, diarrhea, dysuria. Patient states he feels he has not had good UOP lately. Patient denies etoh intake in the past three weeks. States he was previously drinking about 12 beers daily for several years; endorses h/o heavy etoh drinking for the past 20 years. <Dwain Saravia - 02/03/18 15:25> - Diagnosis (1) Acute exacerbation of CHF (congestive heart failure) (2) Acute kidney injury (3) Acute hyponatremia (4) Hyperkalemia (5) NICM (nonischemic cardiomyopathy) (6) ETOH abuse <Cordell Wen - 02/03/18 16:04> (1) Acute exacerbation of CHF (congestive heart failure) (2) Acute kidney injury (3) Acute hyponatremia (4) Hyperkalemia (5) NICM (nonischemic cardiomyopathy) (6) ETOH abuse <Dwain Saravia - 02/03/18 14:57> Inpatient Certification: I certify that the inpatient services were ordered in accordance with Medicare regulations governing the order. This includes certification that hospital inpatient services are reasonable and necessary and in the case of services not specified as inpatient-only under 42 CFR 419.22(n), that they are appropriately provided as inpatient services in accordance to with the 2-midnight benchmark under 43 CFR 412.3(e) <Cordell Wen - 02/03/18 16:04> Review of Systems Constitutional: Denies chills, Denies fever(s), Denies weakness [facility] 02/03/18 15:25> Eyes: Denies blurry vision, Denies double vision <[facility] 15:25> Ears, Nose, Mouth, and Throat: Denies dizziness, Denies headache(s) < [facility] 02/03/18 15:25> Cardiovascular: Reports shortness of breath, Denies chest pain <[facility] 02/03/18 15:25> Gastrointestinal: Denies abdominal pain, Denies black, tarry stools, Denies change in stools, Denies constipation <[facility] 02/03/18 15:25> Neurologic: Denies confusion, Denies dizziness, Denies tremor(s) <[facility] 02/03/18 15:25> [facility] - History History Provided By: Patient, Family Member <Beatriz Saraviash 02/03/18 14: 26> - Medical History Medical History: Medical History (Last Reviewed 02/03/18 @ 11:12 by [facility]) CHF (congestive heart failure) Cardiomyopathy Cellulitis History of left heart catheterization <Hernandez Weny - 02/03/18 16:04> Medical History (Last Reviewed 02/03/18 @ 11:12 by [facility]) CHF (congestive heart failure) Cardiomyopathy Cellulitis History of left heart catheterization <[facility] 02/03/18 14:26> - Surgical History Surgical History: Surgical History (Last Reviewed 02/03/18 @ 11:12 by [facility]) No history of previous surgery <Cordell Wen - 02/03/18 16:04> Surgical History (Last Reviewed 02/03/18 @ 11:12 by [facility]) No history of previous surgery <[facility] 02/03/18 14:26> - Family History Family History: Family History (Last Reviewed 01/20/18 @ 07:58 by Puma Hampton, PT) Father Heart disease <WenCordell - 02/03/18 16:04> Family History (Last Reviewed 01/20/18 @ 07:58 by Puma Hampton, PT) Father Heart disease <Dwain Saravia - 02/03/18 14:26> - Tobacco History Second Hand Smoke Exposure: No <Dwain Saravia - 02/03/18 14:26> Tobacco Use In Past 30 Days: No <Dwain Saravia 02/03/18 14:26> Smoking Status: Never smoker <Dwain Saravia 02/03/18 14:26> - Alcohol History How Often Do You Have a Drink Containing Alcohol: 4 or more times a week < Dwain Saravia - 02/03/18 14:26> - Substance Use History Substance History: No History of Abuse <Dwain Saravia 02/03/18 14:26> - Travel History Recent Travel in the [facility] Within the Last 8 Weeks: No <Dwain Saravia 12/13 14:26> Recent Travel Out of the Country Within the Last 8 Weeks: No <Dwain Saravia 02/03/18 14:26> - Immunization History Tetanus Immunization: >5 Years <Dwain Saravia 02/03/18 14:26> Medications and Allergies Allergies Allergy/AdvReac Type Severity Reaction Status Date / Time No Known Allergies Allergy Unknown NONE Uncoded 01/17/18 14:38 <Cordell Wen - 02/03/18 16:04> Active Medications: Active Medications Al Hydroxide/Mg Hydroxide (Milk Of Magnesia Liq) 30 ml PO Q12H PRN PRN Reason: Mild Constipation Flumazenil (Romazecon Inj) 0.2 mg IV.PUSH Q1M PRN PRN Reason: OVERSEDATION Furosemide (Lasix Inj) 40 mg IV.PUSH ONCE ONE Stop: 02/04/18 16:01 Haloperidol Lactate (Haldol Inj) 1 mg IV.PUSH Q15M PRN PRN Reason: for severe agitation Lorazepam (Ativan) 1 mg PO Q4H PRN PRN Reason: for CIWA 8-10 Lorazepam (Ativan) 2 mg PO Q2H PRN PRN Reason: for CIWA 11-14 Lorazepam (Ativan Inj) 2 mg IV.PUSH Q2H PRN PRN Reason: for CIWA 11-14 Lorazepam (Ativan Inj) 2 mg IV.PUSH Q1H PRN PRN Reason: for CIWA 15-20 Lorazepam (Ativan Inj) 2 mg IV.PUSH Q15M PRN PRN Reason: for CIWA > 20 Lorazepam (Ativan Inj) 1 mg IV.PUSH Q4H PRN PRN Reason: for CIWA 8-10 Sennosides (Senokot) 17.2 mg PO Q12H PRN PRN Reason: Moderate Constipation <Cordell Wen - 02/03/18 16:04> Exam Vital signs: Vital Signs 02/03/18 11:01 02/03/18 11:22 02/03/18 12:20 Pulse Rate 116 H 114 H 116 H Respiratory Rate 20 24 30 H Blood Pressure 142/99 H 129/81 137/101 H Pulse Oximetry 100 100 02/03/18 14:00 02/03/18 15:41 Pulse Rate 118 H Respiratory Rate 22 Blood Pressure 142/102 H Pulse Oximetry 97 99 Intake & Output 02/02/18 02/03/18 02/03/18 18:59 06:59 18:59 Output Total 150 / 150 Balance -150 / -150 Weight 44.906 kg Output: Urine 150 / 150 <Cordell Wen - 02/03/18 16:04> Vital Signs 02/03/18 11:01 02/03/18 11:22 02/03/18 12:20 Pulse Rate 116 H 114 H 116 H Respiratory Rate 20 24 30 H Blood Pressure 142/99 H 129/81 137/101 H Pulse Oximetry 100 100 Intake & Output 02/02/18 02/03/18 02/03/18 18:59 06:59 18:59 Weight 44.906 kg <RonnellDwain peres - 02/03/18 14:26> Narrative: GENERAL: NAD, resting comfortably in bed NEURO: AOx3. Normal speech. nut tightener grossly intact. SKIN: Warm and dry. No rashes or erythema. HEAD: Normocephalic. Atraumatic. EYES: PERRL. EOMI. No scleral icterus. No injection or drainage. ENT: No nasal drainage. Moist mucous membranes. NECK: Supple, trachea midline. Right-sided JVD noted. No carotid bruits. CARDIOVASCULAR: Tachycardic rate, regular rhythm. Loud S1. No obvious murmur. RESPIRATORY: No respiratory distress. Equal breath sounds. Faint bibasilar rales with decreased aeration. No rhonchi or wheezing. GASTROINTESTINAL: Abdomen soft, non-tender, nondistended. No organomegaly or masses. MUSCULOSKELETAL: 2+ pitting edema up to proximal tibias bilaterally BACK: Nontender without obvious deformity. <Dwain Saravia - 02/03/18 15:25> Results - Labs Result diagrams: 02/03/18 12:15 02/03/18 12:15 <Cordell Wen - 02/03/18 16:04> Abnormal lab results 02/03/18 02/03/18 Range/Units 12:15 12:15 Neut % (Auto) 81.0 H (16.0-70.0) % Sodium 122 L* (136-145) meq/L Potassium 5.9 H (3.5-5.1) meq/L Chloride 90 L (98-107) meq/L Carbon Dioxide 17.0 L (21.0-32.0) meq/L BUN 34 H (7-18) mg/dL Creatinine 1.72 H (0.60-1.30) mg/dL Estimated GFR 53 L (>89) mL/min Total Bilirubin 1.3 H (0.2-1.0) mg/dL AST 106 H (15-37) U/L Alkaline Phosphatase 218 H (45-117) U/L Albumin 2.4 L (3.4-5.0) g/dL Short CBC 02/03/18 Range/Units 12:15 WBC 8.4 (4.0-11.0) th/mm3 Hgb 13.7 (13.0-17.0) gm/dL Hct 42.4 (39.0-51.0) % Plt Count 439 D (150-450) th/mm3 BMP 02/03/18 12:15 Sodium 122 L* Potassium 5.9 H Chloride 90 L Carbon Dioxide 17.0 L BUN 34 H Creatinine 1.72 H Calcium 8.9 Liver Function 02/03/18 Range/Units 12:15 Total Bilirubin 1.3 H (0.2-1.0) mg/dL AST 106 H (15-37) U/L ALT 78 (12-78) U/L Alkaline Phosphatase 218 H (45-117) U/L Albumin 2.4 L (3.4-5.0) g/dL <Cordell Wen - 02/03/18 16:04> Abnormal lab results 02/03/18 02/03/18 Range/Units 12:15 12:15 Neut % (Auto) 81.0 H (16.0-70.0) % Sodium 122 L* (136-145) meq/L Potassium 5.9 H (3.5-5.1) meq/L Chloride 90 L (98-107) meq/L Carbon Dioxide 17.0 L (21.0-32.0) meq/L BUN 34 H (7-18) mg/dL Creatinine 1.72 H (0.60-1.30) mg/dL Estimated GFR 53 L (>89) mL/min Total Bilirubin 1.3 H (0.2-1.0) mg/dL AST 106 H (15-37) U/L Alkaline Phosphatase 218 H (45-117) U/L Albumin 2.4 L (3.4-5.0) g/dL Short CBC 02/03/18 Range/Units 12:15 WBC 8.4 (4.0-11.0) th/mm3 Hgb 13.7 (13.0-17.0) gm/dL Hct 42.4 (39.0-51.0) % Plt Count 439 D (150-450) th/mm3 BMP 02/03/18 12:15 Sodium 122 L* Potassium 5.9 H Chloride 90 L Carbon Dioxide 17.0 L BUN 34 H Creatinine 1.72 H Calcium 8.9 Liver Function 02/03/18 Range/Units 12:15 Total Bilirubin 1.3 H (0.2-1.0) mg/dL AST 106 H (15-37) U/L ALT 78 (12-78) U/L Alkaline Phosphatase 218 H (45-117) U/L Albumin 2.4 L (3.4-5.0) g/dL <Dwain Saravia - 02/03/18 14:26> - Imaging Impressions Chest X-Ray 02/03/18 12:09 CONCLUSION: Cardiomegaly with acute mild to moderate congestive changes. <Cordell Wen - 02/03/18 16:04> Impressions Chest X-Ray 02/03/18 12:09 CONCLUSION: Cardiomegaly with acute mild to moderate congestive changes. <RonnellBeatriz peressh - 02/03/18 14:26> Caprini VTE Risk Assessment Caprini VTE Risk Assessment: Moderate/High Risk (score >= 2) <RonnellBeatriz peressh 02/03/18 15:25> Randyi Risk Assessment Model: Point Value = 1 Point Value = 2 Point Value = 3 Point Value = 5 Age 41-60 Minor surgery BMI > 25 kg/m2 Swollen legs Varicose veins or History of unexplained or recurrent spontaneous Oral contraceptives or hormone replacement Sepsis (< 1 month) Serious lung disease, including pneumonia (< 1 month) Abnormal pulmonary function Acute myocardial infarction Congestive heart failure (< 1 month) History of inflammatory bowel disease Medical patient at bed rest Age 61-74 Arthroscopic surgery Major open surgery (> 45 min) Laparoscopic surgery (> 45 min) Malignancy Confined to bed (> 72 hours) Immobilizing plaster cast Central venous access Age >= 75 History of VTE Family history of VTE Factor V Leiden Prothrombin [id number] Lupus anticoagulant Anticardiolipin antibodies Elevated serum homocysteine Heparin-induced thrombocytopenia Other congenital or acquired thrombophilia Stroke (< 1 month) Elective arthroplasty Hip, pelvis, or leg fracture Acute spinal cord injury (< 1 month) <Cordell Wen - 02/03/18 16:04> Point Value = 1 Point Value = 2 Point Value = 3 Point Value = 5 Age 41-60 Minor surgery BMI > 25 kg/m2 Swollen legs Varicose veins or History of unexplained or recurrent spontaneous Oral contraceptives or hormone replacement Sepsis (< 1 month) Serious lung disease, including pneumonia (< 1 month) Abnormal pulmonary function Acute myocardial infarction Congestive heart failure (< 1 month) History of inflammatory bowel disease Medical patient at bed rest Age 61-74 Arthroscopic surgery Major open surgery (> 45 min) Laparoscopic surgery (> 45 min) Malignancy Confined to bed (> 72 hours) Immobilizing plaster cast Central venous access Age >= 75 History of VTE Family history of VTE Factor V Leiden Prothrombin [id number] Lupus anticoagulant Anticardiolipin antibodies Elevated serum homocysteine Heparin-induced thrombocytopenia Other congenital or acquired thrombophilia Stroke (< 1 month) Elective arthroplasty Hip, pelvis, or leg fracture Acute spinal cord injury (< 1 month) <Dwain Saravia 02/03/18 15:25> Prophylaxis Regimen: Total Risk Factor Score Risk Level Prophylaxis Regimen 0-1 Low Early ambulation 2 Moderate Order ONE of the following: *Sequential Compression Device (SCD) *Heparin 5000 units SQ BID 3-4 Higher Order ONE of the following medications: *Heparin 5000 units SQ TID *Enoxaparin/Lovenox 40 mg SQ daily (WT < 150 kg, CrCl > 30 mL/min) *Enoxaparin/Lovenox 30 mg SQ daily (WT < 150 kg, CrCl > 10-29 mL/min) *Enoxaparin/Lovenox 30 mg SQ BID (WT < 150 kg, CrCl > 30 mL/min) AND/OR *Sequential Compression Device (SCD) 5 or more Highest Order ONE of the following medications: *Heparin 5000 units SQ TID (Preferred with Epidurals) *Enoxaparin/Lovenox 40 mg SQ daily (WT < 150 kg, CrCl > 30 mL/min) *Enoxaparin/Lovenox 30 mg SQ daily (WT < 150 kg, CrCl > 10-29 mL/min) *Enoxaparin/Lovenox 30 mg SQ BID (WT < 150 kg, CrCl > 30 mL/min) AND *Sequential Compression Device (SCD) <Cordell Wen - 02/03/18 16:04> Total Risk Factor Score Risk Level Prophylaxis Regimen 0-1 Low Early ambulation 2 Moderate Order ONE of the following: *Sequential Compression Device (SCD) *Heparin 5000 units SQ BID 3-4 Higher Order ONE of the following medications: *Heparin 5000 units SQ TID *Enoxaparin/Lovenox 40 mg SQ daily (WT < 150 kg, CrCl > 30 mL/min) *Enoxaparin/Lovenox 30 mg SQ daily (WT < 150 kg, CrCl > 10-29 mL/min) *Enoxaparin/Lovenox 30 mg SQ BID (WT < 150 kg, CrCl > 30 mL/min) AND/OR *Sequential Compression Device (SCD) 5 or more Highest Order ONE of the following medications: *Heparin 5000 units SQ TID (Preferred with Epidurals) *Enoxaparin/Lovenox 40 mg SQ daily (WT < 150 kg, CrCl > 30 mL/min) *Enoxaparin/Lovenox 30 mg SQ daily (WT < 150 kg, CrCl > 10-29 mL/min) *Enoxaparin/Lovenox 30 mg SQ BID (WT < 150 kg, CrCl > 30 mL/min) AND *Sequential Compression Device (SCD) <Dwain Saravia - 02/03/18 14:26> Assessment and Plan - Assessment (1) Acute exacerbation of CHF (congestive heart failure) Code(s): I50.9 - Heart failure, unspecified Status: Acute (2) Acute kidney injury Code(s): N17.9 - Acute kidney failure, unspecified Status: Acute (3) Acute hyponatremia Code(s): E87.1 - Hypo-osmolality and hyponatremia Status: Acute (4) Hyperkalemia Code(s): E87.5 - Hyperkalemia Status: Acute (5) NICM (nonischemic cardiomyopathy) Code(s): I42.8 - Other cardiomyopathies Status: Acute (6) ETOH abuse Code(s): F10.10 - Alcohol abuse, uncomplicated Status: Acute <Cordell Wen - 02/03/18 16:04> (1) Acute exacerbation of CHF (congestive heart failure) Code(s): I50.9 - Heart failure, unspecified Status: Acute (2) Acute kidney injury Code(s): N17.9 - Acute kidney failure, unspecified Status: Acute (3) Acute hyponatremia Code(s): E87.1 - Hypo-osmolality and hyponatremia Status: Acute (4) Hyperkalemia Code(s): E87.5 - Hyperkalemia Status: Acute (5) NICM (nonischemic cardiomyopathy) Code(s): I42.8 - Other cardiomyopathies Status: Acute (6) ETOH abuse Code(s): F10.10 - Alcohol abuse, uncomplicated Status: Acute <Dwain Saravia - 02/03/18 14:57> - Assessment and Plan 42 year old man with PMH significant for severe systolic CHF, nonischemic cardiomyopathy, and etoh abuse being admitted with acute on chronic CHF. Acute on chronic CHF - s/p 40 mg of IV Lasix in the ED - Will continue with diuresis with Lasix 40 mg IV daily - Monitor I/Os - Daily weights - Consult cardiology, appreciate recommendations - Last echo was on 01/18/18 which showed severely reduced LV systolic function with an eEF of 20% - Hold beta papito at this time Acute on chronic kidney disease - Likely due to low renal perfusion pressure due to his severe systolic heart failure - Anticipate this may improve with diuresis - Cr on admission 1.72 - Baseline creatinine ~1.1-1.2 - Hold LETITIA inhibitor until renal function improves - Consult nephrology, appreciate recommendations Hyponatremia - May be due to the patient's severe HF and water retention - Will treat with fluid restriction to 800 cc daily - Monitor BMPs q4h, if improving will monitor less frequently Hypokalemia - Continue to monitor - No T wave changes on EKG Etoh abuse - WA protocol DVT ppx: b/l SCDs, ambulate as tolerated <Dwain Saravia - 02/03/18 15:25> Discussed Condition With: Dr. Behzad Ram <Dwain Saravia - 02/03/18 15:25> - Attending Attestation See the residents documentation for details. I saw and evaluated the patient regarding the kwon portions of this evaluation and agree with the residents findings and plans as written. Parts of this note were created using [employer] voice recognition software program. While efforts were made to correct any mistakes made by this software, some mistakes, errors, and omissions may remain in the final note that were not caught when the note was originally created. Plan of care was discussed and agreed upon with the patient as specifically documented in the above note. An opportunity to ask questions with explanation was provided. Patient voiced understanding on all information reviewed and discussed. <Cordell Wen - 02/03/18 16:04> <Dwain Saravia - Last Filed: 02/03/18 14:57> (1) Acute exacerbation of CHF (congestive heart failure) Qualifiers: Heart failure type: systolic Qualified Code(s): I50.23 - Acute on chronic systolic (congestive) heart failure <Cordell Wen - Last Filed: 02/03/18 16:04> (1) Acute exacerbation of CHF (congestive heart failure) Qualifiers: Heart failure type: systolic Qualified Code(s): I50.23 - Acute on chronic systolic (congestive) heart failure <Dwain Saravia - Last Filed: 02/03/18 14:57> (1) Acute exacerbation of CHF (congestive heart failure) Qualifiers: Heart failure type: systolic Qualified Code(s): I50.23 - Acute on chronic systolic (congestive) heart failure <Cordell Wen - Last Filed: 02/03/18 16:04> (1) Acute exacerbation of CHF (congestive heart failure) Qualifiers: Heart failure type: systolic Qualified Code(s): I50.23 - Acute on chronic systolic (congestive) heart failure
[2018-02-03] MEDS ORDERED: LORazepam 1 MG Tablet PO PRN (15:10)
[2018-02-03] MEDS ORDERED: Haloperidol Inj 5 MG/ML Ampul IV.PUSH PRN (15:10)
--- NOTE | 2018-02-03 16:58 | P.CONCA ---
History of Present Illness Service: Cardiology Consult date: 02/03/18 Reason for Consult: Congestive heart failure Primary Care Provider: UNKNOWN History of Present Illness: This is a 42-year-old male with history of chronic systolic and diastolic congestive heart failure, nonischemic cardiomyopathy, and alcohol abuse. Patient was at the [facility] and developed worsening shortness of breath over the course of the past few days. Patient recently been admitted from January 17 - January 26 for congestive heart failure exacerbation. Patient has chronic renal insufficiency baseline creatinine is around 1.1-1.2 mg/dL. Transthoracic echocardiogram on his last hospitalization showed an ejection fraction of 20%. Patient is not necessary compliant with medical therapy and dietary restrictions. He was sent over to the hospital where he received intravenous Lasix in the emergency department. He still symptomatic. His creatinine is up to 1.7 mg/dL. We are consulted for further recommendations. Review of Systems All other systems reviewed negative except as stated in HPI PMFSH - History History Provided By: Patient, Family Member - Medical History Medical History: Medical History (Last Reviewed 02/03/18 @ 11:12 by [employer]) CHF (congestive heart failure) Cardiomyopathy Cellulitis History of left heart catheterization - Surgical History Surgical History: Surgical History (Last Reviewed 02/03/18 @ 11:12 by Probki Iz okna) No history of previous surgery - Family History Family History: Family History (Last Reviewed 01/20/18 @ 07:58 by Puma Hampton, PT) Father Heart disease - Tobacco History Second Hand Smoke Exposure: No Tobacco Use In Past 30 Days: No Smoking Status: Never smoker - Alcohol History How Often Do You Have a Drink Containing Alcohol: 4 or more times a week - Substance Use History Substance History: No History of Abuse - Travel History Recent Travel in the [facility] Within the Last 8 Weeks: No Recent Travel Out of the Country Within the Last 8 Weeks: No - Immunization History Tetanus Immunization: >5 Years Medications and Allergies Active Medications: Active Medications Al Hydroxide/Mg Hydroxide (Milk Of Magnesia Liq) 30 ml PO Q12H PRN PRN Reason: Mild Constipation Flumazenil (Romazecon Inj) 0.2 mg IV.PUSH Q1M PRN PRN Reason: OVERSEDATION Furosemide (Lasix Inj) 40 mg IV.PUSH ONCE ONE Stop: 02/04/18 16:01 Haloperidol Lactate (Haldol Inj) 1 mg IV.PUSH Q15M PRN PRN Reason: for severe agitation Lorazepam (Ativan) 1 mg PO Q4H PRN PRN Reason: for CIWA 8-10 Lorazepam (Ativan) 2 mg PO Q2H PRN PRN Reason: for CIWA 11-14 Lorazepam (Ativan Inj) 2 mg IV.PUSH Q2H PRN PRN Reason: for CIWA 11-14 Lorazepam (Ativan Inj) 2 mg IV.PUSH Q1H PRN PRN Reason: for CIWA 15-20 Lorazepam (Ativan Inj) 2 mg IV.PUSH Q15M PRN PRN Reason: for CIWA > 20 Lorazepam (Ativan Inj) 1 mg IV.PUSH Q4H PRN PRN Reason: for CIWA 8-10 Sennosides (Senokot) 17.2 mg PO Q12H PRN PRN Reason: Moderate Constipation Allergies Allergy/AdvReac Type Severity Reaction Status Date / Time No Known Allergies Allergy Unknown NONE Uncoded 01/17/18 14:38 Exam Vital signs: Vital Signs 02/03/18 11:01 02/03/18 11:22 02/03/18 12:20 Pulse Rate 116 H 114 H 116 H Respiratory Rate 20 24 30 H Blood Pressure 142/99 H 129/81 137/101 H Pulse Oximetry 100 100 02/03/18 14:00 02/03/18 15:41 Pulse Rate 118 H Respiratory Rate 22 Blood Pressure 142/102 H Pulse Oximetry 97 99 Intake & Output 02/02/18 02/03/18 02/03/18 18:59 06:59 18:59 Output Total 150 / 150 Balance -150 / -150 Weight 44.906 kg Output: Urine 150 / 150 - Constitutional no acute distress - Routine HEENT Exam ENT: Present: mucous membranes moist - Routine Neck Exam Absent: JVD - Routine Respiratory Exam Present: CTA bilaterally, crackles - Routine Cardiovascular Exam Present: RRR. Absent: murmur - Routine Abdominal Exam Present: soft - Routine Extremities Exam Present: edema Results 02/03/18 12:15 02/03/18 12:15 Cardiac Enzymes 02/03/18 Range/Units 12:15 AST 106 H (15-37) U/L CBC 02/03/18 Range/Units 12:15 WBC 8.4 (4.0-11.0) th/mm3 RBC 4.58 (4.50-5.90) mil/mm3 Hgb 13.7 (13.0-17.0) gm/dL Hct 42.4 (39.0-51.0) % Plt Count 439 D (150-450) th/mm3 Neut # (Auto) 6.8 (1.8-7.7) th/mm3 Lymph # (Auto) 1.0 (1.0-4.8) th/mm3 Twiggs # (Auto) 0.5 (0.0-0.9) th/mm3 Eos # (Auto) 0.0 (0.0-0.4) th/mm3 Baso # (Auto) 0.0 (0.0-0.2) th/mm3 Comprehensive Metabolic Panel 02/03/18 Range/Units 12:15 Sodium 122 L* (136-145) meq/L Potassium 5.9 H (3.5-5.1) meq/L Chloride 90 L (98-107) meq/L Carbon Dioxide 17.0 L (21.0-32.0) meq/L BUN 34 H (7-18) mg/dL Creatinine 1.72 H (0.60-1.30) mg/dL Calcium 8.9 (8.5-10.1) mg/dL AST 106 H (15-37) U/L ALT 78 (12-78) U/L Alkaline Phosphatase 218 H (45-117) U/L Total Protein 7.6 (6.4-8.2) g/dL Albumin 2.4 L (3.4-5.0) g/dL Intake and Output 02/03/18 02/03/18 02/03/18 06:59 14:59 22:59 Output Total 150 / 150 Balance -150 / -150 Output: Urine 150 / 150 Other: Weight 44.906 kg Patient Weight 02/04/18 06:59 Weight 44.906 kg - Imaging and Cardiology Imaging: Impressions Chest X-Ray 02/03/18 12:09 CONCLUSION: Cardiomegaly with acute mild to moderate congestive changes. Assessment and Plan - Assessment (1) Acute on chronic systolic congestive heart failure, NYHA class 3 Code(s): I50.23 - Acute on chronic systolic (congestive) heart failure Status : Acute (2) NICM (nonischemic cardiomyopathy) Code(s): I42.8 - Other cardiomyopathies Status: Acute (3) Acute kidney injury Code(s): N17.9 - Acute kidney failure, unspecified Status: Acute - Plan Acute on chronic systolic congestive heart failure Continue diuresis with Lasix 40 mg daily. We will initiate low-dose Coreg Ideally he would benefit from initiation of Entresto, if his blood pressure tolerates and his kidney function improves Hopefully he will respond to the initial diuretic without's further elevation in creatinine. If his creatinine continues to worsen and were unable to remove fluid volume, we may have to consider transfer to the intensive care unit for initiation of a short-term milrinone drip continuous. Emphasize dietary salt restriction and medication compliance
[2018-02-03] MEDS: Digoxin 250 MCG Tablet PO SCH (17:59)
--- NOTE | 2018-02-03 18:24 | P.CONNP ---
History of Present Illness Service: Nephrology Consult date: 02/03/18 Requesting Physician: Cordell Wen Reason for Consult: Acute renal failure Primary Care Provider: UNKNOWN Chief Complaint: Edema History of Present Illness: Patient is a 42-year-old male with history of congestive heart failure, history of cardiomyopathy, alcohol abuse, HIV positive tests in the past however he claims now on the last HIV has been negative He is here with increasing shortness of breath and peripheral edema, creatinine is 1.7, he states he has no issues with kidney disease in the past, his EF is about 20% and he has tachycardia . Review of Systems Constitutional: Reports anorexia Eyes: Denies blind spots, Denies blurry vision, Denies bulging eyes, Denies change in vision, Denies double vision, Denies discharge, Denies dry eyes, Denies floaters, Denies irritation, Denies itchy eyes, Denies loss of vision, Denies pain, Denies requires corrective lenses, Denies sensitivity to light, Denies other Ears, Nose, Mouth, and Throat: Denies abnormal hearing, Denies bleeding gums, Denies bad breath, Denies change in voice, Denies dental pain, Denies difficulty swallowing, Denies dizziness, Denies dry mouth, Denies ear discharge , Denies ear pain, Denies facial pain, Denies headache(s), Denies hearing loss, Denies hoarseness, Denies lip swelling, Denies nosebleed, Denies mouth lesions, Denies mouth pain, Denies nasal congestion, Denies nasal discharge, Denies nasal obstruction, Denies nasal trauma, Denies neck lump, Denies neck pain, Denies nose pain, Denies pain with swallowing, Denies poor balance, Denies post nasal drip, Denies ringing in the ears, Denies sinus pain, Denies sinus pressure , Denies sore throat, Denies throat swelling, Denies tongue swelling, Denies other Cardiovascular: Reports generalized swelling, Reports rapid, pounding, or irregular heartbeat, Reports shortness of breath, Reports shortness of breath with activity, Reports shortness of breath causing sudden awakening Respiratory: Reports shortness of breath, Reports shortness of breath with activity Gastrointestinal: Reports feeling full early Genitourinary: Reports urinary frequency (Reduce) Musculoskeletal: Reports abnormal walking, Reports joint pain Skin/Breast: Reports lesions Neurologic: Reports weakness Psychiatric: Reports depression Endocrine: Reports cold intolerance Hematologic/Lymphatic: Reports easy bruising PMFSH - History History Provided By: Patient - Medical History Medical History: Medical History (Last Reviewed 02/03/18 @ 18:20 by Dewey Villegas MD) CHF (congestive heart failure) Cardiomyopathy Cellulitis History of left heart catheterization - Surgical History Surgical History: Surgical History (Last Reviewed 02/03/18 @ 18:20 by Dewey Villegas MD) No history of previous surgery - Family History Family History: Family History (Last Reviewed 02/03/18 @ 18:20 by Dewey Villegas MD) Father Heart disease - Social History I have reviewed the patient's Social History: Yes - Tobacco History Second Hand Smoke Exposure: No Tobacco Use In Past 30 Days: No Smoking Status: Never smoker - Alcohol History How Often Do You Have a Drink Containing Alcohol: 4 or more times a week - Substance Use History Substance History: Active Abuse - Travel History Recent Travel in the [place] Within the Last 8 Weeks: No Recent Travel Out of the Country Within the Last 8 Weeks: No - Immunization History Tetanus Immunization: >5 Years Hx Influenza Vaccine This Season: No Medications and Allergies Active Medications: Active Medications Al Hydroxide/Mg Hydroxide (Milk Of Jose [place]) 30 ml PO Q12H PRN PRN Reason: Mild Constipation Carvedilol (Coreg) 3.125 mg PO BID BELLA Digoxin (Lanoxin) 250 mcg PO DAILY [facility] Last Admin: 02/03/18 17:59 Dose: 250 mcg Flumazenil (Romazecon Inj) 0.2 mg IV.PUSH Q1M PRN PRN Reason: OVERSEDATION Furosemide (Lasix Inj) 40 mg IV.PUSH ONCE ONE Stop: 02/04/18 16:01 Haloperidol Lactate (Haldol Inj) 1 mg IV.PUSH Q15M PRN PRN Reason: for severe agitation Lorazepam (Ativan) 1 mg PO Q4H PRN PRN Reason: for CIWA 8-10 Lorazepam (Ativan) 2 mg PO Q2H PRN PRN Reason: for CIWA 11-14 Lorazepam (Ativan Inj) 2 mg IV.PUSH Q2H PRN PRN Reason: for CIWA 11-14 Lorazepam (Ativan Inj) 2 mg IV.PUSH Q1H PRN PRN Reason: for CIWA 15-20 Lorazepam (Ativan Inj) 2 mg IV.PUSH Q15M PRN PRN Reason: for CIWA > 20 Lorazepam (Ativan Inj) 1 mg IV.PUSH Q4H PRN PRN Reason: for CIWA 8-10 Sennosides (Senokot) 17.2 mg PO Q12H PRN PRN Reason: Moderate Constipation Allergies Allergy/AdvReac Type Severity Reaction Status Date / Time No Known Allergies Allergy Unknown NONE Uncoded 01/17/18 14:38 Exam Vital signs: Vital Signs 02/03/18 11:01 02/03/18 11:22 02/03/18 12:20 Temperature Pulse Rate 116 H 114 H 116 H Respiratory Rate 20 24 30 H Blood Pressure 142/99 H 129/81 137/101 H Pulse Oximetry 100 100 02/03/18 14:00 02/03/18 15:41 02/03/18 17:00 Temperature Pulse Rate 118 H 121 H Respiratory Rate 22 21 Blood Pressure 142/102 H 135/102 H Pulse Oximetry 97 99 97 02/03/18 17:50 Temperature 97.4 F L Pulse Rate 124 H Respiratory Rate 17 Blood Pressure 129/95 H Pulse Oximetry 96 Intake & Output 02/02/18 02/03/18 02/03/18 18:59 06:59 18:59 Output Total 150 / 150 Balance -150 / -150 Weight 43.6 kg Output: Urine 150 / 150 Other: Weight On Admission 43.6 kg Narrative: GENERAL: Well-nourished, well-developed patient. SKIN: Warm and dry. HEAD: Normocephalic. EYES: No scleral icterus. No injection or drainage. NECK: Supple, trachea midline. No JVD or lymphadenopathy. CARDIOVASCULAR: Tachycardia S1-S2 and S3 positive. RESPIRATORY: Breath sounds diminished at bases. GASTROINTESTINAL: Abdomen soft, non-tender, mildly distended. EXTREMITIES: 3+ edema NEUROLOGICAL: Awake, alert, and oriented x 3. Non-focal. Results - Lab Results 02/03/18 12:15 02/03/18 23:14 Most recent lab results Calcium 8.9 mg/dL (8.5-10.1) 02/03/18 12:15 Assessment and Plan - Assessment (1) Acute kidney injury Code(s): N17.9 - Acute kidney failure, unspecified Status: Acute (2) Acute exacerbation of CHF (congestive heart failure) Code(s): I50.9 - Heart failure, unspecified Status: Acute (3) ETOH abuse Code(s): F10.10 - Alcohol abuse, uncomplicated Status: Acute (4) Acute hyponatremia Code(s): E87.1 - Hypo-osmolality and hyponatremia Status: Acute (5) Hyperkalemia Code(s): E87.5 - Hyperkalemia Status: Acute - Plan Patient has cardiorenal syndrome and has decompensated congestive heart failure due to hypoperfusion of the kidney, he is going into multiorgan failure likely due to poor perfusion of the kidney He has severe marked cardiomyopathy There is history of HIV test positive on 12/2016 seen by ID and recommended to follow at [facility], and now he claims his HIV test was negative about 1 week ago Patient has elevated creatinine and I will order ultrasound of the kidney, check urine sodium, osmolality Continue digoxin. Lasix 40 mg IV every 12 hourly will be started, hyponatremia is likely due to congestive heart failure. Low potassium diet continue with diuresis that will improve potassium losses as well Abnormal LFTs due to congestion Follow BMP (2) Acute exacerbation of CHF (congestive heart failure) Qualifiers: Heart failure type: systolic Qualified Code(s): I50.23 - Acute on chronic systolic (congestive) heart failure
[2018-02-03 20:29] LABS: Calcium 8.5 mg/dL (8.5-10.1); Carbon Dioxide 17.5 meq/L (21.0-32.0)
[2018-02-04 00:36] LABS: Calcium 8.4 mg/dL (8.5-10.1); Carbon Dioxide 17.9 meq/L (21.0-32.0)
[2018-02-04 04:09] LABS: Baso % (Auto) 0.1 % (0.0-2.0); Hematocrit 37.4 % (39.0-51.0); Hemoglobin 12.7 gm/dL (13.0-17.0); Lymph # (Auto) 0.7 th/mm3 (1.0-4.8); Lymph % (Auto) 9.3 % (9.0-44.0); Mean Corpuscular Hemoglobin 29.9 pg (27.0-34.0); Mean Corpuscular Volume 88.1 fL (80.0-100.0); Mean Platelet Volume 9.8 fL (7.0-11.0); Mono # (Auto) 0.5 th/mm3 (0.0-0.9); Mono % (Auto) 6.9 % (0.0-8.0); Neut # (Auto) 6.6 th/mm3 (1.8-7.7); Neut % (Auto) 83.7 % (16.0-70.0); Platelet Count 348 th/mm3 (150-450); Red Blood Count 4.24 mil/mm3 (4.50-5.90); Red Cell Distribution Width 14.5 % (11.6-17.2); White Blood Count 7.9 th/mm3 (4.0-11.0)
[2018-02-04 04:31] LABS: Calcium 8.3 mg/dL (8.5-10.1); Carbon Dioxide 18.5 meq/L (21.0-32.0); Potassium 5.4 meq/L (3.5-5.1)
[2018-02-04 05:40] LABS: Lymphocytes 5 % (9-44); Monocytes 2 % (0-8); Tallied Nucleated RBC 10 (0-0)
[2018-02-04 05:42] LABS: Platelet Estimate Normal (Normal); Polychromasia 2.2 % (0.0-1.9)
[2018-02-04 05:43] LABS: Target Cells 1+
--- NOTE | 2018-02-04 06:15 | ECG ---
Date Performed: 02/03/2018 Time Performed: 11:21:58 PTAGE: 42 years EKG: SINUS TACHYCARDIA LEFT ATRIAL ENLARGEMENT POSSIBLE RIGHT VENTRICULAR CONDUCTION DELAY Nonsp ecific ST and T wave abnormalities ABNORMAL ECG Compared to prior electrocardiogram, Isolated ST elev ation is no longer present in lead V3. Clinical correlation suggested. PREVIOUS TRACING : 01/17/2018 23.18 DOCTOR: Kev Foster Interpretating Date/Time 02/04/2018 06:13:54
[2018-02-04 08:09] LABS: Calcium 8.3 mg/dL (8.5-10.1); Carbon Dioxide 19.3 meq/L (21.0-32.0)
[2018-02-04 08:12] LABS: Potassium 5.9 meq/L (3.5-5.1)
[2018-02-04] MEDS: Digoxin 250 MCG Tablet PO SCH (08:30)
--- NOTE | 2018-02-04 09:41 | US ---
EXAM DATE: 02/04/2018 9:35 AM EST AGE/SEX: 42 years / Male INDICATIONS: Increased BUN and creatinine. CLINICAL DATA: This is the patient's subsequent encounter. Patient reports that signs and symptoms h ave been present for 2 weeks and indicates a pain score of 0/10. MEDICAL/SURGICAL HISTORY: . Cardiomyopathy. Cellulitis. Congestive heart failure. ETOH abuse . . Left heart catheterization COMPARISON: [facility] [place], KIDNEY/RENAL/BLADDER, 01/20/2018. . MEASUREMENTS: Right Kidney:__10.7 x 4.0 x 4.4 cm Left Kidney:__9.0 x 4.5 x 4.3 cm FINDINGS: Right Kidney: Increased echotexture. No mass or hydronephrosis. Left Kidney: Increased echotexture. No mass or hydronephrosis. Bladder: Within normal limits given the degree of distension. Other: Ascites is seen as well as a bilateral pleural effusion.. CONCLUSION: 1. Ascites. 2. Increased echotexture of the renal parenchyma bilaterally characteristic of medical renal disease . 3. Bilateral pleural effusions. Electronically signed by: Milton Christensen MD 02/04/2018 9:40 AM EST
--- NOTE | 2018-02-04 09:46 | P.PNCA ---
Subjective Interval history: patient report mild improvement in leg edema, remains SOB with mild exertion. While resting in bed he is comfortable. No orthopnea, chest pain or palpitations. minimal diuresis overnight. Medications and Allergies Allergies Allergy/AdvReac Type Severity Reaction Status Date / Time No Known Allergies Allergy Unknown NONE Uncoded 01/17/18 14:38 Active Medications: Active Medications Al Hydroxide/Mg Hydroxide (Milk Of Magnporter Liq) 30 ml PO Q12H PRN PRN Reason: Mild Constipation Aspirin (Aspirin Chew) 81 mg PO DAILY [facility] Last Admin: 02/04/18 08:30 Dose: 81 mg Carvedilol (Coreg) 3.125 mg PO BID [facility] Last Admin: 02/04/18 08:30 Dose: 3.125 mg Digoxin (Lanoxin) 250 mcg PO DAILY [facility] Last Admin: 02/04/18 08:30 Dose: 250 mcg Flumazenil (Romazecon Inj) 0.2 mg IV.PUSH Q1M PRN PRN Reason: OVERSEDATION Furosemide (Lasix Inj) 40 mg IV.PUSH ONCE ONE Stop: 02/04/18 16:01 Furosemide (Lasix Inj) 40 mg IV.PUSH BID@0900,1800 [facility] Last Admin: 02/04/18 08:30 Dose: 40 mg Haloperidol Lactate (Haldol Inj) 1 mg IV.PUSH Q15M PRN PRN Reason: for severe agitation Levothyroxine Sodium (Synthroid) 25 mcg PO DAILY@0600 [facility] Last Admin: 02/04/18 05:38 Dose: 25 mcg Lorazepam (Ativan) 1 mg PO Q4H PRN PRN Reason: for CIWA 8-10 Lorazepam (Ativan) 2 mg PO Q2H PRN PRN Reason: for CIWA 11-14 Lorazepam (Ativan Inj) 2 mg IV.PUSH Q2H PRN PRN Reason: for CIWA 11-14 Lorazepam (Ativan Inj) 2 mg IV.PUSH Q1H PRN PRN Reason: for CIWA 15-20 Lorazepam (Ativan Inj) 2 mg IV.PUSH Q15M PRN PRN Reason: for CIWA > 20 Lorazepam (Ativan Inj) 1 mg IV.PUSH Q4H PRN PRN Reason: for CIWA 8-10 Sennosides (Senokot) 17.2 mg PO Q12H PRN PRN Reason: Moderate Constipation Physical Exam Vital signs: Vital Signs 02/03/18 11:01 02/03/18 11:22 02/03/18 12:20 Temperature Pulse Rate 116 H 114 H 116 H Respiratory Rate 20 24 30 H Blood Pressure 142/99 H 129/81 137/101 H Pulse Oximetry 100 100 02/03/18 14:00 02/03/18 15:41 02/03/18 17:00 Temperature Pulse Rate 118 H 121 H Respiratory Rate 22 21 Blood Pressure 142/102 H 135/102 H Pulse Oximetry 97 99 97 02/03/18 17:50 02/03/18 19:50 02/03/18 20:00 Temperature 97.4 F L 97.5 F L Pulse Rate 124 H 121 H 121 H Respiratory Rate 17 16 Blood Pressure 129/95 H 135/103 H Pulse Oximetry 96 100 02/03/18 23:48 02/04/18 00:00 02/04/18 03:47 Temperature 96 F L Pulse Rate 108 H 108 H 104 H Respiratory Rate 16 Blood Pressure 123/101 H Pulse Oximetry 100 02/04/18 04:00 Temperature 97.8 F Pulse Rate 107 H Respiratory Rate 20 Blood Pressure 136/103 H Pulse Oximetry 99 Intake & Output 02/03/18 02/04/18 02/04/18 18:59 06:59 18:59 Output Total 150 / 150 300 / 300 Balance -150 / -150 -300 / -300 Weight 43.6 kg 44.2 kg Output: Urine 150 / 150 300 / 300 Other: Weight On Admission 43.6 kg Narrative: GENERAL: Well-nourished, well-developed patient. SKIN: Warm and dry. HEAD: Normocephalic. NECK: Supple, trachea midline. No JVD or lymphadenopathy. CARDIOVASCULAR: Tachycardia S1-S2 and S3 positive. no murmurs RESPIRATORY: Breath sounds diminished at bases. GASTROINTESTINAL: Abdomen soft, non-tender, mildly distended. EXTREMITIES: 2+ edema NEUROLOGICAL: Awake, alert, and oriented x 3. Results 02/04/18 03:44 02/04/18 07:35 Cardiac Enzymes 02/03/18 Range/Units 12:15 AST 106 H (15-37) U/L CBC 02/03/18 02/04/18 Range/Units 12:15 03:44 WBC 8.4 7.9 (4.0-11.0) th/mm3 RBC 4.58 4.24 L (4.50-5.90) mil/mm3 Hgb 13.7 12.7 L (13.0-17.0) gm/dL Hct 42.4 37.4 L (39.0-51.0) % Plt Count 439 D 348 (150-450) th/mm3 Neut # (Auto) 6.8 6.6 (1.8-7.7) th/mm3 Lymph # (Auto) 1.0 0.7 L (1.0-4.8) th/mm3 [place] # (Auto) 0.5 0.5 (0.0-0.9) th/mm3 Eos # (Auto) 0.0 0.0 (0.0-0.4) th/mm3 Baso # (Auto) 0.0 0.0 (0.0-0.2) th/mm3 Comprehensive Metabolic Panel 02/03/18 02/03/18 02/03/18 Range/Units 12:15 19:38 23:14 Sodium 122 L* 124 L* 123 L* (136-145) meq/L Potassium 5.9 H 5.0 D 5.0 (3.5-5.1) meq/L Chloride 90 L 91 L 90 L (98-107) meq/L Carbon Dioxide 17.0 L 17.5 L 17.9 L (21.0-32.0) meq/L BUN 34 H 37 H 40 H (7-18) mg/dL Creatinine 1.72 H 1.76 H 1.97 H (0.60-1.30) mg/dL Calcium 8.9 8.5 8.4 L (8.5-10.1) mg/dL AST 106 H (15-37) U/L ALT 78 (12-78) U/L Alkaline Phosphatase 218 H (45-117) U/L Total Protein 7.6 (6.4-8.2) g/dL Albumin 2.4 L (3.4-5.0) g/dL 02/04/18 02/04/18 Range/Units 03:44 07:35 Sodium 125 L 126 L (136-145) meq/L Potassium 5.4 H 5.9 H (3.5-5.1) meq/L Chloride 92 L 92 L (98-107) meq/L Carbon Dioxide 18.5 L 19.3 L (21.0-32.0) meq/L BUN 41 H 40 H (7-18) mg/dL Creatinine 1.72 H 1.67 H (0.60-1.30) mg/dL Calcium 8.3 L 8.3 L (8.5-10.1) mg/dL AST (15-37) U/L ALT (12-78) U/L Alkaline Phosphatase (45-117) U/L Total Protein (6.4-8.2) g/dL Albumin (3.4-5.0) g/dL Intake and Output 02/03/18 02/04/18 02/04/18 22:59 06:59 14:59 Output Total 300 / 300 Balance -300 / -300 Output: Urine 300 / 300 Other: Weight 43.6 kg 44.2 kg Weight On Admission 43.6 kg - Imaging and Cardiology Imaging: Impressions Chest X-Ray 02/03/18 12:09 CONCLUSION: Cardiomegaly with acute mild to moderate congestive changes. Assessment and Plan - Assessment (1) Acute on chronic systolic congestive heart failure, NYHA class 3 Code(s): I50.23 - Acute on chronic systolic (congestive) heart failure Status : Acute (2) NICM (nonischemic cardiomyopathy) Code(s): I42.8 - Other cardiomyopathies Status: Acute (3) Acute kidney injury Code(s): N17.9 - Acute kidney failure, unspecified Status: Acute - Plan Acute on chronic systolic congestive heart failure Nonischemic cardiomyopathy EF 20% mild clinical improvement Ideally he would benefit from initiation of Entresto, if his blood pressure tolerates and his kidney function improves tolerating carvedilol 3.125mg BID well, consider titration. continue diuresis with lasix 40mg IV. monitor I's/O's closely cardiorenal syndrome- nephrology following If his creatinine continues to worsen and were unable to remove fluid volume, we may have to consider transfer to the intensive care unit for initiation of a short-term milrinone drip continuous. Emphasize dietary salt restriction and medication compliance - Attending Attestation Clinically, slightly improved today. Still short of breath. Still tachycardic. Creatinine is stable. He has low perfusion state. We will try to initiate the lowest dose of Entresto. We will monitor his creatinine closely and blood pressure. I will reduce the digoxin dose to 125 mcg daily and monitor daily digoxin level. He is tolerating very low-dose Coreg. Continue intravenous diuretic. Nephrology following. If his creatinine worsens and he continues to show hypoperfusion state, we may need to consider inotropic therapy. Dobutamine would not be ideal given his tachycardia, but he may be able to tolerate milrinone infusion. We will see how he does over the next 24 hours.
[2018-02-04] MEDS: Digoxin 125 MCG Tablet PO SCH (11:15)
--- NOTE | 2018-02-04 11:26 | P.PNFP ---
Subjective Interval history: No acute events overnight. Patient seen and examined this AM. Remains afebrile, vitals stable. Patient denies dyspnea, chest pain, palpitations. Only 450 cc UOP since admission is noted. Denies orthopnea. States he also feels his lower extremity swelling is improved. <SamarabutchysabelDwain - 02/04/18 11:25> Results - Labs Result diagrams: 02/06/18 06:37 02/06/18 06:37 <Cordell Wen - 02/06/18 11:47> Abnormal lab results 02/06/18 02/06/18 Range/Units 06:37 06:37 RBC 4.07 L (4.50-5.90) mil/mm3 Hgb 11.9 L (13.0-17.0) gm/dL Hct 36.4 L (39.0-51.0) % Potassium 3.2 L (3.5-5.1) meq/L BUN 26 H (7-18) mg/dL Calcium 8.0 L (8.5-10.1) mg/dL AST 39 H (15-37) U/L Alkaline Phosphatase 126 H (45-117) U/L Total Protein 6.2 L (6.4-8.2) g/dL Albumin 3.2 L D (3.4-5.0) g/dL Digoxin 0.7 L (0.8-2.0) ng/mL Short CBC 02/06/18 Range/Units 06:37 WBC 5.3 (4.0-11.0) th/mm3 Hgb 11.9 L (13.0-17.0) gm/dL Hct 36.4 L (39.0-51.0) % Plt Count 343 (150-450) th/mm3 [facility] 02/06/18 06:37 Sodium 140 Potassium 3.2 L Chloride 101 Carbon Dioxide 29.3 BUN 26 H Creatinine 1.03 Calcium 8.0 L Liver Function 02/06/18 Range/Units 06:37 Total Bilirubin 0.4 (0.2-1.0) mg/dL AST 39 H (15-37) U/L ALT 40 (12-78) U/L Alkaline Phosphatase 126 H (45-117) U/L Albumin 3.2 L D (3.4-5.0) g/dL <Cordell Wen - 02/06/18 11:47> Abnormal lab results 02/03/18 02/03/18 02/03/18 Range/Units 12:15 12:15 19:38 RBC (4.50-5.90) mil/mm3 Hgb (13.0-17.0) gm/dL Hct (39.0-51.0) % Neut % (Auto) 81.0 H (16.0-70.0) % Lymph # (Auto) (1.0-4.8) th/mm3 Seg Neuts % (Manual) (16-70) % Lymphocytes % (Manual) (9-44) % Nucleated RBCs/100 WBC (0-0) /100 WBC Polychromasia (0.0-1.9) % Target Cells (None) Keratocytes (None) Sodium 122 L* 124 L* (136-145) meq/L Potassium 5.9 H (3.5-5.1) meq/L Chloride 90 L 91 L (98-107) meq/L Carbon Dioxide 17.0 L 17.5 L (21.0-32.0) meq/L Anion Gap 16 H (5-15) meq/L BUN 34 H 37 H (7-18) mg/dL Creatinine 1.72 H 1.76 H (0.60-1.30) mg/dL Estimated GFR 53 L 52 L (>89) mL/min Random Glucose 123 H (74-106) mg/dL Osmolality (275-295) mosm/kg Calcium (8.5-10.1) mg/dL Total Bilirubin 1.3 H (0.2-1.0) mg/dL AST 106 H (15-37) U/L Alkaline Phosphatase 218 H (45-117) U/L Albumin 2.4 L (3.4-5.0) g/dL 02/03/18 02/03/18 02/04/18 Range/Units 19:38 23:14 03:44 RBC 4.24 L (4.50-5.90) mil/mm3 Hgb 12.7 L (13.0-17.0) gm/dL Hct 37.4 L (39.0-51.0) % Neut % (Auto) 83.7 H (16.0-70.0) % Lymph # (Auto) 0.7 L (1.0-4.8) th/mm3 Seg Neuts % (Manual) 93 H (16-70) % Lymphocytes % (Manual) 5 L (9-44) % Nucleated RBCs/100 WBC 10 H (0-0) /100 WBC Polychromasia 2.2 H (0.0-1.9) % Target Cells 1+ H (None) Keratocytes Occ H (None) Sodium 123 L* (136-145) meq/L Potassium (3.5-5.1) meq/L Chloride 90 L (98-107) meq/L Carbon Dioxide 17.9 L (21.0-32.0) meq/L Anion Gap (5-15) meq/L BUN 40 H (7-18) mg/dL Creatinine 1.97 H (0.60-1.30) mg/dL Estimated GFR 46 L (>89) mL/min Random Glucose 126 H (74-106) mg/dL Osmolality 274 L (275-295) mosm/kg Calcium 8.4 L (8.5-10.1) mg/dL Total Bilirubin (0.2-1.0) mg/dL AST (15-37) U/L Alkaline Phosphatase (45-117) U/L Albumin (3.4-5.0) g/dL 02/04/18 02/04/18 Range/Units 03:44 07:35 RBC (4.50-5.90) mil/mm3 Hgb (13.0-17.0) gm/dL Hct (39.0-51.0) % Neut % (Auto) (16.0-70.0) % Lymph # (Auto) (1.0-4.8) th/mm3 Seg Neuts % (Manual) (16-70) % Lymphocytes % (Manual) (9-44) % Nucleated RBCs/100 WBC (0-0) /100 WBC Polychromasia (0.0-1.9) % Target Cells (None) Keratocytes (None) Sodium 125 L 126 L (136-145) meq/L Potassium 5.4 H 5.9 H (3.5-5.1) meq/L Chloride 92 L 92 L (98-107) meq/L Carbon Dioxide 18.5 L 19.3 L (21.0-32.0) meq/L Anion Gap (5-15) meq/L BUN 41 H 40 H (7-18) mg/dL Creatinine 1.72 H 1.67 H (0.60-1.30) mg/dL Estimated GFR 53 L 55 L (>89) mL/min Random Glucose (74-106) mg/dL Osmolality (275-295) mosm/kg Calcium 8.3 L 8.3 L (8.5-10.1) mg/dL Total Bilirubin (0.2-1.0) mg/dL AST (15-37) U/L Alkaline Phosphatase (45-117) U/L Albumin (3.4-5.0) g/dL Short CBC 02/03/18 02/04/18 Range/Units 12:15 03:44 WBC 8.4 7.9 (4.0-11.0) th/mm3 Hgb 13.7 12.7 L (13.0-17.0) gm/dL Hct 42.4 37.4 L (39.0-51.0) % Plt Count 439 D 348 (150-450) th/mm3 BMP 02/03/18 02/03/18 02/03/18 12:15 19:38 23:14 Sodium 122 L* 124 L* 123 L* Potassium 5.9 H 5.0 D 5.0 Chloride 90 L 91 L 90 L Carbon Dioxide 17.0 L 17.5 L 17.9 L BUN 34 H 37 H 40 H Creatinine 1.72 H 1.76 H 1.97 H Calcium 8.9 8.5 8.4 L 02/04/18 02/04/18 03:44 07:35 Sodium 125 L 126 L Potassium 5.4 H 5.9 H Chloride 92 L 92 L Carbon Dioxide 18.5 L 19.3 L BUN 41 H 40 H Creatinine 1.72 H 1.67 H Calcium 8.3 L 8.3 L Liver Function 02/03/18 Range/Units 12:15 Total Bilirubin 1.3 H (0.2-1.0) mg/dL AST 106 H (15-37) U/L ALT 78 (12-78) U/L Alkaline Phosphatase 218 H (45-117) U/L Albumin 2.4 L (3.4-5.0) g/dL <Dwain Saravia - 02/04/18 11:25> - Imaging Impressions Chest X-Ray 02/03/18 12:09 CONCLUSION: Cardiomegaly with acute mild to moderate congestive changes. Abdomen/Bladder Ultrasound 02/04/18 18:12 CONCLUSION: 1. Ascites. 2. Increased echotexture of the renal parenchyma bilaterally characteristic of medical renal disease. 3. Bilateral pleural effusions. <Dwain Saravia - 02/04/18 11:25> Physical Exam Vital signs: Vital Signs 02/05/18 12:00 02/05/18 16:00 02/05/18 19:45 Temperature 98.0 F 98.5 F Pulse Rate 87 93 H 86 Respiratory Rate 16 16 Blood Pressure 101/56 L 107/57 L Pulse Oximetry 94 L 99 02/05/18 20:00 02/05/18 23:45 02/06/18 00:00 Temperature 99.3 F 98.7 F Pulse Rate 91 H 104 H 113 H Respiratory Rate 17 18 Blood Pressure 116/67 103/56 L Pulse Oximetry 100 94 L 02/06/18 04:00 02/06/18 08:00 Temperature 98.9 F 99.1 F Pulse Rate 96 H 94 H Respiratory Rate 19 18 Blood Pressure 108/65 121/83 Pulse Oximetry 96 98 Intake & Output 02/05/18 02/06/18 02/06/18 18:59 06:59 18:59 Intake Total 940 / 940 100 / 100 Output Total 1800 / 1800 400 / 400 Balance -860 / -860 -300 / -300 Weight 41.2 kg Intake: IV 100 / 100 100 / 100 Flexbumin 25% Inj 100 ML @ 60 100 / 100 100 / 100 mls/hr IV.SIG Q12H [facility] Rx#: [id number] Oral 840 / 840 Output: Urine 1800 / 1800 400 / 400 Other: Date of Last Bowel Movement 02/04/18 # Bowel Movements 0 <Cordell Wen - 02/06/18 11:47> Vital Signs 02/03/18 11:22 02/03/18 12:20 02/03/18 14:00 Temperature Pulse Rate 114 H 116 H 118 H Respiratory Rate 24 30 H 22 Blood Pressure 129/81 137/101 H 142/102 H Pulse Oximetry 100 97 02/03/18 15:41 02/03/18 17:00 02/03/18 17:50 Temperature 97.4 F L Pulse Rate 121 H 124 H Respiratory Rate 21 17 Blood Pressure 135/102 H 129/95 H Pulse Oximetry 99 97 96 02/03/18 19:50 02/03/18 20:00 02/03/18 23:48 Temperature 97.5 F L Pulse Rate 121 H 121 H 108 H Respiratory Rate 16 Blood Pressure 135/103 H Pulse Oximetry 100 02/04/18 00:00 02/04/18 03:47 02/04/18 04:00 Temperature 96 F L 97.8 F Pulse Rate 108 H 104 H 107 H Respiratory Rate 16 20 Blood Pressure 123/101 H 136/103 H Pulse Oximetry 100 99 02/04/18 08:00 Temperature 98.4 F Pulse Rate 110 H Respiratory Rate 16 Blood Pressure 137/98 H Pulse Oximetry 99 Intake & Output 02/03/18 02/04/18 02/04/18 18:59 06:59 18:59 Output Total 150 / 150 300 / 300 Balance -150 / -150 -300 / -300 Weight 43.6 kg 44.2 kg Output: Urine 150 / 150 300 / 300 Other: Weight On Admission 43.6 kg <RonnellDwain peres - 02/04/18 11:25> Narrative: GENERAL: NAD, resting comfortably in bed NEURO: AOx3. Normal speech. 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 SKIN: Warm and dry. No rashes or erythema. HEAD: Normocephalic. Atraumatic. EYES: EOMI. No scleral icterus. No injection or drainage. ENT: No nasal drainage. Moist mucous membranes. NECK: Supple, trachea midline. CARDIOVASCULAR: Tachycardic rate, regular rhythm. Loud S1. No obvious murmur. RESPIRATORY: No respiratory distress. Equal breath sounds. Faint bibasilar rales with decreased aeration. No rhonchi or wheezing. GASTROINTESTINAL: Abdomen soft, non-tender, nondistended. No organomegaly or masses. MUSCULOSKELETAL: 1+ pitting edema up to proximal tibias bilaterally improved from admission BACK: Nontender without obvious deformity. <RonnellDwain peres - 02/04/18 11:25> Assessment and Plan - Assessment (1) Acute exacerbation of CHF (congestive heart failure) Code(s): I50.9 - Heart failure, unspecified Status: Acute (2) Acute kidney injury Code(s): N17.9 - Acute kidney failure, unspecified Status: Acute (3) Acute hyponatremia Code(s): E87.1 - Hypo-osmolality and hyponatremia Status: Resolved (4) Hyperkalemia Code(s): E87.5 - Hyperkalemia Status: Resolved (5) NICM (nonischemic cardiomyopathy) Code(s): I42.8 - Other cardiomyopathies Status: Acute (6) ETOH abuse Code(s): F10.10 - Alcohol abuse, uncomplicated Status: Acute <Cordell Wen - 02/06/18 11:47> (1) Acute exacerbation of CHF (congestive heart failure) Code(s): I50.9 - Heart failure, unspecified Status: Acute (2) Acute kidney injury Code(s): N17.9 - Acute kidney failure, unspecified Status: Acute (3) Acute hyponatremia Code(s): E87.1 - Hypo-osmolality and hyponatremia Status: Acute (4) Hyperkalemia Code(s): E87.5 - Hyperkalemia Status: Acute (5) NICM (nonischemic cardiomyopathy) Code(s): I42.8 - Other cardiomyopathies Status: Acute (6) ETOH abuse Code(s): F10.10 - Alcohol abuse, uncomplicated Status: Acute <Dwain Saravia - 02/04/18 11:17> - Assessment and Plan 42 year old man with PMH significant for severe systolic CHF, nonischemic cardiomyopathy, and etoh abuse being admitted with acute on chronic CHF. Acute on chronic CHF - s/p 40 mg of IV Lasix in the ED - Continue diuresis with Lasix 40 mg IV bid - Monitor I/Os - Daily weights - Consult cardiology, appreciate recommendations - Last echo was on 01/18/18 which showed severely reduced LV systolic function with an eEF of 20% - Continue carvedilol at 3.125 mg bid - Started on Entresto bid and digoxin 125 mcg daily per cardiology recommendations Acute on chronic kidney disease - Likely due to low renal perfusion pressure due to his severe systolic heart failure - Anticipate this may improve with diuresis - Cr on admission 1.72 - Baseline creatinine ~1.1-1.2 - Hold LETITIA inhibitor until renal function improves - Consult nephrology, appreciate recommendations - Renal ultrasound showing increased echotexture of the renal parenchyma bilaterally consistent with medical renal disease - Continue to monitor renal function - Avoid nephrotoxic medications Hyponatremia - May be due to the patient's severe HF and water retention - Continue fluid restriction to 800 cc daily - Improving - Monitor BMPs q8h, if improving will monitor less frequently Hyperkalemia - Continue to monitor - No T wave changes on EKG Etoh abuse - WA protocol DVT ppx: b/l SCDs, ambulate as tolerated <Dwain Saravia - 02/04/18 11:25> - Attending Attestation See the residents documentation for details. I saw and evaluated the patient regarding the kwon portions of this evaluation and agree with the residents findings and plans as written. Parts of this note were created using [employer] voice recognition software program. While efforts were made to correct any mistakes made by this software, some mistakes, errors, and omissions may remain in the final note that were not caught when the note was originally created. Plan of care was discussed and agreed upon with the patient as specifically documented in the above note. An opportunity to ask questions with explanation was provided. Patient voiced understanding on all information reviewed and discussed. <Cordell Wen - 02/06/18 11:47> <Dwain Saravia - Last Filed: 02/04/18 11:17> (1) Acute exacerbation of CHF (congestive heart failure) Qualifiers: Heart failure type: systolic Qualified Code(s): I50.23 - Acute on chronic systolic (congestive) heart failure <Cordell Wen - Last Filed: 02/06/18 11:47> (1) Acute exacerbation of CHF (congestive heart failure) Qualifiers: Heart failure type: systolic Qualified Code(s): I50.23 - Acute on chronic systolic (congestive) heart failure <Dwain Saravia - Last Filed: 02/04/18 11:17> (1) Acute exacerbation of CHF (congestive heart failure) Qualifiers: Heart failure type: systolic Qualified Code(s): I50.23 - Acute on chronic systolic (congestive) heart failure <Cordell Wen - Last Filed: 02/06/18 11:47> (1) Acute exacerbation of CHF (congestive heart failure) Qualifiers: Heart failure type: systolic Qualified Code(s): I50.23 - Acute on chronic systolic (congestive) heart failure
[2018-02-04 11:51] LABS: Calcium 8.4 mg/dL (8.5-10.1); Calcium-Albumin Corrected 9.1 mg/dL (8.5-10.1); Carbon Dioxide 17.7 meq/L (21.0-32.0); Potassium 4.6 meq/L (3.5-5.1)
--- NOTE | 2018-02-04 17:38 | P.PNNP ---
Subjective Interval history: no acute complaints Physical Exam Vital signs: Vital Signs 02/03/18 17:50 02/03/18 19:50 02/03/18 20:00 Temperature 97.4 F L 97.5 F L Pulse Rate 124 H 121 H 121 H Respiratory Rate 17 16 Blood Pressure 129/95 H 135/103 H Pulse Oximetry 96 100 02/03/18 23:48 02/04/18 00:00 02/04/18 03:47 Temperature 96 F L Pulse Rate 108 H 108 H 104 H Respiratory Rate 16 Blood Pressure 123/101 H Pulse Oximetry 100 02/04/18 04:00 02/04/18 08:00 02/04/18 11:18 Temperature 97.8 F 98.4 F 98.1 F Pulse Rate 107 H 110 H 100 H Respiratory Rate 20 16 17 Blood Pressure 136/103 H 137/98 H 133/94 H Pulse Oximetry 99 99 99 02/04/18 16:00 02/04/18 17:21 Temperature 97.4 F L Pulse Rate 87 Respiratory Rate 16 Blood Pressure 105/69 Pulse Oximetry 98 98 Intake & Output 02/03/18 02/04/18 02/04/18 18:59 06:59 18:59 Output Total 150 / 150 300 / 300 Balance -150 / -150 -300 / -300 Weight 43.6 kg 44.2 kg Output: Urine 150 / 150 300 / 300 Other: Weight On Admission 43.6 kg - Constitutional no acute distress - Routine HEENT Exam Head: Present: normocephalic Eye: Present: EOMI ENT: Present: mucous membranes moist - Routine Neck Exam Present: supple - Routine Respiratory Exam Present: decreased breath sounds - Routine Cardiovascular Exam Present: RRR - Routine Abdominal Exam Present: soft - Routine Extremities Exam Present: edema - Routine Skin Exam Present: intact - Routine Neurological Exam Present: alert, oriented X3 - Detailed Neurological Exam: Coma Scale Eye Opening: Spontaneous - Routine Psychiatric Exam Present: normal affect Assessment and Plan - Assessment (1) Acute kidney injury Code(s): N17.9 - Acute kidney failure, unspecified Status: Acute (2) Acute exacerbation of CHF (congestive heart failure) Code(s): I50.9 - Heart failure, unspecified Status: Acute Qualifiers: Heart failure type: systolic Qualified Code(s): I50.23 - Acute on chronic systolic (congestive) heart failure (3) ETOH abuse Code(s): F10.10 - Alcohol abuse, uncomplicated Status: Acute (4) Acute hyponatremia Code(s): E87.1 - Hypo-osmolality and hyponatremia Status: Acute (5) Hyperkalemia Code(s): E87.5 - Hyperkalemia Status: Acute - Plan Patient has cardiorenal syndrome and has decompensated congestive heart failure due to hypoperfusion of the kidney, he is going into multiorgan failure likely due to poor perfusion of the kidney He has severe marked cardiomyopathy There is history of HIV test positive on 12/2016 seen by ID and recommended to follow at [facility], and now he claims his HIV test was negative about 1 week ago Renal ultrasound with echogenic kidneys, suggestive of CKD Creatinine stable at 1.6 Continue digoxin. Lasix 40 mg IV every 12 hours, hyponatremia is likely due to congestive heart failure. Albumin level 2.4 - will add albumin infusion, which may help mobile fluids to vascular space. Will check U/A for proteinuria UOP not fully documented - continue to monitor. Low potassium diet continue with diuresis that will improve potassium losses as well Abnormal LFTs due to congestion Follow BMP
[2018-02-04] MEDS: Albumin Human 25% Inj 100 ML IV.SIG SCH (18:05)
[2018-02-04 19:06] LABS: Calcium 8.1 mg/dL (8.5-10.1); Carbon Dioxide 19.8 meq/L (21.0-32.0); Potassium 4.4 meq/L (3.5-5.1)
[2018-02-05 00:28] LABS: Bilirubin,Urine Negative (Negative); Clarity,Urine Clear (Clear); Color,Urine Colorless (Yellw/Straw); Glucose,Urine (UA) Negative (Negative); Leukocyte Esterase,Urine Negative (Negative); Mucus,Urine Few /lpf (Occasional); Nitrite,Urine Negative (Negative); Specific Gravity,Urine 1.004 (1.002-1.035); Squamous Epithelial Cell,Urine <1 /hpf (0-5)
[2018-02-05 02:56] LABS: Baso % (Auto) 0.1 % (0.0-2.0); Eos % (Auto) 0.1 % (0.0-4.0); Hematocrit 35.8 % (39.0-51.0); Hemoglobin 12.2 gm/dL (13.0-17.0); Lymph # (Auto) 0.6 th/mm3 (1.0-4.8); Lymph % (Auto) 8.4 % (9.0-44.0); Mean Corpuscular HGB Conc 34.2 % (32.0-36.0); Mean Corpuscular Hemoglobin 29.9 pg (27.0-34.0); Mean Corpuscular Volume 87.4 fL (80.0-100.0); Mean Platelet Volume 8.9 fL (7.0-11.0); Mono # (Auto) 0.5 th/mm3 (0.0-0.9); Mono % (Auto) 6.6 % (0.0-8.0); Neut # (Auto) 5.8 th/mm3 (1.8-7.7); Neut % (Auto) 84.8 % (16.0-70.0); Platelet Count 341 th/mm3 (150-450); Red Blood Count 4.09 mil/mm3 (4.50-5.90); Red Cell Distribution Width 14.4 % (11.6-17.2); White Blood Count 6.9 th/mm3 (4.0-11.0)
[2018-02-05 03:39] LABS: Alanine Aminotransferase 48 U/L (12-78); Albumin 2.2 g/dL (3.4-5.0); Alkaline Phosphatase 171 U/L (45-117); Anion Gap 11 meq/L (5-15); Aspartate Aminotransferase 48 U/L (15-37); Blood Urea Nitrogen 38 mg/dL (7-18); Calcium 7.9 mg/dL (8.5-10.1); Carbon Dioxide 27.3 meq/L (21.0-32.0); Chloride 97 meq/L (98-107); Glomerular Filtration Rate 66 mL/min (>89); Glucose,Random 103 mg/dL (74-106); Potassium 3.5 meq/L (3.5-5.1); Sodium 135 meq/L (136-145); Total Protein 5.9 g/dL (6.4-8.2)
[2018-02-05] MEDS: Albumin Human 25% Inj 100 ML IV.SIG SCH ×2 (05:05→17:42)
[2018-02-05] MEDS: Digoxin 125 MCG Tablet PO SCH (08:34)
--- NOTE | 2018-02-05 09:01 | P.PNCA ---
Subjective Interval history: feeling better with improved LE edema. continued dry cough, No chest pain or palpitation. HR improved Medications and Allergies Allergies Allergy/AdvReac Type Severity Reaction Status Date / Time No Known Allergies Allergy Unknown NONE Uncoded 01/17/18 14:38 Active Medications: Active Medications Al Hydroxide/Mg Hydroxide (Milk Of Jose Martin Pablo) 30 ml PO Q12H PRN PRN Reason: Mild Constipation Aspirin (Aspirin Chew) 81 mg PO DAILY [facility] Last Admin: 02/05/18 08:34 Dose: 81 mg Carvedilol (Coreg) 3.125 mg PO BID [facility] Last Admin: 02/05/18 08:34 Dose: 3.125 mg Digoxin (Lanoxin) 125 mcg PO DAILY [facility] Last Admin: 02/05/18 08:34 Dose: 125 mcg Flumazenil (Romazecon Inj) 0.2 mg IV.PUSH Q1M PRN PRN Reason: OVERSEDATION Furosemide (Lasix Inj) 40 mg IV.PUSH BID@0900,1800 [facility] Last Admin: 02/05/18 08:33 Dose: 40 mg Haloperidol Lactate (Haldol Inj) 1 mg IV.PUSH Q15M PRN PRN Reason: for severe agitation Albumin Human (Flexbumin 25% Inj) 100 mls @ 60 mls/hr IV.SIG Q12H [facility] Last Infusion: 02/05/18 06:50 Dose: Infused Levothyroxine Sodium (Synthroid) 25 mcg PO DAILY@0600 [facility] Last Admin: 02/05/18 05:05 Dose: 25 mcg Lorazepam (Ativan) 1 mg PO Q4H PRN PRN Reason: for CIWA 8-10 Lorazepam (Ativan) 2 mg PO Q2H PRN PRN Reason: for CIWA 11-14 Lorazepam (Ativan Inj) 2 mg IV.PUSH Q2H PRN PRN Reason: for CIWA 11-14 Lorazepam (Ativan Inj) 2 mg IV.PUSH Q1H PRN PRN Reason: for CIWA 15-20 Lorazepam (Ativan Inj) 2 mg IV.PUSH Q15M PRN PRN Reason: for CIWA > 20 Lorazepam (Ativan Inj) 1 mg IV.PUSH Q4H PRN PRN Reason: for CIWA 8-10 Sacubitril/Valsartan (Entresto 24 Mg/26 Mg Tablet) 1 tab PO BID [facility] Last Admin: 02/05/18 08:34 Dose: 1 tab Sennosides (Senokot) 17.2 mg PO Q12H PRN PRN Reason: Moderate Constipation Physical Exam Vital signs: Vital Signs 02/04/18 11:18 02/04/18 12:00 02/04/18 16:00 Temperature 98.1 F 97.4 F L Pulse Rate 100 H 93 H 84 Respiratory Rate 17 16 Blood Pressure 133/94 H 105/69 Pulse Oximetry 99 98 02/04/18 17:21 02/04/18 20:00 02/05/18 00:00 Temperature 97.8 F 97.8 F Pulse Rate 90 88 Respiratory Rate 17 16 Blood Pressure 101/64 107/61 Pulse Oximetry 98 99 98 02/05/18 04:00 02/05/18 08:00 Temperature 97.8 F 97.9 F Pulse Rate 91 H 85 Respiratory Rate 16 16 Blood Pressure 101/58 L 118/73 Pulse Oximetry 98 99 Intake & Output 02/04/18 02/05/18 02/05/18 18:59 06:59 18:59 Intake Total 420 / 420 200 / 200 Output Total 1000 / 1000 3000 / 3000 Balance -580 / -580 -2800 / -2800 Weight 42.6 kg Intake: IV 200 / 200 Flexbumin 25% Inj 100 ML @ 60 200 / 200 mls/hr IV.SIG Q12H [facility] Rx#: [id number] Oral 420 / 420 Output: Urine 1000 / 1000 3000 / 3000 Other: # Bowel Movements 0 Narrative: GENERAL: NAD, resting comfortably in bed NEURO: AOx3. Normal speech. ambulance officer grossly intact. SKIN: Warm and dry. No rashes or erythema. HEAD: Normocephalic. Atraumatic. NECK: Supple, trachea midline. no JVD CARDIOVASCULAR: regular rate and rhythm. Loud S1. No obvious murmur. RESPIRATORY: No respiratory distress. Equal breath sounds. Faint bibasilar rales with decreased aeration. No rhonchi or wheezing. GASTROINTESTINAL: Abdomen soft, non-tender, nondistended. No organomegaly or masses. MUSCULOSKELETAL: 1+ pitting edema bilateral ankles improved from admission. Results 02/05/18 02:43 02/05/18 02:43 Cardiac Enzymes 02/03/18 02/05/18 Range/Units 12:15 02:43 AST 106 H 48 H (15-37) U/L CBC 02/03/18 02/04/18 02/05/18 Range/Units 12:15 03:44 02:43 WBC 8.4 7.9 6.9 (4.0-11.0) th/mm3 RBC 4.58 4.24 L 4.09 L (4.50-5.90) mil/mm3 Hgb 13.7 12.7 L 12.2 L (13.0-17.0) gm/dL Hct 42.4 37.4 L 35.8 L (39.0-51.0) % Plt Count 439 D 348 341 (150-450) th/mm3 Neut # (Auto) 6.8 6.6 5.8 (1.8-7.7) th/mm3 Lymph # (Auto) 1.0 0.7 L 0.6 L (1.0-4.8) th/mm3 [place] # (Auto) 0.5 0.5 0.5 (0.0-0.9) th/mm3 Eos # (Auto) 0.0 0.0 0.0 (0.0-0.4) th/mm3 Baso # (Auto) 0.0 0.0 0.0 (0.0-0.2) th/mm3 Comprehensive Metabolic Panel 02/03/18 02/03/18 02/03/18 Range/Units 12:15 19:38 23:14 Sodium 122 L* 124 L* 123 L* (136-145) meq/L Potassium 5.9 H 5.0 D 5.0 (3.5-5.1) meq/L Chloride 90 L 91 L 90 L (98-107) meq/L Carbon Dioxide 17.0 L 17.5 L 17.9 L (21.0-32.0) meq/L BUN 34 H 37 H 40 H (7-18) mg/dL Creatinine 1.72 H 1.76 H 1.97 H (0.60-1.30) mg/dL Calcium 8.9 8.5 8.4 L (8.5-10.1) mg/dL AST 106 H (15-37) U/L ALT 78 (12-78) U/L Alkaline Phosphatase 218 H (45-117) U/L Total Protein 7.6 (6.4-8.2) g/dL Albumin 2.4 L (3.4-5.0) g/dL 02/04/18 02/04/18 02/04/18 Range/Units 03:44 07:35 11:25 Sodium 125 L 126 L 127 L (136-145) meq/L Potassium 5.4 H 5.9 H 4.6 D (3.5-5.1) meq/L Chloride 92 L 92 L 93 L (98-107) meq/L Carbon Dioxide 18.5 L 19.3 L 17.7 L (21.0-32.0) meq/L BUN 41 H 40 H 40 H (7-18) mg/dL Creatinine 1.72 H 1.67 H 1.64 H (0.60-1.30) mg/dL Calcium 8.3 L 8.3 L 8.4 L (8.5-10.1) mg/dL AST (15-37) U/L ALT (12-78) U/L Alkaline Phosphatase (45-117) U/L Total Protein 6.0 L D (6.4-8.2) g/dL Albumin (3.4-5.0) g/dL 02/04/18 02/05/18 Range/Units 18:42 02:43 Sodium 127 L 135 L (136-145) meq/L Potassium 4.4 3.5 D (3.5-5.1) meq/L Chloride 95 L 97 L (98-107) meq/L Carbon Dioxide 19.8 L 27.3 (21.0-32.0) meq/L BUN 39 H 38 H (7-18) mg/dL Creatinine 1.48 H 1.44 H (0.60-1.30) mg/dL Calcium 8.1 L 7.9 L (8.5-10.1) mg/dL AST 48 H (15-37) U/L ALT 48 (12-78) U/L Alkaline Phosphatase 171 H (45-117) U/L Total Protein 5.9 L (6.4-8.2) g/dL Albumin 2.2 L (3.4-5.0) g/dL Intake and Output 02/04/18 02/05/18 02/05/18 22:59 06:59 14:59 Intake Total 520 / 520 100 / 100 Output Total 2600 / 2600 1400 / 1400 Balance -2080 / -2080 -1300 / -1300 Intake: IV 100 / 100 100 / 100 Flexbumin 25% Inj 100 ML @ 60 100 / 100 100 / 100 mls/hr IV.SIG Q12H [facility] Rx#: [id number] Oral 420 / 420 Output: Urine 2600 / 2600 1400 / 1400 Other: # Bowel Movements 0 Weight 42.6 kg - Imaging and Cardiology Imaging: Impressions Chest X-Ray 02/03/18 12:09 CONCLUSION: Cardiomegaly with acute mild to moderate congestive changes. Abdomen/Bladder Ultrasound 02/04/18 18:12 CONCLUSION: 1. Ascites. 2. Increased echotexture of the renal parenchyma bilaterally characteristic of medical renal disease. 3. Bilateral pleural effusions. Assessment and Plan - Assessment (1) Acute on chronic systolic congestive heart failure, NYHA class 3 Code(s): I50.23 - Acute on chronic systolic (congestive) heart failure Status : Acute (2) NICM (nonischemic cardiomyopathy) Code(s): I42.8 - Other cardiomyopathies Status: Acute (3) Acute kidney injury Code(s): N17.9 - Acute kidney failure, unspecified Status: Acute - Plan Acute on chronic systolic congestive heart failure Nonischemic cardiomyopathy EF 20% clinically improving. -3.3L output yesterday tolerating addition of Entresto well with improved heart rate. cont low dose carvedilol 3.125mg BID, lasix 40mg IV BID and digoxin 125 digoxin levels being monitored and remain in normal range. cardiorenal syndrome- nephrology following, electrolytes and creatinine improving. If his creatinine continues to worsen and were unable to remove fluid volume, we may have to consider transfer to the intensive care unit for initiation of a short-term milrinone drip continuous. Emphasize dietary salt restriction and medication compliance - Attending Attestation Clinically much improved. Diuresing well, -3.3 L yesterday. Weight down greater than 2 kg. Creatinine improving from 1.9 down to 1.4 mg/dL. Continue intravenous diuretic twice daily for now. Plan to switch to oral Lasix 40 mg twice daily tomorrow. Continue digoxin. Digoxin level is good. Continue Entresto and monitor creatinine along with potassium. Case management may need to help us coordinate outpatient medication compliance. Continue beta-papito. Sodium level and heart rate both improved consistent with more well compensated congestive heart failure. Hopeful for discharge planning early next week.
--- NOTE | 2018-02-05 13:20 | P.PNFP ---
Subjective Interval history: Hu had no acute events overnight. His ultrasound of the abdomen reveals ascites, medical renal disease, and bilateral pleural effusions that are likely improving with diuresis. We are still awaiting to see his HIV results pending. His hyponatremia and hypokalemia have resolved. As per cardiology and nephrology we will add low potassium to his diet order. His creatinine has improved from 1.97 on admission to 1.44; elevated LFTs are resolving. We discussed with him today that alcohol cessation is in the best interest of his future health. His digoxin level is within the normal range. He denies chest pain, shortness of breath, fever, chills, nausea, vomiting, diarrhea, abdominal or leg pain. He does have a little bit of a dry cough though. We discussed him possibly discharging tomorrow if he is doing well. <Tyler Kelly III - 02/05/18 13:20> Results - Labs Result diagrams: 02/06/18 06:37 02/06/18 06:37 <Cordell Wen - 02/06/18 12:03> Abnormal lab results 02/06/18 02/06/18 Range/Units 06:37 06:37 RBC 4.07 L (4.50-5.90) mil/mm3 Hgb 11.9 L (13.0-17.0) gm/dL Hct 36.4 L (39.0-51.0) % Potassium 3.2 L (3.5-5.1) meq/L BUN 26 H (7-18) mg/dL Calcium 8.0 L (8.5-10.1) mg/dL AST 39 H (15-37) U/L Alkaline Phosphatase 126 H (45-117) U/L Total Protein 6.2 L (6.4-8.2) g/dL Albumin 3.2 L D (3.4-5.0) g/dL Digoxin 0.7 L (0.8-2.0) ng/mL Short CBC 02/06/18 Range/Units 06:37 WBC 5.3 (4.0-11.0) th/mm3 Hgb 11.9 L (13.0-17.0) gm/dL Hct 36.4 L (39.0-51.0) % Plt Count 343 (150-450) th/mm3 BMP 02/06/18 06:37 Sodium 140 Potassium 3.2 L Chloride 101 Carbon Dioxide 29.3 BUN 26 H Creatinine 1.03 Calcium 8.0 L Liver Function 02/06/18 Range/Units 06:37 Total Bilirubin 0.4 (0.2-1.0) mg/dL AST 39 H (15-37) U/L ALT 40 (12-78) U/L Alkaline Phosphatase 126 H (45-117) U/L Albumin 3.2 L D (3.4-5.0) g/dL <Cordell Wen - 02/06/18 12:03> Abnormal lab results 02/04/18 02/04/18 02/05/18 Range/Units 18:42 19:10 02:43 RBC 4.09 L (4.50-5.90) mil/mm3 Hgb 12.2 L (13.0-17.0) gm/dL Hct 35.8 L (39.0-51.0) % Neut % (Auto) 84.8 H (16.0-70.0) % Lymph % (Auto) 8.4 L (9.0-44.0) % Lymph # (Auto) 0.6 L (1.0-4.8) th/mm3 Sodium 127 L (136-145) meq/L Chloride 95 L (98-107) meq/L Carbon Dioxide 19.8 L (21.0-32.0) meq/L BUN 39 H (7-18) mg/dL Creatinine 1.48 H (0.60-1.30) mg/dL Estimated GFR 63 L (>89) mL/min Calcium 8.1 L (8.5-10.1) mg/dL AST (15-37) U/L Alkaline Phosphatase (45-117) U/L Total Protein (6.4-8.2) g/dL Albumin (3.4-5.0) g/dL Urine Occult Blood Small H (Negative) Urine Mucus Few H (Occasional) /lpf 02/05/18 Range/Units 02:43 RBC (4.50-5.90) mil/mm3 Hgb (13.0-17.0) gm/dL Hct (39.0-51.0) % Neut % (Auto) (16.0-70.0) % Lymph % (Auto) (9.0-44.0) % Lymph # (Auto) (1.0-4.8) th/mm3 Sodium 135 L (136-145) meq/L Chloride 97 L (98-107) meq/L Carbon Dioxide (21.0-32.0) meq/L BUN 38 H (7-18) mg/dL Creatinine 1.44 H (0.60-1.30) mg/dL Estimated GFR 66 L (>89) mL/min Calcium 7.9 L (8.5-10.1) mg/dL AST 48 H (15-37) U/L Alkaline Phosphatase 171 H (45-117) U/L Total Protein 5.9 L (6.4-8.2) g/dL Albumin 2.2 L (3.4-5.0) g/dL Urine Occult Blood (Negative) Urine Mucus (Occasional) /lpf Short CBC 02/05/18 Range/Units 02:43 WBC 6.9 (4.0-11.0) th/mm3 Hgb 12.2 L (13.0-17.0) gm/dL Hct 35.8 L (39.0-51.0) % Plt Count 341 (150-450) th/mm3 BMP 02/04/18 02/05/18 18:42 02:43 Sodium 127 L 135 L Potassium 4.4 3.5 D Chloride 95 L 97 L Carbon Dioxide 19.8 L 27.3 BUN 39 H 38 H Creatinine 1.48 H 1.44 H Calcium 8.1 L 7.9 L Liver Function 02/05/18 Range/Units 02:43 Total Bilirubin 0.5 (0.2-1.0) mg/dL AST 48 H (15-37) U/L ALT 48 (12-78) U/L Alkaline Phosphatase 171 H (45-117) U/L Albumin 2.2 L (3.4-5.0) g/dL Urine 02/04/18 Range/Units 19:10 Urine Color Colorless (Yellw/Straw) Urine Clarity Clear (Clear) Urine pH 6.0 (5.0-8.5) Ur Specific [place] 1.004 (1.002-1.035) Urine Protein Negative (Neg-Trace) mg/dL Urine Glucose (UA) Negative (Negative) mg/dL <Tyler Kelly III H - 02/05/18 13:20> - Imaging Chest X-Ray 02/03/18 12:09 CONCLUSION: Cardiomegaly with acute mild to moderate congestive changes. Abdomen/Bladder Ultrasound 02/04/18 18:12 CONCLUSION: 1. Ascites. 2. Increased echotexture of the renal parenchyma bilaterally characteristic of medical renal disease. 3. Bilateral pleural effusions. <Tyler Kelly III H - 02/05/18 13:20> Physical Exam Vital signs: Vital Signs 02/05/18 16:00 02/05/18 19:45 02/05/18 20:00 Temperature 98.5 F 99.3 F Pulse Rate 93 H 86 91 H Respiratory Rate 16 17 Blood Pressure 107/57 L 116/67 Pulse Oximetry 99 100 02/05/18 23:45 02/06/18 00:00 02/06/18 04:00 Temperature 98.7 F 98.9 F Pulse Rate 104 H 113 H 96 H Respiratory Rate 18 19 Blood Pressure 103/56 L 108/65 Pulse Oximetry 94 L 96 02/06/18 08:00 02/06/18 11:52 Temperature 99.1 F Pulse Rate 94 H Respiratory Rate 18 Blood Pressure 121/83 Pulse Oximetry 98 95 Intake & Output 02/05/18 02/06/18 02/06/18 18:59 06:59 18:59 Intake Total 940 / 940 100 / 100 Output Total 1800 / 1800 400 / 400 Balance -860 / -860 -300 / -300 Weight 41.2 kg Intake: IV 100 / 100 100 / 100 Flexbumin 25% Inj 100 ML @ 60 100 / 100 100 / 100 mls/hr IV.SIG Q12H [facility] Rx#: [id number] Oral 840 / 840 Output: Urine 1800 / 1800 400 / 400 Other: Date of Last Bowel Movement 02/04/18 # Bowel Movements 0 <Cordell Wen - 02/06/18 12:03> Vital Signs 02/04/18 16:00 02/04/18 17:21 02/04/18 20:00 Temperature 97.4 F L 97.8 F Pulse Rate 84 90 Respiratory Rate 16 17 Blood Pressure 105/69 101/64 Pulse Oximetry 98 98 99 02/05/18 00:00 02/05/18 04:00 02/05/18 08:00 Temperature 97.8 F 97.8 F 97.9 F Pulse Rate 88 91 H 85 Respiratory Rate 16 16 16 Blood Pressure 107/61 101/58 L 118/73 Pulse Oximetry 98 98 99 02/05/18 12:00 Temperature 98.0 F Pulse Rate 87 Respiratory Rate 16 Blood Pressure 101/56 L Pulse Oximetry 94 L Intake & Output 02/04/18 02/05/18 02/05/18 18:59 06:59 18:59 Intake Total 420 / 420 200 / 200 Output Total 1000 / 1000 3000 / 3000 Balance -580 / -580 -2800 / -2800 Weight 42.6 kg Intake: IV 200 / 200 Flexbumin 25% Inj 100 ML @ 60 200 / 200 mls/hr IV.SIG Q12H [facility] Rx#: [id number] Oral 420 / 420 Output: Urine 1000 / 1000 3000 / 3000 Other: # Bowel Movements 0 <Tyler Kelly III - 02/05/18 13:20> Narrative: GENERAL: NAD, resting comfortably in bed NEURO: AOx3. Normal speech. quality management nurse grossly intact. SKIN: Warm and dry. No rashes or erythema. HEAD: Normocephalic. Atraumatic. NECK: Supple, trachea midline. no JVD CARDIOVASCULAR: Regular rate and rhythm. Loud S1. No obvious murmur. RESPIRATORY: No respiratory distress. Equal breath sounds. No rhonchi or wheezing. Moves air poorly. GASTROINTESTINAL: Abdomen soft, non-tender, nondistended. No organomegaly or masses. MUSCULOSKELETAL: Trace edema bilateral ankles, significantly improved from admission. <Tyler Kelly III - 02/05/18 13:20> Assessment and Plan - Assessment (1) Acute exacerbation of CHF (congestive heart failure) Code(s): I50.9 - Heart failure, unspecified Status: Acute (2) Acute kidney injury Code(s): N17.9 - Acute kidney failure, unspecified Status: Acute (3) Acute hyponatremia Code(s): E87.1 - Hypo-osmolality and hyponatremia Status: Resolved (4) Hyperkalemia Code(s): E87.5 - Hyperkalemia Status: Resolved (5) NICM (nonischemic cardiomyopathy) Code(s): I42.8 - Other cardiomyopathies Status: Acute (6) ETOH abuse Code(s): F10.10 - Alcohol abuse, uncomplicated Status: Acute <Cordell Wen - 02/06/18 12:03> (1) Acute exacerbation of CHF (congestive heart failure) Code(s): I50.9 - Heart failure, unspecified Status: Acute (2) Acute kidney injury Code(s): N17.9 - Acute kidney failure, unspecified Status: Acute (3) Acute hyponatremia Code(s): E87.1 - Hypo-osmolality and hyponatremia Status: Resolved (4) Hyperkalemia Code(s): E87.5 - Hyperkalemia Status: Resolved (5) NICM (nonischemic cardiomyopathy) Code(s): I42.8 - Other cardiomyopathies Status: Acute (6) ETOH abuse Code(s): F10.10 - Alcohol abuse, uncomplicated Status: Acute <Tyler Kelly III - 02/05/18 13:10> - Assessment and Plan 42 year old man with PMH significant for severe systolic CHF, nonischemic cardiomyopathy, HIV and etoh abuse being admitted with acute on chronic CHF. Acute on chronic CHF - s/p 40 mg of IV Lasix in the ED - Continue diuresis with Lasix 40 mg IV bid - Monitor I/Os - Daily weights - Fluid restriction w/1L per day - Low sodium diet - Consult cardiology, appreciate recommendations - Last echo was on 01/18/18 which showed severely reduced LV systolic function with an eEF of 20% - Continue carvedilol at 3.125 mg bid - Started on Entresto bid and digoxin 125 mcg daily per cardiology recommendations Acute on chronic kidney disease - Likely due to low renal perfusion pressure due to his severe systolic heart failure - Anticipate this may improve with diuresis - Cr on admission 1.72; today improved to 1.44 - Baseline creatinine ~1.1-1.2 - Hold LETITIA inhibitor until renal function improves - Consult nephrology, appreciate recommendations - Renal ultrasound showing increased echotexture of the renal parenchyma bilaterally consistent with medical renal disease - Continue to monitor renal function - Avoid nephrotoxic medications Hyponatremia - May be due to the patient's severe HF and water retention - Continue fluid restriction to 1L daily - Resolved - Monitor BMPs q8h, if improving will monitor less frequently Hyperkalemia - Continue to monitor - No T wave changes on EKG - Potassium restriction to 40 meq in diet order Etoh abuse - [facility] protocol DVT ppx: b/l SCDs, ambulate as tolerated Dispo: when cleared by nephro and cardiology; possibly 02/06/[address] Wen <Tyler Kelly III - 02/05/18 13:20> - Attending Attestation See the residents documentation for details. I saw and evaluated the patient regarding the kwon portions of this evaluation and agree with the residents findings and plans as written. Parts of this note were created using [employer] voice recognition software program. While efforts were made to correct any mistakes made by this software, some mistakes, errors, and omissions may remain in the final note that were not caught when the note was originally created. Plan of care was discussed and agreed upon with the patient as specifically documented in the above note. An opportunity to ask questions with explanation was provided. Patient voiced understanding on all information reviewed and discussed. <Cordell Wen - 02/06/18 12:03> <Tyler Kelly III - Last Filed: 02/05/18 13:10> (1) Acute exacerbation of CHF (congestive heart failure) Qualifiers: Heart failure type: systolic Qualified Code(s): I50.23 - Acute on chronic systolic (congestive) heart failure <Cordell Wen - Last Filed: 02/06/18 12:03> (1) Acute exacerbation of CHF (congestive heart failure) Qualifiers: Heart failure type: systolic Qualified Code(s): I50.23 - Acute on chronic systolic (congestive) heart failure <Tyler Kelly III - Last Filed: 02/05/18 13:10> (1) Acute exacerbation of CHF (congestive heart failure) Qualifiers: Heart failure type: systolic Qualified Code(s): I50.23 - Acute on chronic systolic (congestive) heart failure <Cordell Wen - Last Filed: 02/06/18 12:03> (1) Acute exacerbation of CHF (congestive heart failure) Qualifiers: Heart failure type: systolic Qualified Code(s): I50.23 - Acute on chronic systolic (congestive) heart failure
--- NOTE | 2018-02-05 15:03 | P.PNNP ---
Subjective Interval history: no acute complaints Physical Exam Vital signs: Vital Signs 02/04/18 16:00 02/04/18 17:21 02/04/18 20:00 Temperature 97.4 F L 97.8 F Pulse Rate 84 90 Respiratory Rate 16 17 Blood Pressure 105/69 101/64 Pulse Oximetry 98 98 99 02/05/18 00:00 02/05/18 04:00 02/05/18 08:00 Temperature 97.8 F 97.8 F 97.9 F Pulse Rate 88 91 H 85 Respiratory Rate 16 16 16 Blood Pressure 107/61 101/58 L 118/73 Pulse Oximetry 98 98 99 02/05/18 12:00 Temperature 98.0 F Pulse Rate 87 Respiratory Rate 16 Blood Pressure 101/56 L Pulse Oximetry 94 L Intake & Output 02/04/18 02/05/18 02/05/18 18:59 06:59 18:59 Intake Total 420 / 420 200 / 200 Output Total 1000 / 1000 3000 / 3000 Balance -580 / -580 -2800 / -2800 Weight 42.6 kg Intake: IV 200 / 200 Flexbumin 25% Inj 100 ML @ 60 200 / 200 mls/hr IV.SIG Q12H [facility] Rx#: [id number] Oral 420 / 420 Output: Urine 1000 / 1000 3000 / 3000 Other: Date of Last Bowel Movement 02/04/18 # Bowel Movements 0 - Constitutional no acute distress - Routine HEENT Exam Head: Present: normocephalic Eye: Present: EOMI ENT: Present: mucous membranes moist - Routine Neck Exam Present: supple - Routine Respiratory Exam Present: decreased breath sounds - Routine Cardiovascular Exam Present: RRR - Routine Abdominal Exam Present: soft - Routine Skin Exam Present: intact - Routine Neurological Exam Present: alert - Detailed Neurological Exam: Coma Scale Eye Opening: Spontaneous - Routine Psychiatric Exam Present: normal affect Assessment and Plan - Assessment (1) Acute kidney injury Code(s): N17.9 - Acute kidney failure, unspecified Status: Acute (2) Acute exacerbation of CHF (congestive heart failure) Code(s): I50.9 - Heart failure, unspecified Status: Acute Qualifiers: Heart failure type: systolic Qualified Code(s): I50.23 - Acute on chronic systolic (congestive) heart failure (3) ETOH abuse Code(s): F10.10 - Alcohol abuse, uncomplicated Status: Acute (4) Acute hyponatremia Code(s): E87.1 - Hypo-osmolality and hyponatremia Status: Resolved (5) Hyperkalemia Code(s): E87.5 - Hyperkalemia Status: Acute - Plan Patient has cardiorenal syndrome and has decompensated congestive heart failure due to hypoperfusion of the kidney, he is going into multiorgan failure likely due to poor perfusion of the kidney He has severe marked cardiomyopathy There is history of HIV test positive on 12/2016 seen by ID and recommended to follow at [facility], and now he claims his HIV test was negative about 1 week ago. Repeat test pending Renal ultrasound with echogenic kidneys, suggestive of CKD Creatinine improvin.6 -> 1.4 -> 1.4 On Lasix 40 mg IV every 12 hours with albumin infusion no significant proteinuria 4L UOP/24 hours Low potassium diet continue with diuresis that will improve potassium losses as well Abnormal LFTs due to congestion Follow BMP. Stable for d/c from renal standpoint - possible D/C tomorrow
[2018-02-06] MEDS: Albumin Human 25% Inj 100 ML IV.SIG SCH ×2 (05:23→17:38)
[2018-02-06 07:02] LABS: Hematocrit 36.4 % (39.0-51.0); Hemoglobin 11.9 gm/dL (13.0-17.0); Mean Corpuscular HGB Conc 32.7 % (32.0-36.0); Mean Corpuscular Hemoglobin 29.3 pg (27.0-34.0); Mean Corpuscular Volume 89.5 fL (80.0-100.0); Mean Platelet Volume 8.4 fL (7.0-11.0); Platelet Count 343 th/mm3 (150-450); Red Blood Count 4.07 mil/mm3 (4.50-5.90); Red Cell Distribution Width 14.4 % (11.6-17.2); White Blood Count 5.3 th/mm3 (4.0-11.0)
[2018-02-06 07:32] LABS: Albumin 3.2 g/dL (3.4-5.0); Anion Gap 10 meq/L (5-15); Aspartate Aminotransferase 39 U/L (15-37); Blood Urea Nitrogen 26 mg/dL (7-18); Carbon Dioxide 29.3 meq/L (21.0-32.0); Chloride 101 meq/L (98-107); Glomerular Filtration Rate Greater Than 89 mL/min (>89); Glucose,Random 104 mg/dL (74-106); Potassium 3.2 meq/L (3.5-5.1); Sodium 140 meq/L (136-145)
[2018-02-06 07:45] LABS: Alanine Aminotransferase 40 U/L (12-78); Alkaline Phosphatase 126 U/L (45-117); Digoxin 0.7 ng/mL (0.8-2.0); Total Protein 6.2 g/dL (6.4-8.2)
[2018-02-06] MEDS ORDERED: fentaNYL Citrate Inj 100 MCG/2 ML Ampul EPIDURAL ONE (08:07)
[2018-02-06] MEDS ORDERED: fentaNYL 2MCG-Bupiv 0.125% Epi 150 ML EPIDURAL PRN (08:07)
--- NOTE | 2018-02-06 08:18 | P.PNCA ---
Subjective Interval history: Patient reports today some tingling and cramping in his extremities, potassium noted to be low. He reports shortness of breath has improved and reports good urine output with diuresis. Creatinine has trended down to normal today. - 1100 fluid balance overnight, patient reports he feels like his mouth is very dry. No chest pain or palpitations. Medications and Allergies Allergies Allergy/AdvReac Type Severity Reaction Status Date / Time No Known Allergies Allergy Unknown NONE Uncoded 01/17/18 14:38 Active Medications: Active Medications Al Hydroxide/Mg Hydroxide (Milk Of Jose Martin Pablo) 30 ml PO Q12H PRN PRN Reason: Mild Constipation Aspirin (Aspirin Chew) 81 mg PO DAILY [facility] Last Admin: 02/05/18 08:34 Dose: 81 mg Carvedilol (Coreg) 3.125 mg PO BID [facility] Last Admin: 02/05/18 20:07 Dose: 3.125 mg Digoxin (Lanoxin) 125 mcg PO DAILY [facility] Last Admin: 02/05/18 08:34 Dose: 125 mcg Ephedrine Sulfate (Ephedrine/Ns Syringe) 10 mg IV.PUSH UNSCH PRN PRN Reason: SEE LABEL COMMENTS Stop: 02/07/18 08:08 Flumazenil (Romazecon Inj) 0.2 mg IV.PUSH Q1M PRN PRN Reason: OVERSEDATION Furosemide (Lasix) 40 mg PO BID@0900,1800 [facility] Haloperidol Lactate (Haldol Inj) 1 mg IV.PUSH Q15M PRN PRN Reason: for severe agitation Albumin Human (Flexbumin 25% Inj) 100 mls @ 60 mls/hr IV.SIG Q12H [facility] Last Infusion: 02/06/18 06:33 Dose: Infused Fentanyl/Bupivacaine/Sodium Chlor (Fentanyl 2 Mcg-Bupiv 0.125% Epi) 150 mls @ 10 mls/hr EPIDURAL PRN PRN PRN Reason: for Labor Pain Levothyroxine Sodium (Synthroid) 25 mcg PO DAILY@0600 [facility] Last Admin: 02/06/18 05:23 Dose: 25 mcg Lorazepam (Ativan) 1 mg PO Q4H PRN PRN Reason: for CIWA 8-10 Lorazepam (Ativan) 2 mg PO Q2H PRN PRN Reason: for CIWA 11-14 Lorazepam (Ativan Inj) 2 mg IV.PUSH Q2H PRN PRN Reason: for CIWA 11-14 Lorazepam (Ativan Inj) 2 mg IV.PUSH Q1H PRN PRN Reason: for CIWA 15-20 Lorazepam (Ativan Inj) 2 mg IV.PUSH Q15M PRN PRN Reason: for CIWA > 20 Lorazepam (Ativan Inj) 1 mg IV.PUSH Q4H PRN PRN Reason: for CIWA 8-10 Miscellaneous Information (Misc Information) 1 each OTHER UNSCH PRN PRN Reason: SEE LABEL COMMENTS Stop: 02/07/18 08:08 Miscellaneous Information (Misc Information) 1 each OTHER UNSCH PRN PRN Reason: SEE LABEL COMMENTS Stop: 02/07/18 08:08 Potassium Chloride (K-Dur) 20 meq PO ONCE ONE Stop: 02/06/18 09:01 Sacubitril/Valsartan (Entresto 24 Mg/26 Mg Tablet) 1 tab PO BID [facility] Last Admin: 02/05/18 20:07 Dose: 1 tab Sennosides (Senokot) 17.2 mg PO Q12H PRN PRN Reason: Moderate Constipation Physical Exam Vital signs: Vital Signs 02/05/18 12:00 02/05/18 16:00 02/05/18 19:45 Temperature 98.0 F 98.5 F Pulse Rate 87 93 H 86 Respiratory Rate 16 16 Blood Pressure 101/56 L 107/57 L Pulse Oximetry 94 L 99 02/05/18 20:00 02/05/18 23:45 02/06/18 00:00 Temperature 99.3 F 98.7 F Pulse Rate 91 H 104 H 113 H Respiratory Rate 17 18 Blood Pressure 116/67 103/56 L Pulse Oximetry 100 94 L 02/06/18 04:00 02/06/18 08:00 Temperature 98.9 F 99.1 F Pulse Rate 96 H 93 H Respiratory Rate 19 18 Blood Pressure 108/65 121/83 Pulse Oximetry 96 100 Intake & Output 02/05/18 02/06/18 02/06/18 18:59 06:59 18:59 Intake Total 940 / 940 100 / 100 Output Total 1800 / 1800 400 / 400 Balance -860 / -860 -300 / -300 Weight 90 lb 13.287 oz Intake: IV 100 / 100 100 / 100 Flexbumin 25% Inj 100 ML @ 60 100 / 100 100 / 100 mls/hr IV.SIG Q12H [facility] Rx#: [id number] Oral 840 / 840 Output: Urine 1800 / 1800 400 / 400 Other: Date of Last Bowel Movement 02/04/18 # Bowel Movements 0 Narrative: GENERAL: Well-developed fair-nourished thin patient. In no acute distress. NECK: No carotid bruits. No JVD. CARDIOVASCULAR: Regular rate and rhythm. No murmur appreciated. RESPIRATORY: No accessory muscle use. Clear to auscultation. Breath sounds equal bilaterally. MUSCULOSKELETAL: No clubbing or cyanosis. No edema. NEUROLOGICAL: Awake and alert. Normal speech. Results 02/06/18 06:37 02/06/18 06:37 Cardiac Enzymes 02/05/18 02/06/18 Range/Units 02:43 06:37 AST 48 H 39 H (15-37) U/L CBC 02/05/18 02/06/18 Range/Units 02:43 06:37 WBC 6.9 5.3 (4.0-11.0) th/mm3 RBC 4.09 L 4.07 L (4.50-5.90) mil/mm3 Hgb 12.2 L 11.9 L (13.0-17.0) gm/dL Hct 35.8 L 36.4 L (39.0-51.0) % Plt Count 341 343 (150-450) th/mm3 Neut # (Auto) 5.8 (1.8-7.7) th/mm3 Lymph # (Auto) 0.6 L (1.0-4.8) th/mm3 [place] # (Auto) 0.5 (0.0-0.9) th/mm3 Eos # (Auto) 0.0 (0.0-0.4) th/mm3 Baso # (Auto) 0.0 (0.0-0.2) th/mm3 Comprehensive Metabolic Panel 02/04/18 02/04/18 02/04/18 Range/Units 07:35 11:25 18:42 Sodium 126 L 127 L 127 L (136-145) meq/L Potassium 5.9 H 4.6 D 4.4 (3.5-5.1) meq/L Chloride 92 L 93 L 95 L (98-107) meq/L Carbon Dioxide 19.3 L 17.7 L 19.8 L (21.0-32.0) meq/L BUN 40 H 40 H 39 H (7-18) mg/dL Creatinine 1.67 H 1.64 H 1.48 H (0.60-1.30) mg/dL Calcium 8.3 L 8.4 L 8.1 L (8.5-10.1) mg/dL AST (15-37) U/L ALT (12-78) U/L Alkaline Phosphatase (45-117) U/L Total Protein 6.0 L D (6.4-8.2) g/dL Albumin (3.4-5.0) g/dL 02/05/18 02/06/18 Range/Units 02:43 06:37 Sodium 135 L 140 (136-145) meq/L Potassium 3.5 D 3.2 L (3.5-5.1) meq/L Chloride 97 L 101 (98-107) meq/L Carbon Dioxide 27.3 29.3 (21.0-32.0) meq/L BUN 38 H 26 H (7-18) mg/dL Creatinine 1.44 H 1.03 (0.60-1.30) mg/dL Calcium 7.9 L 8.0 L (8.5-10.1) mg/dL AST 48 H 39 H (15-37) U/L ALT 48 40 (12-78) U/L Alkaline Phosphatase 171 H 126 H (45-117) U/L Total Protein 5.9 L 6.2 L (6.4-8.2) g/dL Albumin 2.2 L 3.2 L D (3.4-5.0) g/dL Intake and Output 02/05/18 02/06/18 02/06/18 22:59 06:59 14:59 Intake Total 620 / 620 100 / 100 Output Total 400 / 400 Balance 620 / 620 -300 / -300 Intake: IV 100 / 100 100 / 100 Flexbumin 25% Inj 100 ML @ 60 100 / 100 100 / 100 mls/hr IV.SIG Q12H [facility] Rx#: [id number] Oral 520 / 520 Output: Urine 400 / 400 Other: Weight 90 lb 13.287 oz - Imaging and Cardiology Imaging: Impressions Abdomen/Bladder Ultrasound 02/04/18 18:12 CONCLUSION: 1. Ascites. 2. Increased echotexture of the renal parenchyma bilaterally characteristic of medical renal disease. 3. Bilateral pleural effusions. Assessment and Plan - Assessment (1) Acute on chronic systolic congestive heart failure, NYHA class 3 Code(s): I50.23 - Acute on chronic systolic (congestive) heart failure Status : Acute (2) NICM (nonischemic cardiomyopathy) Code(s): I42.8 - Other cardiomyopathies Status: Acute (3) Acute kidney injury Code(s): N17.9 - Acute kidney failure, unspecified Status: Acute - Plan Acute on chronic systolic congestive heart failure Nonischemic cardiomyopathy EF 20% Cardiorenal syndrome clinically improving. Continue Entresto, low dose carvedilol 3.125mg BID, digoxin 125 digoxin levels in normal range. Creatinine returned to normal and nephrology has cleared for discharge Change Lasix 40 mg twice daily to p.o. Replenish potassium and check magnesium level Continue to monitor I's and O's, electrolytes, and renal function Discharge planning hopefully for tomorrow. Emphasize dietary salt restriction and medication compliance Case management may need to help us coordinate outpatient medication compliance. Discussed Condition With: Patient, Dr. Fabian - Attending Attestation Clinically much improved. Convert to oral diuretic today. Coordinate for discharge tomorrow. Case management involved. Medications planned for discharge: coreg 3.125 BID, lasix 40 daily, Kdur 20 mEq QD, digoxin 0.125 daily, aspirin 81 daily, Entresto daily (if unable to afford entresto, then discharge on lisinopril 5 mg daily). Can consider the addition of Aldactone in the outpatient setting. FU at [facility]
[2018-02-06 09:14] LABS: Magnesium 2.1 mg/dL (1.5-2.5)
[2018-02-06] MEDS: Furosemide 40 MG Tablet PO SCH ×2 (09:44→18:47)
[2018-02-06] MEDS: Digoxin 125 MCG Tablet PO SCH (09:44)
--- NOTE | 2018-02-06 10:02 | P.PNFP ---
Subjective Interval history: Seen and examined at bedside this morning. He does report some tingling and cramping of his hands and feet. He does have hypokalemia. He reports a good appetite and good urine output. He denies shortness of breath , chest pain. There was discussed with patient that we still waiting for a HIV RNA viral load. Patient is ready to go home but concerned about when he will be able to work again. We discussed with him that he will be able to participate in activity as tolerated. It was also discussed the importance of continuing the medications that were started during his hospitalization that he does not have acute exacerbations and require additional hospitalizations. He voiced understanding. All of his questions were answered to the best of my ability. <Indu Ram - 02/06/18 12:20> Results - Labs Result diagrams: 02/07/18 04:12 02/07/18 04:12 <Cordell Wen - 02/09/18 09:41> Abnormal lab results 02/06/18 02/06/18 Range/Units 06:37 06:37 RBC 4.07 L (4.50-5.90) mil/mm3 Hgb 11.9 L (13.0-17.0) gm/dL Hct 36.4 L (39.0-51.0) % Potassium 3.2 L (3.5-5.1) meq/L BUN 26 H (7-18) mg/dL Calcium 8.0 L (8.5-10.1) mg/dL AST 39 H (15-37) U/L Alkaline Phosphatase 126 H (45-117) U/L Total Protein 6.2 L (6.4-8.2) g/dL Albumin 3.2 L D (3.4-5.0) g/dL Digoxin 0.7 L (0.8-2.0) ng/mL Short CBC 02/06/18 Range/Units 06:37 WBC 5.3 (4.0-11.0) th/mm3 Hgb 11.9 L (13.0-17.0) gm/dL Hct 36.4 L (39.0-51.0) % Plt Count 343 (150-450) th/mm3 BMP 02/06/18 06:37 Sodium 140 Potassium 3.2 L Chloride 101 Carbon Dioxide 29.3 BUN 26 H Creatinine 1.03 Calcium 8.0 L Liver Function 02/06/18 Range/Units 06:37 Total Bilirubin 0.4 (0.2-1.0) mg/dL AST 39 H (15-37) U/L ALT 40 (12-78) U/L Alkaline Phosphatase 126 H (45-117) U/L Albumin 3.2 L D (3.4-5.0) g/dL <Jamel Ramchelsey Norman - 02/06/18 10:02> Physical Exam Vital signs: Vital Signs 02/05/18 12:00 02/05/18 16:00 02/05/18 19:45 Temperature 98.0 F 98.5 F Pulse Rate 87 93 H 86 Respiratory Rate 16 16 Blood Pressure 101/56 L 107/57 L Pulse Oximetry 94 L 99 02/05/18 20:00 02/05/18 23:45 02/06/18 00:00 Temperature 99.3 F 98.7 F Pulse Rate 91 H 104 H 113 H Respiratory Rate 17 18 Blood Pressure 116/67 103/56 L Pulse Oximetry 100 94 L 02/06/18 04:00 02/06/18 08:00 Temperature 98.9 F 99.1 F Pulse Rate 96 H 93 H Respiratory Rate 19 18 Blood Pressure 108/65 121/83 Pulse Oximetry 96 100 Intake & Output 02/05/18 02/06/18 02/06/18 18:59 06:59 18:59 Intake Total 940 / 940 100 / 100 Output Total 1800 / 1800 400 / 400 Balance -860 / -860 -300 / -300 Weight 41.2 kg Intake: IV 100 / 100 100 / 100 Flexbumin 25% Inj 100 ML @ 60 100 / 100 100 / 100 mls/hr IV.SIG Q12H [facility] Rx#: [id number] Oral 840 / 840 Output: Urine 1800 / 1800 400 / 400 Other: Date of Last Bowel Movement 02/04/18 # Bowel Movements 0 <Indu Ram - 02/06/18 10:02> Narrative: GENERAL: Pleasant, frail, resting comfortably in hospital bed in no acute distress SKIN: No rashes, ecchymoses or lesions. Cool and dry. HEAD: Atraumatic. Normocephalic. EYES: No scleral icterus. No injection or drainage. ENT: Nose without bleeding, purulent drainage or septal hematoma. CARDIOVASCULAR: Regular rate and rhythm without murmurs, gallops, or rubs. RESPIRATORY: Clear to auscultation. Breath sounds equal bilaterally. No wheezes , rales, or rhonchi. GASTROINTESTINAL: Abdomen soft, non-tender. Positive bowel sounds. MUSCULOSKELETAL: Bilateral pedal edema NEUROLOGICAL: Awake and alert. Normal speech. <Indu Ram - 02/06/18 12:20> Assessment and Plan - Assessment (1) Acute exacerbation of CHF (congestive heart failure) Code(s): I50.9 - Heart failure, unspecified Status: Acute (2) Acute kidney injury Code(s): N17.9 - Acute kidney failure, unspecified Status: Acute (3) Acute hyponatremia Code(s): E87.1 - Hypo-osmolality and hyponatremia Status: Resolved (4) Hyperkalemia Code(s): E87.5 - Hyperkalemia Status: Resolved (5) NICM (nonischemic cardiomyopathy) Code(s): I42.8 - Other cardiomyopathies Status: Acute (6) ETOH abuse Code(s): F10.10 - Alcohol abuse, uncomplicated Status: Acute <BehzadCordell - 02/09/18 09:41> (1) Acute exacerbation of CHF (congestive heart failure) Code(s): I50.9 - Heart failure, unspecified Status: Acute (2) Acute kidney injury Code(s): N17.9 - Acute kidney failure, unspecified Status: Acute (3) Acute hyponatremia Code(s): E87.1 - Hypo-osmolality and hyponatremia Status: Resolved (4) Hyperkalemia Code(s): E87.5 - Hyperkalemia Status: Resolved (5) NICM (nonischemic cardiomyopathy) Code(s): I42.8 - Other cardiomyopathies Status: Acute (6) ETOH abuse Code(s): F10.10 - Alcohol abuse, uncomplicated Status: Acute <Indu Ram - 02/06/18 12:07> - Assessment and Plan 42 year old man with PMH significant for severe systolic CHF, nonischemic cardiomyopathy, HIV and etoh abuse being admitted with acute on chronic CHF. Acute on chronic CHF - s/p 40 mg of IV Lasix in the ED - switch diuresis with Lasix 40 mg IV BID to 40 mg PO BID - Monitor I/Os - Daily weights - Fluid restriction w/1L per day - Low sodium diet - Consult cardiology, appreciate recommendations - Last echo was on 01/18/18 which showed severely reduced LV systolic function with an eEF of 20% - Continue carvedilol at 3.125 mg bid - Continue Entresto BID and digoxin 125 mcg daily per cardiology recommendations Acute on chronic kidney disease - Likely due to low renal perfusion pressure due to his severe systolic heart failure - Anticipate this may improve with diuresis - Cr on admission 1.72; today improved to 1.03 - Baseline creatinine ~1.1-1.2 - Hold LETITIA inhibitor - Consult nephrology, appreciate recommendations - Renal ultrasound showing increased echotexture of the renal parenchyma bilaterally consistent with medical renal disease - Continue to monitor renal function - Avoid nephrotoxic medications Hyponatremia - May be due to the patient's severe HF and water retention. Resolved Na @ 140 - Continue fluid restriction to 1L daily - Resolved - Monitor BMPs Hyperkalemia- RESOLVED - Continue to monitor - No T wave changes on EKG - Potassium restriction to 40 meq in diet order Etoh abuse - CIWA protocol DVT ppx: b/l SCDs, ambulate as tolerated Dispo: Nephrology has cleared. when cleared by nephro and cardiology; possibly 02/07/[address] Wen <Indu Ram - 02/06/18 12:20> - Attending Attestation See the residents documentation for details. I saw and evaluated the patient regarding the kwon portions of this evaluation and agree with the residents findings and plans as written. Parts of this note were created using [employer] voice recognition software program. While efforts were made to correct any mistakes made by this software, some mistakes, errors, and omissions may remain in the final note that were not caught when the note was originally created. Plan of care was discussed and agreed upon with the patient as specifically documented in the above note. An opportunity to ask questions with explanation was provided. Patient voiced understanding on all information reviewed and discussed. <Cordell Wen - 02/09/18 09:41> <Indu Ram - Last Filed: 02/06/18 12:07> (1) Acute exacerbation of CHF (congestive heart failure) Qualifiers: Heart failure type: systolic Qualified Code(s): I50.23 - Acute on chronic systolic (congestive) heart failure <Cordell Wen - Last Filed: 02/09/18 09:41> (1) Acute exacerbation of CHF (congestive heart failure) Qualifiers: Heart failure type: systolic Qualified Code(s): I50.23 - Acute on chronic systolic (congestive) heart failure <Indu Ram - Last Filed: 02/06/18 12:07> (1) Acute exacerbation of CHF (congestive heart failure) Qualifiers: Heart failure type: systolic Qualified Code(s): I50.23 - Acute on chronic systolic (congestive) heart failure <Cordell Wen - Last Filed: 02/09/18 09:41> (1) Acute exacerbation of CHF (congestive heart failure) Qualifiers: Heart failure type: systolic Qualified Code(s): I50.23 - Acute on chronic systolic (congestive) heart failure
--- NOTE | 2018-02-06 17:39 | P.PNNP ---
Subjective Interval history: Patient is at baseline Physical Exam Vital signs: Vital Signs 02/05/18 19:45 02/05/18 20:00 02/05/18 23:45 Temperature 99.3 F Pulse Rate 86 91 H 104 H Respiratory Rate 17 Blood Pressure 116/67 Pulse Oximetry 100 02/06/18 00:00 02/06/18 04:00 02/06/18 08:00 Temperature 98.7 F 98.9 F 99.1 F Pulse Rate 113 H 96 H 94 H Respiratory Rate 18 19 18 Blood Pressure 103/56 L 108/65 121/83 Pulse Oximetry 94 L 96 98 02/06/18 11:52 02/06/18 12:00 02/06/18 16:00 Temperature 99.1 F 98.2 F Pulse Rate 118 H 102 H Respiratory Rate 18 18 Blood Pressure 135/90 136/86 Pulse Oximetry 95 95 99 Intake & Output 02/05/18 02/06/18 02/06/18 18:59 06:59 18:59 Intake Total 940 / 940 100 / 100 Output Total 1800 / 1800 400 / 400 Balance -860 / -860 -300 / -300 Weight 41.2 kg Intake: IV 100 / 100 100 / 100 Flexbumin 25% Inj 100 ML @ 60 100 / 100 100 / 100 mls/hr IV.SIG Q12H [facility] Rx#: [id number] Oral 840 / 840 Output: Urine 1800 / 1800 400 / 400 Other: Date of Last Bowel Movement 02/04/18 02/05/18 # Bowel Movements 0 Narrative: GENERAL: Pleasant, frail, resting comfortably in hospital bed in no acute distress SKIN: No rashes, ecchymoses or lesions. Cool and dry. HEAD: Atraumatic. Normocephalic. EYES: No scleral icterus. No injection or drainage. ENT: Nose without bleeding, purulent drainage or septal hematoma. CARDIOVASCULAR: Regular rate and rhythm without murmurs, gallops, or rubs. RESPIRATORY: Clear to auscultation. Breath sounds equal bilaterally. No wheezes , rales, or rhonchi. GASTROINTESTINAL: Abdomen soft, non-tender. Positive bowel sounds. MUSCULOSKELETAL: Bilateral pedal edema NEUROLOGICAL: Awake and alert. Normal speech. Assessment and Plan - Assessment (1) Acute kidney injury Code(s): N17.9 - Acute kidney failure, unspecified Status: Acute (2) Acute exacerbation of CHF (congestive heart failure) Code(s): I50.9 - Heart failure, unspecified Status: Acute Qualifiers: Heart failure type: systolic Qualified Code(s): I50.23 - Acute on chronic systolic (congestive) heart failure (3) ETOH abuse Code(s): F10.10 - Alcohol abuse, uncomplicated Status: Acute (4) Acute hyponatremia Code(s): E87.1 - Hypo-osmolality and hyponatremia Status: Resolved (5) Hyperkalemia Code(s): E87.5 - Hyperkalemia Status: Acute - Plan Patient has cardiorenal syndrome and has decompensated congestive heart failure due to hypoperfusion of the kidney, he is going into multiorgan failure likely due to poor perfusion of the kidney He has severe marked cardiomyopathy There is history of HIV test positive on 12/2016 seen by ID and recommended to follow at [facility], and now he claims his HIV test was negative about 1 week ago. Repeat test pending Renal ultrasound with echogenic kidneys, suggestive of CKD Creatinine improvin.6 -> 1.4 -> 1.4-> 1.03 On Lasix 40 mg p.o. every 12 hours with albumin infusion no significant proteinuria Potassium supplement 8 milliequivalents twice daily added Stable for d/c from renal standpoint - possible D/C tomorrow Nephrology to sign off
[2018-02-06] MEDS ORDERED: Potassium Chloride 8 MEQ ER Capsule PO SCH (21:00)
[2018-02-07 05:11] LABS: Hemoglobin 12.3 gm/dL (13.0-17.0); Mean Corpuscular HGB Conc 33.4 % (32.0-36.0); Mean Corpuscular Hemoglobin 29.8 pg (27.0-34.0); Mean Corpuscular Volume 89.3 fL (80.0-100.0); Mean Platelet Volume 8.7 fL (7.0-11.0); Platelet Count 371 th/mm3 (150-450); Red Blood Count 4.14 mil/mm3 (4.50-5.90); Red Cell Distribution Width 14.5 % (11.6-17.2); White Blood Count 5.4 th/mm3 (4.0-11.0)
[2018-02-07 05:36] LABS: Alanine Aminotransferase 44 U/L (12-78); Albumin 3.1 g/dL (3.4-5.0); Anion Gap 8 meq/L (5-15); Aspartate Aminotransferase 48 U/L (15-37); Blood Urea Nitrogen 24 mg/dL (7-18); Calcium 8.1 mg/dL (8.5-10.1); Carbon Dioxide 29.1 meq/L (21.0-32.0); Chloride 101 meq/L (98-107); Glomerular Filtration Rate Greater Than 89 mL/min (>89); Glucose,Random 142 mg/dL (74-106); Potassium 3.4 meq/L (3.5-5.1); Sodium 138 meq/L (136-145)
[2018-02-07] MEDS: Albumin Human 25% Inj 100 ML IV.SIG SCH (05:38)
[2018-02-07 05:39] LABS: Alkaline Phosphatase 135 U/L (45-117); Total Protein 6.4 g/dL (6.4-8.2)
[2018-02-07 06:43] VITALS: RESP 16
--- NOTE | 2018-02-07 08:15 | P.PNCA ---
Subjective Interval history: Symptomatically improved. Ready for discharge. Medications and Allergies Active Medications: Active Medications Al Hydroxide/Mg Hydroxide (Milk Of Jose Martin Pablo) 30 ml PO Q12H PRN PRN Reason: Mild Constipation Aspirin (Aspirin Chew) 81 mg PO DAILY [facility] Last Admin: 02/06/18 09:44 Dose: 81 mg Carvedilol (Coreg) 3.125 mg PO BID [facility] Last Admin: 02/06/18 20:41 Dose: 3.125 mg Digoxin (Lanoxin) 125 mcg PO DAILY [facility] Last Admin: 02/06/18 09:44 Dose: 125 mcg Flumazenil (Romazecon Inj) 0.2 mg IV.PUSH Q1M PRN PRN Reason: OVERSEDATION Furosemide (Lasix) 20 mg PO DAILY [facility] Haloperidol Lactate (Haldol Inj) 1 mg IV.PUSH Q15M PRN PRN Reason: for severe agitation Albumin Human (Flexbumin 25% Inj) 100 mls @ 60 mls/hr IV.SIG Q12H [facility] Last Infusion: 02/07/18 07:20 Dose: Infused Levothyroxine Sodium (Synthroid) 25 mcg PO DAILY@0600 [facility] Last Admin: 02/07/18 05:37 Dose: 25 mcg Lorazepam (Ativan) 1 mg PO Q4H PRN PRN Reason: for CIWA 8-10 Lorazepam (Ativan) 2 mg PO Q2H PRN PRN Reason: for CIWA 11-14 Lorazepam (Ativan Inj) 2 mg IV.PUSH Q2H PRN PRN Reason: for CIWA 11-14 Lorazepam (Ativan Inj) 2 mg IV.PUSH Q1H PRN PRN Reason: for CIWA 15-20 Lorazepam (Ativan Inj) 2 mg IV.PUSH Q15M PRN PRN Reason: for CIWA > 20 Lorazepam (Ativan Inj) 1 mg IV.PUSH Q4H PRN PRN Reason: for CIWA 8-10 Potassium Chloride (Klor-Con 8) 8 meq PO BID [facility] Sacubitril/Valsartan (Entresto 24 Mg/26 Mg Tablet) 1 tab PO BID [facility] Last Admin: 02/06/18 20:41 Dose: 1 tab Sennosides (Senokot) 17.2 mg PO Q12H PRN PRN Reason: Moderate Constipation Allergies Allergy/AdvReac Type Severity Reaction Status Date / Time No Known Allergies Allergy Unknown NONE Uncoded 01/17/18 14:38 Physical Exam Vital signs: Vital Signs 02/06/18 11:52 02/06/18 12:00 02/06/18 16:00 Temperature 99.1 F 98.2 F Pulse Rate 118 H 101 H Respiratory Rate 18 18 Blood Pressure 135/90 136/86 Pulse Oximetry 95 95 99 02/06/18 20:00 02/07/18 00:00 02/07/18 04:00 Temperature 98.5 F 99.2 F 98.4 F Pulse Rate 117 H 117 H 110 H Respiratory Rate 16 14 16 Blood Pressure 127/81 119/82 133/89 Pulse Oximetry 99 97 99 02/07/18 06:00 02/07/18 07:48 Temperature Pulse Rate 107 H Respiratory Rate Blood Pressure Pulse Oximetry 98 Intake & Output 02/06/18 02/07/18 02/07/18 18:59 06:59 18:59 Intake Total 500 / 500 200 / 200 100 / 100 Output Total 1550 / 1550 1175 / 1175 Balance -1050 / -1050 -975 / -975 100 / 100 Weight 36.8 kg Intake: IV 100 / 100 100 / 100 Flexbumin 25% Inj 100 ML @ 60 100 / 100 100 / 100 mls/hr IV.SIG Q12H [facility] Rx#: [id number] Oral 500 / 500 100 / 100 Output: Urine 1550 / 1550 1175 / 1175 Other: Date of Last Bowel Movement 02/05/18 - Constitutional no acute distress - Routine HEENT Exam Head: Present: normocephalic Eye: Present: EOMI, PERRL ENT: Present: mucous membranes moist - Routine Neck Exam Absent: JVD - Routine Respiratory Exam Present: CTA bilaterally - Routine Cardiovascular Exam Present: RRR. Absent: murmur - Routine Abdominal Exam Present: normoactive bowel sounds - Routine Skin Exam Absent: erythema - Routine Neurological Exam Present: oriented X3, CN II-XII intact. Absent: sensory deficit, motor deficit Results 02/07/18 04:12 02/07/18 04:12 Cardiac Enzymes 02/06/18 02/07/18 Range/Units 06:37 04:12 AST 39 H 48 H (15-37) U/L CBC 02/06/18 02/07/18 Range/Units 06:37 04:12 WBC 5.3 5.4 (4.0-11.0) th/mm3 RBC 4.07 L 4.14 L (4.50-5.90) mil/mm3 Hgb 11.9 L 12.3 L (13.0-17.0) gm/dL Hct 36.4 L 37.0 L (39.0-51.0) % Plt Count 343 371 (150-450) th/mm3 Comprehensive Metabolic Panel 02/06/18 02/07/18 Range/Units 06:37 04:12 Sodium 140 138 (136-145) meq/L Potassium 3.2 L 3.4 L (3.5-5.1) meq/L Chloride 101 101 (98-107) meq/L Carbon Dioxide 29.3 29.1 (21.0-32.0) meq/L BUN 26 H 24 H (7-18) mg/dL Creatinine 1.03 1.05 (0.60-1.30) mg/dL Calcium 8.0 L 8.1 L (8.5-10.1) mg/dL AST 39 H 48 H (15-37) U/L ALT 40 44 (12-78) U/L Alkaline Phosphatase 126 H 135 H (45-117) U/L Total Protein 6.2 L 6.4 (6.4-8.2) g/dL Albumin 3.2 L D 3.1 L (3.4-5.0) g/dL Intake and Output 02/06/18 02/07/18 02/07/18 22:59 06:59 14:59 Intake Total 600 / 600 100 / 100 100 / 100 Output Total 1550 / 1550 1175 / 1175 Balance -950 / -950 -1075 / -1075 100 / 100 Intake: IV 100 / 100 100 / 100 Flexbumin 25% Inj 100 ML @ 60 100 / 100 100 / 100 mls/hr IV.SIG Q12H [facility] Rx#: [id number] Oral 500 / 500 100 / 100 Output: Urine 1550 / 1550 1175 / 1175 Other: Weight 36.8 kg Assessment and Plan - Assessment (1) Acute on chronic systolic congestive heart failure, NYHA class 3 Code(s): I50.23 - Acute on chronic systolic (congestive) heart failure Status : Acute (2) NICM (nonischemic cardiomyopathy) Code(s): I42.8 - Other cardiomyopathies Status: Acute (3) Acute kidney injury Code(s): N17.9 - Acute kidney failure, unspecified Status: Acute - Plan Acute on chronic systolic congestive heart failure Nonischemic cardiomyopathy EF 20% Cardiorenal syndrome clinically improved Continue Entresto, low dose carvedilol 3.125mg BID, digoxin 125 Creatinine returned to normal and nephrology has cleared for discharge Change Lasix 20 mg daily Dischargetoday Emphasize dietary salt restriction and medication compliance Case management may need to help us coordinate outpatient medication compliance. will sign off. call with questions
[2018-02-07] MEDS: Digoxin 125 MCG Tablet PO SCH (08:52)
[2018-02-07] MEDS ORDERED: Furosemide 20 MG Tablet PO SCH (09:00)
--- NOTE | 2018-02-07 10:59 | P.PNFP ---
Subjective Interval history: Patient seen and examined at bedside this morning. He reports that he is doing well. He denies chest pain, shortness of breath, lower extremity edema. He reports a cough when he lays down flat. He reports good urine output. He is tolerating his p.o. medications. The importance of follow-up with his primary care provider, remaining on a low-sodium diet, and continuing his medications at home were discussed. I also explained to him that I will be calling him with his HIV RNA viral load results. He voiced understanding. Case management was contacted to ensure that the patient would be able to afford his home medications. manager medical, Efra, spoke to the patient regarding access to his medications and the patient stated that he could not afford the medicines. manager medical gave the patient a coupon for NovoDynamicso. <Indu Ram - 02/07/18 11:47> Results - Labs Result diagrams: 02/07/18 04:12 02/07/18 04:12 <Gregg Adamson - 02/07/18 16:58> Abnormal lab results 02/07/18 02/07/18 Range/Units 04:12 04:12 RBC 4.14 L (4.50-5.90) mil/mm3 Hgb 12.3 L (13.0-17.0) gm/dL Hct 37.0 L (39.0-51.0) % Potassium 3.4 L (3.5-5.1) meq/L BUN 24 H (7-18) mg/dL Random Glucose 142 H (74-106) mg/dL Calcium 8.1 L (8.5-10.1) mg/dL AST 48 H (15-37) U/L Alkaline Phosphatase 135 H (45-117) U/L Albumin 3.1 L (3.4-5.0) g/dL Short CBC 02/07/18 Range/Units 04:12 WBC 5.4 (4.0-11.0) th/mm3 Hgb 12.3 L (13.0-17.0) gm/dL Hct 37.0 L (39.0-51.0) % Plt Count 371 (150-450) th/mm3 BMP 02/07/18 04:12 Sodium 138 Potassium 3.4 L Chloride 101 Carbon Dioxide 29.1 BUN 24 H Creatinine 1.05 Calcium 8.1 L Liver Function 02/07/18 Range/Units 04:12 Total Bilirubin 0.4 (0.2-1.0) mg/dL AST 48 H (15-37) U/L ALT 44 (12-78) U/L Alkaline Phosphatase 135 H (45-117) U/L Albumin 3.1 L (3.4-5.0) g/dL <Gregg Adamson - 02/07/18 16:58> Abnormal lab results 02/07/18 02/07/18 Range/Units 04:12 04:12 RBC 4.14 L (4.50-5.90) mil/mm3 Hgb 12.3 L (13.0-17.0) gm/dL Hct 37.0 L (39.0-51.0) % Potassium 3.4 L (3.5-5.1) meq/L BUN 24 H (7-18) mg/dL Random Glucose 142 H (74-106) mg/dL Calcium 8.1 L (8.5-10.1) mg/dL AST 48 H (15-37) U/L Alkaline Phosphatase 135 H (45-117) U/L Albumin 3.1 L (3.4-5.0) g/dL Short CBC 02/07/18 Range/Units 04:12 WBC 5.4 (4.0-11.0) th/mm3 Hgb 12.3 L (13.0-17.0) gm/dL Hct 37.0 L (39.0-51.0) % Plt Count 371 (150-450) th/mm3 BMP 02/07/18 04:12 Sodium 138 Potassium 3.4 L Chloride 101 Carbon Dioxide 29.1 BUN 24 H Creatinine 1.05 Calcium 8.1 L Liver Function 02/07/18 Range/Units 04:12 Total Bilirubin 0.4 (0.2-1.0) mg/dL AST 48 H (15-37) U/L ALT 44 (12-78) U/L Alkaline Phosphatase 135 H (45-117) U/L Albumin 3.1 L (3.4-5.0) g/dL <Indu Ram - 02/07/18 10:59> Physical Exam Vital signs: Vital Signs 02/06/18 20:00 02/07/18 00:00 02/07/18 04:00 Temperature 98.5 F 99.2 F 98.4 F Pulse Rate 117 H 117 H 110 H Respiratory Rate 16 14 16 Blood Pressure 127/81 119/82 133/89 Pulse Oximetry 99 97 99 02/07/18 06:00 02/07/18 07:48 02/07/18 08:00 Temperature 98.1 F Pulse Rate 107 H 120 H Respiratory Rate 16 Blood Pressure 133/83 Pulse Oximetry 98 99 02/07/18 08:15 02/07/18 11:25 02/07/18 12:00 Temperature 98.3 F Pulse Rate 117 H 109 H 113 H Respiratory Rate 16 Blood Pressure 139/85 Pulse Oximetry 98 Intake & Output 02/06/18 02/07/18 02/07/18 18:59 06:59 18:59 Intake Total 500 / 500 200 / 200 100 / 100 Output Total 1550 / 1550 1175 / 1175 Balance -1050 / -1050 -975 / -975 100 / 100 Weight 36.8 kg Intake: IV 100 / 100 100 / 100 Flexbumin 25% Inj 100 ML @ 60 100 / 100 100 / 100 mls/hr IV.SIG Q12H [facility] Rx#: [id number] Oral 500 / 500 100 / 100 Output: Urine 1550 / 1550 1175 / 1175 Other: Date of Last Bowel Movement 02/05/18 02/06/18 <Gregg Adamson - 02/07/18 16:58> Vital Signs 02/06/18 11:52 02/06/18 12:00 02/06/18 16:00 Temperature 99.1 F 98.2 F Pulse Rate 118 H 101 H Respiratory Rate 18 18 Blood Pressure 135/90 136/86 Pulse Oximetry 95 95 99 02/06/18 20:00 02/07/18 00:00 02/07/18 04:00 Temperature 98.5 F 99.2 F 98.4 F Pulse Rate 117 H 117 H 110 H Respiratory Rate 16 14 16 Blood Pressure 127/81 119/82 133/89 Pulse Oximetry 99 97 99 02/07/18 06:00 02/07/18 07:48 02/07/18 08:00 Temperature 98.1 F Pulse Rate 107 H 120 H Respiratory Rate 16 Blood Pressure 133/83 Pulse Oximetry 98 99 02/07/18 08:15 Temperature Pulse Rate 117 H Respiratory Rate Blood Pressure Pulse Oximetry Intake & Output 02/06/18 02/07/18 02/07/18 18:59 06:59 18:59 Intake Total 500 / 500 200 / 200 100 / 100 Output Total 1550 / 1550 1175 / 1175 Balance -1050 / -1050 -975 / -975 100 / 100 Weight 36.8 kg Intake: IV 100 / 100 100 / 100 Flexbumin 25% Inj 100 ML @ 60 100 / 100 100 / 100 mls/hr IV.SIG Q12H [facility] Rx#: [id number] Oral 500 / 500 100 / 100 Output: Urine 1550 / 1550 1175 / 1175 Other: Date of Last Bowel Movement 02/05/18 <Indu Ram - 02/07/18 10:59> Narrative: GENERAL: Pleasant, frail, resting comfortably in hospital bed in no acute distress HEAD: Atraumatic. Normocephalic. EYES: No scleral icterus. No injection or drainage. CARDIOVASCULAR: Regular rate and rhythm without murmurs, gallops, or rubs. RESPIRATORY: Clear to auscultation. Breath sounds equal bilaterally. No wheezes , rales, or rhonchi. GASTROINTESTINAL: Abdomen soft, non-tender. Positive bowel sounds. MUSCULOSKELETAL: no lower extremity edema NEUROLOGICAL: Awake and alert. Normal speech. <Indu Ram - 02/07/18 13:48> Assessment and Plan - Assessment (1) Acute exacerbation of CHF (congestive heart failure) Code(s): I50.9 - Heart failure, unspecified Status: Acute (2) Acute kidney injury Code(s): N17.9 - Acute kidney failure, unspecified Status: Acute (3) Acute hyponatremia Code(s): E87.1 - Hypo-osmolality and hyponatremia Status: Resolved (4) Hyperkalemia Code(s): E87.5 - Hyperkalemia Status: Resolved (5) NICM (nonischemic cardiomyopathy) Code(s): I42.8 - Other cardiomyopathies Status: Acute (6) ETOH abuse Code(s): F10.10 - Alcohol abuse, uncomplicated Status: Acute <Gregg Adamson - 02/07/18 16:58> (1) Acute exacerbation of CHF (congestive heart failure) Code(s): I50.9 - Heart failure, unspecified Status: Acute (2) Acute kidney injury Code(s): N17.9 - Acute kidney failure, unspecified Status: Acute (3) Acute hyponatremia Code(s): E87.1 - Hypo-osmolality and hyponatremia Status: Resolved (4) Hyperkalemia Code(s): E87.5 - Hyperkalemia Status: Resolved (5) NICM (nonischemic cardiomyopathy) Code(s): I42.8 - Other cardiomyopathies Status: Acute (6) ETOH abuse Code(s): F10.10 - Alcohol abuse, uncomplicated Status: Acute <Indu Ram - 02/07/18 13:44> - Assessment and Plan 42 year old man with PMH significant for severe systolic CHF, nonischemic cardiomyopathy, HIV and etoh abuse being admitted with acute on chronic CHF. Acute on chronic CHF - s/p 40 mg of IV Lasix in the ED - switch diuresis with Lasix 40 mg IV BID to 20 mg PO daily - Monitor I/Os - Daily weights - Fluid restriction w/1L per day - Low sodium diet - Consult cardiology, appreciate recommendations - Last echo was on 01/18/18 which showed severely reduced LV systolic function with an eEF of 20% - Continue carvedilol at 3.125 mg bid - Continue Entresto BID and digoxin 125 mcg daily per cardiology recommendations Acute on chronic kidney disease - Likely due to low renal perfusion pressure due to his severe systolic heart failure - Anticipate this may improve with diuresis - Cr on admission 1.72; today improved to 1.05 - Baseline creatinine ~1.1-1.2 - Consult nephrology, appreciate recommendations - Renal ultrasound showing increased echotexture of the renal parenchyma bilaterally consistent with medical renal disease - Continue to monitor renal function - Avoid nephrotoxic medications Hyponatremia - May be due to the patient's severe HF and water retention. Resolved Na @ 138 - Continue fluid restriction to 1L daily - Resolved - Monitor BMPs Hyperkalemia- RESOLVED - Continue to monitor - No T wave changes on EKG Hypokalemia - Continue Klor con 8 mEq daily Hypothyroidism Continue home levothyroxine Etoh abuse - [facility] protocol DVT ppx: b/l SCDs, ambulate as tolerated Dispo: Discharge today Pt SDW Dr Adamson and Dr. Kelly <Indu Ram - 02/07/18 13:48> - Attending Attestation The exam, history, and the medical decision-making described in the above note were completed with the assistance of the resident physician. I reviewed and agree with the findings presented. I attest that I had a [id number] encounter with the patient on the same day, and personally performed and documented my assessment and findings in the medical record. I agree with note above and performed my own exam as well. appears fluid neutral on exam today no crackles or edema. he is very thin. I personally discussed importance of follow up HIV testing and he verbalized understanding. he does have an entresto coupon but still may need to be switched to an ACEi as an outpatient for compliance if cost or coverage becomes an issue. he has already established with the [facility]. seems very stable today will need to leave with continual K replacement and will need outpt Hr and BP monitoring, some mild tachycardia could use BB increase. <Gregg Adamson - 02/07/18 16:58> <Indu Ram - Last Filed: 02/07/18 13:44> (1) Acute exacerbation of CHF (congestive heart failure) Qualifiers: Heart failure type: systolic Qualified Code(s): I50.23 - Acute on chronic systolic (congestive) heart failure <Gregg Adamson - Last Filed: 02/07/18 16:58> (1) Acute exacerbation of CHF (congestive heart failure) Qualifiers: Heart failure type: systolic Qualified Code(s): I50.23 - Acute on chronic systolic (congestive) heart failure <Indu Ram - Last Filed: 02/07/18 13:44> (1) Acute exacerbation of CHF (congestive heart failure) Qualifiers: Heart failure type: systolic Qualified Code(s): I50.23 - Acute on chronic systolic (congestive) heart failure <Gregg Adamson - Last Filed: 02/07/18 16:58> (1) Acute exacerbation of CHF (congestive heart failure) Qualifiers: Heart failure type: systolic Qualified Code(s): I50.23 - Acute on chronic systolic (congestive) heart failure
--- NOTE | 2018-02-07 11:47 | P.DS ---
Date of admission: 02/03/18 14:36 Primary care physician: UNKNOWN Brief History from admission: The patient is a 42 year old man with PMH of severe systolic CHF, nonischemic cardiomyopathy, and etoh abuse who was sent to the ED by his primary care provider at [facility] due to dyspnea. The patient reports worsening lower extremity swelling since recently being discharged from the hospital here. He was admitted here from 01/17 until 01/26 with an acute on chronic CHF exacerbation, SARTHAK, and elevated troponins. The patient had a recent 2D echo on 01/18 that showed severely reduced LV systolic function with an eEF of 20%. The patient denies chest pain. Endorses a mild dry cough when lying down. Denies abdominal pain, diarrhea, dysuria. Patient states he feels he has not had good UOP lately. Patient denies etoh intake in the past three weeks. States he was previously drinking about 12 beers daily for several years; endorses h/o heavy etoh drinking for the past 20 years. DS: Diagnosis - Discharge Diagnosis (1) Acute exacerbation of CHF (congestive heart failure) Status: Acute (2) Acute kidney injury Status: Acute (3) Acute hyponatremia Status: Resolved (4) Hyperkalemia Status: Resolved (5) NICM (nonischemic cardiomyopathy) Status: Acute (6) ETOH abuse Status: Acute DS: Medications - Discharge Medications Prescriptions: carvedilol [Coreg] 3.125 mg PO BID #60 tab digoxin 125 mcg PO DAILY 30 Days #30 tab furosemide 20 mg PO DAILY 30 Days #30 tab potassium chloride [Klor-Con 8] 8 meq PO BID 30 Days #60 tab sacubitril-valsartan [Entresto] 1 tab PO BID 30 Days #60 tab DS: Summary Hospital Course: 42-year-old male with a nonischemic congestive heart failure. He presented to the ED with severe bilateral lower extremity edema and shortness of breath after discontinuing his metoprolol. He was also found to have SARTHAK with a creatinine of 1.97. He also had multiple electrolyte abnormalities including hyponatremia, hyperkalemia. Nephrology were consulted. Patient was fluid restricted and diuresed with IV Lasix. He was started on carvedilol 3.125 mg twice daily, Entresto twice daily, digoxin 125 mcg daily. His dietary sodium was restricted. His electrolytes improved with diuresis as did his kidney function. On the day of discharge, his creatinine had normalized to 1.05. His intake and output balance was -6916mls. Of note, patient also has questionable HIV status. He reports that he had one positive HIV test and one negative HIV test and was told that he was HIV negative. HIV RNA PCR is pending. The patient will be contacted with these results. Patient was instructed to follow- up with his primary care provider at his [facility] clinic and research and development scientist, Dr. Fabian. Upon discharge patient was given a coupon for Entresto. If the patient is not able to continue this medication after the coupon is used, cardiology did recommend lisinopril 5 mg to replace Entresto. - Time Spent with Patient Total time spent providing and/or coordinating discharge services: Greater than 30 minutes - Quality: VTE Deep Vein Thrombosis/Pulmonary Embolism Present on Admission: No Exam Vital signs: Vital Signs 02/06/18 11:52 02/06/18 12:00 02/06/18 16:00 Temperature 99.1 F 98.2 F Pulse Rate 118 H 101 H Respiratory Rate 18 18 Blood Pressure 135/90 136/86 Pulse Oximetry 95 95 99 02/06/18 20:00 02/07/18 00:00 02/07/18 04:00 Temperature 98.5 F 99.2 F 98.4 F Pulse Rate 117 H 117 H 110 H Respiratory Rate 16 14 16 Blood Pressure 127/81 119/82 133/89 Pulse Oximetry 99 97 99 02/07/18 06:00 02/07/18 07:48 02/07/18 08:00 Temperature 98.1 F Pulse Rate 107 H 120 H Respiratory Rate 16 Blood Pressure 133/83 Pulse Oximetry 98 99 02/07/18 08:15 Temperature Pulse Rate 117 H Respiratory Rate Blood Pressure Pulse Oximetry Intake & Output 02/06/18 02/07/18 02/07/18 18:59 06:59 18:59 Intake Total 500 / 500 200 / 200 100 / 100 Output Total 1550 / 1550 1175 / 1175 Balance -1050 / -1050 -975 / -975 100 / 100 Weight 36.8 kg Intake: IV 100 / 100 100 / 100 Flexbumin 25% Inj 100 ML @ 60 100 / 100 100 / 100 mls/hr IV.SIG Q12H [facility] Rx#: [id number] Oral 500 / 500 100 / 100 Output: Urine 1550 / 1550 1175 / 1175 Other: Date of Last Bowel Movement 02/05/18 02/06/18 Results Procedures completed during hospitalization: none Labs on day of discharge: Labs from last 24 hours 02/07/18 02/07/18 04:12 04:12 WBC 5.4 RBC 4.14 L Hgb 12.3 L Hct 37.0 L MCV 89.3 MCH 29.8 MCHC 33.4 RDW 14.5 Plt Count 371 MPV 8.7 Sodium 138 Potassium 3.4 L Chloride 101 Carbon Dioxide 29.1 Anion Gap 8 BUN 24 H Creatinine 1.05 Estimated GFR Greater than 89 Random Glucose 142 H Calcium 8.1 L Total Bilirubin 0.4 AST 48 H ALT 44 Alkaline Phosphatase 135 H Total Protein 6.4 Albumin 3.1 L - Impressions ITS Impressions Chest X-Ray 02/03/18 12:09 CONCLUSION: Cardiomegaly with acute mild to moderate congestive changes. Abdomen/Bladder Ultrasound 02/04/18 18:12 CONCLUSION: 1. Ascites. 2. Increased echotexture of the renal parenchyma bilaterally characteristic of medical renal disease. 3. Bilateral pleural effusions. Discharge Plan - Discharge Disposition Patient Disposition: Discharge Home - Discharge Condition Condition: Stable - Discharge Order Discharge Orders: Discharge Order (Routine); Ordered 02/07/18 Ordered By: Indu Ram Cardiology Clear for Discharge (Routine); Ordered 02/07/18 Ordered By: Merlin Fabian - Physicians Team Primary Care Provider: UNKNOWN, Attending Provider: Cordell Wen Other Providers: Merlin Fabian MD ; Dewey Villegas MD
[2018-02-07 12:37] VITALS: BP 139/85; PULSE 113; TEMP 98.3; O2SAT 98
== END 2018-02-07 15:55 | disposition home or self-care (01) ==
LOC: NEPE 10:59 → NEDA 14:36 → N04 17:43
PROVIDERS: ADMIT Family Medicine; ATTEND Family Medicine